=== PATIENT | female | born 1970 | race Caucasian/White ===

== ENCOUNTER 2020-09-11 10:51 | Inpatient (IN) ==
[2020-09-11] MEDS ORDERED: SODIUM CHLORIDE 0.9% 1000ML 1,000 ML IV ONE (12:04)
--- NOTE | 2020-09-11 12:17 | Electrocardiogram Report ---
Test Reason : Blood Pressure : / mmHG Vent. Rate : 070 BPM Atrial Rate : 070 BPM P-R Int : 110 ms QRS Dur : 074 ms QT Int : 394 ms P-R-T Axes : 025 068 047 degrees QTc Int : 425 ms Sinus rhythm with short HI Nonspecific ST and T wave abnormality Abnormal ECG No previous ECGs available Confirmed by Adonay Pérez ([id number]) on 09/11/2020 12:17:16 PM Referred By: REFERRED SELF Confirmed By:Adonay Pérez
[2020-09-11 12:22] LABS: Basophils # (auto) 0.02 K/uL (0-0.2); Basophils % (auto) 0.5 %; Eosinophils # (auto) 0.32 K/uL (0-0.5); Eosinophils % (auto) 7.9 %; Hematocrit (blood only) 32.1 % (37-47); Lymphocytes # (auto) 1.06 K/uL (1.2-3.4); Lymphocytes % (auto) 26.1 %; Mean Corpuscular Hgb Conc 31.2 g/dL (32-36); Mean Corpuscular Volume 86.8 fL (80-100); Mean Platelet Volume 9.5 fL (7.4-10.4); Monocytes % (auto) 9.9 %; Neutrophils # (auto) 2.26 K/uL (1.4-6.5); Neutrophils % (auto) 55.6 %; Platelet Count 325 K/uL (130-400); RDW Coefficient of Variation 21.3 % (11.5-14.5); RDW Standard Deviation 67.7 fL (36.4-46.3); White Blood Count 4.06 K/uL (4.8-10.8)
[2020-09-11 12:29] LABS: Appearance Urine Clear (Clear); Bilirubin Urine Negative (Negative); Blood Urine Negative (Negative); Color Urine Yellow; Glucose Urine UA Negative (Negative); Ketones Urine Negative (Negative); Leukocyte Esterase Urine Negative (Negative); Nitrite Urine Negative (Negative); Protein Urine Negative (Negative); Specific Gravity Urine 1.019 (1.000-1.030); Urobilinogen Urine Negative (Negative)
--- NOTE | 2020-09-11 12:31 | Emergency Department Note ---
History of Present Illness General Chief complaint: Illness Stated complaint: ABD PAIN/THROWING UP BLOOD/CHEST PAIN Time Seen by Provider: 09/11/20 11:28 History of Present Illness Maximum Pain Intensity: 9 This patient is a pleasant 50-year-old female the presents ambulatory to the emergency department for evaluation of several episodes of coffee-ground emesis that occurred this morning. The patient has a history of gastric bypass approximately 20 years ago in [place]. She has had GI bleeds in the past. She reports a normal bowel movement yesterday. She is having a burning epigastric pain that has been fairly constant since this morning. No exacerbating or alleviating factors. The patient is currently on Protonix and Carafate, which she has taken regularly. She denies any fever. She has not contacted her surgeon as of yet Home Medications Medication Instructions Recorded Confirmed Type apixaban [Eliquis] 5 mg PO BID 09/11/20 09/11/20 History cyanocobalamin (vitamin B-12) 1,000 mcg IM MONTHLY 09/11/20 09/11/20 History multivitamin 1 tab PO QAM 09/11/20 09/11/20 History ondansetron HCl [Zofran] 8 mg PO Q12H PRN 09/11/20 09/11/20 History pantoprazole [Protonix] 40 mg PO BID 09/11/20 09/11/20 History ropinirole 0.25 mg PO TID 09/11/20 09/11/20 History sucralfate [Carafate] 15 ml PO TID 09/11/20 09/11/20 History trazodone 150 mg PO HS 09/11/20 09/11/20 History zolpidem [Ambien] 10 mg PO HS 09/11/20 09/11/20 History Allergies Allergy/AdvReac Type Severity Reaction Status Date / Time No Known Allergies Allergy Unverified 09/11/20 12:34 Past Med/Surg History Medical History Anemia Depression History of deep venous thrombosis or pulmonary embolus Insomnia Peptic ulcer disease RLS (restless legs syndrome) Surgical History Gastric bypass status for obesity History of appendectomy History of cholecystectomy Family History Other Adopted Social History Smoking Status: Never smoker Hx Alcohol Use: No Hx Substance Use: No 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 Beliefs That Will Affect Care: None marital status: Current Living Situation: Spouse Feels Safe at Home: Yes Review of Systems A total of 10 systems reviewed and were otherwise negative Physical Exam Vital Signs Vital Signs - 24 hr 09/11/20 11:06 09/11/20 12:20 09/11/20 12:30 Temperature 37.5 C Temperature Source Oral Pulse Rate 82 63 67 Pulse Rate from SpO2 Sensor 63 67 Respiratory Rate 19 19 22 Respiratory Effort / Characteristics Non-Labored Respiratory Depth Normal Blood Pressure 103/66 94/61 L Blood Pressure Mean 78 72 Pulse Oximetry 93 99 96 Oxygen Delivery Method Room Air Room Air Room Air Sepsis Recent Fever Within 48 Hours No Sepsis New/Unexplained Change in Mental Status No Sepsis Action Taken by Nursing No Action Required 09/11/20 12:31 09/11/20 12:40 09/11/20 12:50 Temperature Temperature Source Pulse Rate 66 67 69 Pulse Rate from SpO2 Sensor 67 67 68 Respiratory Rate 16 15 18 Respiratory Effort / Characteristics Respiratory Depth Blood Pressure Blood Pressure Mean Pulse Oximetry 96 97 98 Oxygen Delivery Method Room Air Room Air Room Air Sepsis Recent Fever Within 48 Hours Sepsis New/Unexplained Change in Mental Status Sepsis Action Taken by Nursing 09/11/20 13:00 09/11/20 13:01 09/11/20 13:10 Temperature Temperature Source Pulse Rate 70 64 72 Pulse Rate from SpO2 Sensor 65 64 Respiratory Rate 22 23 15 Respiratory Effort / Characteristics Respiratory Depth Blood Pressure 97/63 L Blood Pressure Mean 74 Pulse Oximetry 95 96 Oxygen Delivery Method Room Air Room Air Room Air Sepsis Recent Fever Within 48 Hours Sepsis New/Unexplained Change in Mental Status Sepsis Action Taken by Nursing 09/11/20 13:27 09/11/20 13:30 09/11/20 13:31 Temperature Temperature Source Pulse Rate 71 63 64 Pulse Rate from SpO2 Sensor 69 64 64 Respiratory Rate 20 24 22 Respiratory Effort / Characteristics Respiratory Depth Blood Pressure 98/69 L Blood Pressure Mean 78 Pulse Oximetry 100 98 98 Oxygen Delivery Method Room Air Room Air Room Air Sepsis Recent Fever Within 48 Hours Sepsis New/Unexplained Change in Mental Status Sepsis Action Taken by Nursing 09/11/20 13:40 09/11/20 13:50 09/11/20 14:00 Temperature Temperature Source Pulse Rate 63 63 61 Pulse Rate from SpO2 Sensor 62 62 61 Respiratory Rate 20 20 21 Respiratory Effort / Characteristics Respiratory Depth Blood Pressure 98/60 L Blood Pressure Mean 72 Pulse Oximetry 99 95 99 Oxygen Delivery Method Room Air Room Air Room Air Sepsis Recent Fever Within 48 Hours Sepsis New/Unexplained Change in Mental Status Sepsis Action Taken by Nursing 09/11/20 14:01 09/11/20 14:10 09/11/20 14:20 Temperature Temperature Source Pulse Rate 60 59 L 62 Pulse Rate from SpO2 Sensor 59 L 60 61 Respiratory Rate 13 16 14 Respiratory Effort / Characteristics Respiratory Depth Blood Pressure Blood Pressure Mean Pulse Oximetry 99 95 96 Oxygen Delivery Method Room Air Room Air Room Air Sepsis Recent Fever Within 48 Hours Sepsis New/Unexplained Change in Mental Status Sepsis Action Taken by Nursing Constitutional WD/WN, vitals as above Eyes EOM intact bilaterally ENMT Oral mucosa slightly dry. Neck trachea midline Respiratory normal respiratory effort, lungs clear to auscultation Cardiovascular RRR, no murmur, no edema Gastrointestinal (Abdomen) Tenderness to palpation in the epigastric region. No guarding or rebound tenderness. Bowel sounds present, but hypoactive in all 4 quadrants Musculoskeletal no cyanosis or clubbing, extremities motor strength 5/5 Skin no rashes, warm and dry Neurologic Alert and oriented x3. No focal motor deficits. Psychiatric Acting appropriately Course Course Patient was seen and examined Vital signs including blood pressure were reviewed medications list was verified with patient Labs were obtained, and a saline lock was established An order was placed for continuous cardiac monitoring. The monitor shows a rate of 78 with normal sinus rhythm." The patient was ordered Protonix and fluids. A saline lock was established in addition to her port being accessed. The patient was reevaluated and still complaining of pain. She was ordered 0.5 mg of Dilaudid in addition to Zofran 4 mg as she is still nauseated. The case was discussed with my supervising physician who is in agreement with my plan The case was discussed with the [facility] service who kindly agreed to evaluate the patient for likely inpatient management. The patient remained stable in the emergency department. Consultations Consultation #1: dr. barton Administered Medications Hydromorphone HCl (Hydromorphone Inj 0.5 Mg/0.5 Ml Syr) 0.5 mg IV Q4 PRN PRN Reason: Pain Stop: 09/25/20 16:49 Last Admin: 09/11/20 17:16 Dose: 0.5 mg Documented by: [id number] Pantoprazole Sodium 40 mg/ (Dextrose) 100 mls @ 20 mls/hr IV Q5H ADAN Stop: 10/11/20 12:14 Last Admin: 09/11/20 13:35 Dose: 8 mg/hr, 20 mls/hr Documented by: [id number] Discontinued Medications Hydromorphone HCl (Hydromorphone Inj 0.5 Mg/0.5 Ml Syr) 0.5 mg IV NOW STA Stop: 09/11/20 13:41 Last Admin: 09/11/20 13:43 Dose: 0.5 mg Documented by: [id number] Sodium Chloride (Nss 1000ml) 1,000 mls @ 999 mls/hr IV .Q1H1M ONE Stop: 09/11/20 13:04 Last Infusion: 09/11/20 13:57 Dose: 0 mls/hr Documented by: [id number] Admin: 09/11/20 12:47 Dose: 999 mls/hr Documented by: [id number] Ioversol (Ioversol 100ml) 94 ml IV ONCE ONE Stop: 09/11/20 13:15 Last Admin: 09/11/20 13:15 Dose: 94 ml Documented by: [id number] Morphine Sulfate (Morphine Sulfate 4 Mg/Ml 1 Ml Carp\\Vial) 4 mg IV NOW STA Stop: 09/11/20 12:42 Last Admin: 09/11/20 12:47 Dose: 4 mg Documented by: [id number] Ondansetron HCl (Ondansetron Inj 2 Mg/Ml 2 Ml Vial) 4 mg IV NOW STA Stop: 09/11/20 12:42 Last Admin: 09/11/20 12:47 Dose: 4 mg Documented by: [id number] Medical Decision Making Home Medications Current Medication List: was personally reviewed by me Laboratory Data Attestation: I reviewed the patient's lab results. Result diagrams: 09/11/20 15:40 09/11/20 11:25 Lab Results 09/11/20 09/11/20 09/11/20 Range/Units 11:25 11:25 11:25 WBC 4.06 L (4.8-10.8) K/uL RBC 3.70 L (4.2-5.4) M/uL Hgb 10.0 L (12.0-16.0) g/dL Hct 32.1 L (37-47) % MCV 86.8 (80-100) fL MCH 27.0 (25-34) pg MCHC 31.2 L (32-36) g/dL RDW Std Deviation 67.7 H (36.4-46.3) fL RDW Coeff of Abhijeet 21.3 H (11.5-14.5) % Plt Count 325 (130-400) K/uL MPV 9.5 (7.4-10.4) fL Immature Gran % (Auto) 0.0 % Neut % (Auto) 55.6 % Lymph % (Auto) 26.1 % [place] % (Auto) 9.9 % Eos % (Auto) 7.9 % Baso % (Auto) 0.5 % Neut # (Auto) 2.26 (1.4-6.5) K/uL Lymph # (Auto) 1.06 L (1.2-3.4) K/uL [place] # (Auto) 0.40 (0.11-0.59) K/uL Eos # (Auto) 0.32 (0-0.5) K/uL Baso # (Auto) 0.02 (0-0.2) K/uL Immature Gran # (Auto) 0.00 (0.00-0.02) K/uL Anisocytosis Present PT (9.0-12.0) Seconds INR (0.9-1.1) Sodium 141 (136-145) mmol/L Potassium 3.8 (3.5-5.1) mmol/L Chloride 111 H (98-107) mmol/L Carbon Dioxide 25 (21-32) mmol/L Anion Gap 5.0 (3-11) BUN 10 (7-18) mg/dl Creatinine 0.75 (0.6-1.2) mg/dl Est Cr Clr Drug Dosing 75.9 ml/min Est GFR ( Amer) 109.2 Est GFR (Non-Af Amer) 94.3 BUN/Creatinine Ratio 12.7 (10-20) Glucose 88 (70-99) mg/dl Calcium 8.5 (8.5-10.1) mg/dl Magnesium 2.0 (1.8-2.4) mg/dl Total Bilirubin 0.2 (0.2-1) mg/dl AST 13 L (15-37) U/L ALT 17 (12-78) U/L Alkaline Phosphatase 121 H (45-117) U/L Troponin I < 0.015 (0-0.045) ng/ml Total Protein 6.4 (6.4-8.2) gm/dl Albumin 3.0 L (3.4-5.0) gm/dl Globulin 3.4 (2.5-4.0) gm/dl Albumin/Globulin Ratio 0.9 (0.9-2) Urine Color Urine Appearance (Clear) Urine pH (4.5-7.5) Ur Specific [place] (1.000-1.030) Urine Protein (Negative) Urine Glucose (UA) (Negative) Urine Ketones (Negative) Urine Blood (Negative) Urine Nitrite (Negative) Urine Bilirubin (Negative) Urine Urobilinogen (Negative) Ur Leukocyte Esterase (Negative) Blood Type A Negative Antibody Screen NEGATIVE 09/11/20 09/11/20 09/11/20 Range/Units 11:25 12:15 15:40 WBC (4.8-10.8) K/uL RBC (4.2-5.4) M/uL Hgb 9.6 L (12.0-16.0) g/dL Hct 30.2 L (37-47) % MCV (80-100) fL MCH (25-34) pg MCHC (32-36) g/dL RDW Std Deviation (36.4-46.3) fL RDW Coeff of Abhijeet (11.5-14.5) % Plt Count (130-400) K/uL MPV (7.4-10.4) fL Immature Gran % (Auto) % Neut % (Auto) % Lymph % (Auto) % [place] % (Auto) % Eos % (Auto) % Baso % (Auto) % Neut # (Auto) (1.4-6.5) K/uL Lymph # (Auto) (1.2-3.4) K/uL [place] # (Auto) (0.11-0.59) K/uL Eos # (Auto) (0-0.5) K/uL Baso # (Auto) (0-0.2) K/uL Immature Gran # (Auto) (0.00-0.02) K/uL Anisocytosis PT 10.3 (9.0-12.0) Seconds INR 1.0 (0.9-1.1) Sodium (136-145) mmol/L Potassium (3.5-5.1) mmol/L Chloride (98-107) mmol/L Carbon Dioxide (21-32) mmol/L Anion Gap (3-11) BUN (7-18) mg/dl Creatinine (0.6-1.2) mg/dl Est Cr Clr Drug Dosing ml/min Est GFR ( Amer) Est GFR (Non-Af Amer) BUN/Creatinine Ratio (10-20) Glucose (70-99) mg/dl Calcium (8.5-10.1) mg/dl Magnesium (1.8-2.4) mg/dl Total Bilirubin (0.2-1) mg/dl AST (15-37) U/L ALT (12-78) U/L Alkaline Phosphatase (45-117) U/L Troponin I (0-0.045) ng/ml Total Protein (6.4-8.2) gm/dl Albumin (3.4-5.0) gm/dl Globulin (2.5-4.0) gm/dl Albumin/Globulin Ratio (0.9-2) Urine Color Yellow Urine Appearance Clear (Clear) Urine pH 5.0 (4.5-7.5) Ur Specific [place] 1.019 (1.000-1.030) Urine Protein Negative (Negative) Urine Glucose (UA) Negative (Negative) Urine Ketones Negative (Negative) Urine Blood Negative (Negative) Urine Nitrite Negative (Negative) Urine Bilirubin Negative (Negative) Urine Urobilinogen Negative (Negative) Ur Leukocyte Esterase Negative (Negative) Blood Type Antibody Screen Imaging Data Attestation: I personally reviewed and interpreted this imaging study as follows: Radiologist's Impression: CT abdomen and pelvis with IV contrast only IMPRESSION: 1. No bowel obstruction or bowel wall thickening. 2. Prior gastric bypass, cholecystectomy, hysterectomy and findings suggestive of appendectomy. 3. Moderate fecal retention. ACT 112: Negative or not required by law. The above report was generated using voice recognition software. It may contain grammatical, syntax or spelling errors. Electronically signed by: Filippo Duncan M.D. 09/11/2020 1:36 PM Dictated: 09/11/20 1323 Transcribed: 09/11/20 1323 [facility] Narrative Differential diagnosis: GI bleed, pancreatitis, gastritis, infectious etiology, cardiac disease, among others were considered This patient is a 50-year-old female who presents emergency department with complaints of coffee-ground emesis and of epigastric pain that started this morning. On exam, she was slightly hypotensive. The patient notes that this is a typical blood pressure for her. Otherwise, her vital signs were unremarkable. Her labs reveal a stable H&H with a hemoglobin of 10. LFTs, electrolytes and renal function within normal limits. The patient does have a history of gastric bypass with several revisions. Although she was guaiac negative on her rectal exam, I am concerned about a GI bleed. I am also concerned as the patient is on Eliquis for a recent PE. For these reasons, it was felt that it was necessary to consult the hospitalist for likely inpatient management. She was treated with Protonix and fluids in the emergency department and remained stable. Impression & Plan Acute GI bleeding Discharge Plan Visit Data Chief Complaint: Illness Stated Complaint: ABD PAIN/THROWING UP BLOOD/CHEST PAIN ED Provider: Beverley Hahn ED Midlevel Provider: Jacqueline Aguilar Discharge Problem: Acute GI bleeding Patient Disposition: Admitted As Inpatient Discharge Instructions Interventions: ED Discharge Assessment Last Done: 09/11/20 19:15
[2020-09-11 12:32] LABS: Prothrombin Time 10.3 Seconds (9.0-12.0)
[2020-09-11] MEDS ORDERED: MoRPHine SULFATE 4 MG/ML 1 ML CARP\\VIAL IV STA (12:41)
[2020-09-11] MEDS ORDERED: ONDANSETRON INJ 2 MG/ML 2 ML VIAL IV STA (12:41)
[2020-09-11 12:43] LABS: Anisocytosis Present
[2020-09-11 12:45] LABS: Alanine Aminotransferase 17 U/L (12-78); Aspartate Aminotransferase 13 U/L (15-37); BUN Creatinine Ratio 12.7 (10-20); Blood Urea Nitrogen 10 mg/dl (7-18); Calcium 8.5 mg/dl (8.5-10.1); Carbon Dioxide 25 mmol/L (21-32); Chloride 111 mmol/L (98-107); Creatinine Clr Calc Pharmacy 75.9 ml/min; Est GFR (African American) 109.2; Est GFR (Non-African American) 94.3; Glucose 88 mg/dl (70-99); Potassium 3.8 mmol/L (3.5-5.1); Sodium 141 mmol/L (136-145)
[2020-09-11 12:49] LABS: Albumin Globulin Ratio 0.9 (0.9-2); Alkaline Phosphatase 121 U/L (45-117); Bilirubin,Total 0.2 mg/dl (0.2-1); Globulin 3.4 gm/dl (2.5-4.0); Total Protein 6.4 gm/dl (6.4-8.2); Troponin I < 0.015 ng/ml (0-0.045)
[2020-09-11] MEDS ORDERED: OPTIRAY 320 100ml IV ONE (13:14)
[2020-09-11] MEDS: PANTOprazole 40 MG in DEXTROSE 5% 100 ML IV SCH ×3 (13:35→23:02)
--- NOTE | 2020-09-11 13:37 | CT Scan Report ---
ABDOMEN AND PELVIS CT WITH IV CONTRAST CT DOSE: 284.41 mGy.cm HISTORY: Acute hematemesis with prior gastric bypass gi bleed hx of bypass TECHNIQUE: Multiaxial CT images of the abdomen and pelvis were performed following the IV administrat ion of 94 cc of Optiray 320, A dose lowering technique was utilized adhering to the principles of [place] HENRY. COMPARISON STUDY: None. FINDINGS: Eventration of the right hemidiaphragm. Partially imaged catheter is noted within the right atrium. Imaged inferior cardiac chambers are unremarkable. 4 mm solid nodule of the left lower lobe on image 17. Trace left pleural effusion. No pneumatosis or pneumoperitoneum. The spleen, pancreas an d adrenal glands are unremarkable. Cholecystectomy. Mild intrahepatic and extrahepatic biliary ductal dilation is likely a postsurgical basis. Patency of the hepatic and portal veins. Probable cyst of t he left hepatic lobe is 6 mm. Ill-defined subcapsular decreased attenuation of the left hepatic lobe suggest areas of focal fatty infiltration. Normal kidneys, ureters and urinary bladder. Hysterectomy. Numerous phleboliths of the pelvis. No aor tic aneurysm. Unremarkable IVC. No adenopathy. Postoperative changes of prior Eamon-en-Y gastric bypas s. No bowel obstruction or bowel wall thickening. Mild to moderate fecal retention. Surgical clips ar e noted adjacent to the transverse colon. Surgical suture material of the cecum suggests appendectomy . Appendix not visualized. No ascites or mesenteric inflammation. Unremarkable soft tissues. No acute fracture. L5 vertebral body hemangioma. IMPRESSION: 1. No bowel obstruction or bowel wall thickening. 2. Prior gastric bypass, cholecystectomy, hysterectomy and findings suggestive of appendectomy. 3. Moderate fecal retention. ACT 112: Negative or not required by law. The above report was generated using voice recognition software. It may contain grammatical, syntax o r spelling errors. Electronically signed by: Filippo Duncan M.D. 09/11/2020 1:36 PM
[2020-09-11] MEDS ORDERED: HYDROmorphone INJ 0.5 MG/0.5 ML SYR IV STA (13:40)
[2020-09-11 16:01] LABS: Hematocrit (blood only) 30.2 % (37-47); Hemoglobin 9.6 g/dL (12.0-16.0)
--- NOTE | 2020-09-11 16:52 | History & Physical Report ---
Date of Service September 11, 2020 Assessment & Plan (1) Anemia: Presents with acute on chronic blood loss anemia With a history of multiple GI bleeds, twice requiring revision of her Eamon-en-Y anastomosis with [facility]. Most recent GI bleed was in 2019 and was treated at [facility] where she is from. She has been on Protonix twice daily and Carafate since that time. No NSAID or aspirin use but has been on Eliquis since 06/2020 for her recent PE. Hemoglobin 10.0 on arrival and down to 9.6 several hours later on recheck. She believes her baseline hemoglobin is 10-11. She is currently hemodynamically stable-her baseline blood pressure is always in the 90s over 60s and remains that here; her heart rate is in the 60s -Admit to PCU for telemetry monitoring -Serial CBCs -Consult gastroenterology-discussed care on the phone with Dr. Santana- recommended PPI drip, starting misoprostol, n.p.o. except chips and sips, serial CBC, and plan for EGD on Sunday unless decompensates hemodynamically in which case EGD would be performed more urgently. -Hold Eliquis -Discussed possibility of giving PCC with Dr. Petty who recommended against it at this time but if patient became hemodynamically unstable, could consider this -Transfuse if hemoglobin continues to drop and continues to have evidence of bleeding-blood consent was obtained (2) Peptic ulcer disease: As noted above Hold home Carafate in case need for EGD as it would obscure visibility Continuing IV PPI (3) History of deep venous thrombosis or pulmonary embolus: With a history of DVTs many years ago which was treated with Lovenox SQ Had PE diagnosed 06/2020 in the setting of Covid infection just prior to that. She reports she did not have DVTs at that time on Doppler. I do not have any of these records available. She does report that the blood clot in her lung was not tiny but was not large. 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 However, given that she has little to no stomach left due to her surgeries, DOAC's are not recommended and likely Lovenox would be her best choice moving forward. Will check venous Dopplers of the lower extremities. If she has evidence of acute DVT, could be considered for IVC filter (4) Gastric bypass status for obesity: As noted above Receives IM B12 shots at home Hold home multivitamin (5) Depression: Continue home trazodone (6) Insomnia: Continue trazodone, Ambien (7) RLS (restless legs syndrome): Continue home ropinirole (8) DVT prophylaxis: SCDs only as long as Dopplers negative Disposition-admit to PCU Full code History of Present Illness Chief Complaint: Vomiting blood Primary Care Provider: NO PCP This patient is a 50-year-old female with history of Eamon-en-Y gastric bypass 20 years ago, recurrent GI bleeds requiring to partial gastrectomies/revision of anastomosis in 2006 [facility], recurrent DVT/PE on Eliquis, insomnia and depression, who presents to the ER with 6 episodes of coffee-ground hematemesis that started suddenly this morning. She has epigastric abdominal pain and continued nausea. She denies any melena or bright red blood per rectum, no lower abdominal pain. She denies any history of aspirin or NSAID use, but is on Eliquis since she had a PE in June 2020 1 month after she had Covid. She denies chest pain or shortness of breath, denies lightheadedness. Her blood pressures in the ER were in the 90s over 60s which she reports is normal for her. Her last dose of Eliquis was the morning of 09/11. In the ER, she had a hemoglobin of 10.0 and she reports her baseline is somewhere around 11. She then had a repeat hemoglobin 4 hours later which was 9.6. Otherwise her laboratory values were fairly unremarkable. Coags with PT/INR was normal. A CT of the abdomen/pelvis showed postoperative changes of prior Eamon-en-Y gastric bypass, no bowel obstruction or bowel wall thickening, mild to moderate fecal retention, status post cholecystectomy and appendectomy, otherwise no acute changes. Allergies Allergy/AdvReac Type Severity Reaction Status Date / Time No Known Allergies Allergy Unverified 09/11/20 12:34 Home Medications Medication Instructions Recorded Confirmed Type apixaban [Eliquis] 5 mg PO BID 09/11/20 09/11/20 History cyanocobalamin (vitamin B-12) 1,000 mcg IM MONTHLY 09/11/20 09/11/20 History multivitamin 1 tab PO QAM 09/11/20 09/11/20 History ondansetron HCl [Zofran] 8 mg PO Q12H PRN 09/11/20 09/11/20 History pantoprazole [Protonix] 40 mg PO BID 09/11/20 09/11/20 History ropinirole 0.25 mg PO TID 09/11/20 09/11/20 History sucralfate [Carafate] 15 ml PO TID 09/11/20 09/11/20 History trazodone 150 mg PO HS 09/11/20 09/11/20 History zolpidem [Ambien] 10 mg PO HS 09/11/20 09/11/20 History Past Med/Surg History Medical History (Updated 09/11/20 @ 18:26 by Kristie Chapman MD) Anemia Depression History of deep venous thrombosis or pulmonary embolus Insomnia Peptic ulcer disease RLS (restless legs syndrome) Surgical History Gastric bypass status for obesity History of appendectomy History of cholecystectomy Family History Other Adopted Social History (Updated 09/11/20 @ 18:11 by Kristie Chapman MD) Smoking Status: Former smoker Hx Alcohol Use: No Hx Substance Use: No marital status: Current Living Situation: Spouse Feels Safe at Home: Yes Review of Systems Review of Systems: All systems reviewed & are unremarkable except as noted in HPI & below Physical Exam Constitutional: WD/WN, vitals as above Eyes: + anicteric sclerae; no conjunctival abnormality ENMT: external ear and nose normal, oropharynx normal Neck: trachea midline, no thyromegaly Respiratory: normal respiratory effort, lungs clear to auscultation Cardiovascular: RRR, no murmur, no edema Extremities: no calf tenderness Chest (Breasts): Chest: normal inspection of chest Gastrointestinal (Abdomen): Inspection/Auscultation: normal bowel sounds; + abdomen abnormal to inspection (Midline surgical incision scar) Percussion/Palpation: + abdomen tender (In epigastric region without guarding or rebound) and abdomen soft; no guarding Musculoskeletal: Extremities: extremities normal to inspection; no cyanosis and no clubbing Skin: no rashes, warm and dry Neurologic: moves all extremities and awake; no focal motor deficits Psychiatric: A+Ox3, euthymic affect Lymphatic: no lymphedema Results & Data Results & Data ([facility]) Vital Signs (Past 12 Hours) Vital Signs Temp Pulse Resp BP Pulse Ox 09/11/20 14:20 62 14 96 09/11/20 14:10 59 L 16 95 09/11/20 14:01 60 13 99 09/11/20 14:00 61 21 98/60 L 99 09/11/20 13:50 63 20 95 09/11/20 13:40 63 20 99 09/11/20 13:31 64 22 98 09/11/20 13:30 63 24 98/69 L 98 09/11/20 13:27 71 20 100 09/11/20 13:10 72 15 09/11/20 13:01 64 23 96 09/11/20 13:00 70 22 97/63 L 95 09/11/20 12:50 69 18 98 09/11/20 12:40 67 15 97 09/11/20 12:31 66 16 96 09/11/20 12:30 67 22 94/61 L 96 09/11/20 12:20 63 19 99 09/11/20 11:06 37.5 C 82 19 103/66 93 Laboratory Results 09/11/20 09/11/20 09/11/20 Range/Units 17:59 17:59 15:40 WBC (4.8-10.8) K/uL RBC (4.2-5.4) M/uL Hgb 9.6 L (12.0-16.0) g/dL Hct 30.2 L (37-47) % MCV (80-100) fL MCH (25-34) pg MCHC (32-36) g/dL RDW Std Deviation (36.4-46.3) fL RDW Coeff of Abhijeet (11.5-14.5) % Plt Count (130-400) K/uL MPV (7.4-10.4) fL Immature Gran % (Auto) % Neut % (Auto) % Lymph % (Auto) % Sumner % (Auto) % Eos % (Auto) % Baso % (Auto) % Neut # (Auto) (1.4-6.5) K/uL Lymph # (Auto) (1.2-3.4) K/uL Sumner # (Auto) (0.11-0.59) K/uL Eos # (Auto) (0-0.5) K/uL Baso # (Auto) (0-0.2) K/uL Immature Gran # (Auto) (0.00-0.02) K/uL Anisocytosis PT (9.0-12.0) Seconds INR (0.9-1.1) Sodium (136-145) mmol/L Potassium (3.5-5.1) mmol/L Chloride (98-107) mmol/L Carbon Dioxide (21-32) mmol/L Anion Gap (3-11) BUN (7-18) mg/dl Creatinine (0.6-1.2) mg/dl Est Cr Clr Drug Dosing ml/min Est GFR ( Amer) Est GFR (Non-Af Amer) BUN/Creatinine Ratio (10-20) Glucose (70-99) mg/dl Calcium (8.5-10.1) mg/dl Magnesium (1.8-2.4) mg/dl Total Bilirubin (0.2-1) mg/dl AST (15-37) U/L ALT (12-78) U/L Alkaline Phosphatase (45-117) U/L Troponin I (0-0.045) ng/ml Total Protein (6.4-8.2) gm/dl Albumin (3.4-5.0) gm/dl Globulin (2.5-4.0) gm/dl Albumin/Globulin Ratio (0.9-2) Urine Color Urine Appearance (Clear) Urine pH (4.5-7.5) Ur Specific Downing (1.000-1.030) Urine Protein (Negative) Urine Glucose (UA) (Negative) Urine Ketones (Negative) Urine Blood (Negative) Urine Nitrite (Negative) Urine Bilirubin (Negative) Urine Urobilinogen (Negative) Ur Leukocyte Esterase (Negative) COVID-19 Eval [facility] SARS-[facility]-2, RNA, NAAT Pending Blood Type Antibody Screen 09/11/20 09/11/20 09/11/20 Range/Units 12:15 11:25 11:25 WBC (4.8-10.8) K/uL RBC (4.2-5.4) M/uL Hgb (12.0-16.0) g/dL Hct (37-47) % MCV (80-100) fL MCH (25-34) pg MCHC (32-36) g/dL RDW Std Deviation (36.4-46.3) fL RDW Coeff of Abhijeet (11.5-14.5) % Plt Count (130-400) K/uL MPV (7.4-10.4) fL Immature Gran % (Auto) % Neut % (Auto) % Lymph % (Auto) % Sumner % (Auto) % Eos % (Auto) % Baso % (Auto) % Neut # (Auto) (1.4-6.5) K/uL Lymph # (Auto) (1.2-3.4) K/uL Sumner # (Auto) (0.11-0.59) K/uL Eos # (Auto) (0-0.5) K/uL Baso # (Auto) (0-0.2) K/uL Immature Gran # (Auto) (0.00-0.02) K/uL Anisocytosis PT 10.3 (9.0-12.0) Seconds INR 1.0 (0.9-1.1) Sodium 141 (136-145) mmol/L Potassium 3.8 (3.5-5.1) mmol/L Chloride 111 H (98-107) mmol/L Carbon Dioxide 25 (21-32) mmol/L Anion Gap 5.0 (3-11) BUN 10 (7-18) mg/dl Creatinine 0.75 (0.6-1.2) mg/dl Est Cr Clr Drug Dosing 75.9 ml/min Est GFR ( Amer) 109.2 Est GFR (Non-Af Amer) 94.3 BUN/Creatinine Ratio 12.7 (10-20) Glucose 88 (70-99) mg/dl Calcium 8.5 (8.5-10.1) mg/dl Magnesium 2.0 (1.8-2.4) mg/dl Total Bilirubin 0.2 (0.2-1) mg/dl AST 13 L (15-37) U/L ALT 17 (12-78) U/L Alkaline Phosphatase 121 H (45-117) U/L Troponin I < 0.015 (0-0.045) ng/ml Total Protein 6.4 (6.4-8.2) gm/dl Albumin 3.0 L (3.4-5.0) gm/dl Globulin 3.4 (2.5-4.0) gm/dl Albumin/Globulin Ratio 0.9 (0.9-2) Urine Color Yellow Urine Appearance Clear (Clear) Urine pH 5.0 (4.5-7.5) Ur Specific Downing 1.019 (1.000-1.030) Urine Protein Negative (Negative) Urine Glucose (UA) Negative (Negative) Urine Ketones Negative (Negative) Urine Blood Negative (Negative) Urine Nitrite Negative (Negative) Urine Bilirubin Negative (Negative) Urine Urobilinogen Negative (Negative) Ur Leukocyte Esterase Negative (Negative) COVID-19 Eval Order SARS-CoV-2, RNA, NAAT Blood Type Antibody Screen 09/11/20 09/11/20 Range/Units 11:25 11:25 WBC 4.06 L (4.8-10.8) K/uL RBC 3.70 L (4.2-5.4) M/uL Hgb 10.0 L (12.0-16.0) g/dL Hct 32.1 L (37-47) % MCV 86.8 (80-100) fL MCH 27.0 (25-34) pg MCHC 31.2 L (32-36) g/dL RDW Std Deviation 67.7 H (36.4-46.3) fL RDW Coeff of Abhijeet 21.3 H (11.5-14.5) % Plt Count 325 (130-400) K/uL MPV 9.5 (7.4-10.4) fL Immature Gran % (Auto) 0.0 % Neut % (Auto) 55.6 % Lymph % (Auto) 26.1 % Sumner % (Auto) 9.9 % Eos % (Auto) 7.9 % Baso % (Auto) 0.5 % Neut # (Auto) 2.26 (1.4-6.5) K/uL Lymph # (Auto) 1.06 L (1.2-3.4) K/uL Sumner # (Auto) 0.40 (0.11-0.59) K/uL Eos # (Auto) 0.32 (0-0.5) K/uL Baso # (Auto) 0.02 (0-0.2) K/uL Immature Gran # (Auto) 0.00 (0.00-0.02) K/uL Anisocytosis Present PT (9.0-12.0) Seconds INR (0.9-1.1) Sodium (136-145) mmol/L Potassium (3.5-5.1) mmol/L Chloride (98-107) mmol/L Carbon Dioxide (21-32) mmol/L Anion Gap (3-11) BUN (7-18) mg/dl Creatinine (0.6-1.2) mg/dl Est Cr Clr Drug Dosing ml/min Est GFR ( Amer) Est GFR (Non-Af Amer) BUN/Creatinine Ratio (10-20) Glucose (70-99) mg/dl Calcium (8.5-10.1) mg/dl Magnesium (1.8-2.4) mg/dl Total Bilirubin (0.2-1) mg/dl AST (15-37) U/L ALT (12-78) U/L Alkaline Phosphatase (45-117) U/L Troponin I (0-0.045) ng/ml Total Protein (6.4-8.2) gm/dl Albumin (3.4-5.0) gm/dl Globulin (2.5-4.0) gm/dl Albumin/Globulin Ratio (0.9-2) Urine Color Urine Appearance (Clear) Urine pH (4.5-7.5) Ur Specific Downing (1.000-1.030) Urine Protein (Negative) Urine Glucose (UA) (Negative) Urine Ketones (Negative) Urine Blood (Negative) Urine Nitrite (Negative) Urine Bilirubin (Negative) Urine Urobilinogen (Negative) Ur Leukocyte Esterase (Negative) COVID-19 Eval Order SARS-CoV-2, RNA, NAAT Blood Type A Negative Antibody Screen NEGATIVE Diagnostic Findings ABDOMEN AND PELVIS CT WITH IV CONTRAST CT DOSE: 284.41 mGy.cm HISTORY: Acute hematemesis with prior gastric bypass gi bleed hx of bypass TECHNIQUE: Multiaxial CT images of the abdomen and pelvis were performed following the IV administration of 94 cc of Optiray 320, A dose lowering technique was utilized adhering to the principles of ALARA. COMPARISON STUDY: None. FINDINGS: Eventration of the right hemidiaphragm. Partially imaged catheter is noted within the right atrium. Imaged inferior cardiac chambers are unremarkable. 4 mm solid nodule of the left lower lobe on image 17. Trace left pleural effusion. No pneumatosis or pneumoperitoneum. The spleen, pancreas and adrenal glands are unremarkable. Cholecystectomy. Mild intrahepatic and extrahepatic biliary ductal dilation is likely a postsurgical basis. Patency of the hepatic and portal veins. Probable cyst of the left hepatic lobe is 6 mm. Ill-defined subcapsular decreased attenuation of the left hepatic lobe suggest areas of focal fatty infiltration. Normal kidneys, ureters and urinary bladder. Hysterectomy. Numerous phleboliths of the pelvis. No aortic aneurysm. Unremarkable IVC. No adenopathy. Postoperative changes of prior Eamon-en-Y gastric bypass. No bowel obstruction or bowel wall thickening. Mild to moderate fecal retention. Surgical clips are noted adjacent to the transverse colon. Surgical suture material of the cecum suggests appendectomy. Appendix not visualized. No ascites or mesenteric inflammation. Unremarkable soft tissues. No acute fracture. L5 vertebral body hemangioma. IMPRESSION: 1. No bowel obstruction or bowel wall thickening. 2. Prior gastric bypass, cholecystectomy, hysterectomy and findings suggestive of appendectomy. 3. Moderate fecal retention. ECG Additional Comments: ECG on 09/11/2020 1117 with normal sinus rhythm with short [place], rate 70, nonspecific ST and T wave abnormality Code Status & VTE Plan Code Status Full code VTE Prophylaxis Plan VTE Prophylaxis will be ordered: Yes PG Care Time/CCT Total # of Minutes Spent Total Time Spent with Patient: Total time spent is greater than 50% in coordination of care (as documented) at patient's floor/unit and/or counseling patient: Coding Level of Care Code 15521 Initial Inpt Care Lvl 3 Diagnoses Anemia D64.9 Peptic ulcer disease K27.9 History of deep venous thrombosis or pulmonary embolus Gastric bypass status for obesity Z98.84 Depression F32.9 Insomnia G47.00 RLS (restless legs syndrome) G25.81 DVT prophylaxis Z29.9
[2020-09-11] MEDS: HYDROmorphone INJ 0.5 MG/0.5 ML SYR IV PRN ×2 (17:16→21:31)
[2020-09-11 20:29] LABS: Basophils # (auto) 0.02 K/uL (0-0.2); Basophils % (auto) 0.4 %; Eosinophils # (auto) 0.45 K/uL (0-0.5); Eosinophils % (auto) 8.8 %; Hematocrit (blood only) 34.3 % (37-47); Hemoglobin 10.8 g/dL (12.0-16.0); Immature Granulocytes # (auto) 0.01 K/uL (0.00-0.02); Immature Granulocytes % (auto) 0.2 %; Lymphocytes # (auto) 1.44 K/uL (1.2-3.4); Lymphocytes % (auto) 28.1 %; Mean Corpuscular Hemoglobin 27.4 pg (25-34); Mean Corpuscular Hgb Conc 31.5 g/dL (32-36); Mean Corpuscular Volume 87.1 fL (80-100); Mean Platelet Volume 9.1 fL (7.4-10.4); Monocytes % (auto) 5.8 %; Neutrophils # (auto) 2.91 K/uL (1.4-6.5); Neutrophils % (auto) 56.7 %; Platelet Count 316 K/uL (130-400); RDW Coefficient of Variation 21.1 % (11.5-14.5); RDW Standard Deviation 67.4 fL (36.4-46.3); Red Blood Count 3.94 M/uL (4.2-5.4); White Blood Count 5.13 K/uL (4.8-10.8)
[2020-09-11 20:53] LABS: Anisocytosis Present
--- NOTE | 2020-09-11 21:25 | Ultrasound Report ---
BILATERAL LOWER EXTREMITY VENOUS DOPPLER HISTORY: Acute pain and swelling of the lower legs r/o DVT,h/o DVT/PE,GI bleeding COMPARISON STUDY: None. FINDINGS: There is normal compressibility, flow, and augmentation within the bilateral lower extremit y deep venous systems. IMPRESSION: No DVT within the right or left lower extremity. ACT 112: Negative or not required by law. Electronically signed by: Filippo Duncan M.D. 09/11/2020 9:23 PM
[2020-09-11] MEDS: ONDANSETRON INJ 2 MG/ML 2 ML VIAL IV PRN (21:34)
[2020-09-11] MEDS: LACTATED RINGER'S 1,000 ML IV SCH (21:38)
[2020-09-11] MEDS: rOPINIRole HCL 0.25 MG TABLET PO SCH (21:39)
[2020-09-11] MEDS: ZOLPIDEM TARTRATE 10 MG TAB PO SCH (21:39)
[2020-09-11] MEDS: traZODone HCL 50 MG TAB PO SCH (21:40)
[2020-09-11] MEDS: miSOPROStoL 50 MCG TAB PO SCH (21:40)
[2020-09-11 23:40] LABS: Basophils # (auto) 0.05 K/uL (0-0.2); Eosinophils # (auto) 0.43 K/uL (0-0.5); Eosinophils % (auto) 8.7 %; Hemoglobin 10.8 g/dL (12.0-16.0); Immature Granulocytes # (auto) 0.01 K/uL (0.00-0.02); Immature Granulocytes % (auto) 0.2 %; Lymphocytes # (auto) 0.97 K/uL (1.2-3.4); Lymphocytes % (auto) 19.7 %; Mean Corpuscular Hemoglobin 27.6 pg (25-34); Mean Corpuscular Hgb Conc 31.8 g/dL (32-36); Mean Platelet Volume 9.1 fL (7.4-10.4); Monocytes # (auto) 0.33 K/uL (0.11-0.59); Monocytes % (auto) 6.7 %; Neutrophils # (auto) 3.13 K/uL (1.4-6.5); Neutrophils % (auto) 63.7 %; Platelet Count 334 K/uL (130-400); RDW Coefficient of Variation 21.5 % (11.5-14.5); Red Blood Count 3.91 M/uL (4.2-5.4); White Blood Count 4.92 K/uL (4.8-10.8)
[2020-09-12 00:05] LABS: Anisocytosis Present; Hypochromasia Present
[2020-09-12] MEDS ORDERED: HEPARIN 100 UNIT/ML 5ML FLUSH FLUSH PRN (00:19)
[2020-09-12] MEDS: HYDROmorphone INJ 0.5 MG/0.5 ML SYR IV PRN ×4 (03:30→15:28)
[2020-09-12] MEDS: ONDANSETRON INJ 2 MG/ML 2 ML VIAL IV PRN ×3 (03:30→17:01)
[2020-09-12] MEDS: PANTOprazole 40 MG in DEXTROSE 5% 100 ML IV SCH ×4 (03:39→17:58)
[2020-09-12 06:51] LABS: Basophils # (auto) 0.02 K/uL (0-0.2); Basophils % (auto) 0.5 %; Eosinophils # (auto) 0.32 K/uL (0-0.5); Hematocrit (blood only) 31.6 % (37-47); Hemoglobin 10.1 g/dL (12.0-16.0); Lymphocytes # (auto) 0.81 K/uL (1.2-3.4); Lymphocytes % (auto) 20.1 %; Mean Corpuscular Hemoglobin 27.7 pg (25-34); Mean Corpuscular Volume 86.6 fL (80-100); Mean Platelet Volume 8.9 fL (7.4-10.4); Monocytes # (auto) 0.25 K/uL (0.11-0.59); Monocytes % (auto) 6.2 %; Neutrophils # (auto) 2.62 K/uL (1.4-6.5); Neutrophils % (auto) 65.2 %; Platelet Count 291 K/uL (130-400); RDW Coefficient of Variation 21.2 % (11.5-14.5); RDW Standard Deviation 67.1 fL (36.4-46.3); Red Blood Count 3.65 M/uL (4.2-5.4); White Blood Count 4.02 K/uL (4.8-10.8)
[2020-09-12 07:22] LABS: Anisocytosis Present
[2020-09-12 07:27] LABS: BUN Creatinine Ratio 6.5 (10-20); Calcium 8.7 mg/dl (8.5-10.1); Creatinine Clr Calc Pharmacy 73.9 ml/min; Est GFR (African American) 105.8; Est GFR (Non-African American) 91.3; Magnesium 1.7 mg/dl (1.8-2.4); Potassium 3.6 mmol/L (3.5-5.1)
[2020-09-12 07:30] LABS: Bilirubin,Total 0.3 mg/dl (0.2-1); Globulin 2.9 gm/dl (2.5-4.0); Phosphorus 3.7 mg/dl (2.5-4.9); Total Protein 5.9 gm/dl (6.4-8.2)
[2020-09-12] MEDS: LACTATED RINGER'S 1,000 ML IV SCH ×2 (07:59→17:01)
[2020-09-12] MEDS: miSOPROStoL 50 MCG TAB PO SCH ×2 (08:00→20:52)
[2020-09-12] MEDS: rOPINIRole HCL 0.25 MG TABLET PO SCH ×3 (08:00→20:53)
[2020-09-12] MEDS ORDERED: MAGNESIUM SULFATE / D5W 1 GM/100 ML BAG IV ONE (08:30)
[2020-09-12] MEDS: PROCHLORPERAZINE 10 MG in SYRINGE 8 ML IV PRN ×2 (08:33→21:38)
--- NOTE | 2020-09-12 09:11 | Gastrointestinal Consultation ---
Date of Consultation September 12, 2020 Assessment & Plan (1) Acute GI bleedin yo female with long standing history of anastomotic ulcers following RYGB many years ago. has had 2 revisions related to this. High risk area for ulcer given unnatural blood supply. No NSAIDs or tobacco use. Now with coffee ground emesis yesterday in the setting of Eloquis started in June for PE. No s/s of on-going bleeding. H/H is stable and BUN not elevated. No BM. No emesis. - Hold Eloquis - PPI gtt to continue - Clear liquids OK today. - NPO after midnight tonight for likely EGD tomorrow. (2) History of deep venous thrombosis or pulmonary embolus: (3) Gastric bypass status for obesity: (4) Ulcer at site of surgical anastomosis following bypass of stomach: History of Present Illness Reason for Consultation: coffee ground emesis Requesting Physician: Dr. Chapman Attending Physician: Kevin Calle History of Present Illness 50 yo female with a history of RYGB 20 years ago who has a history of recurrent anastomotic ulcers which have necessitated revision of her gastric bypass x2, most recently in 2007. She has then had several UGI episodes related to ulcers. Last was in 2019. She is maintained on BID Protonix as well as carafate. In June she was diagnosed with a OE and has been on Eloquis since that time. She presented to the ER with several episodes of coffee ground emesis. Her hgb has remained stable at 10 which she tells me is around her baseline. Her BUN is not elevated. She has not had any further emesis but has had some dry heaves this AM. No BM in over 24 hours. Denies melena at home. Last Eloquis was yesterday AM. Allergies Allergy/AdvReac Type Severity Reaction Status Date / Time No Known Allergies Allergy Unverified 09/11/20 12:34 Home Medications Medication Instructions Recorded Confirmed Type apixaban [Eliquis] 5 mg PO BID 09/11/20 09/11/20 History cyanocobalamin (vitamin B-12) 1,000 mcg IM MONTHLY 09/11/20 09/11/20 History multivitamin 1 tab PO QAM 09/11/20 09/11/20 History ondansetron HCl [Zofran] 8 mg PO Q12H PRN 09/11/20 09/11/20 History pantoprazole [Protonix] 40 mg PO BID 09/11/20 09/11/20 History ropinirole 0.25 mg PO TID 09/11/20 09/11/20 History sucralfate [Carafate] 15 ml PO TID 09/11/20 09/11/20 History trazodone 150 mg PO HS 09/11/20 09/11/20 History zolpidem [Ambien] 10 mg PO HS 09/11/20 09/11/20 History Patient History Medical History Anemia Depression History of deep venous thrombosis or pulmonary embolus Insomnia Peptic ulcer disease RLS (restless legs syndrome) Surgical History Gastric bypass status for obesity History of appendectomy History of cholecystectomy Family History Other Adopted Social History Smoking Status: Never smoker Hx Alcohol Use: No Hx Substance Use: No Gravedigger Required: No Beliefs That Will Affect Care: None marital status: Current Living Situation: Spouse Feels Safe at Home: Yes Assistive Devices: Glasses Review of Systems Review of Systems: All systems reviewed & are unremarkable except as noted in HPI & below Physical Exam Constitutional: WD/WN, vitals as above Eyes: PERRL, conjunctivae normal, anicteric sclerae Neck: trachea midline, no thyromegaly Respiratory: normal respiratory effort, lungs clear to auscultation Cardiovascular: RRR, no murmur, no edema Gastrointestinal (Abdomen): normal bowel sounds, soft, nontender, no hepatosplenomegaly Musculoskeletal: no cyanosis or clubbing, extremities motor strength 5/5 Neurologic: CN's II-XI intact bilaterally Results & Data ([facility]) Vital Signs (Past 12 Hours) Vital Signs Temp Pulse Resp BP Pulse Ox 09/12/20 08:01 38.0 C H 90 16 98/62 L 98 09/12/20 03:55 37.5 C 79 16 91/55 L 97 09/11/20 23:21 36.7 C 84 16 116/73 99
[2020-09-12] MEDS: ACETAMINOPHEN 325 MG TAB PO PRN (11:37)
[2020-09-12 15:39] LABS: Hemoglobin 10.4 g/dL (12.0-16.0)
[2020-09-12 16:00] LABS: Ferritin 65.9 ng/ml (8-388)
[2020-09-12] MEDS: SUCRALFATE 1 GM/10 ML UDC PO SCH ×2 (17:01→20:53)
[2020-09-12] MEDS: HYDROmorphone INJ 1 MG/ML SYRINGE IV PRN ×2 (17:08→20:52)
[2020-09-12 17:20] LABS: Folate (Folic Acid) > 20.00 ng/ml (>5.38); Vitamin B12 378 pg/ml (193-986)
--- NOTE | 2020-09-12 18:50 | XRay Report ---
TWO VIEW CHEST CLINICAL HISTORY: Fever. FINDINGS: PA and lateral chest radiographs are obtained. No prior studies are available for compariso n at the time of dictation. A right internal jugular central venous infusion port is in place. The ca rdiomediastinal silhouette is unremarkable. Nonspecific interstitial thickening is likely chronic. Th ere is no airspace consolidation or pleural effusion. Mild atelectasis is seen at the lung bases. The re is no pneumothorax. The bony thorax appears intact. Cholecystectomy clips are noted in the right u pper quadrant. Suture material and surgical clips also project over the gastroesophageal junction. IMPRESSION: No active disease in the chest. ACT 112: Negative or not required by law. Electronically signed by: Venkat Carson M.D. 09/12/2020 6:48 PM
[2020-09-12] MEDS ORDERED: CYANOCOBALAMIN 1000 MCG/ML VIAL IM ONE (19:37)
--- NOTE | 2020-09-12 19:37 | Hospitalist Progress Note ---
Date of Service September 12, 2020 Assessment & Plan (1) Acute blood loss anemia: coffee-ground emesis prior to admission with mild drop in H/H. none since then. H/H this am and this afternoon acceptable. cont protonix drip, carafate qid, and misoprostol. appreciate [facility] consult in am - to have EGD. Check Fe studies, B12, folate - acceptable levels. B12 is high 300s despite getting monthly shots - will give 1000mcg of B12 today. CBC in am. (2) Acute GI bleeding: Upper. Anastomotic ulcer? Gastritis? Esophagitis? Other? Cont PPI. EGD in am. CBC am. (3) Fever: low-grade fever of about 38 degrees this am. etiology?? cxr obtained - no pneumonia. CT abd/pelvis at admission - no infectious source. u/a yesterday negative. COVID negative. if any temp spike to >38 -- obtain 2 sets of blood cultures, 1 from her a-port. (4) History of deep venous thrombosis or pulmonary embolus: PE diagnosed 06/2020 in the setting of Covid infection. By report her clot burden was small. No DVTs at that time. Hold eliquis. venous dopplers of legs negative for DVT this admission. (5) Gastric bypass status for obesity: Surgery performed at [facility] in early . Receives IM B12 shots at home monthly. Hold home multivitamin. Checked Fe studies - satisfactory. Folate wnl. B12 300s - will give injection this admission. EGD in am due to concern for upper GI bleeding. (6) Depression: Continue home trazodone (7) Insomnia: Continue trazodone, Ambien (8) RLS (restless legs syndrome): Continue home ropinirole Fe studies - ferritin 65; ideally ferritin should be >100 in setting of RLS Consider IV venofer (9) DVT prophylaxis: SCDs chemical means contraindicated in light of upper GI bleeding Admission and Anticipated Discharge Date Admission Date: September 11, 2020 Subjective tele stable overnight - NSR. she c/o pain in upper abdomen. 0.5mg of dilaudid helps but "doesn't last long." dry heaves and nausea continue. denies cough, dyspnea, cp, dysuria. no pain over a-port. no diarrhea or melena. no further coffee-ground emesis. Review of Systems Constitutional: + fever and + fatigue Respiratory: no cough and no dyspnea Cardiovascular: no chest pain Gastrointestinal: + abdominal pain, + nausea and + vomiting; no excessive flatulence, no diarrhea/loose stools and no melena Integumentary: no rash Physical Exam Constitutional: + ill appearing and average body habitus; no altered mental status ENMT: external ear and nose normal, oropharynx normal Respiratory: normal respiratory effort, lungs clear to auscultation Cardiovascular: Rate/Rhythm: regular rate and regular rhythm Heart Sounds: normal S1 and normal S2; no murmur Vessels: posterior tibial pulses present and dorsalis pedis pulses present; no JVD Extremities: no edema Gastrointestinal (Abdomen): Inspection/Auscultation: normal bowel sounds and + abdominal surgical scar; abdomen not distended Percussion/Palpation: + abdomen tender (upper epigastric region ) and abdomen soft; no hepatosplenomegaly Skin: + pallor (mild) port, right chest, clean Psychiatric: Orientation: alert and oriented x 3 Results & Data Results & Data ([facility]) Vital Signs (Past 12 Hours) Vital Signs Temp Pulse Resp BP Pulse Ox 09/12/20 15:10 36.8 C 74 19 90/57 L 98 09/12/20 11:27 37.7 C H 101 H 16 94/61 L 98 09/12/20 08:01 38.0 C H 90 16 98/62 L 98 Laboratory Results Laboratory Results - last 24 hr 09/11/20 09/11/20 09/12/20 19:55 23:10 06:28 WBC 5.13 4.92 RBC 3.94 L 3.91 L Hgb 10.8 L 10.8 L Hct 34.3 L 34.0 L MCV 87.1 87.0 MCH 27.4 27.6 MCHC 31.5 L 31.8 L RDW Std Deviation 67.4 H 68.0 H RDW Coeff of Abhijeet 21.1 H 21.5 H Plt Count 316 334 MPV 9.1 9.1 Immature Gran % (Auto) 0.2 0.2 Neut % (Auto) 56.7 63.7 Lymph % (Auto) 28.1 19.7 Eaton % (Auto) 5.8 6.7 Eos % (Auto) 8.8 8.7 Baso % (Auto) 0.4 1.0 Neut # (Auto) 2.91 3.13 Lymph # (Auto) 1.44 0.97 L Eaton # (Auto) 0.30 0.33 Eos # (Auto) 0.45 0.43 Baso # (Auto) 0.02 0.05 Immature Gran # (Auto) 0.01 0.01 Hypochromasia Present Anisocytosis Present Present Sodium 138 Potassium 3.6 Chloride 106 Carbon Dioxide 26 Anion Gap 6.0 BUN 5 L D Creatinine 0.77 Est Cr Clr Drug Dosing 73.9 Est GFR ( Amer) 105.8 Est GFR (Non-Af Amer) 91.3 BUN/Creatinine Ratio 6.5 L Glucose 95 Calcium 8.7 Phosphorus 3.7 Magnesium 1.7 L Iron Transferrin Transferrin % Sat Ferritin Total Bilirubin 0.3 AST 14 L ALT 18 Alkaline Phosphatase 136 H Total Protein 5.9 L Albumin 3.0 L Globulin 2.9 Albumin/Globulin Ratio 1.0 Lipase 65 L Vitamin B12 Folate 09/12/20 09/12/20 09/12/20 06:28 15:28 15:28 WBC 4.02 L RBC 3.65 L Hgb 10.1 L 10.4 L Hct 31.6 L 33.0 L MCV 86.6 MCH 27.7 MCHC 32.0 RDW Std Deviation 67.1 H RDW Coeff of Abhijeet 21.2 H Plt Count 291 MPV 8.9 Immature Gran % (Auto) 0.0 Neut % (Auto) 65.2 Lymph % (Auto) 20.1 Eaton % (Auto) 6.2 Eos % (Auto) 8.0 Baso % (Auto) 0.5 Neut # (Auto) 2.62 Lymph # (Auto) 0.81 L Eaton # (Auto) 0.25 Eos # (Auto) 0.32 Baso # (Auto) 0.02 Immature Gran # (Auto) 0.00 Hypochromasia Anisocytosis Present Sodium Potassium Chloride Carbon Dioxide Anion Gap BUN Creatinine Est Cr Clr Drug Dosing Est GFR ( Amer) Est GFR (Non-Af Amer) BUN/Creatinine Ratio Glucose Calcium Phosphorus Magnesium Iron 50 Transferrin 215 Transferrin % Sat 16 Ferritin 65.9 Total Bilirubin AST ALT Alkaline Phosphatase Total Protein Albumin Globulin Albumin/Globulin Ratio Lipase Vitamin B12 Folate 09/12/20 15:28 WBC RBC Hgb Hct MCV MCH MCHC RDW Std Deviation RDW Coeff of Abhijeet Plt Count MPV Immature Gran % (Auto) Neut % (Auto) Lymph % (Auto) Eaton % (Auto) Eos % (Auto) Baso % (Auto) Neut # (Auto) Lymph # (Auto) Eaton # (Auto) Eos # (Auto) Baso # (Auto) Immature Gran # (Auto) Hypochromasia Anisocytosis Sodium Potassium Chloride Carbon Dioxide Anion Gap BUN Creatinine Est Cr Clr Drug Dosing Est GFR ( Amer) Est GFR (Non-Af Amer) BUN/Creatinine Ratio Glucose Calcium Phosphorus Magnesium Iron Transferrin Transferrin % Sat Ferritin Total Bilirubin AST ALT Alkaline Phosphatase Total Protein Albumin Globulin Albumin/Globulin Ratio Lipase Vitamin B12 378 Folate > 20.00 PG Care Time/CCT Total # of Minutes Spent Total Time Spent with Patient: Total time spent is greater than 50% in coordination of care (as documented) at patient's floor/unit and/or counseling patient: Coding Level of Care Code 71932 Subseq Hosp Care Lvl 2 Diagnoses Acute blood loss anemia D62 Acute GI bleeding K92.2 Fever R50.9 History of deep venous thrombosis or pulmonary embolus Gastric bypass status for obesity Z98.84 Depression F32.9 Insomnia G47.00 RLS (restless legs syndrome) G25.81 DVT prophylaxis Z29.9
[2020-09-12] MEDS: traZODone HCL 50 MG TAB PO SCH (20:52)
[2020-09-12] MEDS: ZOLPIDEM TARTRATE 10 MG TAB PO SCH (20:52)
[2020-09-13] MEDS: PANTOprazole 40 MG in DEXTROSE 5% 100 ML IV SCH ×5 (00:19→20:14)
[2020-09-13] MEDS: ONDANSETRON INJ 2 MG/ML 2 ML VIAL IV PRN ×3 (00:19→17:46)
[2020-09-13] MEDS: HYDROmorphone INJ 1 MG/ML SYRINGE IV PRN ×5 (02:31→21:34)
[2020-09-13] MEDS: LACTATED RINGER'S 1,000 ML IV SCH ×2 (05:15→20:14)
[2020-09-13 08:02] LABS: Hematocrit (blood only) 28.8 % (37-47); Hemoglobin 9.3 g/dL (12.0-16.0); Mean Corpuscular Hemoglobin 27.7 pg (25-34); Mean Corpuscular Hgb Conc 32.3 g/dL (32-36); Mean Corpuscular Volume 85.7 fL (80-100); Mean Platelet Volume 9.2 fL (7.4-10.4); Platelet Count 275 K/uL (130-400); RDW Coefficient of Variation 21.3 % (11.5-14.5); RDW Standard Deviation 66.6 fL (36.4-46.3); Red Blood Count 3.36 M/uL (4.2-5.4); White Blood Count 2.96 K/uL (4.8-10.8)
[2020-09-13] MEDS: rOPINIRole HCL 0.25 MG TABLET PO SCH ×3 (08:17→21:33)
[2020-09-13] MEDS: miSOPROStoL 50 MCG TAB PO SCH ×2 (08:17→21:33)
[2020-09-13 09:07] LABS: BUN Creatinine Ratio 6.6 (10-20); Calcium 7.8 mg/dl (8.5-10.1); Creatinine Clr Calc Pharmacy 86.2 ml/min; Est GFR (African American) 121.1; Est GFR (Non-African American) 104.5; Magnesium 1.9 mg/dl (1.8-2.4)
--- NOTE | 2020-09-13 09:27 | History & Physical Bridge Note ---
Date of Service September 13, 2020 History & Physical Bridge Note I have examined the patient, reviewed the History & Physical and in the interval since the performance of the History & Physical I have noted the following changes of clinical significance: no changes noted. Patient states she has remained NPO since midnight. +epigastric pain but no vomiting, hematemesis or melena. Remains on a PPI ggt. PE: A&Ox3. Lungs CTA bilaterally. RRR, no M/R/G. Abdomen soft, tender epigastric region. Normal bowel sounds. Abd nondistended. A/P: Acute GIB in the setting of Eliquis use. Hx of anastomotic ulcer from prior gastric bypass. Last EGD many years ago. 1. NPO for now. 2. EGD with Dr. Aguilar today. 3. Continue PPI ggt at 8 mg/hr. 4. Additional recommendations pending results of testing.
--- NOTE | 2020-09-13 09:30 | Anesthesiology Consultation ---
Date of Service September 13, 2020 Assessment & Plan (1) Encounter for pre-operative examination: Chart Review Chart Review: Acceptable Risk for Surgery History Surgery Operation Date: 09/13/20 16:00 Proposed Procedures p Esophagogastroduodenoscopy Dr. Jeff Aguilar MD Height/Weight Height: 5 ft 3 in Weight: 62.8 kg Allergies Allergy/AdvReac Type Severity Reaction Status Date / Time No Known Allergies Allergy Unverified 09/11/20 12:34 Medications Home Medications Medication Instructions Recorded Confirmed Last Taken apixaban [Eliquis] 5 mg PO BID 09/11/20 09/11/20 09/11/20 cyanocobalamin (vitamin B-12) 1,000 mcg IM MONTHLY 09/11/20 09/11/20 Unknown multivitamin 1 tab PO QAM 09/11/20 09/11/20 09/11/20 ondansetron HCl [Zofran] 8 mg PO Q12H PRN 09/11/20 09/11/20 Unknown pantoprazole [Protonix] 40 mg PO BID 09/11/20 09/11/20 09/11/20 ropinirole 0.25 mg PO TID 09/11/20 09/11/20 09/11/20 sucralfate [Carafate] 15 ml PO TID 09/11/20 09/11/20 09/11/20 trazodone 150 mg PO HS 09/11/20 09/11/20 09/10/20 zolpidem [Ambien] 10 mg PO HS 09/11/20 09/11/20 09/10/20 Active Medications Generic Name Dose Route Start Last Admin Trade Name Freq PRN Reason Stop Dose Admin Acetaminophen 650 mg 09/11/20 19:41 09/12/20 11:37 Acetaminophen 325 Mg Tab PO 10/11/20 19:40 650 mg Q4H PRN Administration Pain or Fever Hydromorphone HCl 1 mg 09/12/20 16:14 09/13/20 08:16 Hydromorphone Inj 1 Mg/Ml Syringe IV 09/26/20 16:13 1 mg Q4H PRN Administration Pain Pantoprazole Sodium 40 mg/ 100 mls @ 20 mls/hr 09/11/20 12:15 09/13/20 05:15 Dextrose IV 10/11/20 12:14 8 mg/hr Q5H ADAN 20 mls/hr Administration 8 MG/HR Lactated Ringer's 1,000 mls @ 80 mls/hr 09/11/20 17:00 09/13/20 05:15 Lr IV 10/11/20 16:59 80 mls/hr .[id number] ADAN Administration Prochlorperazine 10 mg/ 10 mls @ 5 mls/min 09/11/20 16:50 09/12/20 21:38 Syringe IV 10/11/20 16:49 5 mls/min Q8 PRN Administration Nausea And Vomiting Misoprostol 50 mcg 09/11/20 21:00 09/13/20 08:17 Misoprostol 50 Mcg Tab PO 10/11/20 20:59 50 mcg BID ADAN Administration Ondansetron HCl 4 mg 09/11/20 16:50 09/13/20 08:17 Ondansetron Inj 2 Mg/Ml 2 Ml Vial IV 10/11/20 16:49 4 mg Q6H PRN Administration Nausea Ropinirole HCl 0.25 mg 09/11/20 21:00 09/13/20 08:17 Ropinirole Hcl 0.25 Mg Tablet PO 10/11/20 20:59 0.25 mg TID ADAN Administration Sucralfate 1 gm 09/12/20 17:00 09/12/20 20:53 Sucralfate 1 Gm/10 Ml Udc PO 10/12/20 16:59 1 gm QID ADAN Administration Trazodone HCl 150 mg 09/11/20 21:00 09/12/20 20:52 Trazodone Hcl 50 Mg Tab PO 10/11/20 20:59 150 mg HS ADAN Administration Zolpidem Tartrate 10 mg 09/11/20 21:00 09/12/20 20:52 Zolpidem Tartrate 10 Mg Tab PO 10/11/20 20:59 10 mg HS ADAN Administration Past Medical History Medical History Anemia Depression History of deep venous thrombosis or pulmonary embolus Insomnia Peptic ulcer disease RLS (restless legs syndrome) Past Family History Family History Other Adopted Past Surgical History Surgical History Gastric bypass status for obesity History of appendectomy History of cholecystectomy Social History Smoking Status: Never smoker Hx Alcohol Use: No Hx Substance Use: No Physical Exam Vital Signs Last Vital Signs Temp 36.0 C L 09/13/20 07:15 Pulse 86 09/13/20 07:15 Resp 18 09/13/20 07:15 BP 93/61 L 09/13/20 07:15 Pulse Ox 97 09/13/20 07:15 Testing Laboratory Results 09/13/20 07:14 09/13/20 07:14 PT 10.3 Seconds (9.0-12.0) 09/11/20 11:25 INR 1.0 (0.9-1.1) 09/11/20 11:25 Urine Color Yellow 09/11/20 12:15 Urine Appearance Clear (Clear) 09/11/20 12:15 Urine pH 5.0 (4.5-7.5) 09/11/20 12:15 Ur Specific Newcomb 1.019 (1.000-1.030) 09/11/20 12:15 Urine Protein Negative (Negative) 09/11/20 12:15 Urine Glucose (UA) Negative (Negative) 09/11/20 12:15 Urine Ketones Negative (Negative) 09/11/20 12:15 Urine Nitrite Negative (Negative) 09/11/20 12:15 Ur Leukocyte Esterase Negative (Negative) 09/11/20 12:15 Blood Type A Negative 09/11/20 11:25 Antibody Screen NEGATIVE 09/11/20 11:25
--- NOTE | 2020-09-13 12:21 | Hospitalist Progress Note ---
Date of Service September 13, 2020 Assessment & Plan (1) Acute blood loss anemia: Serial H&H. Transfuse to keep hemoglobin greater than 8. Treat underlying GI hemorrhage. (2) Acute GI bleeding: Upper GI source suspected. History of anastomotic ulcers after gastric bypass surgery in the past. Continue Protonix drip and Carafate. EGD today. Appreciate GI consultation. Eliquis is on hold. (3) Fever: Resolved. No evidence of active infection. (4) History of deep venous thrombosis or pulmonary embolus: PE diagnosed 06/2020 in the setting of Covid infection. By report her clot burden was small. No DVTs at that time. Holding eliquis. venous dopplers of legs negative for DVT this admission. (5) Gastric bypass status for obesity: Surgery performed at [facility] in early . Receives IM B12 shots at home monthly. Hold home multivitamin. Checked Fe studies - satisfactory. Folate wnl. B12 300s - will give injection this admission. EGD today, 315. (6) Depression: Continue home trazodone (7) Insomnia: Continue trazodone, Ambien (8) RLS (restless legs syndrome): Continue home ropinirole (9) DVT prophylaxis: SCDs chemical means contraindicated in light of upper GI bleeding Disposition: Eventual discharge to home. Possibly tomorrow, September 14 Admission and Anticipated Discharge Date Admission Date: September 11, 2020 Subjective Alert and oriented. No complaints. Awaiting EGD today. She remains on Protonix drip and Carafate therapy. Hemoglobin is stable. Delmisquis remains on hold Review of Systems Review of Systems: All systems reviewed & are unremarkable except as noted in HPI & below Physical Exam Physical Exam: General-alert and oriented x3, no fevers, no chills HEENT-head atraumatic and normocephalic, TMs intact bilaterally, pupils equal and reactive to light, extraocular muscles intact Neck-no lymphadenopathy or thyromegaly, trachea midline Chest-clear to auscultation percussion. No rales wheezing or rhonchi Cardiac-regular rate and rhythm, normal S1 and S2, no murmurs Abdomen-normal bowel sounds, nontender, no hepatosplenomegaly Extremities-no cyanosis, clubbing, or edema Neuro-cranial nerves II through XII intact, motor and sensory function within normal limits, strength symmetrical 5/5, no focal deficits Psych-normal affect, normal mood Results & Data Results & Data ([facility]) Vital Signs (Past 12 Hours) Vital Signs Temp Pulse Resp BP Pulse Ox 09/13/20 11:37 36.8 C 85 16 92/52 L 99 09/13/20 07:15 36.0 C L 86 18 93/61 L 97 09/13/20 02:22 37.1 C 85 18 95/61 L 97 Laboratory Results 09/13/20 07:14 09/13/20 07:14 PG Care Time/CCT Total # of Minutes Spent Total Time Spent with Patient: Total time spent is greater than 50% in coordination of care (as documented) at patient's floor/unit and/or counseling patient: Coding Level of Care Code 58198 Subseq Hosp Care Lvl 3 Diagnoses Acute blood loss anemia D62 Acute GI bleeding K92.2 Fever R50.9 History of deep venous thrombosis or pulmonary embolus Gastric bypass status for obesity Z98.84 Depression F32.9 Insomnia G47.00 RLS (restless legs syndrome) G25.81 DVT prophylaxis Z29.9
[2020-09-13] MEDS ORDERED: PROPOFOL IV EMULSION 10 MG/ML 20 ML VIAL IV ONE (16:25)
[2020-09-13] MEDS ORDERED: LIDOCAINE HCL 2% 2 ML VIAL/AMP(20MG/ML) INFIL ONE (16:25)
--- NOTE | 2020-09-13 16:54 | GI REPORT ---
Patient Name: Whitney Kevin Procedure Date: 09/13/2020 3:57 PM Date of : 1970 Admit Type: Inpatient Age: 50 Gender: Female Attending MD: Marc Aguilar MD Procedure: Upper GI endoscopy Providers: Marc Aguilar MD Referring MD: Gerald Borrero Indications: Hematochezia Medicines: Monitored Anesthesia Care Complications: No immediate complications. Estimated blood loss: None. Estimated Blood Loss: Estimated blood loss: none. Procedure: Pre-Anesthesia Assessment: - Prior Anticoagulants: The patient has taken no previous anticoagulant or antiplatelet agents. - ASA Grade Assessment: II - A patient with mild systemic disease. After obtaining informed consent, the endoscope was passed under direct vision. Throughout the procedure, the patient's blood pressure, pulse, and oxygen saturations were monitored continuously. The Endoscope was introduced through the mouth, and advanced to the second part of duodenum. The upper GI endoscopy was accomplished without difficulty. The patient tolerated the procedure well. Findings: The examined esophagus was normal. The anastomosis was normal. No evidence of ulcers, AVMs, blood. The examined duodenum was normal. Impression: - Normal esophagus. - Normal anastomosis. - Normal examined duodenum. - No specimens collected. Recommendation: - [facility] to [facility] for [facility] care. - Clear liquid diet today. trend H/H, transfuse prn Marc Aguilar MD 09/13/2020 4:54:14 PM This report has been signed electronically. Note Initiated On: 09/13/2020 3:57 PM Number of Addenda: 0 I attest to the content of the Intraoperative Record and orders documented therein, exceptions below {[id number]}
--- NOTE | 2020-09-13 17:24 | Anesthesiology Progress Note ---
Date of Service September 13, 2020 Anesthesia Post Procedure Vital Signs Vital Signs: Temp Pulse Resp BP Pulse Ox 09/13/20 17:02 84 16 88/55 L 95 09/13/20 16:46 81 14 85/52 L 96 09/13/20 15:38 36.7 C 87 18 85/52 L 97 09/13/20 11:37 36.8 C 85 16 92/52 L 99 09/13/20 07:15 36.0 C L 86 18 93/61 L 97 09/13/20 02:22 37.1 C 85 18 95/61 L 97 09/12/20 23:41 37.1 C 78 18 99/66 L 94 09/12/20 19:59 36.6 C 84 18 91/60 L 99 Pain Intensity Right Abdomen: Pain Intensity: 7 Left Upper Abdomen: Pain Intensity: 6 Transfer of Care Handoff Completed per policy Notes Mental Status: alert / awake / arousable and participated in evaluation Patient Amnestic to Procedure: Yes Nausea / Vomiting: adequately controlled Pain: adequately controlled Airway Patency, RR, SpO2: stable & adequate BP & HR: stable & adequate Hydration State: stable & adequate Anesthetic Complications: no major complications apparent and Pt Satisfied with anesthetic care
[2020-09-13] MEDS: traZODone HCL 50 MG TAB PO SCH (21:33)
[2020-09-13] MEDS: ZOLPIDEM TARTRATE 10 MG TAB PO SCH (21:44)
[2020-09-13] MEDS: PROCHLORPERAZINE 10 MG in SYRINGE 8 ML IV PRN (21:45)
[2020-09-14] MEDS: ONDANSETRON INJ 2 MG/ML 2 ML VIAL IV PRN ×3 (02:12→15:21)
[2020-09-14] MEDS: HYDROmorphone INJ 1 MG/ML SYRINGE IV PRN ×5 (02:12→19:58)
[2020-09-14] MEDS: PANTOprazole 40 MG in DEXTROSE 5% 100 ML IV SCH ×3 (04:25→12:16)
[2020-09-14] MEDS: PROCHLORPERAZINE 10 MG in SYRINGE 8 ML IV PRN ×3 (06:13→19:58)
[2020-09-14 08:48] LABS: Basophils # (auto) 0.01 K/uL (0-0.2); Basophils % (auto) 0.3 %; Eosinophils # (auto) 0.46 K/uL (0-0.5); Eosinophils % (auto) 12.5 %; Hematocrit (blood only) 31.1 % (37-47); Hemoglobin 9.7 g/dL (12.0-16.0); Lymphocytes # (auto) 1.07 K/uL (1.2-3.4); Lymphocytes % (auto) 29.1 %; Mean Corpuscular Hemoglobin 27.2 pg (25-34); Mean Corpuscular Hgb Conc 31.2 g/dL (32-36); Mean Corpuscular Volume 87.1 fL (80-100); Mean Platelet Volume 9.1 fL (7.4-10.4); Monocytes % (auto) 10.9 %; Neutrophils # (auto) 1.74 K/uL (1.4-6.5); Neutrophils % (auto) 47.2 %; Platelet Count 286 K/uL (130-400); RDW Coefficient of Variation 21.3 % (11.5-14.5); RDW Standard Deviation 67.1 fL (36.4-46.3); Red Blood Count 3.57 M/uL (4.2-5.4); White Blood Count 3.68 K/uL (4.8-10.8)
[2020-09-14 09:03] LABS: BUN Creatinine Ratio 4.7 (10-20); Calcium 8.7 mg/dl (8.5-10.1); Creatinine Clr Calc Pharmacy 63.2 ml/min; Est GFR (African American) 87.6; Est GFR (Non-African American) 75.6; Potassium 3.7 mmol/L (3.5-5.1)
[2020-09-14] MEDS: LACTATED RINGER'S 1,000 ML IV SCH (09:21)
[2020-09-14] MEDS: rOPINIRole HCL 0.25 MG TABLET PO SCH ×3 (09:23→19:58)
[2020-09-14] MEDS: miSOPROStoL 50 MCG TAB PO SCH ×2 (09:24→19:58)
--- NOTE | 2020-09-14 09:24 | Gastroenterology Progress Note ---
Date of Service September 14, 2020 Assessment & Plan (1) Acute blood loss anemia: (2) Abdominal pain: 1. Celiac panel. 2. KUB today. 3. Continue clear liquids with advancement as tolerated. 4. Continue supportive care. Admission and Anticipated Discharge Date Admission Date: September 11, 2020 Supervising Physician Co-Signing Physician Notes I personally evaluated the patient and agree with the findings as documented by YURI Villanueva Exam: abd: soft, mild diffuse tenderness, nd Subjective Patient states she is "about the same". Still with abdominal pain in the upper abdomen and with nausea. S/P karthik. EGD yesterday which was normal. CT on admission with moderate constipation. States she did have a small bm this morning. Tolerating clears. Review of Systems Constitutional: no problem reported Gastrointestinal: as per Subjective / HPI Physical Exam Constitutional: WD/WN, vitals as above Respiratory: normal respiratory effort Gastrointestinal (Abdomen): Inspection/Auscultation: abdomen normal to inspection and normal bowel sounds Percussion/Palpation: + abdomen tender and abdomen soft Results & Data Results & Data ([facility]) Vital Signs (Past 12 Hours) Vital Signs Temp Pulse Resp BP Pulse Ox 09/14/20 08:00 36.9 C 84 16 83/50 L 98 09/14/20 05:35 94/59 L 09/14/20 03:41 85/51 L 09/14/20 03:00 36.7 C 68 20 78/46 L 95 09/13/20 23:00 36.6 C 85 16 95/62 L 96 Laboratory Results Abnormal lab results 09/14/20 09/14/20 Range/Units 08:09 08:09 WBC 3.68 L (4.8-10.8) K/uL RBC 3.57 L (4.2-5.4) M/uL Hgb 9.7 L (12.0-16.0) g/dL Hct 31.1 L (37-47) % MCHC 31.2 L (32-36) g/dL RDW Std Deviation 67.1 H (36.4-46.3) fL RDW Coeff of Abhijeet 21.3 H (11.5-14.5) % Lymph # (Auto) 1.07 L (1.2-3.4) K/uL BUN 4 L (7-18) mg/dl BUN/Creatinine Ratio 4.7 L (10-20) Glucose 161 H (70-99) mg/dl PG Care Time/CCT Total # of Minutes Spent Total Time Spent with Patient: Total time spent is greater than 50% in coordination of care (as documented) at patient's floor/unit and/or counseling patient: Coding Level of Care Code 91206 Subseq Hosp Care Lvl 3 Diagnoses Acute blood loss anemia D62 Abdominal pain R10.9
[2020-09-14 09:26] LABS: Anisocytosis Present
--- NOTE | 2020-09-14 10:20 | XRay Report ---
XR KUB/Abdomen 1 view CLINICAL HISTORY: abdominal pain, nausea COMPARISON STUDY: No previous studies for comparison. FINDINGS: There are surgical clips in the right upper quadrant consistent with prior cholecystectomy. There are suture lines are the upper abdomen suggesting prior bowel anastomoses. There is no patholo gic bowel dilatation. There are multiple pelvic basin calcifications, likely representing phleboliths . A central venous catheter is visualized with its tip projected over the superior aspect of the righ t atrium IMPRESSION: Nonobstructive bowel gas pattern. ACT 112: Negative or not required by law. Electronically signed by: Eric Welsh M.D. 09/14/2020 10:18 AM
[2020-09-14] MEDS: PANTOprazole 40 MG TAB PO SCH ×2 (12:16→19:59)
--- NOTE | 2020-09-14 14:32 | Hospitalist Progress Note ---
Date of Service September 14, 2020 Assessment & Plan (1) Acute blood loss anemia: Serial H&H. Appears stable with hemoglobin 9.7 today. Treat underlying GI hemorrhage. (2) Acute GI bleeding: Upper GI source was suspected but EGD was done and negative. History of anastomotic ulcers after gastric bypass surgery in the past. Protonix drip switch to oral Protonix twice daily dosing. Continue Carafate suspension. Appreciate GI consultation. Eliquis is on hold. (3) Fever: Resolved. No evidence of active infection. (4) History of deep venous thrombosis or pulmonary embolus: PE diagnosed 06/2020 in the setting of Covid infection. By report her clot burden was small. No DVTs at that time. Holding eliquis. venous dopplers of legs negative for DVT this admission. (5) Gastric bypass status for obesity: Surgery performed at [facility] in early . Receives IM B12 shots at home monthly. Hold home multivitamin. Checked Fe studies - satisfactory. Folate wnl. B12 300s - will give injection this admission. EGD completed September 13 and was negative . (6) Depression: Continue home trazodone (7) Insomnia: Continue trazodone, Ambien (8) RLS (restless legs syndrome): Continue home ropinirole (9) DVT prophylaxis: SCDs chemical means contraindicated in light of GI bleeding Disposition: Eventual discharge to home. Admission and Anticipated Discharge Date Admission Date: September 11, 2020 Subjective Some lower abdominal discomfort. EGD was negative. Protonix drip switch to oral Protonix dosing. Continue Carafate suspension. Advance diet to full liquids. KUB today negative for obstruction. Review of Systems Review of Systems: All systems reviewed & are unremarkable except as noted in HPI & below Physical Exam Physical Exam: General-alert and oriented x3, no fevers, no chills HEENT-head atraumatic and normocephalic, TMs intact bilaterally, pupils equal and reactive to light, extraocular muscles intact Neck-no lymphadenopathy or thyromegaly, trachea midline Chest-clear to auscultation percussion. No rales wheezing or rhonchi Cardiac-regular rate and rhythm, normal S1 and S2, no murmurs Abdomen-normal bowel sounds, mild lower abdominal tenderness. No rebound or guarding Extremities-no cyanosis, clubbing, or edema Neuro-cranial nerves II through XII intact, motor and sensory function within normal limits, strength symmetrical 5/5, no focal deficits Psych-normal affect, normal mood Results & Data Results & Data ([facility]) Vital Signs (Past 12 Hours) Vital Signs Temp Pulse Resp BP Pulse Ox 09/14/20 11:43 36.9 C 84 16 90/51 L 99 09/14/20 08:00 36.9 C 84 16 83/50 L 98 09/14/20 05:35 94/59 L 09/14/20 03:41 85/51 L 09/14/20 03:00 36.7 C 68 20 78/46 L 95 Laboratory Results 09/14/20 08:09 09/14/20 08:09 PG Care Time/CCT Total # of Minutes Spent Total Time Spent with Patient: Total time spent is greater than 50% in coordination of care (as documented) at patient's floor/unit and/or counseling patient: Coding Level of Care Code 49960 Subseq Hosp Care Lvl 3 Diagnoses Acute blood loss anemia D62 Acute GI bleeding K92.2 Fever R50.9 History of deep venous thrombosis or pulmonary embolus Gastric bypass status for obesity Z98.84 Depression F32.9 Insomnia G47.00 RLS (restless legs syndrome) G25.81 DVT prophylaxis Z29.9
[2020-09-14] MEDS: ZOLPIDEM TARTRATE 10 MG TAB PO SCH (19:58)
[2020-09-14] MEDS: traZODone HCL 50 MG TAB PO SCH (19:59)
[2020-09-15] MEDS: ONDANSETRON INJ 2 MG/ML 2 ML VIAL IV PRN ×3 (00:23→20:53)
[2020-09-15] MEDS: HYDROmorphone INJ 1 MG/ML SYRINGE IV PRN ×6 (00:23→20:53)
[2020-09-15] MEDS: LACTATED RINGER'S 1,000 ML IV SCH ×2 (04:35→10:33)
[2020-09-15] MEDS: PROCHLORPERAZINE 10 MG in SYRINGE 8 ML IV PRN (04:35)
[2020-09-15 06:44] LABS: Basophils # (auto) 0.01 K/uL (0-0.2); Basophils % (auto) 0.3 %; Eosinophils # (auto) 0.49 K/uL (0-0.5); Hematocrit (blood only) 31.3 % (37-47); Hemoglobin 9.8 g/dL (12.0-16.0); Lymphocytes # (auto) 1.16 K/uL (1.2-3.4); Lymphocytes % (auto) 37.8 %; Mean Corpuscular Hemoglobin 27.6 pg (25-34); Mean Corpuscular Hgb Conc 31.3 g/dL (32-36); Mean Corpuscular Volume 88.2 fL (80-100); Mean Platelet Volume 8.7 fL (7.4-10.4); Neutrophils # (auto) 1.01 K/uL (1.4-6.5); Neutrophils % (auto) 32.9 %; Platelet Count 286 K/uL (130-400); RDW Standard Deviation 67.9 fL (36.4-46.3); Red Blood Count 3.55 M/uL (4.2-5.4); White Blood Count 3.07 K/uL (4.8-10.8)
[2020-09-15 07:02] LABS: Anisocytosis Present
[2020-09-15 07:14] LABS: BUN Creatinine Ratio 7.3 (10-20); Calcium 8.4 mg/dl (8.5-10.1); Creatinine Clr Calc Pharmacy 84.9 ml/min; Est GFR (African American) 120.5; Est GFR (Non-African American) 103.9; Potassium 3.9 mmol/L (3.5-5.1)
[2020-09-15] MEDS: ACETAMINOPHEN 325 MG TAB PO PRN (07:51)
[2020-09-15] MEDS: rOPINIRole HCL 0.25 MG TABLET PO SCH ×3 (08:18→20:53)
[2020-09-15] MEDS: PANTOprazole 40 MG TAB PO SCH ×2 (08:18→20:53)
[2020-09-15] MEDS: miSOPROStoL 50 MCG TAB PO SCH ×2 (08:18→20:53)
--- NOTE | 2020-09-15 12:04 | Gastroenterology Progress Note ---
Date of Service September 15, 2020 Assessment & Plan (1) Acute blood loss anemia: (2) Abdominal pain: 1. Celiac panel is pending. 2. Clear liquid diet today. 3. GoLytely bowel prep this evening, then NPO after midnight except sips with medications. 4. Colonoscopy with Dr. Aguilar tomorrow to evaluate rectal bleeding. 5. Continue supportive care. 6. Additional recommendations will be made pending results of testing. Admission and Anticipated Discharge Date Admission Date: September 11, 2020 Subjective Patient states she is "about the same". Carafate does help reduce pain but she states the effects are very temporary. She also reports passing "a lot of blood" yesterday afternoon. The bleeding was described as bright red. Her H&H has remained, stable however. Still with some nausea but no vomiting. KUB yesterday negative. Celiac panel is pending. Continues PPI. Review of Systems Constitutional: no fever and no chills Gastrointestinal: as per Subjective / HPI Physical Exam Constitutional: WD/WN, vitals as above Respiratory: normal respiratory effort, lungs clear to auscultation Cardiovascular: RRR, no murmur, no edema Gastrointestinal (Abdomen): Inspection/Auscultation: normal bowel sounds; abdomen not distended Percussion/Palpation: + abdomen tender (diffusely) and abdomen soft Psychiatric: A+Ox3, euthymic affect Results & Data Results & Data ([facility]) Vital Signs (Past 12 Hours) Vital Signs Temp Pulse Resp BP Pulse Ox 09/15/20 07:12 36.5 C 67 16 86/55 L 96 09/15/20 02:52 36.6 C 72 17 84/49 L 96 Laboratory Results Abnormal lab results 09/15/20 09/15/20 Range/Units 06:23 06:23 WBC 3.07 L (4.8-10.8) K/uL RBC 3.55 L (4.2-5.4) M/uL Hgb 9.8 L (12.0-16.0) g/dL Hct 31.3 L (37-47) % MCHC 31.3 L (32-36) g/dL RDW Std Deviation 67.9 H (36.4-46.3) fL RDW Coeff of Abhijeet 21.0 H (11.5-14.5) % Neut # (Auto) 1.01 L (1.4-6.5) K/uL Lymph # (Auto) 1.16 L (1.2-3.4) K/uL Chloride 109 H (98-107) mmol/L Anion Gap 1.0 L (3-11) BUN 5 L (7-18) mg/dl BUN/Creatinine Ratio 7.3 L (10-20) Calcium 8.4 L (8.5-10.1) mg/dl PG Care Time/CCT Total # of Minutes Spent Total Time Spent with Patient: Total time spent is greater than 50% in coordination of care (as documented) at patient's floor/unit and/or counseling patient: Coding Level of Care Code 77612 Subseq Hosp Care Lvl 3 Diagnoses Acute blood loss anemia D62 Abdominal pain R10.9
[2020-09-15] MEDS ORDERED: LAVAGE SOLUTION 4000ML PO SCH (13:00)
--- NOTE | 2020-09-15 13:54 | Hospitalist Progress Note ---
Date of Service September 15, 2020 Assessment & Plan (1) Acute blood loss anemia: Serial H&H. Stable . Treat underlying GI hemorrhage. (2) Acute GI bleeding: Upper GI source was suspected but EGD was done and negative. History of anastomotic ulcers after gastric bypass surgery in the past. Protonix drip switch to oral Protonix twice daily dosing. Continue Carafate suspension. Appreciate GI consultation. Eliquis is on hold. Colonoscopy tomorrow, September 16. Rule out Giardia infection producing colitis and hemorrhage (3) Fever: Resolved. No evidence of active infection. (4) History of deep venous thrombosis or pulmonary embolus: PE diagnosed 06/2020 in the setting of Covid infection. By report her clot burden was small. No DVTs at that time. Holding eliquis. venous dopplers of legs negative for DVT this admission. (5) Gastric bypass status for obesity: Surgery performed at [facility] in early . Receives IM B12 shots at home monthly. Hold home multivitamin. Checked Fe studies - satisfactory. Folate wnl. B12 300s - will give injection this admission. EGD completed September 13 and was negative . (6) Depression: Continue home trazodone (7) Insomnia: Continue trazodone, Ambien (8) RLS (restless legs syndrome): Continue home ropinirole (9) DVT prophylaxis: SCDs chemical means contraindicated in light of GI bleeding Disposition: Eventual discharge to home. Admission and Anticipated Discharge Date Admission Date: September 11, 2020 Subjective The patient appears uncomfortable and continues to have bloody stool. She states that she has well water at home which raises the possibility of Giardia infection. Stool Giardia antigen noted. Gastroenterology entry noted. EGD was negative. Colonoscopy scheduled for September 16 tomorrow. Continue clear liquids and IV fluids. Hemoglobin appears stable Review of Systems Review of Systems: All systems reviewed & are unremarkable except as noted in HPI & below Physical Exam Physical Exam: General-alert and oriented x3, no fevers, no chills HEENT-head atraumatic and normocephalic, pupils equal and reactive to light, extraocular muscles intact Neck-no lymphadenopathy or thyromegaly, trachea midline Chest-clear to auscultation percussion. No rales wheezing or rhonchi Cardiac-regular rate and rhythm, normal S1 and S2, no murmurs Abdomen-nondistended. Tenderness in the lower quadrants. No overt rebound or guarding Extremities-no cyanosis, clubbing, or edema Neuro-cranial nerves II through XII intact, motor and sensory function within normal limits, strength symmetrical , no focal deficits Psych-normal affect, normal mood Results & Data Results & Data ([facility]) Vital Signs (Past 12 Hours) Vital Signs Temp Pulse Resp BP Pulse Ox 09/15/20 07:12 36.5 C 67 16 86/55 L 96 09/15/20 02:52 36.6 C 72 17 84/49 L 96 Laboratory Results 09/15/20 06:23 09/15/20 06:23 PG Care Time/CCT Total # of Minutes Spent Total Time Spent with Patient: Total time spent is greater than 50% in coordination of care (as documented) at patient's floor/unit and/or counseling patient: Coding Level of Care Code 92464 Subseq Hosp Care Lvl 3 Diagnoses Acute blood loss anemia D62 Acute GI bleeding K92.2 Fever R50.9 History of deep venous thrombosis or pulmonary embolus Gastric bypass status for obesity Z98.84 Depression F32.9 Insomnia G47.00 RLS (restless legs syndrome) G25.81 DVT prophylaxis Z29.9
[2020-09-15] MEDS: traZODone HCL 50 MG TAB PO SCH (20:53)
[2020-09-15] MEDS: ZOLPIDEM TARTRATE 10 MG TAB PO SCH (20:54)
[2020-09-16] MEDS: HYDROmorphone INJ 1 MG/ML SYRINGE IV PRN ×5 (01:09→21:37)
[2020-09-16] MEDS: LACTATED RINGER'S 1,000 ML IV SCH ×2 (01:09→10:59)
[2020-09-16] MEDS: PROCHLORPERAZINE 10 MG in SYRINGE 8 ML IV PRN (01:09)
[2020-09-16] MEDS: ONDANSETRON INJ 2 MG/ML 2 ML VIAL IV PRN ×3 (05:33→21:37)
[2020-09-16 06:42] LABS: Hematocrit (blood only) 28.7 % (37-47); Hemoglobin 9.1 g/dL (12.0-16.0); Mean Corpuscular Hemoglobin 27.6 pg (25-34); Mean Corpuscular Hgb Conc 31.7 g/dL (32-36); Mean Platelet Volume 8.7 fL (7.4-10.4); Platelet Count 304 K/uL (130-400); RDW Coefficient of Variation 21.2 % (11.5-14.5); RDW Standard Deviation 68.1 fL (36.4-46.3); White Blood Count 2.51 K/uL (4.8-10.8)
[2020-09-16 07:11] LABS: BUN Creatinine Ratio 4.5 (10-20); Creatinine Clr Calc Pharmacy 82.5 ml/min; Est GFR (African American) 119.3; Est GFR (Non-African American) 102.9; Potassium 3.8 mmol/L (3.5-5.1)
[2020-09-16 07:15] LABS: Anisocytosis Present; Basophils # (auto) 0.02 K/uL (0-0.2); Basophils % (auto) 0.8 %; Eosinophils # (auto) 0.44 K/uL (0-0.5); Eosinophils % (auto) 17.5 %; Lymphocytes # (auto) 1.12 K/uL (1.2-3.4); Lymphocytes % (auto) 44.6 %; Neutrophils # (auto) 0.63 K/uL (1.4-6.5); Neutrophils % (auto) 25.1 %
[2020-09-16] MEDS: miSOPROStoL 50 MCG TAB PO SCH ×2 (08:18→21:37)
[2020-09-16] MEDS: rOPINIRole HCL 0.25 MG TABLET PO SCH ×3 (08:18→21:37)
[2020-09-16] MEDS: PANTOprazole 40 MG TAB PO SCH ×2 (08:18→21:37)
[2020-09-16] MEDS: ACETAMINOPHEN 325 MG TAB PO PRN (08:37)
--- NOTE | 2020-09-16 10:05 | History & Physical Bridge Note ---
Date of Service September 16, 2020 History & Physical Bridge Note I have examined the patient, reviewed the History & Physical and in the interval since the performance of the History & Physical I have noted the following changes of clinical significance: States she is passing some blood clots but otherwise stool is clear. Completed bowel preparation. Pain worsened slightly with bowel preparation. PE: A&Ox3. RRR. Lungs CTA bilaterally. Abdomen soft, tender. A/P: Acute blood loss anemia and abdominal pain now with rectal bleeding. 1. NPO for now. 2. Proceed with colonoscopy as scheduled today with Dr. Aguilar. 3. Further recommendations pending results of testing.
[2020-09-16] MEDS ORDERED: LIDOCAINE HCL 2% 2 ML VIAL/AMP(20MG/ML) INFIL ONE (11:34)
[2020-09-16] MEDS ORDERED: PROPOFOL IV EMULSION 10 MG/ML 20 ML VIAL IV ONE (11:34)
--- NOTE | 2020-09-16 11:50 | Anesthesiology Consultation ---
Date of Service September 16, 2020 Assessment & Plan (1) Encounter for pre-operative examination: Chart Review Chart Review: Acceptable Risk for Surgery and Patient NOT seen in Pre Admission Testing Consults Requested none ASA ASA3 Proposed Anesthesia Anesthesia Type: MAC Risk / Benefits Reviewed With: PT / POA / Parent / Guardian, Accepts Plan and Informed Consent Obtained History Surgery Operation Date: 09/13/20 16:00 Proposed Procedures p Esophagogastroduodenoscopy Dr. Jeff Aguilar MD Operation Date: 09/16/20 16:00 Proposed Procedures p Colonoscopy Dr. Jeff Aguilar MD Height/Weight Height: 5 ft 3 in Weight: 57.5 kg Allergies Allergy/AdvReac Type Severity Reaction Status Date / Time No Known Allergies Allergy Unverified 09/11/20 12:34 Medications Home Medications Medication Instructions Recorded Confirmed Last Taken apixaban [Eliquis] 5 mg PO BID 09/11/20 09/11/20 09/11/20 cyanocobalamin (vitamin B-12) 1,000 mcg IM MONTHLY 09/11/20 09/11/20 Unknown multivitamin 1 tab PO QAM 09/11/20 09/11/20 09/11/20 ondansetron HCl [Zofran] 8 mg PO Q12H PRN 09/11/20 09/11/20 Unknown pantoprazole [Protonix] 40 mg PO BID 09/11/20 09/11/20 09/11/20 ropinirole 0.25 mg PO TID 09/11/20 09/11/20 09/11/20 sucralfate [Carafate] 15 ml PO TID 09/11/20 09/11/20 09/11/20 trazodone 150 mg PO HS 09/11/20 09/11/20 09/10/20 zolpidem [Ambien] 10 mg PO HS 09/11/20 09/11/20 09/10/20 Active Medications Generic Name Dose Route Start Last Admin Trade Name Freq PRN Reason Stop Dose Admin Acetaminophen 650 mg 09/11/20 19:41 09/16/20 08:37 Acetaminophen 325 Mg Tab PO 10/11/20 19:40 650 mg Q4H PRN Administration Pain or Fever Hydromorphone HCl 1 mg 09/12/20 16:14 09/16/20 09:41 Hydromorphone Inj 1 Mg/Ml Syringe IV 09/26/20 16:13 1 mg Q4H PRN Administration Pain Lactated Ringer's 1,000 mls @ 80 mls/hr 09/11/20 17:00 09/16/20 10:59 Lr IV 10/11/20 16:59 80 mls/hr .[id number] ADAN Administration Prochlorperazine 10 mg/ 10 mls @ 5 mls/min 09/11/20 16:50 09/16/20 01:09 Syringe IV 10/11/20 16:49 5 mls/min Q8 PRN Administration Nausea And Vomiting Misoprostol 50 mcg 09/11/20 21:00 09/16/20 08:18 Misoprostol 50 Mcg Tab PO 10/11/20 20:59 50 mcg BID ADAN Administration Ondansetron HCl 4 mg 09/11/20 16:50 09/16/20 05:33 Ondansetron Inj 2 Mg/Ml 2 Ml Vial IV 10/11/20 16:49 4 mg Q6H PRN Administration Nausea Pantoprazole Sodium 40 mg 09/14/20 11:45 09/16/20 08:18 Pantoprazole 40 Mg Tab PO 10/14/20 11:44 40 mg BID ADAN Administration Ropinirole HCl 0.25 mg 09/11/20 21:00 09/16/20 08:18 Ropinirole Hcl 0.25 Mg Tablet PO 10/11/20 20:59 0.25 mg TID ADAN Administration Sucralfate 1 gm 09/12/20 17:00 09/12/20 20:53 Sucralfate 1 Gm/10 Ml Udc PO 10/12/20 16:59 1 gm QID ADAN Administration Trazodone HCl 150 mg 09/11/20 21:00 09/15/20 20:53 Trazodone Hcl 50 Mg Tab PO 10/11/20 20:59 150 mg HS ADAN Administration Zolpidem Tartrate 10 mg 09/11/20 21:00 09/15/20 20:54 Zolpidem Tartrate 10 Mg Tab PO 10/11/20 20:59 10 mg HS ADAN Administration NPO Date Last Intake of Fluids: 09/16/20 Time Last Intake of Fluids: 07:00 Date Last Intake of Solids: 09/15/20 Time Last Intake of Solids: 12:00 Past Medical History Medical History Anemia Depression History of deep venous thrombosis or pulmonary embolus Insomnia Peptic ulcer disease RLS (restless legs syndrome) Exercise / Class Metabolic Activity II 4-5 Yardwork/Stairs/Walk up hill Past Family History Family History Other Adopted Past Surgical History Surgical History Gastric bypass status for obesity History of appendectomy History of cholecystectomy Past Anesthesia History No Hx of Anesthesia Complications and No Family Hx of Anesthesia Complications History of PONV No Hx of PONV and No Hx of Motion Sickness Social History Smoking Status: Never smoker Hx Alcohol Use: No Hx Substance Use: No Physical Exam Vital Signs Last Vital Signs Temp 37.1 C 09/16/20 11:31 Pulse 71 09/16/20 11:31 Resp 18 09/16/20 11:31 BP 106/69 09/16/20 11:31 Pulse Ox 98 09/16/20 11:31 ENMT Mouth: no dentition abnormality Thyromental Distance: > or= 3.5 Finger Breadths Mallampati Class: II Neck normal visual inspection Respiratory normal respiratory effort Auscultation: lungs clear to auscultation bilaterally Cardiovascular Rate/Rhythm: regular rate and regular rhythm Psychiatric Orientation: alert Testing Laboratory Results 09/16/20 06:02 09/16/20 06:02 PT 10.3 Seconds (9.0-12.0) 09/11/20 11:25 INR 1.0 (0.9-1.1) 09/11/20 11:25 Urine Color Yellow 09/11/20 12:15 Urine Appearance Clear (Clear) 09/11/20 12:15 Urine pH 5.0 (4.5-7.5) 09/11/20 12:15 Ur Specific [place] 1.019 (1.000-1.030) 09/11/20 12:15 Urine Protein Negative (Negative) 09/11/20 12:15 Urine Glucose (UA) Negative (Negative) 09/11/20 12:15 Urine Ketones Negative (Negative) 09/11/20 12:15 Urine Nitrite Negative (Negative) 09/11/20 12:15 Ur Leukocyte Esterase Negative (Negative) 09/11/20 12:15 Blood Type A Negative 09/11/20 11:25 Antibody Screen NEGATIVE 09/11/20 11:25 09/14/20 15:30 Escherichia coli Shiga Toxins Test - Preliminary Stool Stool Culture - Preliminary No Salmonella isolated to date, No Shigella isolated to date, No Campylobacter jejuni isolated to date.
--- NOTE | 2020-09-16 12:28 | GI REPORT ---
Patient Name: Whitney Kevin Procedure Date: 09/16/2020 11:59 AM Date of : 1970 Admit Type: Inpatient Age: 50 Gender: Female Attending MD: Marc Aguilar MD Procedure: Colonoscopy Providers: Marc Aguilar MD Referring MD: Waqar Mejia M.d. Indications: Hematochezia Medicines: Monitored Anesthesia Care Complications: No immediate complications. Estimated blood loss: None. Estimated Blood Loss: Estimated blood loss: none. Procedure: Pre-Anesthesia Assessment: - Prior Anticoagulants: The patient has taken no previous anticoagulant or antiplatelet agents. - ASA Grade Assessment: II - A patient with mild systemic disease. After I obtained informed consent, the scope was passed under direct vision. Throughout the procedure, the patient's blood pressure, pulse, and oxygen saturations were monitored continuously. The Colonoscope was introduced through the anus and advanced to the cecum, identified by appendiceal orifice and ileocecal valve. The colonoscopy was performed without difficulty. The patient tolerated the procedure well. The quality of the bowel preparation was fair. Findings: A few small-mouthed diverticula were found in the sigmoid colon. Non-bleeding internal hemorrhoids were found. The hemorrhoids were medium-sized. No evidence of blood throughout entire exam. Impression: - Preparation of the colon was fair. - Diverticulosis in the sigmoid colon. - Non-bleeding internal hemorrhoids. - No specimens collected. Recommendation: - [facility]. - Advance diet as tolerated today. -start anusol suppositories BID for 2 weeks for hemorrhoids - Repeat colonoscopy in 3 years for screening purposes due to fair prep. trend H/H. transfuse prn hgb <7 -if hematochezia/GI bleeding persists, may need double balloon enteroscopy as an outpatient to further evaluate Marc Aguilar MD 09/16/2020 12:27:56 PM This report has been signed electronically. Note Initiated On: 09/16/2020 11:59 AM Number of Addenda: 0 I attest to the content of the Intraoperative Record and orders documented therein, exceptions below {[id number]}
--- NOTE | 2020-09-16 13:53 | Anesthesiology Progress Note ---
Date of Service September 16, 2020 Anesthesia Post Procedure Vital Signs Vital Signs: Temp Pulse Pulse Resp BP BP Pulse Ox 09/16/20 12:55 65 16 91/67 L 97 09/16/20 12:44 63 16 87/60 L 97 09/16/20 12:29 75 16 93/56 L 97 09/16/20 11:31 37.1 C 71 18 106/69 98 09/16/20 11:07 36.6 C 76 17 112/71 97 09/16/20 08:00 62 09/16/20 07:16 36.6 C 67 17 92/60 L 99 09/16/20 03:27 36.6 C 69 18 94/58 L 96 09/15/20 22:52 36.5 C 68 18 92/59 L 96 09/15/20 19:19 36.5 C 70 18 115/77 99 09/15/20 15:40 36.3 C L 69 19 103/70 99 Pain Intensity Right Abdomen: Pain Intensity: 7 Left Upper Abdomen: Pain Intensity: 6 Transfer of Care Handoff Completed per policy Notes Mental Status: alert / awake / arousable Patient Amnestic to Procedure: Yes Nausea / Vomiting: adequately controlled Pain: adequately controlled Airway Patency, RR, SpO2: stable & adequate BP & HR: stable & adequate Hydration State: stable & adequate Anesthetic Complications: no major complications apparent
[2020-09-16 15:16] LABS: IgA Serum 199 mg/dL (47-310); Tis Trans IgA 1 U/mL
[2020-09-16] MEDS: ZOLPIDEM TARTRATE 10 MG TAB PO SCH (21:36)
[2020-09-16] MEDS: traZODone HCL 50 MG TAB PO SCH (21:37)
--- NOTE | 2020-09-16 22:22 | Hospitalist Progress Note ---
Date of Service September 16, 2020 Assessment & Plan (1) Acute blood loss anemia: Serial H&H. Stable . S/P colonoscopy. This is negative. (2) Acute GI bleeding: Upper GI source was suspected but EGD was done and negative. History of anastomotic ulcers after gastric bypass surgery in the past. Protonix drip switch to oral Protonix twice daily dosing. Continue Carafate suspension. Appreciate GI consultation. Eliquis is on hold. Colonoscopy completed on 09/16/20/ Rule out Giardia infection producing colitis and hemorrhage Patient though complaining of pain. will titrate to orals in AM. (3) Fever: Resolved. No evidence of active infection. (4) History of deep venous thrombosis or pulmonary embolus: PE diagnosed 06/2020 in the setting of Covid infection. By report her clot burden was small. No DVTs at that time. Holding eliquis. venous dopplers of legs negative for DVT this admission. (5) Gastric bypass status for obesity: Surgery performed at [facility] in early . Receives IM B12 shots at home monthly. Hold home multivitamin. Checked Fe studies - satisfactory. Folate wnl. B12 300s - will give injection this admission. EGD completed September 13 and was negative . (6) Depression: Continue home trazodone (7) Insomnia: Continue trazodone, Ambien (8) RLS (restless legs syndrome): Continue home ropinirole (9) DVT prophylaxis: SCDs chemical means contraindicated in light of GI bleeding Disposition: Eventual discharge to home. Admission and Anticipated Discharge Date Admission Date: September 11, 2020 Subjective Patient reports having pain today in her abdomen. She reports no significant improvement. Review of Systems Review of Systems: All systems reviewed & are unremarkable except as noted in HPI & below Physical Exam Physical Exam: General-alert and oriented x3, no fevers, no chills HEENT-head atraumatic and normocephalic, pupils equal and reactive to light, extraocular muscles intact Neck-no lymphadenopathy or thyromegaly, trachea midline Chest-clear to auscultation percussion. No rales wheezing or rhonchi Cardiac-regular rate and rhythm, normal S1 and S2, no murmurs Abdomen-nondistended. Tenderness in the lower quadrants. No overt rebound or guarding Extremities-no cyanosis, clubbing, or edema Neuro-cranial nerves II through XII intact, motor and sensory function within normal limits, strength symmetrical , no focal deficits Psych-normal affect, normal mood Results & Data Results & Data ([facility]) Vital Signs (Past 12 Hours) Vital Signs Temp Pulse Pulse Resp BP BP Pulse Ox 09/16/20 19:00 36.8 C 86 20 93/57 L 99 09/16/20 16:31 69 09/16/20 15:35 36.6 C 79 17 96/60 L 96 09/16/20 12:55 65 16 91/67 L 97 09/16/20 12:44 63 16 87/60 L 97 09/16/20 12:29 75 16 93/56 L 97 09/16/20 11:31 37.1 C 71 18 106/69 98 09/16/20 11:07 36.6 C 76 17 112/71 97 PG Care Time/CCT Total # of Minutes Spent Total Time Spent with Patient: Total time spent is greater than 50% in coordination of care (as documented) at patient's floor/unit and/or counseling patient: Coding Level of Care Code 26373 Subseq Hosp Care Lvl 3 Diagnoses Acute blood loss anemia D62 Acute GI bleeding K92.2 Fever R50.9 History of deep venous thrombosis or pulmonary embolus Gastric bypass status for obesity Z98.84 Depression F32.9 Insomnia G47.00 RLS (restless legs syndrome) G25.81 DVT prophylaxis Z29.9 Time Spent (min) 35
[2020-09-17] MEDS: LACTATED RINGER'S 1,000 ML IV SCH ×2 (00:59→12:01)
[2020-09-17] MEDS: HYDROmorphone INJ 1 MG/ML SYRINGE IV PRN ×2 (02:00→06:06)
[2020-09-17] MEDS: ONDANSETRON INJ 2 MG/ML 2 ML VIAL IV PRN ×3 (03:52→20:47)
[2020-09-17] MEDS: miSOPROStoL 50 MCG TAB PO SCH ×2 (08:38→20:40)
[2020-09-17] MEDS: PANTOprazole 40 MG TAB PO SCH ×2 (08:38→20:40)
[2020-09-17] MEDS: rOPINIRole HCL 0.25 MG TABLET PO SCH ×3 (08:38→20:40)
[2020-09-17] MEDS: ACETAMINOPHEN 325 MG TAB PO PRN (08:56)
--- NOTE | 2020-09-17 10:01 | Consultation Report ---
DATE OF CONSULTATION: 09/17/2020 REASON FOR CONSULTATION: Neutropenia. HISTORY OF PRESENT ILLNESS: The patient is a pleasant 50-year-old female with history of Eamon-en-Y gastric bypass approximately 2 decades ago, presented to [facility] with coffee-ground emesis on the morning of admission. She also relates epigastric pain with intermittent nausea. She was diagnosed with pulmonary embolism in 06/2020. Currently anticoagulated with Eliquis. Appropriately, gastroenterology was consulted, both EGD and colonoscopy were performed with the EGD revealing no evidence of active bleeding or pathology. Colonoscopy revealed some diverticulum and nonbleeding internal hemorrhoids. This lady supplements with B12 on a monthly basis. Interestingly, she has not received IV iron in several years. Generally speaking, patients that undergo Eamno-en-Y traditionally do not absorb oral iron readily. Reviewed her B12 and iron levels, which are in the low normal range. She is due for her B12 injection and perhaps could receive while inhouse. I have been asked to see her because of falling neutrophil count. Her neutrophils on admission were approximately 1600, now since it dropped to around 700. Clearly, this is a reaction with no evidence of emerging immaturity. No infectious etiology has been determined; however, she is now complaining of dysuria. UA was performed at the beginning of her admission, conceivably, she has developed a urinary tract infection while inhouse. Peripheral blood counts for this morning are pending. PAST MEDICAL HISTORY: Significant for restless leg syndrome, status post gastric bypass, peptic ulcer disease, insomnia, history of pulmonary embolism, depression and chronic anemia. PAST SURGICAL HISTORY: Eamon-en-Y, appendectomy and cholecystectomy. MEDICATIONS: Eliquis 5 mg p.o. b.i.d., vitamin B12 1 mg IM monthly, multivitamin 1 tablet p.o. daily, Zofran 8 mg p.o. q. 12 hours p.r.n., Protonix 40 mg p.o. b.i.d., ropinirole 0.25 mg p.o. t.i.d., Cafirate 15 mL p.o. t.i.d., trazodone 150 mg p.o. at bedtime, Ambien 10 mg p.o. at bedtime. ALLERGIES: No known drug allergies. SOCIAL HISTORY: The patient is and lives with her spouse. She is a reformed smoker. Negative for alcohol or illicit substances. FAMILY HISTORY: Not applicable as she was adopted. REVIEW OF SYSTEMS: GENERAL: Negative for fevers, chills or sweats. She is not anorexic or losing weight. SKIN: No rashes or lesions. No history of dermatoses. HEENT: Negative for headaches, lightheadedness or dizziness. No acute visual or hearing deficits. No sinus symptoms, sore throat or dysphagia. LYMPH: No history of lymphoproliferative disease. CARDIAC: Negative for coronary artery disease, no angina or palpitations. PULMONARY: Negative for COPD. She is not short of breath, dyspneic or orthopneic. No cough or hemoptysis. Recent diagnosis of PE, currently on anticoagulation. GASTROINTESTINAL: As per HPI. GENITOURINARY: She is complaining of dysuria this morning. MUSCULOSKELETAL: No focal muscle weakness. No arthralgias or myalgias otherwise. ENDOCRINE: Negative for diabetes or thyroid disease. NEUROLOGIC: Negative for seizure, stroke, or migraine headache. HEMATOLOGIC: Positive for chronic normocytic normochromic anemia and leukopenia. PHYSICAL EXAMINATION: GENERAL: Very pleasant 50-year-old female. She is awake, alert, appropriate, in no acute distress. VITAL SIGNS: Temperature 36.5, pulse 74, respiratory rate 18, blood pressure 93/60. SKIN: Warm, dry, noncyanotic without petechia, rash or ecchymosis. HEENT: Head is atraumatic, normocephalic. Eyes: PERRLA, EOMI. Nares patent without rhinorrhea or discharge. Throat is clear. Tongue midline. Mucous membranes are moist. No buccal lesions or ulcerations. NECK: Supple without JVD or thyromegaly. HEART: Regular rate and rhythm. No clicks, rubs, murmurs or gallops. LUNGS: Clear to auscultation bilaterally. ABDOMEN: She has some point tenderness for left sided epigastric region. No rigidity or guarding. No palpable hepatosplenomegaly. EXTREMITIES: Musculoskeletal strength and pulses are equal in all 4 quadrants. No clubbing, cyanosis or edema otherwise. NEUROLOGICALLY: She is awake, alert and oriented x3. RADIOGRAPHIC DATA: KUB, nonobstructive gas pattern. Chest x-ray done on 09/12/2020, negative Doppler studies done on the , negative CT scan of the abdomen and pelvis done on day of admission, no obstruction, prior gastric bypass, moderate fecal retention. IMPRESSION: 1. Reactive neutropenia (myelosuppression). 2. Active gastrointestinal bleeding/coffee-ground emesis. 3. Fever. 4. History of pulmonary embolism. PLAN: I have been asked to visit with the patient because of subacute onset neutropenia. Clearly, her neutrophil count was normal at the start of admission. She also has unexplained fever on admission. Perhaps she has a viral gastroenteritis, which in turn may be causing a reactive drop in her white count. I would also check a UA again today. She is complaining of dysuria. Peripheral blood counts were not updated this morning; however, I reference yesterday's laboratories which were neutrophil was 630. Would repeat her peripheral counts in the next 24-48 hours. I cannot appreciate any evidence for emerging immaturity. It would be a bad idea for me to see this lady in the office post discharge to follow up be it neutropenia and perhaps work up for anemia bit further. I have no immediate recommendations other than observation. If there are any questions or concerns, feel free to contact me at any time.
[2020-09-17] MEDS: oxyCODONE HCL IR 5 MG TAB (IMMEDIATE RELEASE) PO PRN ×2 (10:28→16:38)
[2020-09-17] MEDS: DICYCLOMINE HCL 20 MG TAB PO SCH ×3 (10:37→20:39)
[2020-09-17] MEDS ORDERED: OPTIRAY 320 125ml IV ONE (12:21)
--- NOTE | 2020-09-17 12:44 | CT Scan Report ---
CT ANGIOGRAM OF THE ABDOMEN AND PELVIS CLINICAL HISTORY: Mesenteric ischemia. COMPARISON STUDY: Abdominal CT dated 09/11/2020. TECHNIQUE: Following the IV administration of 118 cc of Optiray 320, CT angiogram of the abdomen and pelvis was performed from the lung bases the proximal femora. Images are reviewed in the axial, sagit ramya, and coronal planes. 3-D MIPS images are created and assessed. IV contrast was administered witho ut complication. A dose lowering technique was utilized adhering to the principles of ALARA. CT DOSE: 286.00 mGy.cm FINDINGS: Lower chest: The tip of a central venous catheter terminates at the cavoatrial junction. The heart is normal in size and without pericardial effusion. A 4 mm right lower lobe pulmonary nodule seen on im age #35 is unchanged. The lung bases are otherwise clear noting dependent atelectasis. Liver: The contrast-enhanced liver is enlarged, measuring 19.6 cm in length. The liver is otherwise n ormal in contour and attenuation. There is no intrahepatic biliary ductal dilatation. Scattered subce ntimeter hepatic hypodensities likely represent cysts but are too small for definitive characterizati on. Gallbladder: Surgically absent noting clips in the gallbladder fossa. Spleen: Normal in size and attenuation noting heterogeneous arterial phase enhancement. Pancreas: Unremarkable. Adrenal glands: Unremarkable. Kidneys: The contrast enhanced kidneys are normal in size and without hydronephrosis. The kidneys enh ance symmetrically. Abdominal aorta and iliac arteries: The abdominal aorta is normal in course and caliber. The iliac ar teries are widely patent bilaterally. No dissection is seen. Major branches of the abdominal aorta: The celiac trunk, superior mesenteric, and inferior mesenteric arteries are widely patent. There is mild ectasia of the celiac trunk which measures up to 9 mm in d iameter. Hepatic arterial anatomy is conventional. The splenic artery is patent. Single bilateral laurie al arteries are widely patent. Stomach and bowel: Postoperative changes consistent with a history of Eamon-en-Y gastric bypass surger y. No bowel obstruction is seen. The appendix is not identified and reported surgically absent. Peritoneum: There is no intraperitoneal free air or abdominal ascites. Lymphadenopathy: None. Pelvic viscera: The bladder is decompressed and grossly unremarkable. The uterus is surgically absent . No adnexal lesion is seen. Skeletal structures: Hemangiomas are noted in the body of L5. No destructive bony lesions are seen. T here are healed right-sided rib fractures. IMPRESSION: 1. Unremarkable CT angiogram of the abdominal aorta and its major branches. 2. There are no acute infectious or inflammatory findings in the abdomen or pelvis. 3. Postoperative changes as above. 4. A 4 mm right lower lobe pulmonary nodule is pathologically indeterminant. This can be followed if clinically warranted. 5. Additional findings as above. ACT 112: Negative or not required by law. Electronically signed by: Venkat Carson M.D. 09/17/2020 12:43 PM
[2020-09-17] MEDS: HYDROmorphone INJ 0.5 MG/0.5 ML SYR IV PRN ×2 (13:54→20:40)
[2020-09-17 15:11] LABS: Basophils # (auto) 0.01 K/uL (0-0.2); Basophils % (auto) 0.3 %; Eosinophils # (auto) 0.37 K/uL (0-0.5); Eosinophils % (auto) 10.3 %; Hematocrit (blood only) 30.9 % (37-47); Hemoglobin 9.7 g/dL (12.0-16.0); Lymphocytes # (auto) 0.92 K/uL (1.2-3.4); Lymphocytes % (auto) 25.7 %; Mean Corpuscular Hemoglobin 27.5 pg (25-34); Mean Corpuscular Hgb Conc 31.4 g/dL (32-36); Mean Corpuscular Volume 87.5 fL (80-100); Mean Platelet Volume 8.8 fL (7.4-10.4); Monocytes # (auto) 0.33 K/uL (0.11-0.59); Monocytes % (auto) 9.2 %; Neutrophils # (auto) 1.95 K/uL (1.4-6.5); Neutrophils % (auto) 54.5 %; Platelet Count 313 K/uL (130-400); RDW Coefficient of Variation 20.8 % (11.5-14.5); RDW Standard Deviation 65.9 fL (36.4-46.3); Red Blood Count 3.53 M/uL (4.2-5.4); White Blood Count 3.58 K/uL (4.8-10.8)
[2020-09-17 15:30] LABS: Anisocytosis Present; BUN Creatinine Ratio 6.9 (10-20); Calcium 8.9 mg/dl (8.5-10.1); Creatinine Clr Calc Pharmacy 65.4 ml/min; Est GFR (African American) 91.3; Est GFR (Non-African American) 78.8; Potassium 4.3 mmol/L (3.5-5.1)
[2020-09-17] MEDS: ZOLPIDEM TARTRATE 10 MG TAB PO SCH (20:39)
[2020-09-17] MEDS: traZODone HCL 50 MG TAB PO SCH (20:40)
--- NOTE | 2020-09-17 22:20 | Hospitalist Progress Note ---
Date of Service September 17, 2020 Assessment & Plan (1) Acute blood loss anemia: Serial H&H. Stable . S/P colonoscopy. This is negative. (2) Acute GI bleeding: Upper GI source was suspected but EGD was done and negative. History of anastomotic ulcers after gastric bypass surgery in the past. Protonix drip switch to oral Protonix twice daily dosing. Continue Carafate suspension. Appreciate GI consultation. Eliquis is on hold. Colonoscopy completed on 09/16/20/ Rule out Giardia infection producing colitis and hemorrhage Patient though complaining of pain. titrating medications to orals and cutting back dilaudid to 0.5 mg IV Will order CTA of abd/ pelvis. (3) Fever: Resolved. No evidence of active infection. (4) History of deep venous thrombosis or pulmonary embolus: PE diagnosed 06/2020 in the setting of Covid infection. By report her clot burden was small. No DVTs at that time. Holding eliquis. venous dopplers of legs negative for DVT this admission. (5) Gastric bypass status for obesity: Surgery performed at [facility] in early . Receives IM B12 shots at home monthly. Hold home multivitamin. Checked Fe studies - satisfactory. Folate wnl. B12 300s - will give injection this admission. EGD completed September 13 and was negative . (6) Depression: Continue home trazodone (7) Insomnia: Continue trazodone, Ambien (8) RLS (restless legs syndrome): Continue home ropinirole (9) DVT prophylaxis: SCDs chemical means contraindicated in light of GI bleeding Disposition: Eventual discharge to home. Admission and Anticipated Discharge Date Admission Date: September 11, 2020 Subjective Patient reports still having abdominal pain. No improvement from yesterday. Review of Systems Review of Systems: All systems reviewed & are unremarkable except as noted in HPI & below Physical Exam Physical Exam: General-alert and oriented x3, no fevers, no chills HEENT-head atraumatic and normocephalic, pupils equal and reactive to light, extraocular muscles intact Neck-no lymphadenopathy or thyromegaly, trachea midline Chest-clear to auscultation percussion. Cardiac-regular rate and rhythm, NL S1 and S2 Abdomen-nondistended. Tenderness in the lower quadrants. No overt rebound or guarding Extremities-no cyanosis, clubbing, or edema Neuro-cranial nerves II through XII intact, motor and sensory function within normal limits, strength symmetrical , no focal deficits Psych-normal affect, normal mood Results & Data Results & Data ([facility]) Vital Signs (Past 12 Hours) Vital Signs Temp Pulse Resp BP Pulse Ox 09/17/20 19:00 36.7 C 75 20 95/59 L 98 09/17/20 15:27 36.6 C 72 18 94/56 L 98 09/17/20 11:17 36.5 C 62 18 93/57 L 94 PG Care Time/CCT Total # of Minutes Spent Total Time Spent with Patient: Total time spent is greater than 50% in coordination of care (as documented) at patient's floor/unit and/or counseling patient: Coding Level of Care Code 05031 Subseq Hosp Care Lvl 3 Diagnoses Acute blood loss anemia D62 Acute GI bleeding K92.2 Fever R50.9 History of deep venous thrombosis or pulmonary embolus Gastric bypass status for obesity Z98.84 Depression F32.9 Insomnia G47.00 RLS (restless legs syndrome) G25.81 DVT prophylaxis Z29.9 Time Spent (min) 35
[2020-09-18] MEDS: LACTATED RINGER'S 1,000 ML IV SCH ×3 (00:47→20:54)
[2020-09-18] MEDS: oxyCODONE HCL IR 5 MG TAB (IMMEDIATE RELEASE) PO PRN ×3 (02:58→20:52)
[2020-09-18] MEDS: DICYCLOMINE HCL 20 MG TAB PO SCH ×4 (04:41→20:53)
[2020-09-18] MEDS: HYDROmorphone INJ 0.5 MG/0.5 ML SYR IV PRN ×3 (05:51→18:13)
[2020-09-18 07:01] LABS: Hematocrit (blood only) 31.7 % (37-47); Hemoglobin 9.7 g/dL (12.0-16.0); Mean Corpuscular Hemoglobin 26.7 pg (25-34); Mean Corpuscular Hgb Conc 30.6 g/dL (32-36); Mean Corpuscular Volume 87.3 fL (80-100); Mean Platelet Volume 8.9 fL (7.4-10.4); Platelet Count 324 K/uL (130-400); RDW Coefficient of Variation 20.6 % (11.5-14.5); RDW Standard Deviation 65.2 fL (36.4-46.3); Red Blood Count 3.63 M/uL (4.2-5.4); White Blood Count 4.72 K/uL (4.8-10.8)
[2020-09-18 07:35] LABS: BUN Creatinine Ratio 8.4 (10-20); Calcium 9.2 mg/dl (8.5-10.1); Creatinine Clr Calc Pharmacy 59.3 ml/min; Est GFR (African American) 81.1; Est GFR (Non-African American) 69.9; Potassium 3.8 mmol/L (3.5-5.1)
[2020-09-18] MEDS: miSOPROStoL 50 MCG TAB PO SCH ×2 (08:07→20:54)
[2020-09-18] MEDS: PANTOprazole 40 MG TAB PO SCH ×2 (08:07→20:53)
[2020-09-18] MEDS: rOPINIRole HCL 0.25 MG TABLET PO SCH ×3 (08:07→20:53)
[2020-09-18] MEDS: traMADol HCL 50 MG TABLET PO PRN ×2 (08:12→15:18)
[2020-09-18] MEDS: PROCHLORPERAZINE 10 MG in SYRINGE 8 ML IV PRN ×2 (11:56→18:14)
[2020-09-18] MEDS: ZOLPIDEM TARTRATE 10 MG TAB PO SCH (20:53)
[2020-09-18] MEDS: traZODone HCL 50 MG TAB PO SCH (20:54)
--- NOTE | 2020-09-18 22:10 | Hospitalist Progress Note ---
Date of Service September 18, 2020 Assessment & Plan (1) Acute blood loss anemia: Serial H&H. Stable . S/P colonoscopy. This is negative. (2) Acute GI bleeding: Upper GI source was suspected but EGD was done and negative. History of anastomotic ulcers after gastric bypass surgery in the past. Protonix drip switch to oral Protonix twice daily dosing. Continue Carafate suspension. Appreciate GI consultation. Eliquis is on hold. Colonoscopy completed on 09/16/20/ Rule out Giardia infection producing colitis and hemorrhage Patient though complaining of pain. titrating medications to orals and cutting back dilaudid to 0.5 mg IV CTA Abd/Pelvis: was negative for ischemia. (3) Fever: Resolved. No evidence of active infection. (4) History of deep venous thrombosis or pulmonary embolus: PE diagnosed 06/2020 in the setting of Covid infection. By report her clot burden was small. No DVTs at that time. Holding eliquis. venous dopplers of legs negative for DVT this admission. (5) Gastric bypass status for obesity: Surgery performed at [facility] in early . Receives IM B12 shots at home monthly. Hold home multivitamin. Checked Fe studies - satisfactory. Folate wnl. B12 300s - will give injection this admission. EGD completed September 13 and was negative . (6) Depression: Continue home trazodone (7) Insomnia: Continue trazodone, Ambien (8) RLS (restless legs syndrome): Continue home ropinirole (9) DVT prophylaxis: SCDs chemical means contraindicated in light of GI bleeding Disposition: Eventual discharge to home. Admission and Anticipated Discharge Date Admission Date: September 11, 2020 Subjective Patient reports feeling mildly better. She is alternating between IV pain medicine and PO. Review of Systems Review of Systems: All systems reviewed & are unremarkable except as noted in HPI & below Physical Exam Physical Exam: General-alert and oriented x3, no fevers, no chills HEENT-head atraumatic and normocephalic, pupils equal and reactive to light, extraocular muscles intact Neck-no lymphadenopathy or thyromegaly, trachea midline Chest-clear to auscultation percussion. Cardiac-regular rate and rhythm, NL S1 and S2 Abdomen-nondistended. Tenderness in the lower quadrants. No overt rebound or guarding Extremities-no cyanosis, clubbing, or edema Neuro-cranial nerves II through XII intact, motor and sensory function within normal limits, strength symmetrical , no focal deficits Psych-normal affect, normal mood Results & Data Results & Data ([facility]) Vital Signs (Past 12 Hours) Vital Signs Temp Pulse Pulse Resp BP Pulse Ox 09/18/20 19:00 36.6 C 80 20 93/55 L 97 09/18/20 15:26 36.7 C 72 19 91/60 L 96 09/18/20 14:49 70 09/18/20 11:13 36.3 C L 72 19 102/65 98 PG Care Time/CCT Total # of Minutes Spent Total Time Spent with Patient: Total time spent is greater than 50% in coordination of care (as documented) at patient's floor/unit and/or counseling patient: Coding Level of Care Code 19719 Subseq Hosp Care Lvl 2 Diagnoses Acute blood loss anemia D62 Acute GI bleeding K92.2 Fever R50.9 History of deep venous thrombosis or pulmonary embolus Gastric bypass status for obesity Z98.84 Depression F32.9 Insomnia G47.00 RLS (restless legs syndrome) G25.81 DVT prophylaxis Z29.9 Time Spent (min) 25
[2020-09-19] MEDS: ONDANSETRON INJ 2 MG/ML 2 ML VIAL IV PRN (03:05)
[2020-09-19] MEDS: DICYCLOMINE HCL 20 MG TAB PO SCH ×2 (03:05→09:18)
[2020-09-19] MEDS: HYDROmorphone INJ 0.5 MG/0.5 ML SYR IV PRN ×2 (03:05→09:17)
[2020-09-19] MEDS: oxyCODONE HCL IR 5 MG TAB (IMMEDIATE RELEASE) PO PRN ×2 (06:00→12:19)
[2020-09-19] MEDS: LACTATED RINGER'S 1,000 ML IV SCH (07:53)
[2020-09-19] MEDS: rOPINIRole HCL 0.25 MG TABLET PO SCH ×2 (07:54→14:06)
[2020-09-19] MEDS: PANTOprazole 40 MG TAB PO SCH (07:54)
[2020-09-19] MEDS: miSOPROStoL 50 MCG TAB PO SCH (07:54)
[2020-09-19] MEDS: PROCHLORPERAZINE 10 MG in SYRINGE 8 ML IV PRN (09:18)
--- NOTE | 2020-09-26 20:50 | Discharge Summary ---
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 She has epigastric abdominal pain and continued nausea. She denies any melena or bright red blood per rectum, no lower abdominal pain. She denies any history of aspirin or NSAID use, but is on Eliquis since she had a PE in June 2020 1 month after she had Covid. She denies chest pain or shortness of breath, denies lightheadedness. Her blood pressures in the ER were in the 90s over 60s which she reports is normal for her. Her last dose of Eliquis was the morning of 09/11. In the ER, she had a hemoglobin of 10.0 and she reports her baseline is somewhere around 11. She then had a repeat hemoglobin 4 hours later which was 9.6. Otherwise her laboratory values were fairly unremarkable. Coags with PT/INR was normal. A CT of the abdomen/pelvis showed postoperative changes of prior Eamon-en-Y gastric bypass, no bowel obstruction or bowel wall thickening, mild to moderate fecal retention, status post cholecystectomy and appendectomy, otherwise no acute changes. Principal Diagnosis acute blood loss anemia Discharge Exam General-alert and oriented x3, no fevers, no chills HEENT-head atraumatic and normocephalic, pupils equal and reactive to light, extraocular muscles intact Neck-no lymphadenopathy or thyromegaly, trachea midline Chest-clear to auscultation percussion. Cardiac-regular rate and rhythm, NL S1 and S2 Abdomen-nondistended. Tenderness in the lower quadrants. No overt rebound or guarding Extremities-no cyanosis, clubbing, or edema Neuro-cranial nerves II through XII intact, motor and sensory function within normal limits, strength symmetrical , no focal deficits Psych-normal affect, normal mood Discharge Data Allergies Allergy/AdvReac Type Severity Reaction Status Date / Time No Known Allergies Allergy Unverified 09/11/20 12:34 Consultations 09/11/20 15:31 ED Decision to Admit Stat 09/11/20 19:41 Consult Gastroenterology Routine 09/16/20 08:57 Consult Hematology Routine Procedures Performed Operation Date: 09/13/20 16:00 Actual Procedures p Esophagogastroduodenoscopy - Marc Aguilar MD Operation Date: 09/16/20 16:00 Actual Procedures p Colonoscopy - Marc Aguilar MD Ordered Studies 09/11/20 12:04 CT abd pelvis IV con only Stat 09/11/20 18:27 US venous doppler LE BI Stat 09/17/20 10:22 CT angio abdomen pelvis w con Urgent Hospital Course (1) Acute blood loss anemia: Serial H&H. Stable . S/P colonoscopy. This is negative. (2) Acute GI bleeding: Upper GI source was suspected but EGD was done and negative. History of anastomotic ulcers after gastric bypass surgery in the past. Protonix drip switch to oral Protonix twice daily dosing. Continue Carafate suspension. Appreciate GI consultation. Eliquis is on hold. Colonoscopy completed on 09/16/20/ Rule out Giardia infection producing colitis and hemorrhage Patient though complaining of pain. titrating medications to orals and cutting back dilaudid to 0.5 mg IV CTA Abd/Pelvis: was negative for ischemia. (3) Fever: Resolved. No evidence of active infection. (4) History of deep venous thrombosis or pulmonary embolus: PE diagnosed 06/2020 in the setting of Covid infection. By report her clot burden was small. No DVTs at that time. stop eliquis as you have completed over 3 months of treatment. venous dopplers of legs negative for DVT this admission. (5) Gastric bypass status for obesity: Surgery performed at [facility] in early . Receives IM B12 shots at home monthly. Hold home multivitamin. Checked Fe studies - satisfactory. Folate wnl. B12 300s - will give injection this admission. EGD completed September 13 and was negative . (6) Depression: Continue home trazodone (7) Insomnia: Continue trazodone, Ambien (8) RLS (restless legs syndrome): Continue home ropinirole (9) DVT prophylaxis: SCDs chemical means contraindicated in light of GI bleeding Total Time Total Time Spent Total Time Spent (In Minutes): 32 Discharge Plan Discharge Items Patient Disposition: Home - Self-Care Reason For Visit: GI BLEED Discharge Diagnosis: GI bleed Activity: Resume your previous activity Non-emergency contact: Primary Care Provider Call non-emergency contact if: you have any medication questions Follow-up/Referrals: PCP,NO [Primary Care Provider] - Diet: Regular Addtl Attending Provider Instructions: You have been hospitalized for an acute medical problem. During your stay at [facility], we have made an effort to correct the problem that brought you to the hospital while keeping you as comfortable as possible. Medications were used to bring your condition under control and your discharge instructions will include directions for any medications you should take after leaving the hospital. Please make sure you see your Primary Care Provider as part of your follow up plan. You completed 3 months of blood thining medication. will hold eliquis for the meantime and will defer to PCP if required to continue. Pending Studies at Discharge: No Stand-Alone Forms: My [facility], Smoking Cessation Medications and DC Order Prescriptions: New acetaminophen 325 mg Tablet 650 mg PO Q4H PRNQty: 0 RF: 0 tramadol 50 mg Tablet 50 mg PO Q4H PRN (Reason: moderate pain) Qty: 30 RF: 0 dicyclomine 20 mg Tablet 20 mg PO Q6H PRN (Reason: Abdominal Pain) Qty: 120 RF: 0 oxycodone 5 mg Tablet 5 mg PO Q6H PRN (Reason: severe pain) Qty: 30 RF: 0 Continued multivitamin Tablet 1 tab PO QAM RF: 0 sucralfate [Carafate] 100 mg/mL Suspension 15 ml PO TID RF: 0 ondansetron HCl 8 mg Tablet 8 mg PO Q12H PRN (Reason: Nausea) RF: 0 ropinirole 0.25 mg Tablet 0.25 mg PO TID RF: 0 pantoprazole [Protonix] 40 mg Tablet,Delayed Release (Dr/Ec) 40 mg PO BID RF: 0 trazodone 150 mg Tablet 150 mg PO HS RF: 0 zolpidem [Ambien] 10 mg Tablet 10 mg PO HS RF: 0 cyanocobalamin (vitamin B-12) 1,000 mcg/mL Kit 1,000 mcg IM MONTHLY RF: 0 Discontinued Eliquis 5 mg Tablet 5 mg PO BID RF: 0 Discharge Orders: Discharge Order (Routine); Ordered 09/19/20 Ordered By: Waqar Silva/Other Patient Handouts: Abdominal Pain Admission Data Admit Date/Time: 09/11/20 16:50 Attending Provider: Waqar Mejia Admit Provider: Kristie Chapman Primary Care Provider: PCP,NO Other Providers: Charlotte Santana ; Martin Damon V. Other Interventions: Discharge Summary Assessment (RN) Last Done: 09/19/20 15:03 Coding Level of Care Code D/C Day Management >30 mins Diagnoses Acute blood loss anemia D62 Acute GI bleeding K92.2 Fever R50.9 History of deep venous thrombosis or pulmonary embolus Gastric bypass status for obesity Z98.84 Depression F32.9 Insomnia G47.00 RLS (restless legs syndrome) G25.81 DVT prophylaxis Z29.9 Time Spent (min) 32
== END 2020-09-19 15:20 | disposition home or self-care (01) | DRG 378 ==
LOC: ED 10:51 → 2S 16:50 → SUATTDRO 16:50 → 2S 19:15

== ENCOUNTER 2021-01-12 22:20 | Inpatient (IN) ==
[2021-01-12] MEDS ORDERED: HYDROmorphone INJ 1 MG/ML SYRINGE IV STA (23:56)
[2021-01-12] MEDS ORDERED: SODIUM CHLORIDE 0.9% 1000ML 1,000 ML IV ONE (23:56)
[2021-01-12] MEDS ORDERED: PANTOprazole 80 MG in DEXTROSE 5% 100 ML IV STA (23:56)
[2021-01-12] MEDS ORDERED: ONDANSETRON INJ 2 MG/ML 2 ML VIAL IV STA (23:56)
--- NOTE | 2021-01-13 00:02 | Emergency Department Note ---
Impression & Plan Acute GI bleeding, Acute epigastric pain ED Provider Note Name: JOAQUINA NASSAR Age: 50 Sex: F Arrives Via: Walk-In Informant: Patient ED Provider: Jb Butler MD Chief Complaint: Vomiting blood Impression: Acute GI Bleeding Acute Epigastric Abdominal Pain Medical Decision Makin yr old female with history of Gastric Bypass 20 yrs ago who is currently on no blood thinners arrives for evaluation of epigastric pain and vomiting blood earlier. She denies black/bloody stools. On exam mild TTP epigastrium without peritonitis nor is she febrile. Labs unremarkable with stable hgb and no evidence of pancreatitis. She does not exam like perforation and given many previous CTs, we discussed and she is comfortable with holding off on CT imaging at this time. Does have a fair amount of pain but review of chart appears this is not unusual for her. No vomiting/hematemesis while here but given history felt treating with iv protonix indicated. Reviewed with hospitalist who will bring in for further management/monitoring. Prior Medical Record and Triage/Nursing Notes reviewed by Me Additional history obtained from chart Differentials:PUD, Gastritis, Esophagitis, Perforation, Pancreatitis, Biliary pathology, aortic issue, ischemia, SBO, enteritis, volvulus amongst others Vital Signs: reviewed and remarkable for no significant abnormalities Interventions: saline lock, dilaudid iv, nss bolus iv, zofran iv, protonix iv Labs:Reviewed and remarkable for no significant abnormalities Consults:Dr Ashley VILLAGRAN Hospitalist Plan: Disposition:Hospitalization. Condition: Good History of Present Illness:50 yr old female arrives for evaluation of vomiting blood. Patient notes that she started having epigastric/LUQ discomfort throughout the day. Associated nausea and then vomiting. Vomit had bright red blood in it tonight. No medications prior to arrival. Nothing makes better nor worse. No trauma nor injuries. On no blood thinners nor NSAID use. History of Gastric bypass with several episodes of bleeding ulcers previously. She was admitted in August 2020 with upper gi bleed that required cautery by GI. Prior to that she had been on 3 months Eliquis following PE with COVID. ROS: See above HPI for pertinent positives & negatives. A total of 10 systems reviewed and were otherwise negative. Past Medical History:See Below Past Surgical History:See Below Family History:See Below Social History:See Below Home Medications:See Below Allergies:NKDA Vitals:Blood Pressure: 131/90, Pulse 91, RR 18, T 37.2C, O2 98% on RA Physical Exam: GENERAL: Patient is uncomfortable appearing and in mild distress. EYES: No scleral icterus, unremarkable pupils. ENT: Mucous membranes moist, no nasal congestion. NECK: No masses appreciated, nomeningismus, trachea is midline. CHEST: Port right upper chest RESPIRATORY: No dyspnea. Clear to auscultation and equal bilaterally. No wheeze, no rhonchi. CARDIOVASCULAR: Regular rate and rhythm.No murmurs, rubs, gallops appreciated. GASTROINTESTINAL: Mild epigastric/LUQ TTP. Abdomen soft, non-tender, no peritonitis.Bowel sounds positive.No masses appreciated. BACK: No midline tenderness, no CVA tenderness EXTREMITIES: Normal motion all extremities, no cyanosis, no edema. NEUROLOGIC: Alert and oriented, no acute motor or sensory deficits, no focal weakness, cranial nerves grossly intact. SKIN: No rash, no jaundice, no diaphoresis. 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 Services Required: No Beliefs That Will Affect Care: None marital status: Current Living Situation: Spouse Feels Safe at Home: Yes Assistive Devices: None Allergies Allergies Allergy/AdvReac Type Severity Reaction Status Date / Time No Known Allergies Allergy Unverified 09/11/20 12:34 Home Meds Home Medications Medication Instructions Recorded Confirmed cyanocobalamin (vitamin B-12) 1,000 mcg IM MONTHLY 09/11/20 01/13/21 1,000 mcg/mL injection kit multivitamin 1 tab PO QAM 09/11/20 01/13/21 ondansetron HCl 8 mg tablet 8 mg PO Q12H PRN 09/11/20 01/13/21 pantoprazole 40 mg tablet,delayed 40 mg PO BID 09/11/20 01/13/21 release (Protonix) ropinirole 0.25 mg tablet 0.25 mg PO TID 09/11/20 01/13/21 sucralfate 100 mg/mL oral 15 ml PO TID 09/11/20 01/13/21 suspension (Carafate) trazodone 150 mg tablet 150 mg PO HS 09/11/20 01/13/21 zolpidem 10 mg tablet (Ambien) 10 mg PO HS 09/11/20 01/13/21 Previous Rx's Medication Instructions Recorded acetaminophen 325 mg tablet 650 mg PO Q4H PRN #0 tab 09/19/20 dicyclomine 20 mg tablet 20 mg PO Q6H PRN #120 tab 09/19/20 oxycodone 5 mg tablet 5 mg PO Q6H PRN #30 tab 09/19/20 tramadol 50 mg tablet 50 mg PO Q4H PRN #30 tab 09/19/20 Results & Data (ED) Vital Signs Vital Signs - 24 hr 01/12/21 22:28 01/13/21 00:26 01/13/21 01:51 Temperature 37.2 C Temperature Source Temporal Artery Scan Pulse Rate 91 H Pulse Rate [Finger] 74 75 Respiratory Rate 18 18 18 Respiratory Effort / Characteristics Non-Labored Spontaneous Non-Labored Spontaneous Non-Labored Spontaneous Respiratory Depth Normal Normal Normal Respiratory Pattern Regular Blood Pressure 131/90 Blood Pressure [Left Arm] 125/81 132/81 Blood Pressure Mean 103 Blood Pressure Mean [Left Arm] 95 98 Blood Pressure Position Sitting Pulse Oximetry 98 97 96 Oxygen Delivery Method Room Air Room Air Room Air Sepsis Recent Fever Within 48 Hours No Sepsis New/Unexplained Change in Mental Status No Sepsis Action Taken by Nursing No Action Required 01/13/21 04:08 Temperature Temperature Source Pulse Rate Pulse Rate [Finger] 93 H Respiratory Rate 16 Respiratory Effort / Characteristics Respiratory Depth Respiratory Pattern Blood Pressure Blood Pressure [Left Arm] 107/70 Blood Pressure Mean Blood Pressure Mean [Left Arm] 82 Blood Pressure Position Pulse Oximetry 95 Oxygen Delivery Method Sepsis Recent Fever Within 48 Hours Sepsis New/Unexplained Change in Mental Status Sepsis Action Taken by Nursing Laboratory Data Result diagrams: 01/13/21 02:47 01/12/21 23:17 Lab Results 01/12/21 01/12/21 01/12/21 Range/Units 23:08 23:17 23:17 WBC 7.49 (4.8-10.8) K/uL RBC 3.23 L (4.2-5.4) M/uL Hgb 10.1 L (12.0-16.0) g/dL Hct 31.3 L (37-47) % MCV 96.9 (80-100) fL MCH 31.3 (25-34) pg MCHC 32.3 (32-36) g/dL RDW Std Deviation 65.1 H (36.4-46.3) fL RDW Coeff of Abhijeet 18.4 H (11.5-14.5) % Plt Count 652 H (130-400) K/uL MPV 8.5 (7.4-10.4) fL Immature Gran % (Auto) 0.1 % Neut % (Auto) 56.6 % Lymph % (Auto) 33.8 % [place] % (Auto) 7.1 % Eos % (Auto) 2.1 % Baso % (Auto) 0.3 % Neut # (Auto) 4.24 (1.4-6.5) K/uL Lymph # (Auto) 2.53 (1.2-3.4) K/uL [place] # (Auto) 0.53 (0.11-0.59) K/uL Eos # (Auto) 0.16 (0-0.5) K/uL Baso # (Auto) 0.02 (0-0.2) K/uL Immature Gran # (Auto) 0.01 (0.00-0.02) K/uL PT (9.0-12.0) Seconds INR (0.9-1.1) APTT (21.0-31.0) Seconds PTT Ratio Sodium 141 (136-145) mmol/L Potassium 3.9 (3.5-5.1) mmol/L Chloride 112 H (98-107) mmol/L Carbon Dioxide 24 (21-32) mmol/L Anion Gap 5.0 (3-11) BUN 16 (7-18) mg/dl Creatinine 0.67 (0.6-1.2) mg/dl Est Cr Clr Drug Dosing 84.9 ml/min Est GFR ( Amer) 120.5 ml/min Est GFR (Non-Af Amer) 103.9 ml/min BUN/Creatinine Ratio 23.6 H (10-20) Glucose 91 (70-99) mg/dl Calcium 8.5 (8.5-10.1) mg/dl Total Bilirubin 0.1 L (0.2-1) mg/dl Direct Bilirubin < 0.1 (0-0.2) mg/dl AST 13 L (15-37) U/L ALT 21 (12-78) U/L Alkaline Phosphatase 122 H (45-117) U/L Total Protein 6.9 (6.4-8.2) gm/dl Albumin 3.3 L (3.4-5.0) gm/dl Lipase 132 (73-393) U/L Urine Test Negative (Negative) COVID-19 Eval Order SARS-CoV-2 (PCR) (Negative) Blood Type Antibody Screen 01/13/21 01/13/21 01/13/21 Range/Units 00:12 00:12 00:24 WBC (4.8-10.8) K/uL RBC (4.2-5.4) M/uL Hgb (12.0-16.0) g/dL Hct (37-47) % MCV (80-100) fL MCH (25-34) pg MCHC (32-36) g/dL RDW Std Deviation (36.4-46.3) fL RDW Coeff of Abhijeet (11.5-14.5) % Plt Count (130-400) K/uL MPV (7.4-10.4) fL Immature Gran % (Auto) % Neut % (Auto) % Lymph % (Auto) % [place] % (Auto) % Eos % (Auto) % Baso % (Auto) % Neut # (Auto) (1.4-6.5) K/uL Lymph # (Auto) (1.2-3.4) K/uL [place] # (Auto) (0.11-0.59) K/uL Eos # (Auto) (0-0.5) K/uL Baso # (Auto) (0-0.2) K/uL Immature Gran # (Auto) (0.00-0.02) K/uL PT 9.8 (9.0-12.0) Seconds INR 1.0 (0.9-1.1) APTT 22.2 (21.0-31.0) Seconds PTT Ratio 0.8 Sodium (136-145) mmol/L Potassium (3.5-5.1) mmol/L Chloride (98-107) mmol/L Carbon Dioxide (21-32) mmol/L Anion Gap (3-11) BUN (7-18) mg/dl Creatinine (0.6-1.2) mg/dl Est Cr Clr Drug Dosing ml/min Est GFR ( Amer) ml/min Est GFR (Non-Af Amer) ml/min BUN/Creatinine Ratio (10-20) Glucose (70-99) mg/dl Calcium (8.5-10.1) mg/dl Total Bilirubin (0.2-1) mg/dl Direct Bilirubin (0-0.2) mg/dl AST (15-37) U/L ALT (12-78) U/L Alkaline Phosphatase (45-117) U/L Total Protein (6.4-8.2) gm/dl Albumin (3.4-5.0) gm/dl Lipase (73-393) U/L Urine Test (Negative) COVID-19 Eval Order Covid19 at [facility] SARS-CoV-2 (PCR) (Negative) Blood Type A Negative Antibody Screen NEGATIVE 01/13/21 01/13/21 Range/Units 00:24 02:47 WBC (4.8-10.8) K/uL RBC (4.2-5.4) M/uL Hgb 10.0 L (12.0-16.0) g/dL Hct 31.2 L (37-47) % MCV (80-100) fL MCH (25-34) pg MCHC (32-36) g/dL RDW Std Deviation (36.4-46.3) fL RDW Coeff of Abhijeet (11.5-14.5) % Plt Count (130-400) K/uL MPV (7.4-10.4) fL Immature Gran % (Auto) % Neut % (Auto) % Lymph % (Auto) % [place] % (Auto) % Eos % (Auto) % Baso % (Auto) % Neut # (Auto) (1.4-6.5) K/uL Lymph # (Auto) (1.2-3.4) K/uL [place] # (Auto) (0.11-0.59) K/uL Eos # (Auto) (0-0.5) K/uL Baso # (Auto) (0-0.2) K/uL Immature Gran # (Auto) (0.00-0.02) K/uL PT (9.0-12.0) Seconds INR (0.9-1.1) APTT (21.0-31.0) Seconds PTT Ratio Sodium (136-145) mmol/L Potassium (3.5-5.1) mmol/L Chloride (98-107) mmol/L Carbon Dioxide (21-32) mmol/L Anion Gap (3-11) BUN (7-18) mg/dl Creatinine (0.6-1.2) mg/dl Est Cr Clr Drug Dosing ml/min Est GFR ( Amer) ml/min Est GFR (Non-Af Amer) ml/min BUN/Creatinine Ratio (10-20) Glucose (70-99) mg/dl Calcium (8.5-10.1) mg/dl Total Bilirubin (0.2-1) mg/dl Direct Bilirubin (0-0.2) mg/dl AST (15-37) U/L ALT (12-78) U/L Alkaline Phosphatase (45-117) U/L Total Protein (6.4-8.2) gm/dl Albumin (3.4-5.0) gm/dl Lipase (73-393) U/L Urine Test (Negative) COVID-19 Eval Order SARS-CoV-2 (PCR) NEGATIVE (Negative) Blood Type Antibody Screen Administered Medications Sodium Chloride (Nss 1000ml) 1,000 mls @ 100 mls/hr IV .Q10H ADAN Stop: 02/12/21 02:17 Last Admin: 01/13/21 02:41 Dose: 100 mls/hr Documented by: [id number] Ceftriaxone Sodium 1,000 mg/ (Dextrose) 50 mls @ 100 mls/hr IV Q24H ADAN; Protocol Stop: 01/15/21 02:17 Last Admin: 01/13/21 04:05 Dose: 100 mls/hr Documented by: [id number] Morphine Sulfate (Morphine Sulfate 2 Mg/Ml Carp) 2 mg IV Q4H PRN PRN Reason: severe pain Stop: 01/27/21 02:17 Last Admin: 01/13/21 04:08 Dose: 2 mg Documented by: [id number] Trazodone HCl (Trazodone Hcl 100 Mg Tab) 150 mg PO HS ADAN Stop: 02/12/21 02:17 Last Admin: 01/13/21 02:57 Dose: 150 mg Documented by: [id number] Zolpidem Tartrate (Zolpidem Tartrate 5 Mg Tab) 5 mg PO HS PRN PRN Reason: Sleep Stop: 02/12/21 02:17 Last Admin: 01/13/21 03:12 Dose: 5 mg Documented by: [id number] Discontinued Medications Hydromorphone HCl (Hydromorphone Inj 1 Mg/Ml Syringe) 1 mg IV NOW STA Stop: 01/12/21 23:57 Last Admin: 01/13/21 00:26 Dose: 1 mg Documented by: [id number] Hydromorphone HCl (Hydromorphone Inj 0.5 Mg/0.5 Ml Syr) 0.5 mg IV NOW STA Stop: 01/13/21 00:41 Last Admin: 01/13/21 00:56 Dose: 0.5 mg Documented by: [id number] Hydromorphone HCl (Hydromorphone Inj 1 Mg/Ml Syringe) 1 mg IV NOW STA Stop: 01/13/21 01:33 Last Admin: 01/13/21 01:51 Dose: 1 mg Documented by: [id number] Sodium Chloride (Nss 1000ml) 1,000 mls @ 999 mls/hr IV .Q1H1M ONE Stop: 01/13/21 00:56 Last Infusion: 01/13/21 01:30 Dose: 0 mls/hr Documented by: [id number] Admin: 01/13/21 00:26 Dose: 999 mls/hr Documented by: [id number] Pantoprazole Sodium 80 mg/ (Dextrose) 100 mls @ 400 mls/hr IV ONE STA Stop: 01/13/21 00:10 Last Infusion: 01/13/21 00:41 Dose: 0 mls/hr Documented by: [id number] Admin: 01/13/21 00:26 Dose: 400 mls/hr Documented by: [id number] Ondansetron HCl (Ondansetron Inj 2 Mg/Ml 2 Ml Vial) 4 mg IV NOW STA Stop: 01/12/21 23:57 Last Admin: 01/13/21 00:26 Dose: 4 mg Documented by: [id number] Discharge Plan Visit Data Chief Complaint: Abdominal Pain Stated Complaint: VOMITING BLOOD, ABDOMINAL PAIN ED Provider: Jb Butler Discharge Problem: Acute GI bleeding, Acute epigastric pain Forms Stand Alone Forms: [facility] Prescriptions Prescriptions: No Action multivitamin Tablet 1 tab PO QAM RF: 0 sucralfate [Carafate] 100 mg/mL Suspension 15 ml PO TID RF: 0 ondansetron HCl 8 mg Tablet 8 mg PO Q12H PRN (Reason: Nausea) RF: 0 ropinirole 0.25 mg Tablet 0.25 mg PO TID RF: 0 pantoprazole [Protonix] 40 mg Tablet,Delayed Release (Dr/Ec) 40 mg PO BID RF: 0 trazodone 150 mg Tablet 150 mg PO HS RF: 0 zolpidem [Ambien] 10 mg Tablet 10 mg PO HS RF: 0 cyanocobalamin (vitamin B-12) 1,000 mcg/mL Kit 1,000 mcg IM MONTHLY RF: 0 acetaminophen 325 mg Tablet 650 mg PO Q4H PRNQty: 0 RF: 0 tramadol 50 mg Tablet 50 mg PO Q4H PRN (Reason: moderate pain) Qty: 30 RF: 0 dicyclomine 20 mg Tablet 20 mg PO Q6H PRN (Reason: Abdominal Pain) Qty: 120 RF: 0 oxycodone 5 mg Tablet 5 mg PO Q6H PRN (Reason: severe pain) Qty: 30 RF: 0 Referrals Referrals: PCP,NO [Physician] -
[2021-01-13 00:17] LABS: Basophils # (auto) 0.02 K/uL (0-0.2); Basophils % (auto) 0.3 %; Eosinophils # (auto) 0.16 K/uL (0-0.5); Eosinophils % (auto) 2.1 %; Hematocrit (blood only) 31.3 % (37-47); Hemoglobin 10.1 g/dL (12.0-16.0); Immature Granulocytes # (auto) 0.01 K/uL (0.00-0.02); Immature Granulocytes % (auto) 0.1 %; Lymphocytes # (auto) 2.53 K/uL (1.2-3.4); Lymphocytes % (auto) 33.8 %; Mean Corpuscular Hemoglobin 31.3 pg (25-34); Mean Corpuscular Hgb Conc 32.3 g/dL (32-36); Mean Corpuscular Volume 96.9 fL (80-100); Mean Platelet Volume 8.5 fL (7.4-10.4); Monocytes # (auto) 0.53 K/uL (0.11-0.59); Monocytes % (auto) 7.1 %; Neutrophils # (auto) 4.24 K/uL (1.4-6.5); Neutrophils % (auto) 56.6 %; Platelet Count 652 K/uL (130-400); RDW Coefficient of Variation 18.4 % (11.5-14.5); RDW Standard Deviation 65.1 fL (36.4-46.3); Red Blood Count 3.23 M/uL (4.2-5.4); White Blood Count 7.49 K/uL (4.8-10.8)
[2021-01-13 00:19] LABS: Alanine Aminotransferase 21 U/L (12-78); Albumin Level 3.3 gm/dl (3.4-5.0); Aspartate Aminotransferase 13 U/L (15-37); BUN Creatinine Ratio 23.6 (10-20); Bilirubin Direct < 0.1 mg/dl (0-0.2); Blood Urea Nitrogen 16 mg/dl (7-18); Calcium 8.5 mg/dl (8.5-10.1); Carbon Dioxide 24 mmol/L (21-32); Chloride 112 mmol/L (98-107); Creatinine Clr Calc Pharmacy 84.9 ml/min; Est GFR (African American) 120.5 ml/min; Est GFR (Non-African American) 103.9 ml/min; Glucose 91 mg/dl (70-99); Lipase 132 U/L (73-393); Potassium 3.9 mmol/L (3.5-5.1); Sodium 141 mmol/L (136-145)
[2021-01-13 00:22] LABS: Alkaline Phosphatase 122 U/L (45-117); Bilirubin,Total 0.1 mg/dl (0.2-1); Total Protein 6.9 gm/dl (6.4-8.2)
[2021-01-13] MEDS ORDERED: HYDROmorphone INJ 0.5 MG/0.5 ML SYR IV STA (00:40)
[2021-01-13 00:54] LABS: Partial Thromboplastin Ratio 0.8; Partial Thromboplastin Time 22.2 Seconds (21.0-31.0); Prothrombin Time 9.8 Seconds (9.0-12.0)
[2021-01-13 01:25] LABS: Pregnancy Test, Urine Negative (Negative)
[2021-01-13] MEDS ORDERED: HYDROmorphone INJ 1 MG/ML SYRINGE IV STA (01:32)
--- NOTE | 2021-01-13 02:11 | History & Physical Report ---
Date of Service January 13, 2021 Assessment & Plan (1) Hematemesis: (2) Gastric bypass status for obesity: (3) Peptic ulcer disease: (4) Depression: (5) Insomnia: Plan: 50-year-old female history of Eamon-en-Y gastric bypass, recurrent GI bleeds requiring partial gastrectomy/revision of anastomosis due to anastomotic ulcers, insomnia, depression admitted for hematemesis to monitor serial hemoglobins and for GI consult in the morning. Hematemesis: Patient with extensive history of several GI bleeds as a result of anastomotic ulcers, and has had partial gastrectomy/revision of Eamon-en-Y anastomosis in the past. Presents with abdominal pain, nausea, several episodes of hematemesis since 5 PM yesterday. Lab work notable for anemia with hemoglobin 10.1, however increased from last check 09/19 of 9.7. For now we will start patient on Protonix 40 mg IV twice daily, continue Carafate. N.p.o. with normal saline at 100 cc/h. GI consult placed. If no intervention to be performed suspect discharge later today to be able to make appointment with physician at [facility]. Serial H/H every 6 hours. Chronic medical conditions: Depression, insomnia: Continue trazodone, Ambien Restless leg syndrome: Continue ropinirole CODE STATUS: Full code FEN: N.p.o. with normal saline at 100 cc/h DVT prophylaxis: SCDs Dispo: MedSurg with telemetry History of Present Illness Chief Complaint: Hematemesis, abdominal pain Primary Care Provider: Clair Faye MD 50-year-old female history of Eamon-en-Y gastric bypass 20 years ago, recurrent GI bleeds requiring partial gastrectomy/revision of anastomosis due to anastomotic ulcers, insomnia, depression who presents for epigastric abdominal pain and several episodes of bloody emesis since 5 PM yesterday. She reports that she has an appointment this Sunday with Dr. Grisel Leyva at [facility] in [place] to further discuss her adhesions from multiple abdominal surgeries, as well as next steps given her ongoing GI issues. She does not endorse any recent fevers, headaches, diarrhea or constipation, blood in her stools, shortness of breath, chest pain. In the ER patient had lab work to include CBC which showed hemoglobin 10.1 (increased from 9.7 in August of this year), elevated alk phos to 122, otherwise normal lab work. Given patient's history of multiple GI bleed and hematemesis today, hospitalist service was consulted for admission. Allergies Allergy/AdvReac Type Severity Reaction Status Date / Time No Known Allergies Allergy Unverified 09/11/20 12:34 Home Medications Medication Instructions Recorded Confirmed Type cyanocobalamin (vitamin B-12) 1,000 mcg IM MONTHLY 09/11/20 01/13/21 History 1,000 mcg/mL injection kit multivitamin 1 tab PO QAM 09/11/20 01/13/21 History ondansetron HCl 8 mg tablet 8 mg PO Q12H PRN 09/11/20 01/13/21 History pantoprazole 40 mg tablet,delayed 40 mg PO BID 09/11/20 01/13/21 History release (Protonix) ropinirole 0.25 mg tablet 0.25 mg PO TID 09/11/20 01/13/21 History sucralfate 100 mg/mL oral 15 ml PO TID 09/11/20 01/13/21 History suspension (Carafate) trazodone 150 mg tablet 150 mg PO HS 09/11/20 01/13/21 History zolpidem 10 mg tablet (Ambien) 10 mg PO HS 09/11/20 01/13/21 History acetaminophen 325 mg tablet 650 mg PO Q4H PRN #0 tab 09/19/20 01/13/21 Rx dicyclomine 20 mg tablet 20 mg PO Q6H PRN #120 tab 09/19/20 01/13/21 Rx oxycodone 5 mg tablet 5 mg PO Q6H PRN #30 tab 09/19/20 01/13/21 Rx tramadol 50 mg tablet 50 mg PO Q4H PRN #30 tab 09/19/20 01/13/21 Rx Past Med/Surg History Medical History Anemia Depression History of deep venous thrombosis or pulmonary embolus Insomnia Peptic ulcer disease RLS (restless legs syndrome) Surgical History Gastric bypass status for obesity History of appendectomy History of cholecystectomy Family History Other Adopted Social History Smoking Status: Never smoker Hx Alcohol Use: No Hx Substance Use: No Preferred Language: Syriac Communication Ability: Effective Clinical Application Specialist Required: No Beliefs That Will Affect Care: None marital status: Current Living Situation: Spouse Feels Safe at Home: Yes Assistive Devices: None Review of Systems Review of Systems: All systems reviewed & are unremarkable except as noted in HPI & below Constitutional: + chills and + malaise; no fever Respiratory: no cough and no dyspnea Cardiovascular: no chest pain, no palpitations and no edema Gastrointestinal: + abdominal pain (epigastric), + nausea, + vomiting and + hematemesis; no constipation and no diarrhea/loose stools Genitourinary: no dysuria and no hematuria Physical Exam Constitutional: WD/WN, vitals as above Eyes: PERRL, conjunctivae normal, anicteric sclerae ENMT: external ear and nose normal, oropharynx normal Neck: normal visual inspection Respiratory: normal respiratory effort, lungs clear to auscultation Cardiovascular: RRR, no murmur, no edema Gastrointestinal (Abdomen): Inspection/Auscultation: normal bowel sounds Percussion/Palpation: + abdomen tender (epigastric) and abdomen soft; no guarding Musculoskeletal: no cyanosis or clubbing, extremities motor strength 5/5 Skin: no rashes, warm and dry Neurologic: Normal speech, no focal motor deficits Psychiatric: A+Ox3, euthymic affect Results & Data Results & Data ([facility]) Vital Signs (Past 12 Hours) Vital Signs Temp Pulse Pulse Resp BP BP Pulse Ox 01/13/21 01:51 75 18 132/81 96 01/13/21 00:26 74 18 125/81 97 01/12/21 22:28 37.2 C 91 H 18 131/90 98 Supervising Physician Co-Signing Physician Notes Attending addendum: I have physically seen this patient, have supervised the medical residents activities, and agree with the H&P unless as otherwise noted. Assessment and Plan: Hematemesis/upper GI bleed/history of peptic ulcer disease/history of gastric bypass- NPO Protonix 40 mg IV twice daily Continue Carafate NSS at 100 mils per hour H&H every 6 hours Type and screen Consult gastroenterology Remaining orders and notations as noted Resident Activity Tracking Resident Involvement: Resident Care Provided Care Provided: Adult Hospital Medicine
[2021-01-13] MEDS ORDERED: ACETAMINOPHEN 325 MG TAB PO PRN (02:18)
[2021-01-13] MEDS: SODIUM CHLORIDE 0.9% 1000ML 1,000 ML IV SCH ×3 (02:41→22:54)
[2021-01-13] MEDS: traZODone HCL 100 MG TAB PO SCH ×2 (02:57→20:43)
[2021-01-13 03:01] LABS: Hematocrit (blood only) 31.2 % (37-47)
[2021-01-13] MEDS: ZOLPIDEM TARTRATE 5 MG TAB PO PRN ×2 (03:12→20:55)
[2021-01-13] MEDS: cefTRIAXone SODIUM 1,000 MG in DEXTROSE 5% 50 ML IV SCH (04:05)
[2021-01-13] MEDS: MoRPHine SULFATE 2 MG/ML CARP IV PRN ×4 (04:08→17:08)
[2021-01-13] MEDS: PANTOprazole 40 MG in SYRINGE 0 ML IV SCH ×2 (08:41→20:40)
[2021-01-13] MEDS: SUCRALFATE 1 GM/10 ML UDC PO SCH ×4 (08:42→20:41)
[2021-01-13 08:47] LABS: Hematocrit (blood only) 30.5 % (37-47); Hemoglobin 9.6 g/dL (12.0-16.0)
[2021-01-13 11:55] LABS: Ferritin 10.9 ng/ml (8-388)
--- NOTE | 2021-01-13 12:55 | Gastrointestinal Consultation ---
Date of Consultation January 13, 2021 Assessment & Plan (1) Hematemesis: Single episode, now resolved. H/H stable from August 2020 hospitalization for same issue. No melena. -Agree with Dr. Aguilar's recommendations after her EGD & colon in August 2020--patient should pursue double balloon enteroscopy and further evaluation by her providers through [facility] in [place], where she was supposed to have an outpatient evaluation on 01/15/21. I would ensure she's on Pantoprazole 40 mg IV BID, Carafate 1 gm four times daily before meals and bedtime, and Pepcid 20 mg BID. Avoid NSAIDs. Monitor for active GI bleeding. If epigastric pain persists, consider CT scan to exclude pancreatitis. Supervising Physician Co-Signing Physician Notes Agree with ALAN Santiago as above Patient feeling better at the time I saw her Repeat H/H Stable Abd: Soft, NT, ND, +BS Continue current therapy Advance diet as tolerated Discussed case with Dr. Calle. She has appt. with [facility] in [place] tomorrow to discuss double balloon enteroscopy. I think there is little utility in keeping her here at present. She is HD stable and has not had any overt GI bleeding since admission. 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 She presented to the hospital with epigastric pain. She notes one episode of hematemesis, but no further issues. She denies melena. She is taking Protonix 40 mg BID at home as well as Carafate 1 gm four times daily. H/H currently 9.6/30.5. This has been her baseline in recent months. Stool is formed and brown. Patient had an EGD & colonoscopy performed in August 2020 for the same issue. No findings were identified and it was recommended that if symptoms persisted, patient should be seen at a center that could accommodate a double balloon enteroscopy. She has an appointment with her bypass surgeon in [place] tomorrow to discuss further work-up for these recurrent episodes of hematemesis. Her symptoms are improved since admission, but she does note mid abdominal pain. This is not worsened with food. Allergies Allergy/AdvReac Type Severity Reaction Status Date / Time No Known Allergies Allergy Unverified 09/11/20 12:34 Home Medications Medication Instructions Recorded Confirmed Type cyanocobalamin (vitamin B-12) 1,000 mcg IM MONTHLY 09/11/20 01/13/21 History 1,000 mcg/mL injection kit multivitamin 1 tab PO QAM 09/11/20 01/13/21 History ondansetron HCl 8 mg tablet 8 mg PO Q12H PRN 09/11/20 01/13/21 History pantoprazole 40 mg tablet,delayed 40 mg PO BID 09/11/20 01/13/21 History release (Protonix) ropinirole 0.25 mg tablet 0.25 mg PO TID 09/11/20 01/13/21 History sucralfate 100 mg/mL oral 15 ml PO TID 09/11/20 01/13/21 History suspension (Carafate) trazodone 150 mg tablet 150 mg PO HS 09/11/20 01/13/21 History zolpidem 10 mg tablet (Ambien) 10 mg PO HS 09/11/20 01/13/21 History acetaminophen 325 mg tablet 650 mg PO Q4H PRN #0 tab 09/19/20 01/13/21 Rx dicyclomine 20 mg tablet 20 mg PO Q6H PRN #120 tab 09/19/20 01/13/21 Rx oxycodone 5 mg tablet 5 mg PO Q6H PRN #30 tab 09/19/20 01/13/21 Rx tramadol 50 mg tablet 50 mg PO Q4H PRN #30 tab 09/19/20 01/13/21 Rx Patient History Medical History Anemia Depression History of deep venous thrombosis or pulmonary embolus Insomnia Peptic ulcer disease RLS (restless legs syndrome) Surgical History Gastric bypass status for obesity History of appendectomy History of cholecystectomy Family History Other Adopted Social History Smoking Status: Never smoker Hx Alcohol Use: No Hx Substance Use: No Preferred Language: Swedish Communication Ability: Effective 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 Beliefs That Will Affect Care: None marital status: Current Living Situation: Spouse Feels Safe at Home: Yes Assistive Devices: None Review of Systems Constitutional: no fever and no chills Gastrointestinal: + abdominal pain, + hematemesis (one single episode) and + melena Physical Exam Constitutional: well developed Respiratory: normal respiratory effort, lungs clear to auscultation Cardiovascular: RRR, no murmur, no edema Gastrointestinal (Abdomen): Inspection/Auscultation: abdomen normal to inspection Percussion/Palpation: + abdomen tender and abdomen soft Psychiatric: Orientation: alert and oriented x 3 Results & Data ([facility]) Vital Signs (Past 12 Hours) Vital Signs Temp Pulse Pulse Resp BP BP Pulse Ox 01/13/21 10:08 36.7 C 73 72 18 98/65 L 98 01/13/21 08:00 75 18 111/71 97 01/13/21 06:09 36.6 C 84 16 118/62 97 01/13/21 06:08 01/13/21 04:08 93 H 16 107/70 95 01/13/21 01:51 75 18 132/81 96 Pulse Ox 01/13/21 10:08 01/13/21 08:00 01/13/21 06:09 01/13/21 06:08 97 01/13/21 04:08 01/13/21 01:51 Results CBC w Diff: RBC 3.23 M/uL (4.2-5.4) L 01/12/21 WBC 7.49 K/uL (4.8-10.8) 01/12/21 Hgb 9.8 g/dL (12.0-16.0) L 01/13/21 Hct 31.2 % (37-47) L 01/13/21 MCV 96.9 fL (80-100) 01/12/21 MCH 31.3 pg (25-34) 01/12/21 MCHC 32.3 g/dL (32-36) 01/12/21 RDW Standard Deviation 65.1 fL (36.4-46.3) H 01/12/21 RDW Coefficient of Variation 18.4 % (11.5-14.5) H 01/12/21 Plt Count 652 K/uL (130-400) H 01/12/21 MPV 8.5 fL (7.4-10.4) 01/12/21 Neutrophils (%) (Auto) 56.6 % 01/12/21 Lymphocytes (%) (Auto) 33.8 % 01/12/21 Monocytes # (Auto) 0.53 K/uL (0.11-0.59) 01/12/21 Eosinophils # (Auto) 0.16 K/uL (0-0.5) 01/12/21 Immature Granulocyte % (Auto) 0.1 % 01/12/21 Neutrophils # (Auto) 4.24 K/uL (1.4-6.5) 01/12/21 Lymphocytes # (Auto) 2.53 K/uL (1.2-3.4) 01/12/21 Monocytes # (Auto) 0.53 K/uL (0.11-0.59) 01/12/21 Eosinophils # (Auto) 0.16 K/uL (0-0.5) 01/12/21 Basophils # (Auto) 0.02 K/uL (0-0.2) 01/12/21 Immature Granulocyte # (Auto) 0.01 K/uL (0.00-0.02) 01/12/21 Hypochromasia Present 09/11/20 Anisocytosis Present 09/17/20 Results BMP Results: Sodium 141 mmol/L (136-145) 01/12/21 Potassium 3.9 mmol/L (3.5-5.1) 01/12/21 Chloride 112 mmol/L (98-107) H 01/12/21 BUN 16 mg/dl (7-18) 01/12/21 Creatinine 0.67 mg/dl (0.6-1.2) 01/12/21 Glucose 91 mg/dl (70-99) 01/12/21 PG Care Time/CCT Total # of Minutes Spent Total Time Spent with Patient: Total time spent is greater than 50% in coordination of care (as documented) at patient's floor/unit and/or counseling patient: Coding Level of Care Code 04981 Inpt Consult Level 4 Diagnoses Hematemesis K92.0
[2021-01-13 14:09] LABS: Hematocrit (blood only) 31.2 % (37-47); Hemoglobin 9.8 g/dL (12.0-16.0)
[2021-01-13] MEDS: CYANOCOBALAMIN 1000 MCG/ML VIAL IM SCH (18:47)
[2021-01-13] MEDS ORDERED: IRON SUCROSE 200 MG in 0.9 % SODIUM CHLORIDE 100 ML IV ONE (19:15)
--- NOTE | 2021-01-13 19:31 | Billing Data ---
Date of Service January 13, 2021 Coding Level of Care Code 52619 Initial Inpt Care Lvl 3
[2021-01-13 20:20] LABS: Hematocrit (blood only) 32.1 % (37-47); Hemoglobin 10.2 g/dL (12.0-16.0)
[2021-01-13] MEDS: HYDROmorphone INJ 0.5 MG/0.5 ML SYR IV PRN (20:54)
[2021-01-13] MEDS: ONDANSETRON INJ 2 MG/ML 2 ML VIAL IV PRN (20:54)
[2021-01-14] MEDS: HYDROmorphone INJ 0.5 MG/0.5 ML SYR IV PRN ×3 (01:24→09:03)
[2021-01-14] MEDS: cefTRIAXone SODIUM 1,000 MG in DEXTROSE 5% 50 ML IV SCH (01:26)
[2021-01-14] MEDS: ONDANSETRON INJ 2 MG/ML 2 ML VIAL IV PRN ×2 (05:18→11:49)
--- NOTE | 2021-01-14 06:09 | Communication Note ---
Date of Service: January 13, 2021 Saw patient in the late afternoon. She has not had any further coffee-ground emesis. Still with upper abdominal pain. Asks for dilaudid in stella of morphine. Confirms she has an appointment with GI at [facility] tomorrow at 1pm that she doesn't want to miss. Recent stools have been melena. Doesn't recall when she last had IV iron. Isn't on routine B12 injections. NO dyspnea. NO chest pain. VSS, afebrile gen - NAD mouth - MMM heart - RRR, s1 s2 lungs - CTA b/l abd - mild upper epigastric tenderness, BS+, no distension, no HSM, soft ext - no edema labs reviewed - last Hb now >10 ferritin 10 B12 level about 200 A/P: 1. chronic iron deficiency anemia 2nd to gastric bypass status as well as intermittent GI bleeding 2. hematemesis and/or coffee-ground emesis - resolved, H/H stable since admission 3. h/o anastomotic ulcers 4. b12 deficiency 5. gastric bypass status with repeat surgery for revision of anastomosis 6. abdominal pain change pain meds to dilaudid at her request allow clears; if any worsening in pain then make NPO again b12 1000mcg daily while here - give IM venofer 200mg IV x 1 labs in am appreciate GI consultation serial H/H cont protonix IV, carafate qid patient wants to attend the appt at [facility] tomorrow -- will make every effort to d/c in am but she will need to be stable Kevin Calle MD
[2021-01-14 06:35] LABS: Hematocrit (blood only) 32.5 % (37-47); Hemoglobin 10.4 g/dL (12.0-16.0); Mean Corpuscular Hemoglobin 31.2 pg (25-34); Mean Corpuscular Volume 97.6 fL (80-100); Mean Platelet Volume 8.2 fL (7.4-10.4); Platelet Count 545 K/uL (130-400); RDW Coefficient of Variation 18.1 % (11.5-14.5); RDW Standard Deviation 64.8 fL (36.4-46.3); Red Blood Count 3.33 M/uL (4.2-5.4); White Blood Count 8.69 K/uL (4.8-10.8)
[2021-01-14 07:12] LABS: BUN Creatinine Ratio 4.5 (10-20); Creatinine Clr Calc Pharmacy 83.7 ml/min; Est GFR (African American) 119.9 ml/min; Est GFR (Non-African American) 103.4 ml/min; Potassium 3.6 mmol/L (3.5-5.1)
[2021-01-14] MEDS ORDERED: OPTIRAY 320 100ml IV ONE (08:41)
[2021-01-14] MEDS: SODIUM CHLORIDE 0.9% 1000ML 1,000 ML IV SCH (08:57)
[2021-01-14] MEDS: CYANOCOBALAMIN 1000 MCG/ML VIAL IM SCH (08:57)
[2021-01-14] MEDS: SUCRALFATE 1 GM/10 ML UDC PO SCH (08:57)
[2021-01-14] MEDS: PANTOprazole 40 MG in SYRINGE 0 ML IV SCH (08:57)
--- NOTE | 2021-01-14 09:00 | CT Scan Report ---
CT abd pelvis IV con only CLINICAL HISTORY: abd pain, gastric bypass status, fever COMPARISON STUDY: 09/17/2020 TECHNIQUE: Patient was scanned in a dynamic helical fashion during intravenous administration of 93 c c of Optiray 320 A dose lowering technique was utilized adhering to the principles of ALARA. CT DOSE: 285.97 mGy.cm FINDINGS: Lower chest: There are mild dependent atelectatic changes present. There is a small hiatal hernia. Liver: There is a 7 mm left hepatic lobe hypodense lesion, similar to the prior study and likely repr esenting a cyst. The hepatic and portal veins appear patent. Gallbladder: Surgically absent Spleen: Normal in size and attenuation. Pancreas: Unremarkable. Adrenal glands: Unremarkable. Kidneys: There is symmetric renal cortical enhancement. The kidneys are normal in size without hydron ephrosis. Bowel: There are postsurgical changes of a gastric bypass and Eamon-en-Y anastomosis. There is slight increase in a dilated small bowel loop at the Eamon-en-Y anastomotic site. There is no current evidenc e of significant bowel obstruction. By history the appendix is surgically absent. There is no evidenc e of acute diverticulitis. Peritoneum: There is no intraperitoneal free air or abdominal ascites. Vasculature: The abdominal aorta is normal in course and caliber. Adenopathy: None. Pelvic viscera: The uterus is surgically absent. Skeletal structures: No destructive osseous lesions are seen. IMPRESSION: 1. Postsurgical changes of a gastric bypass and Eamon-en-Y anastomosis 2. Slight increase in the diameter of a dilated small bowel loop at the Eamon-en-Y anastomosis, withou t evidence of upstream small bowel dilatation. 3. No current evidence of significant bowel obstruction or free air 4. No evidence of acute diverticulitis 5. Surgically absent gallbladder appendix and uterus. ACT 112: Negative or not required by law. Electronically signed by: Eric Welsh M.D. 01/14/2021 8:59 AM
[2021-01-14] MEDS ORDERED: oxyCODONE HCL IR 5 MG TAB (IMMEDIATE RELEASE) PO STA (11:08)
--- NOTE | 2021-01-14 11:19 | Discharge Summary ---
Date of Service date of admission - January 13, 2021 date of discharge - January 14, 2021 Admission HPI Per Admitting Provider 50-year-old female history of Eamon-en-Y gastric bypass 20 years ago, recurrent GI bleeds requiring partial gastrectomy/revision of anastomosis due to anastomotic ulcers, insomnia, depression who presents for epigastric abdominal pain and several episodes of bloody emesis since 5 PM yesterday. She reports that she has an appointment this Sunday with Dr. Grisel Leyva at [facility] in [place] to further discuss her adhesions from multiple abdominal surgeries, as well as next steps given her ongoing GI issues. She does not endorse any recent fevers, headaches, diarrhea or constipation, blood in her stools, shortness of breath, chest pain. In the ER patient had lab work to include CBC which showed hemoglobin 10.1 (increased from 9.7 in August of this year), elevated alk phos to 122, otherwise normal lab work. Given patient's history of multiple GI bleed and hematemesis today, hospitalist service was consulted for admission. Principal Diagnosis suspected upper GI bleeding due to anastomotic ulcer of gastric bypass Discharge Exam Gen: NAD, a/o x 3 Mouth: MMM Neck: no JVD Heart: RRR, s1 s2 Lungs: CTA b/l Abd: soft, tender epigastric region, BS+, no HSM Ext: no edema, pulses 2+ b/l Skin: pallor Discharge Data Allergies Allergy/AdvReac Type Severity Reaction Status Date / Time No Known Allergies Allergy Unverified 09/11/20 12:34 [facility]ations [facility] Ordered Studies Abdomen/Pelvis CT 01/14/21 07:47 CT abd pelvis IV con only CLINICAL HISTORY: abd pain, gastric bypass status, fever COMPARISON STUDY: 09/17/2020 TECHNIQUE: Patient was scanned in a dynamic helical fashion during intravenous administration of 93 cc of Optiray 320 A dose lowering technique was utilized adhering to the principles of ALARA. CT DOSE: 285.97 mGy.cm FINDINGS: Lower chest: There are mild dependent atelectatic changes present. There is a small hiatal hernia. Liver: There is a 7 mm left hepatic lobe hypodense lesion, similar to the prior study and likely representing a cyst. The hepatic and portal veins appear patent. Gallbladder: Surgically absent Spleen: Normal in size and attenuation. Pancreas: Unremarkable. Adrenal glands: Unremarkable. Kidneys: There is symmetric renal cortical enhancement. The kidneys are normal in size without hydronephrosis. Bowel: There are postsurgical changes of a gastric bypass and Eamon-en-Y anastomosis. There is slight increase in a dilated small bowel loop at the Eamon-en-Y anastomotic site. There is no current evidence of significant bowel obstruction. By history the appendix is surgically absent. There is no evidence of acute diverticulitis. Peritoneum: There is no intraperitoneal free air or abdominal ascites. Vasculature: The abdominal aorta is normal in course and caliber. Adenopathy: None. Pelvic viscera: The uterus is surgically absent. Skeletal structures: No destructive osseous lesions are seen. IMPRESSION: 1. Postsurgical changes of a gastric bypass and Eamon-en-Y anastomosis 2. Slight increase in the diameter of a dilated small bowel loop at the Eamon-en-Y anastomosis, without evidence of upstream small bowel dilatation. 3. No current evidence of significant bowel obstruction or free air 4. No evidence of acute diverticulitis 5. Surgically absent gallbladder appendix and uterus. ACT 112: Negative or not required by law. Electronically signed by: Eric Welsh M.D. 01/14/2021 8:59 AM Hospital Course (1) Hematemesis: (2) Upper GI bleeding: (3) Ulcer at site of surgical anastomosis following bypass of stomach: (4) Gastric bypass status for obesity: (5) Peptic ulcer disease: (6) Depression: (7) Insomnia: (8) Iron deficiency anemia: (9) Vitamin B12 deficiency: The patient's presenting hematemesis was thought to be due to issues with the anastomotic limb of her gastric bypass. She has a prior h/o anastomotic ulcers causing upper GI bleeding. Fortunately following her admission her hemoglobin remained stable. Presenting Hb was 10.1, and discharge Hb was 10.4. She did have mild abdominal pain which led to obtaining a CT abd/pelvis. This showed a dilated loop of bowel near the anastomotic site. Her symptoms were treated conservatively with PPI and carafate. [facility] GI was consulted who recommended transfer of patient to [facility] in [place] for more definitive treatment. Prior to discharge the patient received 2 vitamin B12 injections as her vitamin B12 level was low at 209. IV venofer was administered as her ferritin level was 10.9. She was counseled that IV iron therapy and parenteral B12 injections will need to be continued indefinitely given her gastric bypass status. On the AM of hospital day #2 it was recommended to the patient that we transfer her to [facility] in [place]. She declined ambulance transportation, however, due to the high cost of such. A phone call was subsequently placed to Dr Grisel Leyva, bariatric surgery, who advised that the patient report to the ER at [facility] in [place] for evaluation. Thus, the patient was discharged and her family was to bring her to [place] for ongoing care via private vehicle. Total Time Total Time Spent Total Time Spent (In Minutes): 45 Total Time Includes: Examination of the Patient, Discharge Planning, Medication Reconciliation and Communication With Other Providers Discharge Plan Discharge Items Patient Disposition: Home - Self-Care Reason For Visit: HEMATEMESIS Discharge Diagnosis: Vomiting with blood - resolved. Gastric bypass status. Abdominal pain - concern for problems with gastric bypass anastomotic site. Severe iron deficiency - follow-up for this needed. Vitamin B12 deficiency. Activity: Resume your previous activity Non-emergency contact: Primary Care Provider and Surgeon Call non-emergency contact if: you have any medication questions, your symptoms worsen, your pain is not controlled and your pain is worsening Follow-up/Referrals: Clair Faye MD [Primary Care Provider] - (follow-up with your family doctor upon discharge from [facility] ) Diet: Nothing by Mouth Addtl Attending Provider Instructions: Ms Brown - You were hospitalized for the problems listed above in "discharge diagnoses." I spoke with Dr Grisel Leyva - bariatric surgery at [facility] in [place]. We both agree you should go to the ER at [facility] for evaluation and probable admission to the hospital there. We recommended ambulance transport for getting to [place] but you declined due to concerns for cost. On your way there please take nothing by mouth except for a few sips of water for medication, etc. (just in case you are admitted and they need to do a procedure). Bring the CD with you that contains your CAT scan of the abdomen from this morning. Your discharge hemoglobin is 10.4 which is unchanged from your hemoglobin level at time of presenting to our ER on 01/12/21. Finally, you will need to coordinate with your family doctor or a data mining analyst ongoing treatment of your iron deficiency & b12 deficiency (ferritin level was 10, b12 level was 200). Please feel better and safe travels, Dr Calle Pending Studies at Discharge: No Stand-Alone Forms: My [facility], Smoking Cessation Medications and DC Order Prescriptions: Continued multivitamin Tablet 1 tab PO QAM RF: 0 sucralfate [Carafate] 100 mg/mL Suspension 15 ml PO TID RF: 0 ondansetron HCl 8 mg Tablet 8 mg PO Q12H PRN (Reason: Nausea) RF: 0 ropinirole 0.25 mg Tablet 0.25 mg PO TID RF: 0 pantoprazole [Protonix] 40 mg Tablet,Delayed Release (Dr/Ec) 40 mg PO BID RF: 0 trazodone 150 mg Tablet 150 mg PO HS RF: 0 zolpidem [Ambien] 10 mg Tablet 10 mg PO HS RF: 0 cyanocobalamin (vitamin B-12) 1,000 mcg/mL Kit 1,000 mcg IM MONTHLY RF: 0 acetaminophen 325 mg Tablet 650 mg PO Q4H PRNQty: 0 RF: 0 tramadol 50 mg Tablet 50 mg PO Q4H PRN (Reason: moderate pain) Qty: 30 RF: 0 dicyclomine 20 mg Tablet 20 mg PO Q6H PRN (Reason: Abdominal Pain) Qty: 120 RF: 0 oxycodone 5 mg Tablet 5 mg PO Q6H PRN (Reason: severe pain) Qty: 30 RF: 0 Discharge Orders: Discharge Order (Routine); Ordered 01/14/21 Ordered By: Kevin Calle Admission Data Admit Date/Time: 01/13/21 02:18 Attending Provider: Kevin Calle Admit Provider: Jennifer Singer Primary Care Provider: Clair Faye Other Providers: Sebastian Stewart Coding Level of Care Code D/C DAY MANAGEMENT >30 MINS Diagnoses Hematemesis K92.0 Gastric bypass status for obesity Z98.84 Peptic ulcer disease K27.9 Depression F32.9 Insomnia G47.00 Iron deficiency anemia D50.9 Vitamin B12 deficiency E53.8 Ulcer at site of surgical anastomosis following bypass of stomach T85.898A; K28.9 Upper GI bleeding K92.2
--- NOTE | 2021-01-14 13:21 | Electrocardiogram Report ---
Test Reason : Blood Pressure : / mmHG Vent. Rate : 102 BPM Atrial Rate : 102 BPM P-R Int : 130 ms QRS Dur : 086 ms QT Int : 346 ms P-R-T Axes : 041 031 038 degrees QTc Int : 450 ms Sinus tachycardia Nonspecific ST abnormality Abnormal ECG When compared with ECG of 11-SEP-2020 11:17, No significant change was found Confirmed by Yanick Duran ([id number]) on 01/14/2021 1:20:47 PM Referred By: REFERRED SELF Confirmed By:Tuan Duran
== END 2021-01-14 12:18 | disposition home or self-care (01) | DRG 379 ==
LOC: ED 22:20 → SUATTDRO 01-13 02:18 → EDINP 01-13 02:18 → 2N 01-13 09:50
DX: E53.8 Deficiency of other specified B group vitamins; D50.0 Iron deficiency anemia secondary to blood loss (chronic); Z90.49 Acquired absence of other specified parts of digestive tract; Z98.890 Other specified postprocedural states; Z86.711 Personal history of pulmonary embolism; G47.00 Insomnia, unspecified; Z98.84 Bariatric surgery status; Z87.11 Personal history of peptic ulcer disease; G25.81 Restless legs syndrome; K92.0 Hematemesis; F32.9 Major depressive disorder, single episode, unspecified; R10.13 Epigastric pain; Z79.899 Other long term (current) drug therapy; K92.2 Gastrointestinal hemorrhage, unspecified; Z86.16 Personal history of COVID-19

== ENCOUNTER 2022-08-22 13:53 | Inpatient (IN) ==
[2022-08-22] MEDS ORDERED: ONDANSETRON INJ 2 MG/ML 2 ML VIAL IV STA ×2 (14:22→18:54)
[2022-08-22] MEDS ORDERED: ONDANSETRON 4 MG OD TAB PO STA (16:07)
[2022-08-22] MEDS ORDERED: PANTOPRAZOLE BOLUS/DRIP 1 EACH IV STA (16:26)
[2022-08-22] MEDS ORDERED: PANTOprazole 80 MG in DEXTROSE 5% 100 ML IV ONE (16:26)
[2022-08-22] MEDS ORDERED: MoRPHine SULFATE 4 MG/ML 1 ML CARP\\VIAL IV STA (16:26)
[2022-08-22 16:37] LABS: Basophils # (auto) 0.03 K/uL (0-0.2); Basophils % (auto) 0.5 %; Eosinophils # (auto) 0.26 K/uL (0-0.50); Eosinophils % (auto) 4.3 %; Hematocrit (blood only) 38.3 % (37.0-47.0); Hemoglobin 13.1 g/dl (12.0-16.0); Immature Granulocytes # (auto) 0.01 K/uL (0.01-0.20); Immature Granulocytes % (auto) 0.2 %; Lymphocytes # (auto) 1.44 K/uL (1.2-3.4); Lymphocytes % (auto) 23.8 %; Mean Corpuscular Hemoglobin 31.6 pg (25.0-34.0); Mean Corpuscular Hgb Conc 34.2 g/dL (32.0-36.0); Mean Corpuscular Volume 92.5 fL (80.0-100.0); Mean Platelet Volume 8.8 fL (9.4-12.4); Monocytes # (auto) 0.44 K/uL (0.11-0.59); Monocytes % (auto) 7.3 %; Neutrophils # (auto) 3.87 K/uL (1.40-6.50); Neutrophils % (auto) 63.9 %; Platelet Count 499 K/uL (130-400); RDW Coefficient of Variation 15.1 % (11.5-14.5); Red Blood Count 4.14 M/uL (4.20-5.40); White Blood Count 6.05 K/ul (4.8-10.8)
[2022-08-22 16:52] LABS: Albumin Globulin Ratio 1.5 (0.9-2); Albumin Level 4.6 gm/dl (3.4-5.0); BUN Creatinine Ratio 23.6 (10-20); Bilirubin,Total 0.3 mg/dl (0.2-1.0); Calcium 10.2 mg/dl (8.5-10.1); Creatinine Clr Calc Pharmacy 83.6 ml/min; Est GFR (African American) 113.2 ml/min; Est GFR (Non-African American) 97.7 ml/min; Globulin 3.1 gm/dl (2.5-4.0); Potassium 3.9 mmol/L (3.5-5.1); Total Protein 7.7 gm/dl (6.0-8.3)
--- NOTE | 2022-08-22 17:13 | Electrocardiogram Report ---
Test Reason : Blood Pressure : / mmHG Vent. Rate : 091 BPM Atrial Rate : 091 BPM P-R Int : 104 ms QRS Dur : 074 ms QT Int : 364 ms P-R-T Axes : 025 063 045 degrees QTc Int : 447 ms Poor data quality, interpretation may be adversely affected Sinus rhythm Nonspecific T wave abnormality Abnormal ECG When compared with ECG of 21-AUG-2022 00:43, Nonspecific T wave abnormality now evident in Lateral leads Confirmed by Yanick Duran ([id number]) on 08/22/2022 5:13:28 PM Referred By: Confirmed By:Tuan Duran
[2022-08-22] MEDS: PANTOprazole 40 MG in DEXTROSE 5% 100 ML IV SCH ×2 (17:24→22:19)
--- NOTE | 2022-08-22 17:41 | XRay Report ---
XR abdomen 2V w PA chest CLINICAL HISTORY: vomitting TECHNIQUE: 2 views of the abdomen were obtained. A single view of the chest was obtained. Comparison: None available at the time of this dictation. FINDINGS: No lines and tubes are seen. The cardiomediastinal silhouette is normal. The lungs are clear. No evid ence of pleural effusion or pneumothorax. Right upper quadrant surgical clips are seen likely secondary to cholecystectomy. Lucent centered pel jorge calcifications are compatible with phleboliths. The bowel gas pattern is nonobstructive. A modera te amount of stool is noted within the large bowel. IMPRESSION: Nonobstructive bowel gas pattern. ACT 112: Negative or not required by law. Electronically signed by: Mack Leach M.D. 08/22/2022 5:40 PM
[2022-08-22] MEDS ORDERED: HYDROmorphone INJ 1 MG/ML SYRINGE IV STA (17:57)
--- NOTE | 2022-08-22 18:42 | Emergency Department Note ---
History of Present Illness General Chief complaint: Abdominal Pain Stated complaint: THROWING UP BLOOD, ABD PAIN Time Seen by Provider: 08/22/22 16:03 History of Present Illness Provider Complaint: + coffee ground emesis and + gross hematemesis Onset (ago): 1 week(s) Pain Consistency: + intermittent Severity: moderate Maximum Pain Intensity: 7 Relieved By: + none Exacerbated By: + vomiting Context: + history of GI bleed and + anticoagulant use (On Eliquis); no alcohol abuse, no known esophageal varices or no frequent NSAID use Associated symptoms: + abdominal pain, + nausea and + vomiting; no epistaxis, no fever, no chills or no headaches Home Medications Medication Instructions Recorded Confirmed Type cyanocobalamin (vitamin B-12) 1,000 mcg IM MONTHLY 09/11/20 08/22/22 History 1,000 mcg/mL injection kit multivitamin 1 tab PO QAM 09/11/20 08/22/22 History ondansetron HCl 8 mg tablet 8 mg PO Q12H PRN Nausea 09/11/20 08/22/22 History pantoprazole 40 mg tablet,delayed 40 mg PO BID 09/11/20 08/22/22 History release (Protonix) ropinirole 0.25 mg tablet 0.25 mg PO TID 09/11/20 08/22/22 History sucralfate 100 mg/mL oral 15 ml PO TID 09/11/20 08/22/22 History suspension (Carafate) trazodone 150 mg tablet 150 mg PO HS 09/11/20 08/22/22 History zolpidem 10 mg tablet (Ambien) 10 mg PO HS 09/11/20 08/22/22 History dicyclomine 20 mg tablet 20 mg PO Q6H PRN Abdominal Pain 09/19/20 08/22/22 Rx #120 tabs acetaminophen 325 mg tablet 650 mg PO Q4H PRN Pain 07/22/21 08/22/22 History prochlorperazine maleate 10 mg 10 mg PO QID PRN nausea and 08/14/22 08/22/22 Rx tablet vomiting #14 tabs tizanidine 2 mg capsule 2 mg PO Q8 PRN Muscle Spasm 08/21/22 08/22/22 History Allergies Allergy/AdvReac Type Severity Reaction Status Date / Time No Known Allergies Allergy Verified 08/22/22 17:03 Past Med/Surg History Medical History (Updated 08/22/22 @ 20:12 by Aiden Pulliam MD) Acute epigastric pain Anemia Anxiety Depression Hematemesis History of deep venous thrombosis or pulmonary embolus Insomnia Peptic ulcer disease RLS (restless legs syndrome) Surgical History Gastric bypass status for obesity History of appendectomy History of cholecystectomy Family History Other Adopted Social History Smoking Status: Current every day smoker Tobacco Type: Cigarettes Cigarettes Per Day: 1/2 pack a day; Hx Alcohol Use: No Hx Substance Use: No Preferred Language: Arabic Communication Ability: Effective 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 Beliefs That Will Affect Care: None marital status: Current Living Situation: Family Other Information That Helps Us Care for You: No Feels Safe at Home: Yes Safety Concerns: Feels Safe At This Time Assistive Devices: Glasses Physical Exam Vital Signs: Vital Signs - 24 hr 08/22/22 14:19 08/22/22 16:10 08/22/22 16:00 Temperature 36.8 C Temperature Source Temporal Artery Sc an Pulse Rate 93 H 99 H Pulse Rate from Sp O2 Sensor Pulse Strength Normal Respiratory Rate 18 Respiratory Depth Normal Respiratory Patter n Regular Blood Pressure 111/79 100/65 Blood Pressure Kassie n 89 76 Blood Pressure Pos ition Sitting Pulse Oximetry 100 Oxygen Delivery Me thod Room Air Sepsis Recent Feve r Within 48 Hours No Sepsis New/Unexpla ined Change in Men ramya Status No Sepsis Action Take n by Nursing No Action Required 08/22/22 16:01 08/22/22 16:30 08/22/22 16:30 Temperature Temperature Source Pulse Rate 93 H 88 Pulse Rate from Sp O2 Sensor 92 H 87 Pulse Strength Respiratory Rate 17 19 Respiratory Depth Respiratory Patter n Blood Pressure 111/65 Blood Pressure Kassie n 80 Blood Pressure Pos ition Pulse Oximetry 100 98 Oxygen Delivery Me thod Room Air Room Air Sepsis Recent Feve r Within 48 Hours Sepsis New/Unexpla ined Change in Men ramya Status Sepsis Action Take n by Nursing 08/22/22 17:00 08/22/22 17:00 08/22/22 17:30 Temperature Temperature Source Pulse Rate 80 Pulse Rate from Sp O2 Sensor 80 Pulse Strength Respiratory Rate 33 H Respiratory Depth Respiratory Patter n Blood Pressure 101/68 103/68 Blood Pressure Kassie n 79 79 Blood Pressure Pos ition Pulse Oximetry 99 Oxygen Delivery Me thod Sepsis Recent Feve r Within 48 Hours Sepsis New/Unexpla ined Change in Men ramya Status Sepsis Action Take n by Nursing 08/22/22 17:30 08/22/22 18:00 08/22/22 18:30 Temperature Temperature Source Pulse Rate 84 96 H 87 Pulse Rate from Sp O2 Sensor 84 96 H 87 Pulse Strength Respiratory Rate 32 H 32 H 27 H Respiratory Depth Respiratory Patter n Blood Pressure Blood Pressure Kassie n Blood Pressure Pos ition Pulse Oximetry 97 99 97 Oxygen Delivery Me thod Room Air Room Air Room Air Sepsis Recent Feve r Within 48 Hours Sepsis New/Unexpla ined Change in Men ramya Status Sepsis Action Take n by Nursing Physical Exam: Physical Exam GENERAL: oriented to person, place, and time. appears well-developed and well- nourished. HENT: Exam performed. - Head: Normocephalic and atraumatic. EYES: Conjunctivae and EOM are normal. Right eye exhibits no discharge. Left eye exhibits no discharge. No scleral icterus. NECK: Normal range of motion. Neck supple. No JVD present. CV: Normal rate, regular rhythm, normal heart sounds and intact distal pulses. There is no peripheral edema. Palpable radial pulses bue. PULM/CHEST: Effort normal and breath sounds normal. No respiratory distress. No stridor. no wheezes. no rales. ABD: The abdomen is soft. There is no tenderness. NEURO: Motor and sensation grossly intact. SKIN: Skin is warm and dry. He is not diaphoretic. PSYCH: normal mood and affect. Behavior is normal. Judgment and thought content normal. Procedures EJ/Peripheral Line Arm L: Time Out Performed: Yes Skin Cleansed in Sterile Fashion: Yes Size (gauge): 20 IV Secured and Dressing Applied: Yes Patient Tolerated Procedure: well Additional Comments: Ultrasound-guided Course Course 1603: The patient was evaluated in room B12. A complete history and physical exam was performed Cardiac monitoring: An order was placed for continuous cardiac monitoring. The monitor shows a rate of 90 with sinus rhythm interpreted by me 1800: Vital signs stable. Labs and imaging within normal limits. [facility] notified. Administered Medications Hydromorphone HCl (Hydromorphone Inj 0.5 Mg/0.5 Ml Syr) 0.5 mg IV Q4H PRN PRN Reason: Moderate to severe pain 6-10 Stop: 09/05/22 21:59 Last Admin: 08/22/22 22:15 Dose: 0.5 mg Documented By: SURINDER Pantoprazole Sodium 40 mg/ (Dextrose) 100 mls @ 20 mls/hr IV Q5H ADAN Stop: 09/21/22 16:44 Last Admin: 08/22/22 22:19 Dose: 8 mg/hr, 20 mls/hr Documented By: Infusion: 08/22/22 22:19 Dose: 8 mg/hr, 20 mls/hr Documented By: Admin: 08/22/22 17:24 Dose: 8 mg/hr, 20 mls/hr Documented By: TAISHA Discontinued Medications Hydromorphone HCl (Hydromorphone Inj 1 Mg/Ml Syringe) 0.5 mg IV NOW STA Stop: 08/22/22 17:58 Last Admin: 08/22/22 18:11 Dose: 0.5 mg Documented By: [id number] Hydromorphone HCl (Hydromorphone Inj 0.5 Mg/0.5 Ml Syr) 0.25 mg IV NOW STA Stop: 08/22/22 18:56 Last Admin: 08/22/22 19:35 Dose: 0.25 mg Documented By: [id number] Pantoprazole Sodium (Protonix Bolus/Drip) 0 mls @ 1 mls/hr IV ONE STA Stop: 08/22/22 16:27 Last Infusion: 08/22/22 22:24 Dose: 0 mls/hr Documented By: Admin: 08/22/22 20:39 Dose: 1 mls/hr Documented By: SURINDER Pantoprazole Sodium 80 mg/ (Dextrose) 120 mls @ 400 mls/hr IV NOW ONE Stop: 08/22/22 16:43 Last Infusion: 08/22/22 20:00 Dose: 0 mls/hr Documented By: Admin: 08/22/22 16:51 Dose: 400 mls/hr Documented By: [id number] Lactated Ringer's (Lr) 1,000 mls @ 999 mls/hr IV .Q1H1M STA Stop: 08/22/22 20:32 Last Infusion: 08/22/22 22:20 Dose: 0 mls/hr Documented By: Admin: 08/22/22 20:36 Dose: 999 mls/hr Documented By: SURINDER Morphine Sulfate (Morphine Sulfate 4 Mg/Ml 1 Ml Carp\Vial) 4 mg IV NOW STA Stop: 08/22/22 16:27 Last Admin: 08/22/22 16:42 Dose: 4 mg Documented By: [id number] Ondansetron HCl (Ondansetron Inj 2 Mg/Ml 2 Ml Vial) 4 mg IV NOW STA Stop: 08/22/22 14:23 Last Admin: 08/22/22 16:11 Dose: Not Given Documented By: [id number] Ondansetron HCl (Ondansetron 4 Mg Od Tab) 4 mg PO NOW STA Stop: 08/22/22 16:08 Last Admin: 08/22/22 16:12 Dose: 4 mg Documented By: [id number] Ondansetron HCl (Ondansetron Inj 2 Mg/Ml 2 Ml Vial) 4 mg IV NOW STA Stop: 08/22/22 18:55 Last Admin: 08/22/22 19:35 Dose: 4 mg Documented By: [id number] Medical Decision Making Medical Records Attestation: I reviewed the patient's medical records. External medical records reviewed. Patient was seen in the emergency department last night less than 24 hours ago. At that time she has CT of the abdomen pelvis which was negative as well as blood work which was negative. Laboratory Data Attestation: I reviewed the patient's lab results. 08/22/22 16:06 08/22/22 16:06 Lab Results 08/22/22 08/22/22 Range/Units 16:06 16:06 WBC 6.05 (4.8-10.8) K/ul RBC 4.14 L (4.20-5.40) M/uL Hgb 13.1 (12.0-16.0) g/dl Hct 38.3 (37.0-47.0) % MCV 92.5 (80.0-100.0) fL MCH 31.6 (25.0-34.0) pg MCHC 34.2 (32.0-36.0) g/dL RDW Std Deviation 51.0 H (36.4-46.3) fL RDW Coeff of Abhijeet 15.1 H (11.5-14.5) % Plt Count 499 H (130-400) K/uL MPV 8.8 L (9.4-12.4) fL Immature Gran % (Auto) 0.2 % Neut % (Auto) 63.9 % Lymph % (Auto) 23.8 % [place] % (Auto) 7.3 % Eos % (Auto) 4.3 % Baso % (Auto) 0.5 % Neut # (Auto) 3.87 (1.40-6.50) K/uL Lymph # (Auto) 1.44 (1.2-3.4) K/uL [place] # (Auto) 0.44 (0.11-0.59) K/uL Eos # (Auto) 0.26 (0-0.50) K/uL Baso # (Auto) 0.03 (0-0.2) K/uL Immature Gran # (Auto) 0.01 (0.01-0.20) K/uL Sodium 139 (136-145) mmol/L Potassium 3.9 (3.5-5.1) mmol/L Chloride 106 (98-107) mmol/L Carbon Dioxide 27 (21-32) mmol/L Anion Gap 6 (3-11) BUN 17 (6-23) mg/dl Creatinine 0.72 (0.6-1.2) mg/dl Est Cr Clr Drug Dosing 83.6 ml/min Est GFR ( Amer) 113.2 ml/min Est GFR (Non-Af Amer) 97.7 ml/min BUN/Creatinine Ratio 23.6 H (10-20) Glucose 87 (70-99(Fasting)) mg/dl Calcium 10.2 H (8.5-10.1) mg/dl Total Bilirubin 0.3 (0.2-1.0) mg/dl AST 15 (13-39) U/L ALT 13 (7-52) U/L Alkaline Phosphatase 138 H (34-104) U/L Total Protein 7.7 (6.0-8.3) gm/dl Albumin 4.6 (3.4-5.0) gm/dl Globulin 3.1 (2.5-4.0) gm/dl Albumin/Globulin Ratio 1.5 (0.9-2) Lipase 24 (11-82) U/L Imaging Data Attestation: I personally reviewed and interpreted this imaging study as follows: My Impression: Chest x-ray negative. Airway clear. No pneumothorax. No consolidation. No cardiomegaly or cephalization.. No free air under the diaphragm. No fractures of the skeletal structures. No air-fluid levels. Radiologist's Impression: Chest/Abdomen X-ray 08/22/22 16:05 XR abdomen 2V w PA chest CLINICAL HISTORY: vomitting TECHNIQUE: 2 views of the abdomen were obtained. A single view of the chest was obtained. Comparison: None available at the time of this dictation. FINDINGS: No lines and tubes are seen. The cardiomediastinal silhouette is normal. The lungs are clear. No evidence of pleural effusion or pneumothorax. Right upper quadrant surgical clips are seen likely secondary to cholecystectomy. Lucent centered pelvic calcifications are compatible with phleboliths. The bowel gas pattern is nonobstructive. A moderate amount of stool is noted within the large bowel. IMPRESSION: Nonobstructive bowel gas pattern. ACT 112: Negative or not required by law. Electronically signed by: Mack Leach M.D. 08/22/2022 5:40 PM ECG Data Attestation: I personally reviewed and interpreted this ECG as follows: Indication: abdominal pain Rate (beats per minute): 90 Rhythm: normal sinus Findings: no ST depression, no ST elevation or no prolonged QT Additional Comments: QRS 74 MDM Narrative Vital signs stable. Labs and imaging within normal limits. [facility] John notified. Impression & Plan Abdominal pain, Acute GI bleeding Discharge Plan Visit Data Chief Complaint: Abdominal Pain Stated Complaint: THROWING UP BLOOD, ABD PAIN ED Provider: Slade Coats Discharge Problem: Abdominal pain, Acute GI bleeding Patient Disposition: Admitted As Inpatient Discharge Instructions Interventions: ED Discharge Assessment Last Done: 08/22/22 19:53 Abdominal pain Qualifiers: Abdominal location: unspecified location Qualified Code(s): R10.9 - Unspecified abdominal pain
[2022-08-22] MEDS ORDERED: HYDROmorphone INJ 0.5 MG/0.5 ML SYR IV STA (18:55)
--- NOTE | 2022-08-22 19:17 | History & Physical Report ---
Date of Service August 22, 2022 Assessment & Plan (1) Upper GI bleeding: Plan: 52 year old female w/ PMHx of Eamon-en-y surgery and ulcers at anastomosis, PE on Eliquis who presents recurrent hematemesis, worse in the past 24 hours (18-24 episodes) and epigastric abdominal pain. VSS. Hb stable. - Discussed w/ on-call [facility] GI Dr. Chirinos. GI will be consulted. Plan is for EGD tomorrow. - Reassuring labs. Lower suspicion for infectious etiology. No leukocytosis. Lipase neg. Symptoms most suggestive of UGIB etiology. - NPO. 1L LR bolus followed by maintenance rate. - Protonix bolus+drip - Difficult IV access in setting of IV access. Has left US-guided 20 gauge. Can reattempt after hydration. - prn zofran and Diaudid 0.5 q4h prn will be ordered - Transfusion consent obtained. Type and screen. Follow H/H. 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 Most likely vasovagal etiology in setting of volume depleted state in setting of decreased PO intake and UGIB. (4) History of deep venous thrombosis or pulmonary embolus: Plan: - Hold eliquis in setting of UGIB (5) RLS (restless legs syndrome): Plan: - Hold home PO meds until GI eval (6) Anxiety: Plan: - Anxiety, depression, insomnia - Hold home Ambien and trazodone until GI eval Plan FEN/GI: NPO. LR 100mL/hr ppx: SCDs only code: full dispo: PCU History of Present Illness Chief Complaint: hematemesis Primary Care Provider: Clair Faye MD 52 year old female w/ PMHx of Eamon-en-y surgery and ulcers at anastomosis, PE on Eliquis who presents recurrent hematemesis, worse in the past 24 hours (18-24 episodes) and epigastric abdominal pain. She was seen in the ED on 08/14/22 and 08/21/22 for these symptoms. This morning, she saw [facility] GI who sent her back to the ED for evaluation after noticing continued symptoms and a reported syncopal vs near syncopal episode x several seconds at home. She did not hit her head. Her epigastric pain is sharp, 7/10, lasts for minutes, and does not radiate. She has had mild dyspnea and dizziness. The hematemesis was previously brighter but has become a more coffee-ground color. She has not received any recent transfusions. She has noticed mild darkening of her stools. She has not taken any Celecoxib in months and denies any use of NSAIDs or aspirin. Her last dose of Eliquis was evening of 08/21. ED course: VSS. Stable BPs. Mild intermittent tachycardia in the 90s and mild tachypnea noted. Hb has been stable (11.5 on 08/21, 13.1 on 08/22). Normal ch est/abd xr. 08/21 CT abd w/o acute process and w/o bowel obstruction. Pain and nausea medication provided. Allergies Allergy/AdvReac Type Severity Reaction Status Date / Time No Known Allergies Allergy Verified 08/22/22 17:03 Home Medications Medication Instructions Recorded Confirmed Type cyanocobalamin (vitamin B-12) 1,000 mcg IM MONTHLY 09/11/20 08/22/22 History 1,000 mcg/mL injection kit multivitamin 1 tab PO QAM 09/11/20 08/22/22 History ondansetron HCl 8 mg tablet 8 mg PO Q12H PRN Nausea 09/11/20 08/22/22 History pantoprazole 40 mg tablet,delayed 40 mg PO BID 09/11/20 08/22/22 History release (Protonix) ropinirole 0.25 mg tablet 0.25 mg PO TID 09/11/20 08/22/22 History sucralfate 100 mg/mL oral 15 ml PO TID 09/11/20 08/22/22 History suspension (Carafate) trazodone 150 mg tablet 150 mg PO HS 09/11/20 08/22/22 History zolpidem 10 mg tablet (Ambien) 10 mg PO HS 09/11/20 08/22/22 History dicyclomine 20 mg tablet 20 mg PO Q6H PRN Abdominal Pain 09/19/20 08/22/22 Rx #120 tabs acetaminophen 325 mg tablet 650 mg PO Q4H PRN Pain 07/22/21 08/22/22 History prochlorperazine maleate 10 mg 10 mg PO QID PRN nausea and 08/14/22 08/22/22 Rx tablet vomiting #14 tabs tizanidine 2 mg capsule 2 mg PO Q8 PRN Muscle Spasm 08/21/22 08/22/22 History Past Med/Surg History Medical History Acute epigastric pain Anemia Anxiety Depression Hematemesis History of deep venous thrombosis or pulmonary embolus Insomnia Peptic ulcer disease RLS (restless legs syndrome) Surgical History Gastric bypass status for obesity History of appendectomy History of cholecystectomy Family History Other Adopted Social History Smoking Status: Current every day smoker Tobacco Type: Cigarettes Cigarettes Per Day: 1/2 pack a day; Hx Alcohol Use: No Hx Substance Use: No Preferred Language: Portuguese Communication Ability: Effective 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 NAD. Cooperative. HEENT: Atraumatic, normocephalic. EOMI. PERRL. Oropharynx w/o erythema. Pulm: CTAB. -wheezes, -rales, -rhonchi. No respiratory distress. Cardiac: RRR, -mrg. Radial pulses intact and symmetrical. No LE edema. Abdominal: TTP at epigastrium to light palpation. Nondistended, soft. Msk: Moving all extremities. Integ: Warm, dry, intact. Results & Data Results & Data ([facility]) Vital Signs (Past 12 Hours) Vital Signs Temp Pulse Resp BP Pulse Ox O2 Del Method 08/22/22 18:30 87 27 H 97 Room Air 08/22/22 18:00 96 H 32 H 99 Room Air 08/22/22 17:30 84 32 H 97 Room Air 08/22/22 17:30 103/68 08/22/22 17:00 80 33 H 99 08/22/22 17:00 101/68 08/22/22 16:30 88 19 98 Room Air 08/22/22 16:30 111/65 08/22/22 16:01 93 H 17 100 Room Air 08/22/22 16:00 100/65 08/22/22 16:10 99 H 08/22/22 14:19 36.8 C 93 H 18 111/79 100 Room Air Laboratory Results Cardiac Enzymes 08/22/22 Range/Units 16:06 AST 15 (13-39) U/L CBC 08/22/22 Range/Units 16:06 WBC 6.05 (4.8-10.8) K/ul RBC 4.14 L (4.20-5.40) M/uL Hgb 13.1 (12.0-16.0) g/dl Hct 38.3 (37.0-47.0) % Plt Count 499 H (130-400) K/uL Neut # (Auto) 3.87 (1.40-6.50) K/uL Lymph # (Auto) 1.44 (1.2-3.4) K/uL [place] # (Auto) 0.44 (0.11-0.59) K/uL Eos # (Auto) 0.26 (0-0.50) K/uL Baso # (Auto) 0.03 (0-0.2) K/uL Comprehensive Metabolic Panel 08/22/22 Range/Units 16:06 Sodium 139 (136-145) mmol/L Potassium 3.9 (3.5-5.1) mmol/L Chloride 106 (98-107) mmol/L Carbon Dioxide 27 (21-32) mmol/L BUN 17 (6-23) mg/dl Creatinine 0.72 (0.6-1.2) mg/dl Glucose 87 (70-99(Fasting)) mg/dl Calcium 10.2 H (8.5-10.1) mg/dl AST 15 (13-39) U/L ALT 13 (7-52) U/L Alkaline Phosphatase 138 H (34-104) U/L Total Protein 7.7 (6.0-8.3) gm/dl Albumin 4.6 (3.4-5.0) gm/dl Intake and Output 08/22/22 08/22/22 08/22/22 06:59 14:59 22:59 Other: Weight 63 kg Weight Measurement Method Standing Scale Patient Weight 08/23/22 06:59 Weight 63 kg Diagnostic Findings Chest/Abdomen X-ray 08/22/22 16:05 XR abdomen 2V w PA chest CLINICAL HISTORY: vomitting TECHNIQUE: 2 views of the abdomen were obtained. A single view of the chest was obtained. Comparison: None available at the time of this dictation. FINDINGS: No lines and tubes are seen. The cardiomediastinal silhouette is normal. The lungs are clear. No evidence of pleural effusion or pneumothorax. Right upper quadrant surgical clips are seen likely secondary to cholecystectomy. Lucent centered pelvic calcifications are compatible with phleboliths. The bowel gas pattern is nonobstructive. A moderate amount of stool is noted within the large bowel. IMPRESSION: Nonobstructive bowel gas pattern. ACT 112: Negative or not required by law. Electronically signed by: Mack Leach M.D. 08/22/2022 5:40 PM ECG Additional Comments: ecg reviewed by me. NSR 91. QTc 447. Normal axis and intervals. Poor quality. Compared with 08/21 ecg: similar. Code Status & VTE Plan Code Status full VTE Prophylaxis Plan VTE Prophylaxis will be ordered: Yes Supervising Physician Co-Signing Physician Notes PA Supervision Note: I personally saw and examined the patient. 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 Patient feels well at this point except for epigastric pain. Physical exam: Vitals reviewed Gen: Alert and oriented, NAD HEENT: anicteric sclerae, EOMI CV: RRR no murmurs Pulm: CTAB no wheezes or crackle Abd: +BS soft, tender in epigastric region Ext: no edema, 2+ DP pulses Skin: no rashes, warm/dry Neuro: No focal neurologic deficits Labs, Rads, and ECG reviewed: Hemoglobin of 13.1 today, yesterday 11.5, perhaps difference in lab error. Platelets of 499 today, chronic. CMP with calcium of 10.2, alk phos of 138. Normal lipase. COVID-negative. Chest/abdomen x-ray with nonobstructive bowel pattern. Assessment and Plan: Hematemesis, epigastric pain: With several episodes of hematemesis and an episode of syncope today, hemoglobin stable, blood consent will be obtained. No acute need for blood transfusion. Protonix drip, morphine as needed for pain, and will bolus fluids. Patient is hemodynamically stable, will monitor on telemetry. Case was discussed with Dr. Chirinos with [facility] gastroenterology, who will do EGD in the morning. N.p.o. until procedure, holding home medications at this time. Patient already had CT abdomen and pelvis with IV contrast yesterday without any acute findings, do not feel that this study needs to be repeated given symptoms have not progressed but rather have stayed stable. Can resume medications for RLS and difficulty sleeping after EGD at the [facility] gastroenterology Plan otherwise as stated above by resident provider. Resident Activity Tracking Resident Involvement: Resident Care Provided Care Provided: Adult [facility] Medicine
[2022-08-22] MEDS ORDERED: LACTATED RINGER'S 1,000 ML IV STA (19:32)
[2022-08-22] MEDS ORDERED: HYDROmorphone INJ 0.5 MG/0.5 ML SYR IV PRN (20:30)
[2022-08-22] MEDS: HYDROmorphone INJ 0.5 MG/0.5 ML SYR IV PRN (22:15)
[2022-08-22 22:56] LABS: Hematocrit (blood only) 33.6 % (37.0-47.0); Hemoglobin 11.4 g/dl (12.0-16.0)
[2022-08-23] MEDS: LACTATED RINGER'S 1,000 ML IV SCH ×3 (00:17→20:57)
--- NOTE | 2022-08-23 02:07 | Billing Data ---
Date of Service August 23, 2022 Coding Level of Care Code 02971 INT INP/OBS CARE
[2022-08-23] MEDS: ONDANSETRON INJ 2 MG/ML 2 ML VIAL IV PRN ×3 (02:29→19:21)
[2022-08-23] MEDS: HYDROmorphone INJ 0.5 MG/0.5 ML SYR IV PRN ×6 (02:29→22:34)
[2022-08-23] MEDS: PANTOprazole 40 MG in DEXTROSE 5% 100 ML IV SCH ×5 (03:29→22:35)
[2022-08-23 07:06] LABS: Basophils # (auto) 0.02 K/uL (0-0.2); Basophils % (auto) 0.5 %; Eosinophils # (auto) 0.36 K/uL (0-0.50); Hemoglobin 11.1 g/dl (12.0-16.0); Immature Granulocytes # (auto) 0.01 K/uL (0.01-0.20); Immature Granulocytes % (auto) 0.3 %; Lymphocytes # (auto) 1.68 K/uL (1.2-3.4); Lymphocytes % (auto) 42.1 %; Mean Corpuscular Hemoglobin 31.8 pg (25.0-34.0); Mean Corpuscular Hgb Conc 33.6 g/dL (32.0-36.0); Mean Corpuscular Volume 94.6 fL (80.0-100.0); Mean Platelet Volume 8.8 fL (9.4-12.4); Monocytes # (auto) 0.39 K/uL (0.11-0.59); Monocytes % (auto) 9.8 %; Neutrophils # (auto) 1.53 K/uL (1.40-6.50); Neutrophils % (auto) 38.3 %; Platelet Count 423 K/uL (130-400); RDW Coefficient of Variation 15.2 % (11.5-14.5); Red Blood Count 3.49 M/uL (4.20-5.40); White Blood Count 3.99 K/ul (4.8-10.8)
[2022-08-23 07:30] LABS: Albumin Globulin Ratio 1.4 (0.9-2); Albumin Level 3.6 gm/dl (3.4-5.0); BUN Creatinine Ratio 18.6 (10-20); Bilirubin,Total 0.5 mg/dl (0.2-1.0); Calcium 9.1 mg/dl (8.5-10.1); Creatinine Clr Calc Pharmacy 89.9 ml/min; Est GFR (African American) 117.1 ml/min; Globulin 2.6 gm/dl (2.5-4.0); Potassium 3.8 mmol/L (3.5-5.1); Total Protein 6.2 gm/dl (6.0-8.3)
--- NOTE | 2022-08-23 08:11 | Medical Student Progress Note ---
Date of Service August 23, 2022 Assessment & Plan (1) Upper GI bleeding: Plan: 52 year old female w/ PMHx of Eamon-en-y surgery and ulcers at anastomosis, PE on Eliquis who presents recurrent hematemesis, worse in the past 24 hours (18-24 episodes) and epigastric abdominal pain. Presented with worsening L sided abd pain, nausea, hematemesis with episodic presyncopal events. Follows with GI and referred here for inpatient EGD. DDx ulcers at eamon en y anastomosis due to hx of revisions. - Hgb stable. Reassuring labs. Lower suspicion for infectious etiology. No leukocytosis. Lipase neg. - EGD normal, no bleeding or ulcers - Cont. maintenance IVF, protonix gtt - zofran for nausea, Dilaudid/tylenol for pain - cont. 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 Most likely vasovagal etiology in setting of volume depleted state in setting of decreased PO intake and UGIB. (4) Hand edema: Plan: New onset L hand edema with pain and mild diffuse erythema. 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 Recently started eliquis in last 2 years. Last DVT/PE was in 2019 but no records at our institutions ([place] and [facility]). - Hold Eliquis in setting of UGIB - SCDs for DVT ppx (6) RLS (restless legs syndrome): Plan: - Cont. home ropinirole (7) Anxiety: Plan: Anxiety, depression, insomnia - Cont. home Ambien and trazodone Plan FEN/GI: Clears, LRs @100ml/hr DVT ppx: SCDs, avoid chemo ppx due to GI bleed Code Status: Full Dispo: PCU Admission and Anticipated Discharge Date Admission Date: August 22, 2022 Supervising Attestation Attending attestation Pt seen and examined in concert with Dr. Javed, [facility] Dr[facility] Palm. In agreement with the documented findings as noted in the resident documentation with any exceptions or additions as noted here. Ongoing n/v and epigastric pain with gradual improvement. Ongoing swelling of the hands as noted. On examination, S1/S2 nl RRR no MCG. CTAB. Abd ND BS+ve with mild epigastric TTP Epigastric pain and UGIB in the setting of h/o Eamon-en-y - EGD today - monitor CBC daily, more aggressively with change in symptoms. Continue PPI drip and PRN ondansetron with pain control as noted. Holding Eliquis. Near-syncope - telemetry monitoring - likely vasovagal Bilateral hand swelling, L > R - consider doppler for further evaluation vs. treatment for cellulitis Else see resident documentation as noted. Subjective Pt feels the same with pain, nausea, dry heaves without BM. Able to urinate without difficulty and is kept NPO. Referred here by GI outpatient since having pre-syncopal episodes with ongoing hematemesis. Some chest pressure in association with LUQ pain. Pt on telemetry without signs of arrhythmia. Review of Systems Review of Systems: All systems reviewed & are unremarkable except as noted in HPI & below Physical Exam Physical Exam: Constitutional: in no acute distress but appears uncomfortable, pleasant. Vitals as above. HEENT: No scleral injection or discharge. Moist mucous membranes. Neck: Supple without lymphadenopathy or thyromegaly. Trachea midline. Lungs: Clear to auscultation bilaterally with good effort. Cardiac: Regular rate and rhythm. No murmurs. Mild lower extremity edema. 2+ distal peripheral pulses. Abdomen: Bowel sounds present. Soft, nondistended.Moderate tenderness over epigastric and left quadrants. No guarding or rebound tenderness. No hepatos plenomegaly. MSK: No cyanosis or clubbing. Extremities motor strength 5/5. Skin: Left hand with nonpitting edema and mild erythema, mildly tender to palpation. Neurologic: no focal deficits Results & Data ([facility]) Vital Signs (Past 12 Hours) Vital Signs Temp Pulse Pulse Resp BP Pulse Ox O2 Del Method 08/23/22 07:28 36.9 C 79 18 105/54 L 95 Room Air 08/23/22 02:23 36.8 C 80 17 114/61 96 Room Air 08/22/22 22:51 76 08/22/22 22:25 37.2 C 76 19 102/75 97 Room Air 08/22/22 20:30 74 08/22/22 20:15 37.5 C 81 16 120/71 95 Room Air Laboratory Results 08/23/22 08/23/22 08/22/22 Range/Units 05:55 05:55 Unknown WBC 3.99 L (4.8-10.8) K/ul RBC 3.49 L (4.20-5.40) M/uL Hgb 11.1 L (12.0-16.0) g/dl Hct 33.0 L (37.0-47.0) % MCV 94.6 (80.0-100.0) fL MCH 31.8 (25.0-34.0) pg MCHC 33.6 (32.0-36.0) g/dL RDW Std Deviation 53.0 H (36.4-46.3) fL RDW Coeff of Abhijeet 15.2 H (11.5-14.5) % Plt Count 423 H (130-400) K/uL MPV 8.8 L (9.4-12.4) fL Immature Gran % (Auto) 0.3 % Neut % (Auto) 38.3 % Lymph % (Auto) 42.1 % Mccracken % (Auto) 9.8 % Eos % (Auto) 9.0 % Baso % (Auto) 0.5 % Neut # (Auto) 1.53 (1.40-6.50) K/uL Lymph # (Auto) 1.68 (1.2-3.4) K/uL Mccracken # (Auto) 0.39 (0.11-0.59) K/uL Eos # (Auto) 0.36 (0-0.50) K/uL Baso # (Auto) 0.02 (0-0.2) K/uL Immature Gran # (Auto) 0.01 (0.01-0.20) K/uL Sodium 139 (136-145) mmol/L Potassium 3.8 (3.5-5.1) mmol/L Chloride 108 H (98-107) mmol/L Carbon Dioxide 28 (21-32) mmol/L Anion Gap 3 (3-11) BUN 13 (6-23) mg/dl Creatinine 0.70 (0.6-1.2) mg/dl Est Cr Clr Drug Dosing 89.9 ml/min Est GFR ( Amer) 117.1 ml/min Est GFR (Non-Af Amer) 101.0 ml/min BUN/Creatinine Ratio 18.6 (10-20) Glucose 90 (70-99(Fasting)) mg/dl Calcium 9.1 (8.5-10.1) mg/dl Total Bilirubin 0.5 (0.2-1.0) mg/dl AST 14 (13-39) U/L ALT 10 (7-52) U/L Alkaline Phosphatase 119 H (34-104) U/L Total Protein 6.2 (6.0-8.3) gm/dl Albumin 3.6 (3.4-5.0) gm/dl Globulin 2.6 (2.5-4.0) gm/dl Albumin/Globulin Ratio 1.4 (0.9-2) Lipase (11-82) U/L SARS-CoV-2, RNA, NAAT NEGATIVE (NEGATIVE) Blood Type Antibody Screen 08/22/22 08/22/22 08/22/22 Range/Units 22:35 22:35 16:06 WBC (4.8-10.8) K/ul RBC (4.20-5.40) M/uL Hgb 11.4 L (12.0-16.0) g/dl Hct 33.6 L (37.0-47.0) % MCV (80.0-100.0) fL MCH (25.0-34.0) pg MCHC (32.0-36.0) g/dL RDW Std Deviation (36.4-46.3) fL RDW Coeff of Abhijeet (11.5-14.5) % Plt Count (130-400) K/uL MPV (9.4-12.4) fL Immature Gran % (Auto) % Neut % (Auto) % Lymph % (Auto) % Mccracken % (Auto) % Eos % (Auto) % Baso % (Auto) % Neut # (Auto) (1.40-6.50) K/uL Lymph # (Auto) (1.2-3.4) K/uL Mccracken # (Auto) (0.11-0.59) K/uL Eos # (Auto) (0-0.50) K/uL Baso # (Auto) (0-0.2) K/uL Immature Gran # (Auto) (0.01-0.20) K/uL Sodium 139 (136-145) mmol/L Potassium 3.9 (3.5-5.1) mmol/L Chloride 106 (98-107) mmol/L Carbon Dioxide 27 (21-32) mmol/L Anion Gap 6 (3-11) BUN 17 (6-23) mg/dl Creatinine 0.72 (0.6-1.2) mg/dl Est Cr Clr Drug Dosing 83.6 ml/min Est GFR ( Amer) 113.2 ml/min Est GFR (Non-Af Amer) 97.7 ml/min BUN/Creatinine Ratio 23.6 H (10-20) Glucose 87 (70-99(Fasting)) mg/dl Calcium 10.2 H (8.5-10.1) mg/dl Total Bilirubin 0.3 (0.2-1.0) mg/dl AST 15 (13-39) U/L ALT 13 (7-52) U/L Alkaline Phosphatase 138 H (34-104) U/L Total Protein 7.7 (6.0-8.3) gm/dl Albumin 4.6 (3.4-5.0) gm/dl Globulin 3.1 (2.5-4.0) gm/dl Albumin/Globulin Ratio 1.5 (0.9-2) Lipase 24 (11-82) U/L SARS-CoV-2, RNA, NAAT (NEGATIVE) Blood Type A Negative Antibody Screen NEGATIVE 08/22/22 Range/Units 16:06 WBC 6.05 (4.8-10.8) K/ul RBC 4.14 L (4.20-5.40) M/uL Hgb 13.1 (12.0-16.0) g/dl Hct 38.3 (37.0-47.0) % MCV 92.5 (80.0-100.0) fL MCH 31.6 (25.0-34.0) pg MCHC 34.2 (32.0-36.0) g/dL RDW Std Deviation 51.0 H (36.4-46.3) fL RDW Coeff of Abhijeet 15.1 H (11.5-14.5) % Plt Count 499 H (130-400) K/uL MPV 8.8 L (9.4-12.4) fL Immature Gran % (Auto) 0.2 % Neut % (Auto) 63.9 % Lymph % (Auto) 23.8 % Mccracken % (Auto) 7.3 % Eos % (Auto) 4.3 % Baso % (Auto) 0.5 % Neut # (Auto) 3.87 (1.40-6.50) K/uL Lymph # (Auto) 1.44 (1.2-3.4) K/uL Mccracken # (Auto) 0.44 (0.11-0.59) K/uL Eos # (Auto) 0.26 (0-0.50) K/uL Baso # (Auto) 0.03 (0-0.2) K/uL Immature Gran # (Auto) 0.01 (0.01-0.20) K/uL Sodium (136-145) mmol/L Potassium (3.5-5.1) mmol/L Chloride (98-107) mmol/L Carbon Dioxide (21-32) mmol/L Anion Gap (3-11) BUN (6-23) mg/dl Creatinine (0.6-1.2) mg/dl Est Cr Clr Drug Dosing ml/min Est GFR ( Amer) ml/min Est GFR (Non-Af Amer) ml/min BUN/Creatinine Ratio (10-20) Glucose (70-99(Fasting)) mg/dl Calcium (8.5-10.1) mg/dl Total Bilirubin (0.2-1.0) mg/dl AST (13-39) U/L ALT (7-52) U/L Alkaline Phosphatase (34-104) U/L Total Protein (6.0-8.3) gm/dl Albumin (3.4-5.0) gm/dl Globulin (2.5-4.0) gm/dl Albumin/Globulin Ratio (0.9-2) Lipase (11-82) U/L SARS-CoV-2, RNA, NAAT (NEGATIVE) Blood Type Antibody Screen
[2022-08-23] MEDS ORDERED: ACETAMINOPHEN 1,000 MG/100 ML VIAL IV PRN (09:27)
--- NOTE | 2022-08-23 09:52 | Gastrointestinal Consultation ---
Date of Consultation August 23, 2022 Assessment & Plan (1) Hematemesis: -Keep NPO -Continue to monitor H/H -Continue Protonix IV gtt -Plan for EGD today (08/23/22) -Further recommendations Supervising Physician Co-Signing Physician Notes Agree with ALAN Santiago as above Abd: Soft, NT, ND, +BS Continue current therapy and supportive care Proceed with EGD now. History of Present Illness Reason for Consultation: Hematemesis Attending Physician: Lon Rand MD History of Present Illness Patient is a 52 yo female with PMH of Eamon-en-y and recurrent anastomotic ulcers that have led to multiple revisions of her bypass. After her last bypass revision in 2021, she developed a PE postoperatively and has been on Eliquis since that time. She notes that she has avoided NSAIDs and has been compliant with PPI therapy as an outpatient (Protonix 40 mg BID). She is also prescribed Carafate 15 mL po TID. She notes that over the past several weeks she had developed heartburn, reflux, & epigastric pain. She notes dysphagia (solid & liquid) x 3 weeks. She had visited the ED on 08/14/22 due to an episode of hematemesis. She had an unremarkable CT abd/pelvis at that time and H/H was stable so she was subsequently discharged to follow-up with her home GI ([facility]). She notes that two days ago, she developed nausea & vomiting. She then developed hematemesis. She notes for 2 days she had vomiting (approximately 10- 12 times per day). She notes that she developed bright red emesis at first, then it progressed to coffee-ground emesis. She notes that she has had some melena. She denies further changes. She has not had vomiting since 08/22/22. She has been NPO. H/H is currently 11.1/33.0. CT abdomen/pelvis on this admission unremarkable for acute issues as well. Allergies Allergy/AdvReac Type Severity Reaction Status Date / Time No Known Allergies Allergy Verified 08/22/22 17:03 Home Medications Medication Instructions Recorded Confirmed Type cyanocobalamin (vitamin B-12) 1,000 mcg IM MONTHLY 09/11/20 08/22/22 History 1,000 mcg/mL injection kit multivitamin 1 tab PO QAM 09/11/20 08/22/22 History ondansetron HCl 8 mg tablet 8 mg PO Q12H PRN Nausea 09/11/20 08/22/22 History pantoprazole 40 mg tablet,delayed 40 mg PO BID 09/11/20 08/22/22 History release (Protonix) ropinirole 0.25 mg tablet 0.25 mg PO TID 09/11/20 08/22/22 History sucralfate 100 mg/mL oral 15 ml PO TID 09/11/20 08/22/22 History suspension (Carafate) trazodone 150 mg tablet 150 mg PO HS 09/11/20 08/22/22 History zolpidem 10 mg tablet (Ambien) 10 mg PO HS 09/11/20 08/22/22 History dicyclomine 20 mg tablet 20 mg PO Q6H PRN Abdominal Pain 09/19/20 08/22/22 Rx #120 tabs acetaminophen 325 mg tablet 650 mg PO Q4H PRN Pain 07/22/21 08/22/22 History prochlorperazine maleate 10 mg 10 mg PO QID PRN nausea and 08/14/22 08/22/22 Rx tablet vomiting #14 tabs tizanidine 2 mg capsule 2 mg PO Q8 PRN Muscle Spasm 08/21/22 08/22/22 History Patient History Medical History (Updated 08/23/22 @ 09:56 by Tran Wesley PA-C) Acute epigastric pain Anemia Anxiety Depression Hematemesis History of deep venous thrombosis or pulmonary embolus Insomnia Peptic ulcer disease RLS (restless legs syndrome) Surgical History Gastric bypass status for obesity History of appendectomy History of cholecystectomy Family History Other Adopted Social History Smoking Status: Current every day smoker Tobacco Type: Cigarettes Cigarettes Per Day: 1/2 pack a day; Hx Alcohol Use: No Hx Substance Use: No Preferred Language: Malay Communication Ability: Effective Insurance Law Specialist Required: No Beliefs That Will Affect Care: None marital status: Current Living Situation: Family Other Information That Helps Us Care for You: No Feels Safe at Home: Yes Safety Concerns: Feels Safe At This Time Assistive Devices: None Review of Systems Constitutional: no fever and no chills Respiratory: no cough and no dyspnea Cardiovascular: no chest pain Gastrointestinal: + abdominal pain, + heartburn, + coffee ground emesis, + hematemesis, + dysphagia and + melena Integumentary: no problem reported Psychiatric: no problem reported Hematologic / Lymphatic: no unexplained weight loss Physical Exam Constitutional: well developed Respiratory: normal respiratory effort Gastrointestinal (Abdomen): normal bowel sounds, soft, nontender, no hepatosplenomegaly Musculoskeletal: Head/Neck/Chest: normocephalic Psychiatric: Orientation: alert and oriented x 3 Results & Data ([facility]) Vital Signs (Past 12 Hours) Vital Signs Temp Pulse Pulse Resp BP Pulse Ox O2 Del Method 08/23/22 07:28 36.9 C 79 18 105/54 L 95 Room Air 08/23/22 02:23 36.8 C 80 17 114/61 96 Room Air 08/22/22 22:51 76 08/22/22 22:25 37.2 C 76 19 102/75 97 Room Air PG Care Time/CCT Total # of Minutes Spent Total Time Spent with Patient: Total time spent is greater than 50% in coordination of care (as documented) at patient's floor/unit and/or counseling patient: Coding Level of Care Code INP/OBS CONSULT LVL 4, 60 MIN Diagnoses Hematemesis K92.0
--- NOTE | 2022-08-23 13:30 | Anesthesiology Consultation ---
Date of Service August 23, 2022 Assessment & Plan Chart Review Chart Review: Acceptable Risk for Surgery Consults Requested none ASA ASA3 Proposed Anesthesia Anesthesia Type: MAC Risk / Benefits Reviewed With: PT / POA / Parent / Guardian, Accepts Plan and Informed Consent Obtained History Surgery Operation Date: 08/23/22 16:30 Proposed Procedures p Esophagogastroduodenoscopy Dr Stewart - Sebastian Stewart, DO Height/Weight Height: 5 ft 3 in Weight: 69.5 kg Allergies Allergy/AdvReac Type Severity Reaction Status Date / Time No Known Allergies Allergy Verified 08/22/22 17:03 Medications Home Medications Medication Instructions Recorded Confirmed Last Taken cyanocobalamin (vitamin B-12) 1,000 mcg IM MONTHLY 09/11/20 08/22/22 08/07/22 1,000 mcg/mL injection kit multivitamin 1 tab PO QAM 09/11/20 08/22/22 08/22/22 ondansetron HCl 8 mg tablet 8 mg PO Q12H PRN Nausea 09/11/20 08/22/22 Unknown pantoprazole 40 mg tablet,delayed 40 mg PO BID 09/11/20 08/22/22 08/22/22 release (Protonix) ropinirole 0.25 mg tablet 0.25 mg PO TID 09/11/20 08/22/22 08/22/22 08:00 sucralfate 100 mg/mL oral 15 ml PO TID 09/11/20 08/22/22 08/22/22 08:00 suspension (Carafate) trazodone 150 mg tablet 150 mg PO HS 09/11/20 08/22/22 08/21/22 zolpidem 10 mg tablet (Ambien) 10 mg PO HS 09/11/20 08/22/22 08/21/22 dicyclomine 20 mg tablet 20 mg PO Q6H PRN Abdominal Pain 09/19/20 08/22/22 Unknown #120 tabs acetaminophen 325 mg tablet 650 mg PO Q4H PRN Pain 07/22/21 08/22/22 Unknown prochlorperazine maleate 10 mg 10 mg PO QID PRN nausea and 08/14/22 08/22/22 Unknown tablet vomiting #14 tabs tizanidine 2 mg capsule 2 mg PO Q8 PRN Muscle Spasm 08/21/22 08/22/22 Unknown Active Medications Generic Name Dose Route Start Last Admin Trade Name Freq PRN Reason Stop Dose Admin Hydromorphone HCl 0.5 mg 08/22/22 22:00 08/23/22 10:51 Hydromorphone Inj 0.5 Mg/0.5 Ml Syr IV 09/05/22 21:59 0.5 mg Q4H PRN Administration Moderate to severe pain 6-10 Pantoprazole Sodium 40 mg/ 100 mls @ 20 mls/hr 08/22/22 16:45 08/23/22 09:22 Dextrose IV 09/21/22 16:44 8 mg/hr Q5H ADAN 20 mls/hr Administration 8 MG/HR Lactated Ringer's 1,000 mls @ 100 mls/hr 08/23/22 00:00 08/23/22 09:22 Lr IV 08/24/22 05:59 100 mls/hr .Q10H ADAN Administration Ondansetron HCl 4 mg 08/23/22 01:30 08/23/22 09:24 Ondansetron Inj 2 Mg/Ml 2 Ml Vial IV 09/22/22 01:29 4 mg Q6H PRN Administration Nausea NPO Date Last Intake of Fluids: 08/22/22 Time Last Intake of Fluids: 07:00 Date Last Intake of Solids: 08/20/22 Time Last Intake of Solids: 17:30 Past Medical History Medical History (Updated 08/23/22 @ 09:56 by Tran Wesley PA-C) Acute epigastric pain Anemia Anxiety Depression Hematemesis History of deep venous thrombosis or pulmonary embolus Insomnia Peptic ulcer disease RLS (restless legs syndrome) Exercise / Class Metabolic Activity II 4-5 Yardwork/Stairs/Walk up hill Past Family History Family History Other Adopted Past Surgical History Surgical History Gastric bypass status for obesity History of appendectomy History of cholecystectomy Past Anesthesia History No Hx of Anesthesia Complications Social History Smoking Status: Current every day smoker tobacco type: cigarettes Smoking cigarettes per day: 1/2 pack a day Hx Alcohol Use: No Hx Substance Use: No Physical Exam Vital Signs Last Vital Signs Temp 36.7 C 08/23/22 13:17 Pulse 78 08/23/22 13:17 Resp 16 08/23/22 13:17 BP 98/60 L 08/23/22 13:17 Pulse Ox 96 08/23/22 13:17 O2 Del Method Room Air 08/23/22 13:17 ENMT Mouth: + dentures (permanently attached by posts) Thyromental Distance: > or= 3.5 Finger Breadths Mallampati Class: II Respiratory normal respiratory effort Auscultation: lungs clear to auscultation bilaterally Cardiovascular Rate/Rhythm: regular rate and regular rhythm Neurologic moves all extremities Psychiatric Orientation: alert and oriented x 3 Testing Laboratory Results 08/23/22 05:55 08/23/22 05:55 Blood Type A Negative 08/22/22 22:35 Antibody Screen NEGATIVE 08/22/22 22:35
[2022-08-23] MEDS ORDERED: PROPOFOL IV EMULSION 10 MG/ML 20 ML VIAL IV ONE (14:02)
[2022-08-23] MEDS ORDERED: LIDOCAINE 2% MPF LOCAL 5 ML VIAL INFIL ONE (14:02)
[2022-08-23] MEDS ORDERED: ONDANSETRON INJ 2 MG/ML 2 ML VIAL ONE (14:02)
--- NOTE | 2022-08-23 14:28 | GI REPORT ---
Patient Name: Whitney Kevin Procedure Date: 08/23/2022 1:55 PM Date of : 1970 Admit Type: Inpatient Age: 52 Gender: Female Attending MD: Sebastian Stewart DO, Procedure: Upper GI endoscopy Providers: Sebastian Stewart DO Referring MD: Jane Fam Pa-c Indications: Hematemesis Medicines: Monitored Anesthesia Care Complications: No immediate complications. Estimated Blood Loss: Estimated blood loss: none. Procedure: Pre-Anesthesia Assessment: - Prior to the procedure, a History and Physical was performed, and patient medications and allergies were reviewed. The patient's tolerance of previous anesthesia was also reviewed. The risks and benefits of the procedure and the sedation options and risks were discussed with the patient. All questions were answered, and informed consent was obtained. Prior Anticoagulants: The patient has taken Eliquis (apixaban), last dose was 3 days prior to procedure. ASA Grade Assessment: III - A patient with severe systemic disease. After reviewing the risks and benefits, the patient was deemed in satisfactory condition to undergo the procedure. After obtaining informed consent, the endoscope was passed under direct vision. Throughout the procedure, the patient's blood pressure, pulse, and oxygen saturations were monitored continuously. The Endoscope was introduced through the mouth, and advanced to the jejunum. The upper GI endoscopy was accomplished without difficulty. The patient tolerated the procedure well. Findings: The esophagus was normal. Evidence of a gastric bypass was found. A gastric pouch with a small size was found. The gastrojejunal anastomosis was characterized by healthy appearing mucosa. This was traversed. The [id number] limb was not examined as it could not be found. The examined jejunum was normal. Impression: - Normal esophagus. - Gastric bypass with a small-sized pouch. Gastrojejunal anastomosis characterized by healthy appearing mucosa. - Normal examined jejunum. - No specimens collected. Recommendation: - [facility] care. - Advance diet as tolerated. - Continue present medications. Sebastian Stewart DO 08/23/2022 2:28:01 PM This report has been signed electronically. Note Initiated On: 08/23/2022 1:55 PM Number of Addenda: 0 I attest to the content of the Intraoperative Record and orders documented therein, exceptions below {[id number]}
--- NOTE | 2022-08-23 15:26 | Anesthesiology Progress Note ---
Date of Service August 23, 2022 Anesthesia Post Procedure Vital Signs Vital Signs: Temp Pulse Pulse Resp BP BP Pulse Ox 08/23/22 14:34 73 16 95/57 L 97 08/23/22 14:19 69 16 89/52 L 96 08/23/22 14:04 80 16 86/56 L 95 08/23/22 13:17 36.7 C 78 16 98/60 L 96 08/23/22 11:44 36.9 C 77 18 95/58 L 96 08/23/22 11:21 78 08/23/22 11:21 08/23/22 07:28 36.9 C 79 18 105/54 L 95 08/23/22 02:23 36.8 C 80 17 114/61 96 08/22/22 22:51 76 08/22/22 22:25 37.2 C 76 19 102/75 97 08/22/22 20:30 74 08/22/22 20:15 37.5 C 81 16 120/71 95 08/22/22 18:30 87 27 H 97 08/22/22 18:00 96 H 32 H 99 08/22/22 17:30 84 32 H 97 08/22/22 17:30 103/68 08/22/22 17:00 80 33 H 99 08/22/22 17:00 101/68 08/22/22 16:30 88 19 98 08/22/22 16:30 111/65 08/22/22 16:01 93 H 17 100 08/22/22 16:00 100/65 08/22/22 16:10 99 H O2 Del Method 08/23/22 14:34 Room Air 08/23/22 14:19 Room Air 08/23/22 14:04 Room Air 08/23/22 13:17 Room Air 08/23/22 11:44 Room Air 08/23/22 11:21 08/23/22 11:21 Room Air 08/23/22 07:28 Room Air 08/23/22 02:23 Room Air 08/22/22 22:51 08/22/22 22:25 Room Air 08/22/22 20:30 08/22/22 20:15 Room Air 08/22/22 18:30 Room Air 08/22/22 18:00 Room Air 08/22/22 17:30 Room Air 08/22/22 17:30 08/22/22 17:00 08/22/22 17:00 08/22/22 16:30 Room Air 08/22/22 16:30 08/22/22 16:01 Room Air 08/22/22 16:00 08/22/22 16:10 Pain Intensity Left Abdomen: Pain Intensity: 6 Transfer of Care Handoff Completed per policy Notes Mental Status: alert / awake / arousable and participated in evaluation Nausea / Vomiting: adequately controlled Pain: adequately controlled Airway Patency, RR, SpO2: stable & adequate BP & HR: stable & adequate Hydration State: stable & adequate Anesthetic Complications: no major complications apparent and Pt Satisfied with anesthetic care
--- NOTE | 2022-08-23 19:16 | Ultrasound Report ---
ULTRASOUND LEFT UPPER EXTREMITY VENOUS CLINICAL HISTORY: Left wrist and hand swelling. COMPARISON STUDY: No priors.. TECHNIQUE: Real-time, grayscale, and color Doppler sonography of the deep veins of the left upper ext remity is performed. Compression and augmentation were utilized. FINDINGS: There is no sonographic evidence of deep venous thrombosis identified in the left upper ext remity. The left internal jugular, axillary, and brachial veins are patent and normally compressible. Normal venous waveforms and augmentation are seen within the left subclavian vein. The cephalic and basilic veins were not visualized. The visualized radial and ulnar veins are patent. IMPRESSION: There is no sonographic evidence of deep venous thrombosis identified in the left upper e xtremity. ACT 112: Negative or not required by law. Electronically signed by: Venkat Carson M.D. 08/23/2022 7:15 PM
[2022-08-23] MEDS: ZOLPIDEM TARTRATE 10 MG TAB PO SCH (20:54)
[2022-08-23] MEDS: traZODone HCL 50 MG TAB PO SCH (20:54)
[2022-08-23] MEDS: rOPINIRole HCL 0.25 MG TABLET PO SCH (20:55)
[2022-08-23] MEDS: ACETAMINOPHEN 500 MG TAB PO SCH (21:19)
[2022-08-24] MEDS: ONDANSETRON INJ 2 MG/ML 2 ML VIAL IV PRN ×2 (01:32→08:29)
[2022-08-24] MEDS: HYDROmorphone INJ 0.5 MG/0.5 ML SYR IV PRN ×8 (01:34→23:37)
[2022-08-24] MEDS: PANTOprazole 40 MG in DEXTROSE 5% 100 ML IV SCH ×2 (03:37→08:29)
[2022-08-24] MEDS: ACETAMINOPHEN 500 MG TAB PO SCH ×3 (06:05→20:35)
[2022-08-24 07:06] LABS: Albumin Globulin Ratio 1.3 (0.9-2); Albumin Level 3.6 gm/dl (3.4-5.0); BUN Creatinine Ratio 6.9 (10-20); Bilirubin,Total 0.3 mg/dl (0.2-1.0); Calcium 9.2 mg/dl (8.5-10.1); Creatinine Clr Calc Pharmacy 87.2 ml/min; Est GFR (African American) 113.2 ml/min; Est GFR (Non-African American) 97.7 ml/min; Globulin 2.7 gm/dl (2.5-4.0); Potassium 4.1 mmol/L (3.5-5.1); Total Protein 6.3 gm/dl (6.0-8.3)
[2022-08-24 07:28] LABS: Basophils # (auto) 0.02 K/uL (0-0.2); Basophils % (auto) 0.4 %; Eosinophils # (auto) 0.39 K/uL (0-0.50); Eosinophils % (auto) 8.6 %; Hematocrit (blood only) 33.2 % (37.0-47.0); Immature Granulocytes # (auto) 0.01 K/uL (0.01-0.20); Immature Granulocytes % (auto) 0.2 %; Lymphocytes # (auto) 1.49 K/uL (1.2-3.4); Mean Corpuscular Hemoglobin 31.5 pg (25.0-34.0); Mean Corpuscular Hgb Conc 33.1 g/dL (32.0-36.0); Mean Corpuscular Volume 95.1 fL (80.0-100.0); Mean Platelet Volume 9.1 fL (9.4-12.4); Monocytes # (auto) 0.45 K/uL (0.11-0.59); Neutrophils # (auto) 2.15 K/uL (1.40-6.50); Neutrophils % (auto) 47.8 %; Platelet Count 388 K/uL (130-400); RDW Standard Deviation 52.1 fL (36.4-46.3); Red Blood Count 3.49 M/uL (4.20-5.40); White Blood Count 4.51 K/ul (4.8-10.8)
[2022-08-24] MEDS: rOPINIRole HCL 0.25 MG TABLET PO SCH ×3 (08:30→20:33)
[2022-08-24] MEDS ORDERED: SUCRALFATE 1 GM/10 ML UDC PO STA (09:30)
[2022-08-24] MEDS: PANTOprazole 40 MG TAB PO SCH ×2 (10:50→20:33)
[2022-08-24] MEDS: FAMOTIDINE 20 MG TAB PO SCH ×2 (10:50→20:35)
[2022-08-24] MEDS: SUCRALFATE 1 GM/10 ML UDC PO SCH ×3 (11:34→20:33)
--- NOTE | 2022-08-24 11:35 | Gastroenterology Progress Note ---
Date of Service August 24, 2022 Assessment & Plan (1) Hematemesis: Plan: EGD unrevealing. No further hematemesis. -Continue Protonix 40 mg BID -Continue Carafate 1 gm QID -Continue to monitor H/H -Patient will follow-up with her primary GI upon discharge--she reports she now sees [facility]. Admission and Anticipated Discharge Date Admission Date: August 22, 2022 Supervising Physician Co-Signing Physician Notes Agree with ALAN Santiago as above Still complaining of nausea and dry heaving. Scheduled with [facility] next week for double balloon enteroscopy Abd: Soft, NT, ND, +BS Continue current therapy and supportive care Subjective Patient is a 52 yo female who is hospitalized for hematemesis. She underwent an EGD on 08/23/22 that was unremarkable. She denies hematemesis. No further new issues. H/H 11.0/33.2. Review of Systems Constitutional: no fever and no chills Gastrointestinal: no abdominal pain, no nausea, no vomiting and no hematemesis Psychiatric: no problem reported Physical Exam Constitutional: well developed Respiratory: normal respiratory effort Psychiatric: Orientation: alert and oriented x 3 Results & Data Results & Data ([facility]) Vital Signs (Past 12 Hours) Vital Signs Temp Pulse Resp BP BP Pulse Ox O2 Del Method 08/24/22 11:02 109/61 08/24/22 11:00 36.7 C 71 18 78/51 L 96 Room Air 08/24/22 07:35 36.5 C 72 16 89/52 L 93 Room Air 08/24/22 03:39 92/58 L 08/24/22 03:15 36.7 C 76 16 89/64 L 95 Room Air PG Care Time/CCT Total # of Minutes Spent Total Time Spent with Patient: Total time spent is greater than 50% in coordination of care (as documented) at patient's floor/unit and/or counseling patient: Coding Level of Care Code 26316 SUB INP/OBS CARE 2/35MIN Diagnoses Hematemesis K92.0
[2022-08-24] MEDS: ONDANSETRON 4 MG OD TAB PO PRN ×2 (14:30→20:32)
[2022-08-24 14:38] LABS: RBC Morphology Unremarkable
--- NOTE | 2022-08-24 15:24 | Hospitalist Progress Note ---
Date of Service August 24, 2022 Assessment & Plan (1) Upper GI bleeding: Plan: 52 year old female w/ PMHx of Eamon-en-y surgery and ulcers at anastomosis, PE on Eliquis who presents recurrent hematemesis, worse in the past 24 hours (18-24 episodes) and epigastric abdominal pain. Presented with worsening L sided abd pain, nausea, hematemesis with episodic presyncopal events. Follows with GI and referred here for inpatient EGD. DDx ulcers at eamon en y anastomosis due to hx of revisions. - Hgb stable. Reassuring labs. Lower suspicion for infectious etiology. No leukocytosis. Lipase neg. - EGD normal, no bleeding or ulcers. GI signed off, pt to f/u with her outpatient GI. - D/c'd IVF. - Protonix drip transitioned to po - started pepcid po bid - restarted home carafate - zofran for nausea, Dilaudid/tylenol for pain. 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 Most likely vasovagal etiology in setting of volume depleted state in setting of decreased PO intake and UGIB. (4) Hand edema: Plan: New onset L hand edema with pain and mild diffuse erythema. Has h/o DVT in that extremity. 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 Recently started eliquis in last 2 years. Last DVT/PE was in 2020 but no records at our institutions ([place] and [facility]). - will restart eliquis as above however at 2.5mg bid dosing for DVT ppx. Last clot was last year and should have been adequately treated by now. (6) RLS (restless legs syndrome): Plan: - Cont. home ropinirole (7) Anxiety: Plan: Anxiety, depression, insomnia - Cont. home Ambien and trazodone Plan FEN/GI: Clears, advance as tolerated DVT ppx: Eliquis 2.5mg bid Code Status: Full Dispo: downgraded to med tele Admission and Anticipated Discharge Date Admission Date: August 24, 2022 Supervising Physician Co-Signing Physician Notes Attending attestation Pt seen and examined in concert with Dr. Javed. In agreement with the documented findings as noted in the resident documentation with any exceptions or additions as noted here. Continued improvement in n/v and epigastric pain. improving swelling of the hands as noted. On examination, S1/S2 nl RRR no MCG. CTAB. Abd ND BS+ve with mild epigastric TTP Epigastric pain and UGIB in the setting of h/o Eamon-en-y s/p EGD - monitor CBC daily, more aggressively with change in symptoms. Converted PPI to PO BID, start famotidine, restart carafate. Near-syncope - telemetry monitoring - likely vasovagal Bilateral hand swelling, L > R, in the setting of h/o DVT on chronic AC - doppler negative for DVT, swelling improving with elevation, no sx of infection. Consider restart apixaban prior to D/C based on GI input Else see resident documentation as noted. Subjective Pt seen at bedside this morning. Starting to tolerate clears and po meds. Abd pain still similar to yesterday. L hand swelling has decreased with elevation. Still with nausea. Denies headache, chest pain, sob, vomiting, constipation, d iarrhea. Review of Systems Review of Systems: All systems reviewed & are unremarkable except as noted in HPI & below Physical Exam Physical Exam: Constitutional: in no acute distress but appears uncomfortable, pleasant. Vitals as above. HEENT: No scleral injection or discharge. Moist mucous membranes. Neck: Supple without lymphadenopathy or thyromegaly. Trachea midline. Lungs: Clear to auscultation bilaterally with good effort. Cardiac: Regular rate and rhythm. No murmurs. Mild lower extremity edema. 2+ distal peripheral pulses. Abdomen: Bowel sounds present. Soft, nondistended.mild-moderate tenderness over epigastric and left quadrants. No guarding or rebound tenderness. No hepatosplenomegaly. MSK: No cyanosis or clubbing. Extremities motor strength 5/5. Skin: Left hand with nonpitting edema and mild erythema, mildly tender to palpation; generally improved from previous Neurologic: no focal deficits Results & Data Results & Data ([facility]) Vital Signs (Past 12 Hours) Vital Signs Temp Pulse Resp BP BP Pulse Ox O2 Del Method 08/24/22 11:02 109/61 08/24/22 11:00 36.7 C 71 18 78/51 L 96 Room Air 08/24/22 07:35 36.5 C 72 16 89/52 L 93 Room Air 08/24/22 03:39 92/58 L Laboratory Results 08/24/22 08/24/22 Range/Units 06:12 06:12 WBC 4.51 L (4.8-10.8) K/ul RBC 3.49 L (4.20-5.40) M/uL Hgb 11.0 L (12.0-16.0) g/dl Hct 33.2 L (37.0-47.0) % MCV 95.1 (80.0-100.0) fL MCH 31.5 (25.0-34.0) pg MCHC 33.1 (32.0-36.0) g/dL RDW Std Deviation 52.1 H (36.4-46.3) fL RDW Coeff of Abhijeet 15.0 H (11.5-14.5) % Plt Count 388 (130-400) K/uL MPV 9.1 L (9.4-12.4) fL Immature Gran % (Auto) 0.2 % Neut % (Auto) 47.8 % Lymph % (Auto) 33.0 % [place] % (Auto) 10.0 % Eos % (Auto) 8.6 % Baso % (Auto) 0.4 % Neut # (Auto) 2.15 (1.40-6.50) K/uL Lymph # (Auto) 1.49 (1.2-3.4) K/uL [place] # (Auto) 0.45 (0.11-0.59) K/uL Eos # (Auto) 0.39 (0-0.50) K/uL Baso # (Auto) 0.02 (0-0.2) K/uL Immature Gran # (Auto) 0.01 (0.01-0.20) K/uL RBC Morphology Unremarkable Sodium 140 (136-145) mmol/L Potassium 4.1 (3.5-5.1) mmol/L Chloride 108 H (98-107) mmol/L Carbon Dioxide 28 (21-32) mmol/L Anion Gap 4 (3-11) BUN 5 L (6-23) mg/dl Creatinine 0.72 (0.6-1.2) mg/dl Est Cr Clr Drug Dosing 87.2 ml/min Est GFR ( Amer) 113.2 ml/min Est GFR (Non-Af Amer) 97.7 ml/min BUN/Creatinine Ratio 6.9 L (10-20) Glucose 91 (70-99(Fasting)) mg/dl Calcium 9.2 (8.5-10.1) mg/dl Total Bilirubin 0.3 (0.2-1.0) mg/dl AST 14 (13-39) U/L ALT 11 (7-52) U/L Alkaline Phosphatase 113 H (34-104) U/L Total Protein 6.3 (6.0-8.3) gm/dl Albumin 3.6 (3.4-5.0) gm/dl Globulin 2.7 (2.5-4.0) gm/dl Albumin/Globulin Ratio 1.3 (0.9-2) Resident Activity Tracking Resident Involvement: Resident Care Provided Care Provided: Adult Hospital Medicine
[2022-08-24] MEDS: APIXABAN 2.5 MG TAB PO SCH (20:32)
[2022-08-24] MEDS: ZOLPIDEM TARTRATE 10 MG TAB PO SCH (20:32)
[2022-08-24] MEDS: traZODone HCL 50 MG TAB PO SCH (20:34)
[2022-08-25] MEDS: HYDROmorphone INJ 0.5 MG/0.5 ML SYR IV PRN ×7 (02:39→21:40)
[2022-08-25] MEDS: ACETAMINOPHEN 500 MG TAB PO SCH ×3 (06:12→21:53)
--- NOTE | 2022-08-25 06:49 | Hospitalist Progress Note ---
Date of Service August 25, 2022 Assessment & Plan (1) Upper GI bleeding: Plan: 52 year old female w/ PMHx of Meggan-en-y surgery and ulcers at anastomosis, PE on Eliquis who presents recurrent hematemesis, worse in the past 24 hours (18-24 episodes) and epigastric abdominal pain. Presented with worsening L sided abd pain, nausea, hematemesis with episodic presyncopal events. Follows with GI and referred here for inpatient EGD. DDx ulcers at meggan en y anastomosis due to hx of revisions. - Hgb stable. Reassuring labs. Lower suspicion for infectious etiology. No leukocytosis. Lipase neg. - EGD normal, no bleeding or ulcers. GI signed off, pt to f/u with her outpatient GI. - D/c'd IVF. - Protonix drip transitioned to po - started pepcid po bid - restarted home carafate - zofran for nausea, Dilaudid/tylenol for pain. 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 Most likely vasovagal etiology in setting of volume depleted state in setting of decreased PO intake and UGIB. (4) Hand edema: Plan: New onset L hand edema with pain and mild diffuse erythema. Has h/o DVT in that extremity. 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 Recently started eliquis in last 2 years. Last DVT/PE was in 2020 but no records at our institutions ([place] and [facility]). - will restart eliquis as above however at 2.5mg bid dosing for DVT ppx. Last clot was last year and should have been adequately treated by now. (6) RLS (restless legs syndrome): Plan: - Cont. home ropinirole (7) Anxiety: Plan: Anxiety, depression, insomnia - Cont. home Ambien and trazodone Plan FEN/GI: Clears, advance as tolerated DVT ppx: Eliquis 2.5mg bid Code Status: Full Dispo: downgraded to med tele Admission and Anticipated Discharge Date Admission Date: August 24, 2022 Supervising Physician Co-Signing Physician Notes I also saw the patient confirmed lima portions of the history and physical examination. I agree with the impression and plan as noted in the resident documentation, and as summarized below. Upon midmorning exam, the patient is resting in bed. She does appear mildly uncomfortable, abdominal pain with nausea. Has not been able to tolerate food or fluids this morning. Exam 104/67, 80, 18, 37.1, 96% on room air Heart regular Respirations nonlabored Abdomen generally nontender, mild tenderness in the epigastric region (issue seems to be more nausea) Data WBC 3.53, hemoglobin 10.8, platelet count 321 Sodium 138, potassium 3.9, BUN 5, creatinine 0.71 Alkaline phosphatase 108 Impression and Plan Epigastric pain and UGIB in the setting of h/o Meggan-en-y s/p EGD Proton pump inhibitor twice daily, H2 nicolette, Carafate Monitor CBC We will resume IV fluids given her decreased p.o. intake today Zofran as needed GI consultation appreciated History of recurrent VTE Resumed Eliquis 2.5 mg twice daily; discussed dose with patient, balancing anticoagulation in setting of recent hematemesis Monitor CBC Additional per resident documentation Subjective Seen at bedside. Patient continues to have pain epigastrically as well as some intermittent nausea. Unable to tolerate much PO intake apart from some anand bobbi and water. Feels her hand swelling is better. Denies f/c, STREET, dizziness, SOB, CP, bloody/dark stool, hematemesis. Review of Systems Review of Systems: per HPI Physical Exam Physical Exam: Constitutional: in no acute distress but appears uncomfortable. Vitals as above. HEENT: No scleral injection or discharge. Moist mucous membranes. Neck: Supple without lymphadenopathy or thyromegaly. Trachea midline. Lungs: Clear to auscultation bilaterally with good effort. Cardiac: Regular rate and rhythm. No murmurs. Mild lower extremity edema. 2+ distal peripheral pulses. Abdomen: Bowel sounds present. Soft, nondistended.mild-moderate tenderness over epigastric and left quadrants. No guarding or rebound tenderness. No hepatosplenomegaly. MSK: No cyanosis or clubbing. Extremities motor strength 5/5. Skin: Left hand with nonpitting edema and mild erythema, mildly tender to palpation; generally improved from previous Neurologic: no focal deficits Results & Data Results & Data ([facility]) Vital Signs (Past 12 Hours) Vital Signs Temp Pulse Pulse Resp BP Pulse Ox O2 Del Method 08/25/22 04:00 36.9 C 79 18 118/72 95 Room Air 08/25/22 00:00 78 08/24/22 20:00 Room Air 08/24/22 23:09 36.8 C 81 18 119/71 96 Room Air 08/24/22 19:48 37.0 C 72 18 121/72 96 Room Air Resident Activity Tracking Resident Involvement: Resident Care Provided Care Provided: Adult Hospital Medicine
[2022-08-25 08:26] LABS: Hematocrit (blood only) 32.7 % (37.0-47.0); Hemoglobin 10.8 g/dl (12.0-16.0); Mean Corpuscular Volume 96.7 fL (80.0-100.0); Mean Platelet Volume 9.4 fL (9.4-12.4); Platelet Count 321 K/uL (130-400); RDW Coefficient of Variation 15.1 % (11.5-14.5); RDW Standard Deviation 53.9 fL (36.4-46.3); Red Blood Count 3.38 M/uL (4.20-5.40); White Blood Count 3.53 K/ul (4.8-10.8)
[2022-08-25 08:41] LABS: Albumin Globulin Ratio 1.3 (0.9-2); Albumin Level 3.4 gm/dl (3.4-5.0); Bilirubin,Total 0.3 mg/dl (0.2-1.0); Calcium 8.8 mg/dl (8.5-10.1); Creatinine Clr Calc Pharmacy 86.7 ml/min; Est GFR (African American) 115.1 ml/min; Est GFR (Non-African American) 99.3 ml/min; Globulin 2.7 gm/dl (2.5-4.0); Potassium 3.9 mmol/L (3.5-5.1); Total Protein 6.1 gm/dl (6.0-8.3)
[2022-08-25 08:55] LABS: Basophils # (auto) 0.02 K/uL (0-0.2); Basophils % (auto) 0.6 %; Eosinophils % (auto) 11.3 %; Lymphocytes # (auto) 1.03 K/uL (1.2-3.4); Lymphocytes % (auto) 29.2 %; Monocytes # (auto) 0.34 K/uL (0.11-0.59); Monocytes % (auto) 9.6 %; Neutrophils # (auto) 1.74 K/uL (1.40-6.50); Neutrophils % (auto) 49.3 %; RBC Morphology Unremarkable
[2022-08-25] MEDS: rOPINIRole HCL 0.25 MG TABLET PO SCH ×3 (09:23→20:18)
[2022-08-25] MEDS: FAMOTIDINE 20 MG TAB PO SCH ×2 (09:23→20:18)
[2022-08-25] MEDS: SUCRALFATE 1 GM/10 ML UDC PO SCH ×4 (09:24→20:18)
[2022-08-25] MEDS: PANTOprazole 40 MG TAB PO SCH ×2 (09:24→20:18)
[2022-08-25] MEDS: APIXABAN 2.5 MG TAB PO SCH ×2 (09:24→20:18)
[2022-08-25] MEDS: LACTATED RINGER'S 1,000 ML IV SCH (12:34)
[2022-08-25] MEDS: ONDANSETRON 4 MG OD TAB PO PRN (13:47)
[2022-08-25] MEDS: ZOLPIDEM TARTRATE 10 MG TAB PO SCH (20:16)
[2022-08-25] MEDS: traZODone HCL 50 MG TAB PO SCH (20:23)
[2022-08-26] MEDS: HYDROmorphone INJ 0.5 MG/0.5 ML SYR IV PRN ×8 (00:35→23:14)
[2022-08-26] MEDS: LACTATED RINGER'S 1,000 ML IV SCH ×2 (02:12→14:36)
[2022-08-26] MEDS: ACETAMINOPHEN 500 MG TAB PO SCH ×3 (06:00→21:42)
--- NOTE | 2022-08-26 06:58 | Hospitalist Progress Note ---
Date of Service August 26, 2022 Assessment & Plan (1) Upper GI bleeding: Plan: 52 year old female with a history of Eamon-en-Y (20 years ago) and ulcers at the surgical anastomosis site, history of PE (on eliquis) who presents recurrent hematemesis, worse in the 24 hours prior to admission (18-24 episodes), and epigastric abdominal pain. Presented with worsening L sided abd pain, nausea, hematemesis with episodic presyncopal events. Follows with GI and referred here for inpatient EGD. DDx ulcers at eamon en y anastomosis due to hx of revisions. - Hgb stable. Reassuring labs. Lower suspicion for infectious etiology. No leukocytosis. Lipase negative - EGD normal, no bleeding or ulcers. GI signed off, pt to f/u with her outpatient GI. - Restarted IVF given poor PO intake - Protonix drip transitioned to po - Pepcid po bid - Restarted home carafate - Pain control: APAP, dilaudid - Antiemetics: phenergan (first line as this has worked well for patient in the past), zofran (second line) - Clear liquid diet, advance as tolerated - Will restart eliquis due to no active bleeding - Outpatient follow-up at [facility] for double-balloon enteroscopy at 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 Most likely vasovagal etiology in setting of volume depleted state in setting of decreased PO intake and UGIB. (4) Hand edema: Plan: New onset L hand edema with pain and mild diffuse erythema. Has h/o DVT in that extremity. 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 Recently started eliquis in last 2 years. Last DVT/PE was in 2019 but no records at our institutions ([place] and [facility]) - Will restart eliquis as above however at 2.5mg bid dosing for DVT ppx. Last clot was last year and should have been adequately treated by now - Consider further hematological workup on an outpatient basis (e.g. if the underlying etiology is antiphospholipid syndrome, patient should be on warfarin rather than a DOAC) (6) RLS (restless legs syndrome): Plan: - Continue home ropinirole (7) Anxiety: Plan: Anxiety, depression, insomnia: continue home trazodone, ambien Plan FEN/GI: clears, advance as tolerated DVT ppx: eliquis 2.5mg bid Code status: full Dispo: med/telemetry Admission and Anticipated Discharge Date Admission Date: August 24, 2022 Supervising Physician Co-Signing Physician Notes I also saw the patient confirmed lima portions of the history and physical examination. I agree with the impression and plan as noted in the resident documentation, and as summarized below. This morning, she still looks a little uncomfortable. She barely tolerated piece of toast for breakfast; she had some nausea and dry heaves thereafter. Exam 130/73, 79, 18, 36.6, 96% on room air Heart regular Respirations nonlabored Abdomen generally nontender, mild tenderness in the epigastric region (issue seems to be more nausea) Data WBC 4.17, hemoglobin 11.9, platelet count 367 Electrolytes normal, BUN 7, creatinine 0.78 Alkaline phosphatase 122 Impression and Plan Epigastric pain and UGIB in the setting of h/o Eamon-en-y s/p EGD Proton pump inhibitor twice daily, H2 nicolette, Carafate Monitor CBC Continue IV fluids given her decreased p.o. intake today Zofran as needed GI consultation appreciated Discussed with patient that hope would be to palliate her symptoms to allow for discharge and outpatient follow-up at [facility] for double-balloon enteroscopy. However, in order to discharge her, will need to be tolerating at least a minimal oral diet to maintain nutrition/hydration. If we cannot achieve this, may need to consider inpatient transfer to [facility]. We will give her another day or 2 here, although if we reach Sunday, will need to reach out to discuss transfer. History of recurrent VTE Resumed Eliquis 2.5 mg twice daily; discussed dose with patient, balancing anticoagulation in setting of recent hematemesis Monitor CBC Additional per resident documentation Subjective Patient seen and evaluated at bedside this morning. Telemetry: NSR in the 80s overnight with occasional PACs. Today, patient about the same as yesterday if not slightly better; abdominal pain persists but has improved a bit, as has patient's nausea. Patient had a piece of toast and was able to keep it down, though it did cause some slightly worse nausea. No vomiting overnight. Patient doesn't feel quite ready to go home at this time. Patient denies other symptoms including CP, SOB, and diarrhea. Review of Systems Review of Systems: See HPI Physical Exam Physical Exam: Constitutional: tired-appearing, no acute distress CV: regular rhythm, no murmur appreciated, extremities well-perfused, no LE edema Resp: CTABL, no wheezes/rales/rhonchi appreciated, no increased work of breathing GI: soft, nondistended, mild/moderate epigastric tenderness appreciated, minimal generalized abdominal tenderness appreciated in all quadrants Neuro: alert, oriented, no focal neurologic deficit appreciated Results & Data Results & Data ([facility]) Vital Signs (Past 12 Hours) Vital Signs Temp Pulse Pulse Resp BP Pulse Ox O2 Del Method 08/26/22 03:05 36.8 C 72 18 103/67 96 Room Air 08/26/22 01:15 83 08/25/22 22:15 36.4 C L 85 18 118/74 94 Room Air 08/25/22 19:17 36.8 C 73 18 129/71 97 Room Air Resident Activity Tracking Resident Involvement: Resident Care Provided Care Provided: Adult Hospital Medicine
[2022-08-26] MEDS: SUCRALFATE 1 GM/10 ML UDC PO SCH ×4 (07:22→19:54)
[2022-08-26 07:48] LABS: Albumin Level 3.8 gm/dl (3.4-5.0); Bilirubin,Total 0.3 mg/dl (0.2-1.0); Calcium 9.5 mg/dl (8.5-10.1); Potassium 3.8 mmol/L (3.5-5.1)
[2022-08-26 07:54] LABS: Albumin Globulin Ratio 1.3 (0.9-2); Creatinine Clr Calc Pharmacy 78.2 ml/min; Est GFR (African American) 102.7 ml/min; Est GFR (Non-African American) 88.6 ml/min; Globulin 2.9 gm/dl (2.5-4.0); Total Protein 6.7 gm/dl (6.0-8.3)
[2022-08-26 08:06] LABS: Basophils # (auto) 0.02 K/uL (0-0.2); Basophils % (auto) 0.5 %; Eosinophils # (auto) 0.47 K/uL (0-0.50); Eosinophils % (auto) 11.3 %; Hemoglobin 11.9 g/dl (12.0-16.0); Lymphocytes # (auto) 1.22 K/uL (1.2-3.4); Lymphocytes % (auto) 29.3 %; Mean Corpuscular Hemoglobin 31.9 pg (25.0-34.0); Mean Corpuscular Hgb Conc 33.1 g/dL (32.0-36.0); Mean Corpuscular Volume 96.5 fL (80.0-100.0); Mean Platelet Volume 8.6 fL (9.4-12.4); Monocytes # (auto) 0.41 K/uL (0.11-0.59); Monocytes % (auto) 9.8 %; Neutrophils # (auto) 2.05 K/uL (1.40-6.50); Neutrophils % (auto) 49.1 %; Platelet Count 367 K/uL (130-400); RDW Coefficient of Variation 14.8 % (11.5-14.5); RDW Standard Deviation 52.2 fL (36.4-46.3); Red Blood Count 3.73 M/uL (4.20-5.40); White Blood Count 4.17 K/ul (4.8-10.8)
[2022-08-26] MEDS: FAMOTIDINE 20 MG TAB PO SCH ×2 (09:45→19:55)
[2022-08-26] MEDS: PANTOprazole 40 MG TAB PO SCH ×2 (09:45→19:55)
[2022-08-26] MEDS: APIXABAN 2.5 MG TAB PO SCH ×2 (09:46→19:55)
[2022-08-26] MEDS: rOPINIRole HCL 0.25 MG TABLET PO SCH ×3 (09:46→19:55)
[2022-08-26] MEDS: PROMETHAZINE HCL 12.5 MG in SODIUM CHLORIDE 0.9% 50 ML IV PRN (17:23)
[2022-08-26] MEDS: traZODone HCL 50 MG TAB PO SCH (19:54)
[2022-08-26] MEDS: ONDANSETRON 4 MG OD TAB PO PRN (19:54)
[2022-08-26] MEDS: ZOLPIDEM TARTRATE 10 MG TAB PO SCH (19:55)
[2022-08-27] MEDS: HYDROmorphone INJ 0.5 MG/0.5 ML SYR IV PRN ×7 (02:34→22:09)
[2022-08-27] MEDS: ACETAMINOPHEN 500 MG TAB PO SCH ×3 (05:40→22:08)
[2022-08-27] MEDS: LACTATED RINGER'S 1,000 ML IV SCH ×2 (05:40→15:29)
--- NOTE | 2022-08-27 07:13 | Hospitalist Progress Note ---
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 Presented with worsening L sided abd pain, nausea, hematemesis with episodic presyncopal events. Follows with GI and referred here for inpatient EGD. DDx ulcers at eamon en y anastomosis due to hx of revisions. - Hgb stable. Reassuring labs. Lower suspicion for infectious etiology. No leukocytosis. Lipase negative - EGD normal, no bleeding or ulcers. GI signed off, pt to f/u with her outpatient GI. 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 Most likely vasovagal etiology in setting of volume depleted state in setting of decreased PO intake and UGIB. (4) Hand edema: Plan: New onset L hand edema with pain and mild diffuse erythema. Has h/o DVT in that extremity. 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 Recently started eliquis in last 2 years. Last DVT/PE was in 2019 but no records at our institutions ([place] and [facility]) - Will restart eliquis as above however at 2.5mg bid dosing for DVT ppx. Last clot was last year and should have been adequately treated by now - Consider further hematological workup on an outpatient basis (e.g. if the underlying etiology is antiphospholipid syndrome, patient should be on warfarin rather than a DOAC) (6) RLS (restless legs syndrome): Plan: - Continue home ropinirole (7) Anxiety: Plan: Anxiety, depression, insomnia: continue home trazodone, ambien Plan FEN/GI: clears, advance as tolerated DVT ppx: eliquis 2.5mg bid Code status: full Dispo: med/telemetry Admission and Anticipated Discharge Date Admission Date: August 24, 2022 Supervising Physician Co-Signing Physician Notes I also saw the patient confirmed lima portions of the history and physical examination. I agree with the impression and plan as noted in the resident documentation, and as summarized below. Still with decreased appetite, nausea. Occasional dry heaves. Thinks may be marginally improved when compared to yesterday. Exam 94/61, 115, 16, 36.8, 90% room air Heart regular upon my exam (mild tachycardia on vital signs) Respirations nonlabored Abdomen generally nontender, mild tenderness in the epigastric region (issue seems to be more nausea) Data WBC 5.8, hemoglobin 11.3 Electrolytes normal Impression and Plan Epigastric pain in the setting of h/o Eamon-en-y s/p EGD Subtle improvement in overall symptoms. She may be nearing the point where she can be discharged home and nurse herself through to her outpatient appointment next week for double-balloon enteroscopy at [facility] If she has worsening of symptoms, may need to discuss inpatient transfer to [facility]. Proton pump inhibitor twice daily, H2 nicolette, Carafate Continue IV fluids given her decreased p.o. intake today Phenergan seems to work better for her than Zofran GI consultation appreciated History of recurrent VTE Resumed Eliquis 2.5 mg twice daily; discussed dose with patient, balancing an ticoagulation in setting of recent hematemesis Monitor CBC Once her GI issues are ameliorated, consider resuming Eliquis 5 mg twice daily Additional per resident documentation Subjective Patient seen and evaluated at bedside this morning. Today, patient feels "just okay" noting her abdominal pain is relatively unchanged since yesterday. Patient does note that switching from zofran to phenergan as a first-line antiemesis agent has significantly helped her nausea. Reports she was able to eat about a third of her dinner last night before she stopped eating due to pain and mild nausea. Denies vomiting overnight. Patient denies other symptoms at this time including headache, CP, SOB, or diarrhea. Review of Systems Review of Systems: See HPI Physical Exam Physical Exam: Constitutional: well-appearing, no acute distress CV: regular rhythm, no murmur appreciated Resp: CTABL, breathing nonlabored GI: abdomen soft, nondistended, moderate epigastric tenderness appreciated, mild RUQ/LUQ/RLQ/LLQ tenderness appreciated, no rebound or guarding Results & Data Results & Data ([facility]) Vital Signs (Past 12 Hours) Vital Signs Temp Pulse Pulse Resp BP Pulse Ox O2 Del Method 08/27/22 03:29 36.7 C 80 18 119/72 98 Room Air 08/26/22 22:00 80 08/26/22 22:19 36.8 C 82 16 117/71 95 Room Air Resident Activity Tracking Resident Involvement: Resident Care Provided Care Provided: Adult Hospital Medicine
[2022-08-27] MEDS: SUCRALFATE 1 GM/10 ML UDC PO SCH ×4 (07:29→19:26)
[2022-08-27 07:31] LABS: Hematocrit (blood only) 34.5 % (37.0-47.0); Hemoglobin 11.3 g/dl (12.0-16.0); Mean Corpuscular Hemoglobin 31.6 pg (25.0-34.0); Mean Corpuscular Hgb Conc 32.8 g/dL (32.0-36.0); Mean Corpuscular Volume 96.4 fL (80.0-100.0); Mean Platelet Volume 8.9 fL (9.4-12.4); Platelet Count 366 K/uL (130-400); RDW Coefficient of Variation 14.6 % (11.5-14.5); RDW Standard Deviation 51.2 fL (36.4-46.3); Red Blood Count 3.58 M/uL (4.20-5.40)
[2022-08-27] MEDS: APIXABAN 2.5 MG TAB PO SCH ×2 (07:50→19:24)
[2022-08-27] MEDS: PANTOprazole 40 MG TAB PO SCH ×2 (07:50→19:25)
[2022-08-27] MEDS: FAMOTIDINE 20 MG TAB PO SCH ×2 (07:50→19:23)
[2022-08-27] MEDS: rOPINIRole HCL 0.25 MG TABLET PO SCH ×3 (07:50→19:25)
[2022-08-27 08:03] LABS: Albumin Globulin Ratio 1.3 (0.9-2); Albumin Level 3.4 gm/dl (3.4-5.0); BUN Creatinine Ratio 14.5 (10-20); Bilirubin,Total 0.3 mg/dl (0.2-1.0); Creatinine Clr Calc Pharmacy 88.4 ml/min; Est GFR (African American) 117.6 ml/min; Est GFR (Non-African American) 101.5 ml/min; Globulin 2.6 gm/dl (2.5-4.0); Potassium 3.7 mmol/L (3.5-5.1)
[2022-08-27] MEDS: traZODone HCL 50 MG TAB PO SCH (19:30)
[2022-08-27] MEDS: ZOLPIDEM TARTRATE 10 MG TAB PO SCH (19:30)
[2022-08-28] MEDS: HYDROmorphone INJ 0.5 MG/0.5 ML SYR IV PRN ×7 (01:46→22:13)
[2022-08-28] MEDS: LACTATED RINGER'S 1,000 ML IV SCH ×2 (02:26→15:22)
[2022-08-28] MEDS: ACETAMINOPHEN 500 MG TAB PO SCH ×3 (05:00→21:19)
[2022-08-28] MEDS: SUCRALFATE 1 GM/10 ML UDC PO SCH ×4 (07:38→20:04)
[2022-08-28] MEDS: PROMETHAZINE HCL 12.5 MG in SODIUM CHLORIDE 0.9% 50 ML IV PRN ×2 (08:02→18:42)
[2022-08-28] MEDS: rOPINIRole HCL 0.25 MG TABLET PO SCH ×3 (08:03→20:03)
[2022-08-28] MEDS: FAMOTIDINE 20 MG TAB PO SCH ×2 (08:03→20:03)
[2022-08-28] MEDS: APIXABAN 2.5 MG TAB PO SCH ×2 (08:03→20:02)
[2022-08-28] MEDS: PANTOprazole 40 MG TAB PO SCH ×2 (08:03→20:03)
[2022-08-28 09:45] LABS: Hematocrit (blood only) 35.6 % (37.0-47.0); Hemoglobin 11.8 g/dl (12.0-16.0); Mean Corpuscular Hemoglobin 32.1 pg (25.0-34.0); Mean Corpuscular Hgb Conc 33.1 g/dL (32.0-36.0); Mean Corpuscular Volume 96.7 fL (80.0-100.0); Mean Platelet Volume 8.9 fL (9.4-12.4); Platelet Count 385 K/uL (130-400); RDW Coefficient of Variation 14.6 % (11.5-14.5); RDW Standard Deviation 51.6 fL (36.4-46.3); Red Blood Count 3.68 M/uL (4.20-5.40); White Blood Count 5.89 K/ul (4.8-10.8)
[2022-08-28 10:01] LABS: Albumin Globulin Ratio 1.3 (0.9-2); Albumin Level 3.5 gm/dl (3.4-5.0); BUN Creatinine Ratio 12.5 (10-20); Bilirubin,Total 0.3 mg/dl (0.2-1.0); Calcium 9.1 mg/dl (8.5-10.1); Creatinine Clr Calc Pharmacy 84.8 ml/min; Est GFR (African American) 113.2 ml/min; Est GFR (Non-African American) 97.7 ml/min; Globulin 2.8 gm/dl (2.5-4.0); Potassium 3.7 mmol/L (3.5-5.1); Total Protein 6.3 gm/dl (6.0-8.3)
[2022-08-28] MEDS: ONDANSETRON 4 MG OD TAB PO PRN (11:09)
[2022-08-28] MEDS ORDERED: oxyCODONE HCL IR 5 MG TAB (IMMEDIATE RELEASE) PO PRN (11:22)
--- NOTE | 2022-08-28 12:58 | Hospitalist Progress Note ---
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 Upper GI Bleeding: Presented with worsening L sided abd pain, nausea, hematemesis with episodic p resyncopal events. Follows with GI and referred here for inpatient EGD. DDx ulcers at eamon en y anastomosis due to hx of revisions. - Hgb stable. Reassuring labs. Lower suspicion for infectious etiology. No leukocytosis. Lipase negative - EGD normal, no bleeding or ulcers. GI signed off, pt to f/u with her outpatient GI. - Restarted IVF given poor PO intake - Protonix drip transitioned to PO. Pepcid PO bid. Restarted home Carafate - Pain control: APAP, Dilaudid - tried oxycodone 5mg IR however patient without relief. - May benefit from trigger point injection to ease pain that may be compounding the nausea. - Antiemetics: phenergan (first line as this has worked well for patient in the past), Zofran (second line) - Clear liquid diet, advance as tolerated - No active bleeding - Eliquis restarted - Outpatient follow-up at [facility] for double-balloon enteroscopy at [facility] scheduled this week - may need to reschedule if patient still here. 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 Most likely vasovagal etiology in setting of volume depleted state in setting of decreased PO intake and UGIB. Hand syncope: - New onset L hand edema with pain and mild diffuse erythema. Has h/o DVT in that extremity. 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 Recently started eliquis in last 2 years. Last DVT/PE was in 2019 but no records at our institutions ([place] and [facility]) - Will restart eliquis as above however at 2.5mg bid dosing for DVT ppx. Last clot was last year and should have been adequately treated by now - Consider further hematological workup on an outpatient basis (e.g. 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 She states that the pain is slightly worse today. The pain is worse with pressure/reproducible. Review of Systems Review of Systems: See HPI Physical Exam Constitutional: WD/WN, vitals as above Eyes: PERRL, conjunctivae normal, anicteric sclerae Respiratory: normal respiratory effort, lungs clear to auscultation Cardiovascular: RRR, no murmur, no edema Gastrointestinal (Abdomen): BS+, non-distended, tender to palpation at the umbilical region to epigastric area. Patient has few tender points at the rectus abdominis muscle on the R at several spots. Psychiatric: A+Ox3, euthymic affect Results & Data Results & Data ([facility]) Vital Signs (Past 12 Hours) Vital Signs Temp Pulse Pulse Resp BP BP Pulse Ox 08/28/22 10:54 36.7 C 81 126/72 95 08/28/22 08:00 08/28/22 07:30 75 08/28/22 07:17 36.5 C 73 102/66 96 08/28/22 03:38 36.4 C L 76 16 113/70 96 O2 Del Method 08/28/22 10:54 Room Air 08/28/22 08:00 Room Air 08/28/22 07:30 08/28/22 07:17 Room Air 08/28/22 03:38 Room Air Resident Activity Tracking Resident Involvement: Resident Care Provided Care Provided: Adult Hospital Medicine
--- NOTE | 2022-08-28 18:34 | Communication Note ---
Date of Service: August 28, 2022 EMR will not allow an addendum to be added to resident physician note today, i apologize for the inconvenience. I personally examined the patient and verified all lima points of history and exam, discussed case, and agree with decision making with Dr Wells ongoing upper abdominal pain and nausea, but just dry heaving no further vomiting, no further bleeding vitals noted nad heent nc at mmm (+) epigastric tenderness and some palpable trigger points that are quite tender no guarding no rebound hematemesis - ?etiology - no bleeding noted on EGD, scheduled for double-balloon enteroscopy later this week in [place], although I doubt this will be of high yield for cause of hematemesis. Hemoglobin stable. Situation appears to have remedied itself. Abdominal pain, intractable nauseacontinue symptomatic care, review chart for other etiologies, but possible that abdominal wall trigger points are contributing, consider injection. Continue supportive/symptomatic care for now and follow into tomorrow. History of VTEback on Eliquis. Otherwise as above
--- NOTE | 2022-08-28 18:34 | Billing Data ---
Date of Service August 28, 2022 Coding Level of Care Code 02320 SUB INP/OBS CARE MIN
[2022-08-28] MEDS: ZOLPIDEM TARTRATE 10 MG TAB PO SCH (20:06)
[2022-08-28] MEDS: traZODone HCL 50 MG TAB PO SCH (20:06)
[2022-08-29] MEDS: HYDROmorphone INJ 0.5 MG/0.5 ML SYR IV PRN ×5 (02:03→15:30)
[2022-08-29] MEDS: PROMETHAZINE HCL 12.5 MG in SODIUM CHLORIDE 0.9% 50 ML IV PRN ×2 (02:56→12:10)
[2022-08-29] MEDS: LACTATED RINGER'S 1,000 ML IV SCH (02:59)
[2022-08-29] MEDS: ACETAMINOPHEN 500 MG TAB PO SCH ×2 (05:23→13:11)
--- NOTE | 2022-08-29 07:22 | Hospitalist Progress Note ---
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 Upper GI Bleeding: Presented with worsening L sided abd pain, nausea, hematemesis with episodic p resyncopal events. Follows with GI and referred here for inpatient EGD. DDx ulcers at eamon en y anastomosis due to hx of revisions. - Hgb stable. Reassuring labs. Lower suspicion for infectious etiology. No leukocytosis. Lipase negative - EGD normal, no bleeding or ulcers. GI signed off, pt to f/u with her outpatient GI. - Restarted IVF given poor PO intake - Protonix drip transitioned to PO. Pepcid PO bid. Restarted home Carafate - Pain control: APAP, Dilaudid - tried oxycodone 5mg IR however patient without relief. - May benefit from trigger point injection to ease pain that may be compounding the nausea. - Antiemetics: phenergan (first line as this has worked well for patient in the past), Zofran (second line) - Clear liquid diet, advance as tolerated - No active bleeding - Eliquis restarted - Outpatient follow-up at [facility] for double-balloon enteroscopy at [facility] scheduled this week - may need to reschedule if patient still here. 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 in [place] as an outpatient Near syncope: - Reassuring presentation. Most likely vasovagal etiology in setting of volume depleted state in setting of decreased PO intake and UGIB. Hand syncope: - New onset L hand edema with pain and mild diffuse erythema. Has h/o DVT in that extremity. 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 Recently started eliquis in last 2 years. Last DVT/PE was in 2019 but no records at our institutions ([place] and [facility]) - Will restart eliquis as above however at 2.5mg bid dosing for DVT ppx. Last clot was last year and should have been adequately treated by now - Consider further hematological workup on an outpatient basis (e.g. 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: (3) Near syncope: (4) Hand edema: (5) History of deep venous thrombosis or pulmonary embolus: (6) RLS (restless legs syndrome): (7) Anxiety: Admission and Anticipated Discharge Date Admission Date: August 24, 2022 Review of Systems Review of Systems: See HPI Physical Exam Constitutional: WD/WN, vitals as above Eyes: PERRL, conjunctivae normal, anicteric sclerae Respiratory: normal respiratory effort, lungs clear to auscultation Cardiovascular: RRR, no murmur, no edema Psychiatric: A+Ox3, euthymic affect Results & Data Results & Data ([facility]) Vital Signs (Past 12 Hours) Vital Signs Temp Pulse Pulse Resp BP Pulse Ox O2 Del Method 08/29/22 07:03 65 08/29/22 02:56 36.8 C 78 16 105/66 97 Room Air 08/29/22 01:10 81 08/28/22 22:53 37 C 79 16 103/65 95 Room Air 08/28/22 19:28 37.2 C 78 18 127/73 95 Room Air Resident Activity Tracking Resident Involvement: Resident Care Provided Care Provided: Adult Hospital Medicine
[2022-08-29] MEDS: SUCRALFATE 1 GM/10 ML UDC PO SCH ×2 (07:54→11:06)
[2022-08-29 08:06] LABS: Basophils # (auto) 0.03 K/uL (0-0.2); Basophils % (auto) 0.9 %; Eosinophils # (auto) 0.35 K/uL (0-0.50); Eosinophils % (auto) 10.1 %; Hematocrit (blood only) 31.5 % (37.0-47.0); Hemoglobin 10.5 g/dl (12.0-16.0); Immature Granulocytes # (auto) 0.01 K/uL (0.01-0.20); Immature Granulocytes % (auto) 0.3 %; Lymphocytes # (auto) 1.09 K/uL (1.2-3.4); Lymphocytes % (auto) 31.6 %; Mean Corpuscular Hemoglobin 31.8 pg (25.0-34.0); Mean Corpuscular Hgb Conc 33.3 g/dL (32.0-36.0); Mean Corpuscular Volume 95.5 fL (80.0-100.0); Mean Platelet Volume 8.8 fL (9.4-12.4); Monocytes # (auto) 0.43 K/uL (0.11-0.59); Monocytes % (auto) 12.5 %; Neutrophils # (auto) 1.54 K/uL (1.40-6.50); Neutrophils % (auto) 44.6 %; Platelet Count 350 K/uL (130-400); RDW Coefficient of Variation 14.3 % (11.5-14.5); RDW Standard Deviation 50.4 fL (36.4-46.3); White Blood Count 3.45 K/ul (4.8-10.8)
[2022-08-29 08:29] LABS: Albumin Globulin Ratio 1.3 (0.9-2); Albumin Level 3.3 gm/dl (3.4-5.0); BUN Creatinine Ratio 16.7 (10-20); Bilirubin,Total 0.3 mg/dl (0.2-1.0); Calcium 8.9 mg/dl (8.5-10.1); Creatinine Clr Calc Pharmacy 78.2 ml/min; Est GFR (African American) 102.7 ml/min; Est GFR (Non-African American) 88.6 ml/min; Globulin 2.6 gm/dl (2.5-4.0); Total Protein 5.9 gm/dl (6.0-8.3)
[2022-08-29] MEDS: rOPINIRole HCL 0.25 MG TABLET PO SCH ×2 (08:32→13:12)
[2022-08-29] MEDS: FAMOTIDINE 20 MG TAB PO SCH (08:32)
[2022-08-29] MEDS: PANTOprazole 40 MG TAB PO SCH (08:32)
[2022-08-29] MEDS: APIXABAN 2.5 MG TAB PO SCH (08:32)
--- NOTE | 2022-08-29 17:47 | Discharge Summary ---
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 She was seen in the ED on 08/14/22 and 08/21/22 for these symptoms. This morning, she saw [facility] who sent her back to the ED for evaluation after noticing continued symptoms and a reported syncopal vs near syncopal episode x several seconds at home. She did not hit her head. Her epigastric pain is sharp, 7/10, lasts for minutes, and does not radiate. She has had mild dyspnea and dizziness. The hematemesis was previously brighter but has become a more coffee-ground color. She has not received any recent transfusions. She has noticed mild darkening of her stools. She has not taken any Celecoxib in months and denies any use of NSAIDs or aspirin. Her last dose of Eliquis was evening of 08/21. ED course: VSS. Stable BPs. Mild intermittent tachycardia in the 90s and mild tachypnea noted. Hb has been stable (11.5 on 08/21, 13.1 on 08/22). Normal chest/abd xr. 08/21 CT abd w/o acute process and w/o bowel obstruction. Pain and nausea medication provided. Admission Exam Per Admitting Provider General: Grossly A&O. NAD. Cooperative. HEENT: Atraumatic, normocephalic. EOMI. PERRL. Oropharynx w/o erythema. Pulm: CTAB. -wheezes, -rales, -rhonchi. No respiratory distress. Cardiac: RRR, -mrg. Radial pulses intact and symmetrical. No LE edema. Abdominal: TTP at epigastrium to light palpation. Nondistended, soft. Msk: Moving all extremities. Integ: Warm, dry, intact. Principal Diagnosis hematemesis Discharge Exam Constitutional WD/WN, vitals as above Eyes PERRL, conjunctivae normal, anicteric sclerae Respiratory normal respiratory effort, lungs clear to auscultation Cardiovascular RRR, no murmur, no edema Gastrointestinal (Abdomen) BS+, non-distended, tender to palpation diffusely at the abdomen with several tender points at the upper abdomen. Psychiatric A+Ox3, euthymic affect Discharge Data Allergies Allergy/AdvReac Type Severity Reaction Status Date / Time No Known Allergies Allergy Verified 08/22/22 17:03 Consultations 08/22/22 17:57 ED Decision to Admit Stat 08/22/22 20:30 Consult Gastroenterology Routine Procedures Performed Operation Date: 08/23/22 16:30 Actual Procedures p Esophagogastroduodenoscopy - Sebastian Patino Case, DO Ordered Studies 08/23/22 17:20 US venous doppler UE LT Stat IMPRESSION: There is no sonographic evidence of deep venous thrombosis identified in the left upper extremity. Hospital Course (1) Upper GI bleedin52 year old female with a history of Meggan-en-Y (20 years ago) and ulcers at the surgical anastomosis site, history of PE (on eliquis) who presents recurrent h ematemesis, worse in the 24 hours prior to admission (18-24 episodes), and epigastric abdominal pain. Upper GI Bleeding: Presented with worsening L sided abd pain, nausea, hematemesis with episodic presyncopal events. Follows with GI and referred here for inpatient EGD. DDx ulcers at meggan en y anastomosis due to hx of revisions. - Hgb stable. Reassuring labs. Lower suspicion for infectious etiology. No leukocytosis. Lipase negative - EGD normal, no bleeding or ulcers. GI signed off, pt to f/u with her outpatient GI. - Eliquis restarted given no bleed visualized and hemoglobin stable. - Protonix drip transitioned to PO. Pepcid PO bid. Restarted home Carafate - Will want to rule out GI origin with work up at [facility] however if negative may benefit from trigger point injection for possible somatosensory origin of pain/nausea. - Given Phenergan for nausea and oxycodone 5mg TID PRN for pain upon discharge. - Patient will follow up with [facility] for double balloon procedure day after discharge. Near syncope: - Reassuring presentation. Most likely vasovagal etiology in setting of volume depleted state in setting of decreased PO intake and UGIB. 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 Recently started eliquis in last 2 years. Last DVT/PE was in 2019 but no records at our institutions ([facility] and [facility]) - Will restart eliquis as above however at 2.5mg bid dosing for DVT ppx. Last clot was last year and should have been adequately treated by now - Consider further hematological workup on an outpatient basis (e.g. 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: (3) Near syncope: (4) Hand edema: (5) History of deep venous thrombosis or pulmonary embolus: (6) RLS (restless legs syndrome): (7) Anxiety: Total Time Total Time Spent Total Time Spent (In Minutes): <30 Discharge Plan Discharge Items Patient Disposition: Home - Self-Care Reason For Visit: GI BLEED Discharge Diagnosis: Upper GI bleed Activity: Per Instructions section Non-emergency contact: Primary Care Provider and Motor Patrol Operator Call non-emergency contact if: your symptoms worsen, your pain is worsening and your rectal temperature is above 100.4 Follow-up/Referrals: Clair Faye MD [Primary Care Provider] - (hospital discharge f/u within 1 week of leaving hospital) Diet: Low Fiber Addtl Attending Provider Instructions: A discharge summary will be sent to your primary care physician to ensure continuity of care. You came to the emergency department for vomiting with blood in the vomit and abdominal pain. You were seen by gastroenterology and had an endoscopy performed. The endoscopy did not show any acute abnormalities or bleeds. Your h emoglobin stayed stable throughout your stay. The bilingual sales representative recommended continued supportive care with medication treatment. At this point your nausea and abdominal pain are a little better however not resolved. You stated that you have an an arrangement / [facility] for a double balloon enteroscopy later this week. If your work up with gastroenterology is negative it may be worth it to further explore possible trigger point injections for a musculoskeletal etiology. Please follow a temporary low fiber / low residue diet until GI workup completed. Follow-up: * You should be seen by your primary physician within the next week. * Please be sure to follow up with gastroenterology at [facility] for further work up of your GI discomfort. Medications: Your medication list has been reviewed and reconciled upon discharge to ensure accuracy and continuity of care. An updated list of all your medications is included with your hospital discharge paperwork. Please review this list closely, and make note of any changes. The Phenergan and pain medication will be sent to [facility]. * You will be given Phenergan to take as needed for your nausea. Do not take the prochlorperazine while you are taking this medication as they are similar. * You will prescribed pain medication. This will be sent in to your pharmacy separately later today. * Hold off on Eliquis prior to the double balloon enteroscopy procedure at [facility]. Your last dose was 08/29/22 AM in the hospital. * Take famotidine 10mg twice a day (in addition to the pantoprazole) for the rest of the week and then stop the famotidine. Take your medications as instructed; do not skip a dose of your medicines. Make sure all of your doctors know every medicine you are taking (including yxts-nvs-bcoliqw medicines, vitamins, and supplements). let your primary care provider know before taking any new medicines because some of these may interact with your current medications, or may make your symptoms worse. CONTACT YOUR PRIMARY CARE PROVIDER if you experience any of the following: * Fevers or shaking chills * Shortness of breath not relieved by inhalers, fainting * Sudden abdominal distension not relieved by catheterization. * Difficulty following your treatment plan, or difficulty taking medications CALL 911 OR GO TO THE EMERGENCY DEPARTMENT if you experience any of the following: * Sudden, severe abdominal pain or nausea/vomiting * Severe chest pain, or chest pain that radiates (moves) to your jaw or arm * Sudden, severe shortness of breath or difficulty breathing It was was our pleasure taking care of you here at [facility]. Thank you for allowing us to participate in your care. Pending Studies at Discharge: No Stand-Alone Forms: [facility], Smoking Cessation Medications and DC Order Prescriptions: New Eliquis 2.5 mg Tablet 2.5 mg PO BID 30 Days Qty: 60 0RF promethazine 12.5 mg tablet 12.5 mg PO TID PRN (Reason: nausea and vomiting) Qty: 21 0RF oxycodone 5 mg tablet 5 mg PO TID PRN (Reason: pain) Qty: 14 0RF Continued acetaminophen 325 mg tablet 650 mg PO Q4H PRN (Reason: Pain) multivitamin Tablet 1 tab PO QAM sucralfate [Carafate] 100 mg/mL Suspension 15 ml PO TID ondansetron HCl 8 mg Tablet 8 mg PO Q12H PRN (Reason: Nausea) ropinirole 0.25 mg Tablet 0.25 mg PO TID pantoprazole [Protonix] 40 mg Tablet,Delayed Release (Dr/Ec) 40 mg PO BID trazodone 150 mg Tablet 150 mg PO HS zolpidem [Ambien] 10 mg Tablet 10 mg PO HS cyanocobalamin (vitamin B-12) 1,000 mcg/mL Kit 1,000 mcg IM MONTHLY Rx Instructions: USUALLY THE Sunday OF THE MONTH. dicyclomine 20 mg Tablet 20 mg PO Q6H PRN (Reason: Abdominal Pain) Qty: 120 0RF prochlorperazine maleate 10 mg tablet 10 mg PO QID PRN (Reason: nausea and vomiting) Qty: 14 0RF tizanidine 2 mg capsule 2 mg PO Q8 PRN (Reason: Muscle Spasm) Discharge Orders: Discharge Order (Routine); Ordered 08/29/22 Ordered By: Aiden Pulliam Admission Data Admit Date/Time: 08/24/22 14:15 Attending Provider: Brandon Mclaughlin Admit Provider: Aiden Pulliam Primary Care Provider: Clair Faye Other Providers: Jennifer Singer ; Thad Chirinos Jr Other Interventions: Discharge Summary Assessment (RN) Last Done: 08/23/22 14:19 Supervising Physician Co-Signing Physician Notes I personally examined the patient and verified all lima points of history and exam, discussed case, and agree with decision making with Dr Wells Pain and nausea ongoing but doing better. Feels like she can get home. Does not want to miss follow-up in [place] and further work-up. vitals noted nad heent nc at mmm breathing unlabored no accessory muscle use good effort. Skin shows no rashes no pallor or icterus. Neuro without focal deficits. Exam otherwise as above. hematemesis exacerbated by anticoagulation therapy- ?etiology - no bleeding noted on EGD, scheduled for double-balloon enteroscopy later this week in [place], possibly has an ulcer in an arm of her Meggan-en-Y that was not able to be visualizedat any rate, she is quite hemodynamically stable and bile clinical counts her bleeding has resolvedsafe/stable for home. Abdominal pain, intractable nauseacontinue symptomatic care, discussed with patient that if her further work-up in [place] does not yield any meaningful diagnoses, or if working on those working diagnoses does not improve her situation, it is quite possible that her anterior abdominal wall trigger points are causing a somatic visceral reflex creating some of the abdominal pain and nausea. Discussed with her complexity it certainly makes sense to work things up from a gastrointestinal standpoint first, but wanted to make sure that this differential does not get lost in transition. History of VTEEliquis. Otherwise as above Resident Activity Tracking Resident Involvement: Resident Care Provided Care Provided: Adult Hospital Medicine
--- NOTE | 2022-08-29 18:51 | Billing Data ---
Date of Service August 29, 2022 Coding Level of Care Code 91958 IN/OBS DISCH 30 MIN/LESS
== END 2022-08-29 16:39 | disposition home or self-care (01) | DRG 378 ==
LOC: ED 13:53 → 2E 13:53 → SUATTDRO 19:02 → 2E 19:53 → SUATTDRO 08-24 14:15 → 2N 08-24 18:31

== ENCOUNTER 2023-07-22 14:10 | Observation (INO) ==
--- NOTE | 2023-07-22 14:13 | ED Triage Note ---
Date of Service July 22, 2023 Provider in Triage Author: Esteban Disla History of Present Illness This patient was briefly evaluated while in triage. An abbreviated physical exam was performed. 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 Left abd TTP. Initial orders for labs and / or imaging were placed and patient was placed in the waiting area until a bed is available. Please see further documentation for the full ED course.
[2023-07-22] MEDS ORDERED: SODIUM CHLORIDE 0.9% 1,000 ML IV SCH (14:15)
[2023-07-22] MEDS ORDERED: PANTOPRAZOLE BOLUS/DRIP IV STA (14:49)
[2023-07-22] MEDS ORDERED: PANTOprazole 80 MG in DEXTROSE 5% 100 ML IV ONE (14:49)
--- NOTE | 2023-07-22 14:54 | Emergency Department Note ---
Impression & Plan Abdominal pain, Acute GI bleeding, Hematemesis ED Provider Note NAME: JOAQUINA NASSAR AGE: 53 SEX: F : 1970 ARRIVES VIA: Walk-In INFORMANT: Patient ED PROVIDER(S): Brandon Hathaway DO CHIEF COMPLAINT: Abdominal pain HPI: Patient is a 53-year-old female who presents to the ER for epigastric abdominal pain which has been present since this past and Sunday. Today she had some episodes of coffee-ground emesis. History of a gastric bypass as well as several ulcers and a partial gastrectomy. Patient notes that she has been having bright red blood per rectum for the past several days. She denies any black or dark tarry stools. She does take Eliquis for previous PE which was diagnosed over a year ago. No headache or change in vision. No chest pain or shortness of breath. No nausea, vomiting or diarrhea. ADDITIONAL HISTORY OBTAINED: Per HPI Chronic Medical/Social Conditions Affecting Care: Per HPI PAST MEDICAL HISTORY:See Below PAST SURGICAL HISTORY:See Below FAMILY HISTORY:See Below SOCIAL HISTORY:See Below HOME MEDICATIONS:See Below ALLERGIES:See Below VITALS:See Below PHYSICAL EXAMINATION: GENERAL: Sitting up in bed, alert, well appearing, well nourished, no distress, non-toxic EYE EXAM: normal conjunctiva. OROPHARYNX: mucous membranes are moist NECK: supple, no nuchal rigidity, no adenopathy, non-tender LUNGS: Clear to auscultation. Normal chest wall mechanics HEART: no murmurs, S1 normal and S2 normal ABDOMEN: abdomen soft, non-tender, normo-active bowel sounds, no masses, no rebound or guarding. UPPER EXTREMITIES: upper extremities are grossly normal. LOWER EXTREMITIES: No pitting edema. NEURO EXAM: Normal sensorium, cranial nerves II-XII grossly intact, normal speech, no gross weakness of arms, no gross weakness of legs. MEDICAL DECISION MAKING: Patient is a 53-year-old female who presents ER for above-stated complaint. IV was established blood work is obtained. Difficult stick and consequently foot was used. Patient has extensive history of a previous gastric bypass with gastrectomy secondary to a GI bleed and gastric ulcers. She is also taking Eliquis for previous PE over a year ago. Labs show no significant leukocytosis. No anemia with a hemoglobin of 12.5. This is slightly elevated up from her baseline of what appears to be about 11. INR was unremarkable. BMP did not show an elevation in BUN to suggest upper GI bleed. Glucose was slightly low at 63. Troponin was negative. Lipase normal. Patient was typed and screened. Vitals were stable and the patient was here under my care. Did drop pressure slightly to the upper 90s and remained stable with IV fluids. Discussed the case with gastroenterology and they agreed with the PPI and admission. Discussed case with the hospitalist for further evaluation management treatment. Patient had 1 bloody bowel movement while in the ER and has not vomited any blood or had any other outputs. We were not able to see this as she is it did get flushed in the toilet. Consults/Care Managements Discussions: Per MDM Triage Nursing notes reviewed. Limited review of prior medical records performed Vital Signs: reviewed and remarkable for no significant abnormalities Differential diagnosis: Differential diagnoses includes but is not limited to gastritis, peptic ulcer disease, GERD, gallbladder disease, pancreatitis, small bowel obstruction, appendicitis, diverticulitis, hernia, urinary tract infection, torsion, /ectopic (if female), perforation, trauma, infectious. ER treatment provided: See below Diagnostics interpreted by me include EKG and cardiac monitoring as listed below: -Cardiac Monitoring: An order was placed for continuous cardiac monitoring. The monitor shows a rate of 85 with sinus rhythm. -ECG: Sinus rhythm rate 80 Normal axis No PVCs QTc 459 -Laboratory studies:Interpreted by me as stated above in MDM and shown below. Imaging studies: Xrays: As interpreted by me:none CTs show: CT abdomen pelvis per my preliminary interpretation showed no lower lobe infiltrates CT abdomen pelvis per radiology showed no acute pathology Procedures:none Critical Care: None Past Med/Surg History Medical History (Updated 07/22/23 @ 19:04 by Brandon Hathaway DO) Acute GI bleeding Anxiety Gastritis Upper GI bleeding Vitamin B12 deficiency Iron deficiency anemia Acute epigastric pain Hematemesis Abdominal pain Encounter for pre-operative examination Fever Acute blood loss anemia Ulcer at site of surgical anastomosis following bypass of stomach RLS (restless legs syndrome) History of deep venous thrombosis or pulmonary embolus DVT prophylaxis Depression Peptic ulcer disease Insomnia Anemia Surgical History (Updated 07/22/23 @ 18:49 by Endy Lin MD) History of appendectomy History of cholecystectomy Gastric bypass status for obesity Family History Other Adopted Social History Smoking Status: Never smoker Tobacco Type: Cigarettes Cigarettes Per Day: 1/2 pack a day; Hx Alcohol Use: No Hx Substance Use: No Preferred Language: Iranian Communication Ability: Effective Customer Experience Associate Required: No Beliefs That Will Affect Care: None marital status: Current Living Situation: Family Feels Safe at Home: Yes Assistive Devices: None Allergies Allergies Allergy/AdvReac Type Severity Reaction Status Date / Time No Known Allergies Allergy Verified 08/22/22 17:03 Home Meds Home Medications Medication Instructions Recorded Confirmed cyanocobalamin (vitamin B-12) 1,000 mcg IM MONTHLY 09/11/20 07/22/23 1,000 mcg/mL injection kit multivitamin 1 tab PO QAM 09/11/20 07/22/23 ondansetron HCl 8 mg tablet 8 mg PO Q12H PRN Nausea 09/11/20 07/22/23 pantoprazole 40 mg tablet,delayed 40 mg PO BID 09/11/20 07/22/23 release (Protonix) ropinirole 0.25 mg tablet 0.25 mg PO TID 09/11/20 07/22/23 sucralfate 100 mg/mL oral 15 ml PO TID 09/11/20 07/22/23 suspension (Carafate) trazodone 150 mg tablet 150 mg PO HS 09/11/20 07/22/23 zolpidem 10 mg tablet (Ambien) 10 mg PO HS 09/11/20 07/22/23 acetaminophen 325 mg tablet 650 mg PO Q4H PRN Pain 07/22/21 07/22/23 lorazepam 0.5 mg tablet 1 mg PO TID PRN anxiety 07/22/23 07/22/23 pregabalin 200 mg capsule 200 mg PO BID 07/22/23 07/22/23 Previous Rx's Medication Instructions Recorded dicyclomine 20 mg tablet 20 mg PO Q6H PRN Abdominal Pain 09/19/20 #120 tabs prochlorperazine maleate 10 mg 10 mg PO QID PRN nausea and 08/14/22 tablet vomiting #14 tabs promethazine 12.5 mg tablet 12.5 mg PO TID PRN nausea and 08/29/22 vomiting #21 tabs Results & Data (ED) Vital Signs Vital Signs - 24 hr 07/22/23 14:11 07/22/23 14:13 07/22/23 14:45 Temperature 36.7 C Temperature Source Temporal Artery Scan Pulse Rate 86 82 Pulse Rate [Apical] Pulse Rate from SpO2 Sensor Respiratory Rate 18 17 Respiratory Effort / Characteristics Non-Labored Spontaneous Respiratory Depth Normal Blood Pressure 116/81 Blood Pressure [Left Arm] Blood Pressure Mean 92 Blood Pressure Mean [Left Arm] Blood Pressure Position Sitting Pulse Oximetry 95 97 Oxygen Delivery Method Room Air Room Air Sepsis Recent Fever Within 48 Hours No Sepsis New/Unexplained Change in Mental Status No Sepsis Action Taken by Nursing No Action Required 07/22/23 14:50 07/22/23 15:00 07/22/23 15:10 Temperature Temperature Source Pulse Rate 85 86 86 Pulse Rate [Apical] Pulse Rate from SpO2 Sensor Respiratory Rate 17 17 27 H Respiratory Effort / Characteristics Respiratory Depth Blood Pressure Blood Pressure [Left Arm] Blood Pressure Mean Blood Pressure Mean [Left Arm] Blood Pressure Position Pulse Oximetry Oxygen Delivery Method Sepsis Recent Fever Within 48 Hours Sepsis New/Unexplained Change in Mental Status Sepsis Action Taken by Nursing 07/22/23 15:11 07/22/23 15:11 07/22/23 15:11 Temperature Temperature Source Pulse Rate 83 Pulse Rate [Apical] 83 Pulse Rate from SpO2 Sensor Respiratory Rate 21 19 Respiratory Effort / Characteristics Respiratory Depth Blood Pressure 94/65 L Blood Pressure [Left Arm] 94/65 L Blood Pressure Mean 77 Blood Pressure Mean [Left Arm] 74 Blood Pressure Position Pulse Oximetry Oxygen Delivery Method Sepsis Recent Fever Within 48 Hours Sepsis New/Unexplained Change in Mental Status Sepsis Action Taken by Nursing 07/22/23 15:20 07/22/23 15:30 07/22/23 15:35 Temperature Temperature Source Pulse Rate 82 81 81 Pulse Rate [Apical] Pulse Rate from SpO2 Sensor Respiratory Rate 18 18 Respiratory Effort / Characteristics Respiratory Depth Blood Pressure Blood Pressure [Left Arm] Blood Pressure Mean Blood Pressure Mean [Left Arm] Blood Pressure Position Pulse Oximetry Oxygen Delivery Method Sepsis Recent Fever Within 48 Hours Sepsis New/Unexplained Change in Mental Status Sepsis Action Taken by Nursing 07/22/23 15:40 07/22/23 15:43 07/22/23 15:43 Temperature Temperature Source Pulse Rate 79 76 Pulse Rate [Apical] Pulse Rate from SpO2 Sensor Respiratory Rate 18 17 Respiratory Effort / Characteristics Respiratory Depth Blood Pressure 108/69 Blood Pressure [Left Arm] Blood Pressure Mean 91 Blood Pressure Mean [Left Arm] Blood Pressure Position Pulse Oximetry Oxygen Delivery Method Sepsis Recent Fever Within 48 Hours Sepsis New/Unexplained Change in Mental Status Sepsis Action Taken by Nursing 07/22/23 16:18 07/22/23 16:20 07/22/23 16:20 Temperature Temperature Source Pulse Rate 76 78 Pulse Rate [Apical] Pulse Rate from SpO2 Sensor Respiratory Rate 16 20 Respiratory Effort / Characteristics Respiratory Depth Blood Pressure 102/64 Blood Pressure [Left Arm] Blood Pressure Mean 74 Blood Pressure Mean [Left Arm] Blood Pressure Position Pulse Oximetry Oxygen Delivery Method Sepsis Recent Fever Within 48 Hours Sepsis New/Unexplained Change in Mental Status Sepsis Action Taken by Nursing 07/22/23 16:30 07/22/23 16:31 07/22/23 16:32 Temperature Temperature Source Pulse Rate 78 74 Pulse Rate [Apical] Pulse Rate from SpO2 Sensor Respiratory Rate 20 19 Respiratory Effort / Characteristics Respiratory Depth Blood Pressure 98/63 L Blood Pressure [Left Arm] Blood Pressure Mean 75 Blood Pressure Mean [Left Arm] Blood Pressure Position Pulse Oximetry Oxygen Delivery Method Sepsis Recent Fever Within 48 Hours Sepsis New/Unexplained Change in Mental Status Sepsis Action Taken by Nursing 07/22/23 16:32 07/22/23 16:40 07/22/23 16:50 Temperature Temperature Source Pulse Rate 73 75 75 Pulse Rate [Apical] Pulse Rate from SpO2 Sensor 72 75 75 Respiratory Rate 17 10 L 17 Respiratory Effort / Characteristics Respiratory Depth Blood Pressure Blood Pressure [Left Arm] Blood Pressure Mean Blood Pressure Mean [Left Arm] Blood Pressure Position Pulse Oximetry 100 97 98 Oxygen Delivery Method Sepsis Recent Fever Within 48 Hours Sepsis New/Unexplained Change in Mental Status Sepsis Action Taken by Nursing 07/22/23 17:00 07/22/23 17:10 07/22/23 17:20 Temperature Temperature Source Pulse Rate 76 76 76 Pulse Rate [Apical] Pulse Rate from SpO2 Sensor 75 76 77 Respiratory Rate 20 24 17 Respiratory Effort / Characteristics Respiratory Depth Blood Pressure Blood Pressure [Left Arm] Blood Pressure Mean Blood Pressure Mean [Left Arm] Blood Pressure Position Pulse Oximetry 98 99 97 Oxygen Delivery Method Sepsis Recent Fever Within 48 Hours Sepsis New/Unexplained Change in Mental Status Sepsis Action Taken by Nursing 07/22/23 17:30 07/22/23 17:30 07/22/23 17:40 Temperature Temperature Source Pulse Rate 71 70 Pulse Rate [Apical] Pulse Rate from SpO2 Sensor 71 72 Respiratory Rate 15 16 Respiratory Effort / Characteristics Respiratory Depth Blood Pressure 96/66 L Blood Pressure [Left Arm] Blood Pressure Mean 77 Blood Pressure Mean [Left Arm] Blood Pressure Position Pulse Oximetry 96 99 Oxygen Delivery Method Sepsis Recent Fever Within 48 Hours Sepsis New/Unexplained Change in Mental Status Sepsis Action Taken by Nursing 07/22/23 17:50 07/22/23 18:00 07/22/23 18:00 Temperature Temperature Source Pulse Rate 69 70 Pulse Rate [Apical] Pulse Rate from SpO2 Sensor 69 70 Respiratory Rate 20 22 Respiratory Effort / Characteristics Respiratory Depth Blood Pressure 100/64 Blood Pressure [Left Arm] Blood Pressure Mean 74 Blood Pressure Mean [Left Arm] Blood Pressure Position Pulse Oximetry 100 97 Oxygen Delivery Method Sepsis Recent Fever Within 48 Hours Sepsis New/Unexplained Change in Mental Status Sepsis Action Taken by Nursing 07/22/23 18:10 07/22/23 18:20 Temperature Temperature Source Pulse Rate 71 70 Pulse Rate [Apical] Pulse Rate from SpO2 Sensor 71 70 Respiratory Rate 18 15 Respiratory Effort / Characteristics Respiratory Depth Blood Pressure Blood Pressure [Left Arm] Blood Pressure Mean Blood Pressure Mean [Left Arm] Blood Pressure Position Pulse Oximetry 96 99 Oxygen Delivery Method Sepsis Recent Fever Within 48 Hours Sepsis New/Unexplained Change in Mental Status Sepsis Action Taken by Nursing Laboratory Data 07/22/23 17:51 07/22/23 15:07 Lab Results 07/22/23 07/22/23 07/22/23 Range/Units 15:07 15:20 17:51 WBC 7.93 (4.8-10.8) K/ul RBC 3.73 L (4.20-5.40) M/uL Hgb 12.5 10.8 L (12.0-16.0) g/dl Hct 39.0 33.7 L (37.0-47.0) % MCV 104.6 H (80.0-100.0) fL MCH 33.5 (25.0-34.0) pg MCHC 32.1 (32.0-36.0) g/dL RDW Std Deviation 56.5 H (36.4-46.3) fL RDW Coeff of Abhijeet 14.5 (11.5-14.5) % Plt Count 432 H (130-400) K/uL MPV 9.7 (9.4-12.4) fL Immature Gran % (Auto) 0.6 % Neut % (Auto) 67.6 % Lymph % (Auto) 19.8 % Vernon % (Auto) 6.6 % Eos % (Auto) 4.8 % Baso % (Auto) 0.6 % Neut # (Auto) 5.36 (1.40-6.50) K/uL Lymph # (Auto) 1.57 (1.20-3.40) K/uL Vernon # (Auto) 0.52 (0.11-0.59) K/uL Eos # (Auto) 0.38 (0.00-0.50) K/uL Baso # (Auto) 0.05 (0.00-0.20) K/uL Immature Gran # (Auto) 0.05 (0.01-0.20) K/uL PT 10.3 (9.0-12.0) Seconds INR 0.9 (0.9-1.1) APTT 20 L (21-31) Seconds PTT Ratio 0.7 Sodium 137 (136-145) mmol/L Potassium 4.4 (3.5-5.1) mmol/L Chloride 108 H (98-107) mmol/L Carbon Dioxide 21 (21-32) mmol/L Anion Gap 8 (3-11) BUN 12 (6-23) mg/dl Creatinine 0.76 (0.6-1.2) mg/dl Est Cr Clr Drug Dosing 72.4 ml/min Est GFR ( Amer) 105.3 ml/min Est GFR (Non-Af Amer) 90.8 ml/min BUN/Creatinine Ratio 15.8 (10-20) Glucose 64 L (70-99(Fasting)) mg/dl Lactate 0.7 (0.4-2.0) mmol/L Calcium 9.2 (8.6-10.3) mg/dl Total Bilirubin 0.3 (0.2-1.0) mg/dl AST 18 (13-39) U/L ALT 15 (7-52) U/L Alkaline Phosphatase 152 H (34-104) U/L Troponin I High Sens 2.9 (0-14) pg/ml Total Protein 7.9 (6.0-8.3) gm/dl Albumin 4.3 (3.4-5.0) gm/dl Globulin 3.6 (2.5-4.0) gm/dl Albumin/Globulin Ratio 1.2 (0.9-2) Lipase 12 (11-82) U/L Blood Type A Negative Antibody Screen NEGATIVE Administered Medications Pantoprazole Sodium 40 mg/ (Dextrose) 100 mls @ 20 mls/hr IV Q5H ADAN Stop: 08/21/23 15:14 Last Admin: 07/22/23 16:17 Dose: 8 mg/hr, 20 mls/hr Documented By: ACC Morphine Sulfate (Morphine Sulfate 2 Mg/Ml Carp) 2 mg IV Q6H PRN PRN Reason: Pain Stop: 08/05/23 18:39 Last Admin: 07/22/23 18:49 Dose: 2 mg Documented By: ACC Ondansetron HCl (Ondansetron Inj 2 Mg/Ml 2 Ml Vial) 4 mg IV Q4H PRN PRN Reason: Nausea Stop: 08/21/23 18:39 Last Admin: 07/22/23 18:49 Dose: 4 mg Documented By: ACC Discontinued Medications Sodium Chloride (Nss) 1,000 mls @ 999 mls/hr IV .Q1H1M ADAN Stop: 07/22/23 15:15 Last Infusion: 07/22/23 17:33 Dose: Infused Documented By: Admin: 07/22/23 15:19 Dose: 999 mls/hr Documented By: ACC Pantoprazole Sodium 80 mg/ (Dextrose) 120 mls @ 480 mls/hr IV NOW ONE Stop: 07/22/23 15:03 Last Infusion: 07/22/23 15:57 Dose: Infused Documented By: Admin: 07/22/23 15:37 Dose: 480 mls/hr Documented By: ACC Sodium Chloride (Nss) 1,000 mls @ 999 mls/hr IV .Q1H1M ONE Stop: 07/22/23 16:49 Last Admin: 07/22/23 16:35 Dose: 999 mls/hr Documented By: ACC Parenteral Electrolytes (Plasma-Lyte A Ph 7.4) 1,000 mls @ 125 mls/hr IV .Q8H ADAN Stop: 08/21/23 16:59 Last Admin: 07/22/23 17:34 Dose: Not Given Documented By: ACC Morphine Sulfate (Morphine Sulfate 4 Mg/Ml 1 Ml Carp\Vial) 4 mg IV NOW STA Stop: 07/22/23 16:23 Last Admin: 07/22/23 16:31 Dose: 4 mg Documented By: ACC Ondansetron HCl (Ondansetron Inj 2 Mg/Ml 2 Ml Vial) 4 mg IV NOW STA Stop: 07/22/23 15:50 Last Admin: 07/22/23 16:05 Dose: 4 mg Documented By: ACC Pantoprazole Sodium (Pantoprazole Bolus/Drip) 1 each IV NOW STA Stop: 07/22/23 14:50 Last Admin: 07/22/23 17:04 Dose: Not Given Documented By: ACC Imaging Data Radiologist's Impression: Abdomen/Pelvis CT 07/22/23 14:49 CT abd pelvis wo con CLINICAL HISTORY: abd pain epigastric TECHNIQUE: Helical axial images of the abdomen and pelvis were obtained. Automated dose lowering techniques and/or adjustment according to patient size were utilized for this exam. This exam was performed without intravenous contrast. CT DOSE: 554.26 mGy.cm COMPARISON: Comparison is made to CT abdomen pelvis 08/21/2022 FINDINGS: Lower chest: No acute abnormality. Liver: No acute abnormalities. Possible focal fatty changes in the left lobe. Gallbladder and biliary tree: Patient is status post cholecystectomy. No intra- or extrahepatic biliary ductal dilation. Pancreas: Unremarkable, no focal lesions. Spleen: Unremarkable. Adrenals: Unremarkable. Kidneys and ureters: Unremarkable. Bladder: Unremarkable. Reproductive organs: Patient is status post hysterectomy. Bowel: Post surgical changes are seen in the stomach. There is a small hiatal hernia. Patient is status post appendectomy. Lymph nodes Retroperitoneal: Unremarkable. Pelvic: Unremarkable. Mesenteric: Unremarkable. Peritoneum: Normal. Vessels: Unremarkable. Abdominal wall: Unremarkable. Bones: Degenerative changes in the visualized spine. IMPRESSION: No acute abnormalities and in particular no evidence of bowel obstruction. Postsurgical changes of Eamon-en-Y gastric bypass. ACT 112: Negative or not required by law. Electronically signed by: Mack Leach M.D. 07/22/2023 4:55 PM Discharge Plan Visit Data Chief Complaint: Illness Stated Complaint: abd pain, vomiting blood, chest pains, rectal blee ED Provider: Brandon Hathaway Discharge Problem: Abdominal pain, Acute GI bleeding, Hematemesis Forms Stand Alone Forms: [facility] [employer] Prescriptions Prescriptions: No Action acetaminophen 325 mg tablet 650 mg PO Q4H PRN (Reason: Pain) multivitamin Tablet 1 tab PO QAM sucralfate [Carafate] 100 mg/mL Suspension 15 ml PO TID ondansetron HCl 8 mg Tablet 8 mg PO Q12H PRN (Reason: Nausea) ropinirole 0.25 mg Tablet 0.25 mg PO TID pantoprazole [Protonix] 40 mg Tablet,Delayed Release (Dr/Ec) 40 mg PO BID trazodone 150 mg Tablet 150 mg PO HS zolpidem [Ambien] 10 mg Tablet 10 mg PO HS cyanocobalamin (vitamin B-12) 1,000 mcg/mL Kit 1,000 mcg IM MONTHLY Rx Instructions: USUALLY THE Sunday OF THE MONTH. dicyclomine 20 mg Tablet 20 mg PO Q6H PRN (Reason: Abdominal Pain) Qty: 120 0RF prochlorperazine maleate 10 mg tablet 10 mg PO QID PRN (Reason: nausea and vomiting) Qty: 14 0RF promethazine 12.5 mg tablet 12.5 mg PO TID PRN (Reason: nausea and vomiting) Qty: 21 0RF lorazepam 0.5 mg tablet 1 mg PO TID PRN (Reason: anxiety ) pregabalin 200 mg capsule 200 mg PO BID Referrals Referrals: Clair Faye MD [Outside Practitioners] - Discharge Problem: Abdominal pain Qualifiers: Abdominal location: unspecified location Qualified Code(s): R10.9 - Unspecified abdominal pain Hematemesis Qualifiers: Nausea presence: unspecified Qualified Code(s): K92.0 - Hematemesis
[2023-07-22 15:30] LABS: Basophils # (auto) 0.05 K/uL (0.00-0.20); Basophils % (auto) 0.6 %; Eosinophils # (auto) 0.38 K/uL (0.00-0.50); Eosinophils % (auto) 4.8 %; Hemoglobin 12.5 g/dl (12.0-16.0); Immature Granulocytes # (auto) 0.05 K/uL (0.01-0.20); Immature Granulocytes % (auto) 0.6 %; Lymphocytes # (auto) 1.57 K/uL (1.20-3.40); Lymphocytes % (auto) 19.8 %; Mean Corpuscular Hemoglobin 33.5 pg (25.0-34.0); Mean Corpuscular Hgb Conc 32.1 g/dL (32.0-36.0); Mean Corpuscular Volume 104.6 fL (80.0-100.0); Mean Platelet Volume 9.7 fL (9.4-12.4); Monocytes # (auto) 0.52 K/uL (0.11-0.59); Monocytes % (auto) 6.6 %; Neutrophils # (auto) 5.36 K/uL (1.40-6.50); Neutrophils % (auto) 67.6 %; Platelet Count 432 K/uL (130-400); RDW Coefficient of Variation 14.5 % (11.5-14.5); RDW Standard Deviation 56.5 fL (36.4-46.3); Red Blood Count 3.73 M/uL (4.20-5.40); White Blood Count 7.93 K/ul (4.8-10.8)
[2023-07-22] MEDS ORDERED: ONDANSETRON INJ 2 MG/ML 2 ML VIAL IV STA (15:49)
[2023-07-22] MEDS ORDERED: SODIUM CHLORIDE 0.9% 1,000 ML IV ONE (15:49)
[2023-07-22 15:57] LABS: INR 0.9 (0.9-1.1); Partial Thromboplastin Ratio 0.7; Partial Thromboplastin Time 20 Seconds (21-31); Prothrombin Time 10.3 Seconds (9.0-12.0)
[2023-07-22 16:02] LABS: Albumin Globulin Ratio 1.2 (0.9-2); Albumin Level 4.3 gm/dl (3.4-5.0); BUN Creatinine Ratio 15.8 (10-20); Bilirubin,Total 0.3 mg/dl (0.2-1.0); Calcium 9.2 mg/dl (8.6-10.3); Creatinine Clr Calc Pharmacy 72.4 ml/min; Est GFR (African American) 105.3 ml/min; Est GFR (Non-African American) 90.8 ml/min; Globulin 3.6 gm/dl (2.5-4.0); Potassium 4.4 mmol/L (3.5-5.1); Total Protein 7.9 gm/dl (6.0-8.3); Troponin I High Sensitivity 2.9 pg/ml (0-14)
[2023-07-22] MEDS: PANTOprazole 40 MG in DEXTROSE 5% MINI-B 100 ML IV SCH ×2 (16:17→21:01)
[2023-07-22] MEDS ORDERED: MoRPHine SULFATE 4 MG/ML 1 ML CARP\\VIAL IV STA (16:22)
[2023-07-22] MEDS ORDERED: SODIUM CHLORIDE 0.9% 250 ML IV PRN (16:53)
--- NOTE | 2023-07-22 16:58 | CT Scan Report ---
CT abd pelvis wo con CLINICAL HISTORY: abd pain epigastric TECHNIQUE: Helical axial images of the abdomen and pelvis were obtained. Automated dose lowering tech niques and/or adjustment according to patient size were utilized for this exam. This exam was perfor med without intravenous contrast. CT DOSE: 554.26 mGy.cm COMPARISON: Comparison is made to CT abdomen pelvis 08/21/2022 FINDINGS: Lower chest: No acute abnormality. Liver: No acute abnormalities. Possible focal fatty changes in the left lobe. Gallbladder and biliary tree: Patient is status post cholecystectomy. No intra- or extrahepatic bilia ry ductal dilation. Pancreas: Unremarkable, no focal lesions. Spleen: Unremarkable. Adrenals: Unremarkable. Kidneys and ureters: Unremarkable. Bladder: Unremarkable. Reproductive organs: Patient is status post hysterectomy. Bowel: Post surgical changes are seen in the stomach. There is a small hiatal hernia. Patient is stat us post appendectomy. Lymph nodes Retroperitoneal: Unremarkable. Pelvic: Unremarkable. Mesenteric: Unremarkable. Peritoneum: Normal. Vessels: Unremarkable. Abdominal wall: Unremarkable. Bones: Degenerative changes in the visualized spine. IMPRESSION: No acute abnormalities and in particular no evidence of bowel obstruction. Postsurgical changes of Ro ux-en-Y gastric bypass. ACT 112: Negative or not required by law. Electronically signed by: Mack Leach M.D. 07/22/2023 4:55 PM
[2023-07-22] MEDS ORDERED: PLASMA-LYTE A 1,000 ML IV SCH (17:00)
--- NOTE | 2023-07-22 17:45 | History & Physical Report ---
Date of Service July 22, 2023 Assessment & Plan (1) Acute GI bleeding: Plan: Upper GI bleeding Last admitted and discharged 08/29/2022 for similar. Was found to have a normal EGD without bleeding or ulcers during that admission 08/2022 Eamon-en-Y bypass 20 years prior with ulcers at anastomotic site noted on prior admission EGD 08/23/2022: Gastric bypass with small sized pouch. Gastrojejunal anastomoses with healthy-appearing mucosa. Normal jejunum. No specimens collected at that time. Ulcers were not noted at that time, duodenum to jejunal bleeding was not examined as cannot be found at that time - CT-A/P obtained inER without contrast due to poor IV access per report. This does not show acute abnormalities or free air. Hemoglobin on admission 12.5, MCV 104, H&H trended Hypotensive 94/65, pulse 81 BP improved following IV fluids and maintenance. Discussed with IV access/central line w/ ER provider. Pt with difficult access, IV team unable to obtain US guided, midline, or <20g access. 1 peripheral hand and 1 foot 22/26g IV IV currently in place. Central access was not recommended by ER as BP was slowly improving and patient hgb decreased from 12.5-10.8 which appears near her prior baseline, she is not tachycardic, and had no elevated BUN. IV team contacted to reattempt for large-bore IV access as hydration was improved. Signed out to overnight provider who will monitor H&H and hemodynamics, and consult ICU if required for central access overnight On reassessment Whitney has had lightheadedness and dizziness with IV fluids. Will continue IV fluids, trend H&H, - 2 units matched and held for transfusion. Transfuse for return of symptoms, hemoglobin less than 7, or persistent hypotension. consent for transfusion completed at bedside - PPI bolus + gtt continued GI consulted for EGD -IVFM+dextrose continued (2) Recurrent deep vein thrombosis (DVT): Plan: History of DVT/PE Multiple PE/DVT in the past, last was 2019 Takes eliquis for R lung PE which occurred after surgery 10 years ago, has had multiple clots since then. Most recent was a DVT of the LEFT leg. Last PE was approximately 1 year ago. Has been on warfarin, but is nto able to travel to a coumadin clinic and transitioned to DOAC as a result. Her leg DVT was when her eliquis was dose reduced, has never had a DVT when on full dose eliquis. Pulmonary embolism 1 year ago was in the setting of her revision/limb resection and holding the eliquis temporarily. Eliquis held (3) Gastric bypass status for obesity: Plan: History of Eamon-en-Y bypass 20 years ago, subsequent gastric revision 10 years ago for anastomotic ulcers, and small pouch revision approximately 1 year ago. Sx was performed in [place] at [facility], Dr. [place]. Plan DVT PPx: Full code prophylaxis contraindicated in the setting of acute GI bleed, SCDs Disposition: PCU Diet: N.p.o. CODE STATUS: Full code History of Present Illness Primary Care Provider: LOVE Ledesma Whitney is a 53-year-old female with past medical history of Eamon-en-Y surgery and anastomotic ulcers, PE on Eliquis who presents with recurrent hematemesis worse in the past 24 hours with 18-24 episodes of hematemesis and upper abdominal pain. She was seen in the ER 08/14/2022 and 08/21/2022 for similar symptoms. This morning she saw [facility] who referred her to the ER for continued symptoms and concern for near syncopal episode. No NSAID use. Last dose of Eliquis was 08/21 Patient reports that since Sunday she has had black bowel movements mixed with bright red bowel movements similar to prior GI bleeds. She reports that she has had progressive epigastric pain which is worse today compared to Sunday with some radiation to her left flank similar to prior GI bleeds. She has been very nauseous with some dry heaving/retching and has had a few (89) episodes of tablespoon sized emesis this morning. She reports she has some lightheadedness and dizziness earlier in the day, at time of bedside evaluation she reports she feels improved with fluids. She is currently nauseous has not vomited in the last few hours. She reports that on Sunday she did have some bright red blood and has had small amounts of mixed melena and it since then. She was short of breath on exertion, she denies shortness of breath at rest at time of reassessment but endorses overall fatigue. Denies chest pain/chest pressure. Denies syncope. 1 episode of chest pain earlier, this have resolved. No neck or jaw pain. Eamon-en-y bipass 20 years ago, then sequently 2 partial gastrectomy to remove the ulcers with bipass revision 10 years ago. Worked well at the time. Was performed in [place] at [facility], Dr. [place]. No other medical problems. 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 Most recent was a DVT of the LEFT leg. Last PE was approximately 1 year ago. Has been on warfarin, but is nto able to travel to a coumadin clinic. Her leg DVT was when her eliquis was dose reduced, has never had a DVT when on full dose eliquis. Pulmonary embolism 1 year ago was in the setting of her revision/limb resection and holding the eliquis temporarily. Allergic to IV contrast. Hives, no lip swelling. She has tolerated contrast with full pretreatment protocol in the past Medical History: Reviewed Medications: Reviewed Surgical History: Reviewed Family history: Reviewed Allergies: Reviewed Social History: Reviewed Code Status: Full Allergies Allergy/AdvReac Type Severity Reaction Status Date / Time No Known Allergies Allergy Verified 08/22/22 17:03 Home Medications Medication Instructions Recorded Confirmed Type cyanocobalamin (vitamin B-12) 1,000 mcg IM MONTHLY 09/11/20 07/22/23 History 1,000 mcg/mL injection kit multivitamin 1 tab PO QAM 09/11/20 07/22/23 History ondansetron HCl 8 mg tablet 8 mg PO Q12H PRN Nausea 09/11/20 07/22/23 History pantoprazole 40 mg tablet,delayed 40 mg PO BID 09/11/20 07/22/23 History release (Protonix) ropinirole 0.25 mg tablet 0.25 mg PO TID 09/11/20 07/22/23 History sucralfate 100 mg/mL oral 15 ml PO TID 09/11/20 07/22/23 History suspension (Carafate) trazodone 150 mg tablet 150 mg PO HS 09/11/20 07/22/23 History zolpidem 10 mg tablet (Ambien) 10 mg PO HS 09/11/20 07/22/23 History dicyclomine 20 mg tablet 20 mg PO Q6H PRN Abdominal Pain 09/19/20 07/22/23 Rx #120 tabs acetaminophen 325 mg tablet 650 mg PO Q4H PRN Pain 07/22/21 07/22/23 History prochlorperazine maleate 10 mg 10 mg PO QID PRN nausea and 08/14/22 07/22/23 Rx tablet vomiting #14 tabs promethazine 12.5 mg tablet 12.5 mg PO TID PRN nausea and 08/29/22 07/22/23 Rx vomiting #21 tabs lorazepam 0.5 mg tablet 1 mg PO TID PRN anxiety 07/22/23 07/22/23 History pregabalin 200 mg capsule 200 mg PO BID 07/22/23 07/22/23 History Past Med/Surg History Medical History Acute GI bleeding Anxiety Gastritis Upper GI bleeding Vitamin B12 deficiency Iron deficiency anemia Acute epigastric pain Hematemesis Abdominal pain Encounter for pre-operative examination Fever Acute blood loss anemia Ulcer at site of surgical anastomosis following bypass of stomach RLS (restless legs syndrome) History of deep venous thrombosis or pulmonary embolus DVT prophylaxis Depression Peptic ulcer disease Insomnia Anemia Surgical History Gastric bypass status for obesity History of appendectomy History of cholecystectomy Family History Other Adopted Social History Smoking Status: Never smoker Tobacco Type: Cigarettes Cigarettes Per Day: 1/2 pack a day; Hx Alcohol Use: No Hx Substance Use: No Preferred Language: Uzbek Communication Ability: Effective Vp Public Relations Required: No Beliefs That Will Affect Care: None marital status: Current Living Situation: Family Feels Safe at Home: Yes Assistive Devices: None Physical Exam Physical Exam: General: A&Ox3. NAD. Cooperative. HEENT: Atraumatic, normocephalic. Vision/hearing intact. Slight pallor Pulm: CTAB A&P. -wheezes, -rales, -rhonchi. Symmetrical chest rise. No increased work of breathing. No respiratory distress. Cardiac: RRR, -mrg. Radial pulses intact and symmetrical. Abdominal: Epigastric tenderness to palpation, no lower quadrant tenderness to palpation rebound or guarding. Extremities: Warm, dry Results & Data Results & Data Vital Signs (Past 12 Hours) Vital Signs Temp Pulse Pulse Resp BP BP Pulse Ox 07/22/23 16:50 75 17 98 07/22/23 16:40 75 10 L 97 07/22/23 16:32 73 17 100 07/22/23 16:32 98/63 L 07/22/23 16:31 74 19 07/22/23 16:30 78 20 07/22/23 16:20 78 20 07/22/23 16:20 102/64 07/22/23 16:18 76 16 07/22/23 15:43 76 17 07/22/23 15:43 108/69 07/22/23 15:40 79 18 07/22/23 15:35 81 07/22/23 15:30 81 18 07/22/23 15:20 82 18 07/22/23 15:11 83 19 07/22/23 15:11 94/65 L 07/22/23 15:11 83 21 94/65 L 07/22/23 15:10 86 27 H 07/22/23 15:00 86 17 07/22/23 14:50 85 17 07/22/23 14:45 82 17 07/22/23 14:13 97 07/22/23 14:11 36.7 C 86 18 116/81 95 O2 Del Method 07/22/23 16:50 07/22/23 16:40 07/22/23 16:32 07/22/23 16:32 07/22/23 16:31 07/22/23 16:30 07/22/23 16:20 07/22/23 16:20 07/22/23 16:18 07/22/23 15:43 07/22/23 15:43 07/22/23 15:40 07/22/23 15:35 07/22/23 15:30 07/22/23 15:20 07/22/23 15:11 07/22/23 15:11 07/22/23 15:11 07/22/23 15:10 07/22/23 15:00 07/22/23 14:50 07/22/23 14:45 07/22/23 14:13 Room Air 07/22/23 14:11 Room Air PG Care Time/CCT Total # of Minutes Spent Total Time Spent with Patient: Total time spent is greater than 50% in coordination of care (as documented) at patient's floor/unit and/or counseling patient: Coding Level of Care Code 75941 INT INP/OBS CARE MIN Diagnoses Acute GI bleeding K92.2 Recurrent deep vein thrombosis (DVT) I82.409 Gastric bypass status for obesity Z98.84
[2023-07-22 18:12] LABS: Hematocrit (blood only) 33.7 % (37.0-47.0); Hemoglobin 10.8 g/dl (12.0-16.0)
[2023-07-22] MEDS: MoRPHine SULFATE 2 MG/ML CARP IV PRN (18:49)
[2023-07-22] MEDS: ONDANSETRON INJ 2 MG/ML 2 ML VIAL IV PRN ×2 (18:49→23:40)
[2023-07-22] MEDS: D5W AND LACTATED RINGERS 1,000 ML IV SCH (19:24)
[2023-07-22] MEDS ORDERED: ACETAMINOPHEN 1,000 MG/100 ML VIAL IV PRN (22:19)
[2023-07-22] MEDS ORDERED: ACETAMINOPHEN 1000 MG/100 ML IV IV ONE (22:26)
[2023-07-22 23:05] LABS: Hematocrit (blood only) 34.5 % (37.0-47.0); Hemoglobin 11.3 g/dl (12.0-16.0)
[2023-07-22] MEDS: NICOTINE 14 MG/24 HR PATCH TD SCH (23:27)
[2023-07-22] MEDS ORDERED: MoRPHine SULFATE 2 MG/ML CARP IV ONE (23:33)
[2023-07-23 02:45] LABS: Basophils # (auto) 0.05 K/uL (0.00-0.20); Eosinophils # (auto) 0.39 K/uL (0.00-0.50); Eosinophils % (auto) 7.5 %; Hematocrit (blood only) 33.9 % (37.0-47.0); Hemoglobin 11.8 g/dl (12.0-16.0); Immature Granulocytes # (auto) 0.01 K/uL (0.01-0.20); Immature Granulocytes % (auto) 0.2 %; Lymphocytes # (auto) 1.41 K/uL (1.20-3.40); Mean Corpuscular Hemoglobin 35.8 pg (25.0-34.0); Mean Corpuscular Hgb Conc 34.8 g/dL (32.0-36.0); Mean Corpuscular Volume 102.7 fL (80.0-100.0); Mean Platelet Volume 9.8 fL (9.4-12.4); Monocytes # (auto) 0.41 K/uL (0.11-0.59); Monocytes % (auto) 7.8 %; Neutrophils # (auto) 2.96 K/uL (1.40-6.50); Neutrophils % (auto) 56.5 %; Platelet Count 431 K/uL (130-400); RDW Coefficient of Variation 14.5 % (11.5-14.5); RDW Standard Deviation 54.9 fL (36.4-46.3); White Blood Count 5.23 K/ul (4.8-10.8)
[2023-07-23 02:47] LABS: BUN Creatinine Ratio 14.3 (10-20); Calcium 8.2 mg/dl (8.6-10.3); Creatinine Clr Calc Pharmacy 94.5 ml/min; Est GFR (African American) 120.4 ml/min; Est GFR (Non-African American) 103.9 ml/min; Potassium 3.9 mmol/L (3.5-5.1)
[2023-07-23] MEDS: MoRPHine SULFATE 2 MG/ML CARP IV PRN ×5 (03:22→23:10)
[2023-07-23] MEDS: D5W AND LACTATED RINGERS 1,000 ML IV SCH ×3 (03:23→17:53)
[2023-07-23] MEDS: PANTOprazole 40 MG in DEXTROSE 5% MINI-B 100 ML IV SCH ×5 (03:23→23:09)
[2023-07-23 07:47] LABS: Hematocrit (blood only) 31.8 % (37.0-47.0); Hemoglobin 10.7 g/dl (12.0-16.0)
[2023-07-23] MEDS: NICOTINE 14 MG/24 HR PATCH TD SCH (07:51)
[2023-07-23] MEDS: ONDANSETRON INJ 2 MG/ML 2 ML VIAL IV PRN ×2 (07:52→20:33)
--- NOTE | 2023-07-23 07:55 | Hospitalist Progress Note ---
Date of Service July 23, 2023 Assessment & Plan (1) Acute GI bleeding: Plan: Upper GI bleeding Last admitted and discharged 08/29/2022 for similar. Was found to have a normal EGD without bleeding or ulcers during that admission 08/2022 Eamon-en-Y bypass 20 years prior - CT-A/P obtained in ER without contrast due to poor IV access per report. This does not show acute abnormalities or free air. 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 Most recent was a DVT of the LEFT leg. Last PE was approximately 1 year ago. Has been on warfarin, but is nto able to travel to a coumadin clinic and transitioned to DOAC as a result. Her leg DVT was when her eliquis was dose reduced, has never had a DVT when on full dose eliquis. Pulmonary embolism 1 year ago was in the setting of her revision/limb resection and holding the eliquis temporarily. Eliquis held (3) Gastric bypass status for obesity: Plan: History of Eamon-en-Y bypass 20 years ago, subsequent gastric revision 10 years ago for anastomotic ulcers, and small pouch revision approximately 1 year ago. Sx was performed in [place] at [facility], Dr. [place]. Plan DVT PPx: Full code prophylaxis contraindicated in the setting of acute GI bleed, SCDs CODE STATUS: Full code Admission and Anticipated Discharge Date Admission Date: July 22, 2023 Subjective pt resting comfortably complains of epigastric pain needs to wait for Eliquis washout before proceeding to endoscopy Physical Exam Physical Exam: awake and alert, not pale, mild distress cardiac regular not tachy lungs clear abd soft, epigastric tenderness Results & Data Results & Data Vital Signs (Past 12 Hours) Vital Signs Temp Pulse Pulse Resp BP BP BP 07/23/23 03:00 97.9 F 93 H 16 120/74 07/22/23 23:31 135/78 07/22/23 22:30 98.1 F 62 16 96/60 L 07/22/23 22:15 60 07/22/23 21:20 67 20 07/22/23 21:10 72 18 07/22/23 21:01 98/68 L 07/22/23 21:01 64 15 07/22/23 21:00 66 23 07/22/23 20:50 64 18 07/22/23 20:40 65 22 07/22/23 20:30 67 15 07/22/23 20:20 74 16 07/22/23 20:10 69 25 H 07/22/23 20:00 71 18 07/22/23 20:00 98/73 L Pulse Ox O2 Del Method 07/23/23 03:00 96 Room Air 07/22/23 23:31 07/22/23 22:30 100 Room Air 07/22/23 22:15 07/22/23 21:20 96 07/22/23 21:10 98 07/22/23 21:01 07/22/23 21:01 100 07/22/23 21:00 07/22/23 20:50 07/22/23 20:40 07/22/23 20:30 07/22/23 20:20 99 07/22/23 20:10 99 07/22/23 20:00 100 07/22/23 20:00 Laboratory Results Reviewed CBC reviewed chemistry PG Care Time/CCT Total # of Minutes Spent Total Time Spent with Patient: Total time spent is greater than 50% in coordination of care (as documented) at patient's floor/unit and/or counseling patient: Coding Level of Care Code 42696 SUB INP/OBS CARE 3/50MIN Diagnoses Acute GI bleeding K92.2 Recurrent deep vein thrombosis (DVT) I82.409 Gastric bypass status for obesity Z98.84
--- NOTE | 2023-07-23 09:32 | Gastrointestinal Consultation ---
Date of Consultation July 23, 2023 Assessment & Plan (1) Acute GI bleeding: Patient admitted with epigastric pain as well as hematemesis. patient tells me she had a similar presentation in the past with gastric ulcers. last EGD last year did not reveal any ulcers. No further emesis since admission. Discussed case with Dr. Aguilar who advised on plan. - recommend continue to hold eliquis. - will plan for EGD on 07/24/23 as this will give 48 hours of holding eliquis. - continue with protonix drip. - continue to monitor Hgb/hct and recommend transfuse as needed. Supervising Physician Co-Signing Physician Notes I saw the patient and agree with the findings as documented by ALAN Ramirez History of Present Illness Reason for Consultation: GIB Requesting Physician: Endy Lin MD Attending Physician: Endy Lin MD History of Present Illness Patient is a 53 year old female who presented to the ED on 07/22/23 with compllaints of epigastric abdominal pain which had started of last week. sharp in nature. rated 8/10. On day of presentation to the ED she had some episodes of coffee ground emesis with some bright red blood mixed in. She has a history of a gastric bypass from 20 years ago and has subsequently had two revisions due to ulcers with the last being a year ago per patient. she has had a partial gastrectomy. Patient notes that she has been having bright red blood per rectum for the past several days and diarrhea stools that are darker in nature. she denies any nsaid use. She does take Eliquis for previous PE which was diagnosed over a year ago - she tells me her last dose was 07/22/23 in the morning. she tells me she has not had any further bowel movements or episodes of emesis since admission. Hgb currently 10.7. Allergies Allergy/AdvReac Type Severity Reaction Status Date / Time Iodinated Contrast Media AdvReac Hives Verified 07/23/23 07:21 Home Medications Medication Instructions Recorded Confirmed Type cyanocobalamin (vitamin B-12) 1,000 mcg IM MONTHLY 09/11/20 07/22/23 History 1,000 mcg/mL injection kit multivitamin 1 tab PO QAM 09/11/20 07/22/23 History ondansetron HCl 8 mg tablet 8 mg PO Q12H PRN Nausea 09/11/20 07/22/23 History pantoprazole 40 mg tablet,delayed 40 mg PO BID 09/11/20 07/22/23 History release (Protonix) ropinirole 0.25 mg tablet 0.25 mg PO TID 09/11/20 07/22/23 History sucralfate 100 mg/mL oral 15 ml PO TID 09/11/20 07/22/23 History suspension (Carafate) trazodone 150 mg tablet 150 mg PO HS 09/11/20 07/22/23 History zolpidem 10 mg tablet (Ambien) 10 mg PO HS 09/11/20 07/22/23 History dicyclomine 20 mg tablet 20 mg PO Q6H PRN Abdominal Pain 09/19/20 07/22/23 Rx #120 tabs acetaminophen 325 mg tablet 650 mg PO Q4H PRN Pain 07/22/21 07/22/23 History prochlorperazine maleate 10 mg 10 mg PO QID PRN nausea and 08/14/22 07/22/23 Rx tablet vomiting #14 tabs promethazine 12.5 mg tablet 12.5 mg PO TID PRN nausea and 08/29/22 07/22/23 Rx vomiting #21 tabs lorazepam 0.5 mg tablet 1 mg PO TID PRN anxiety 07/22/23 07/22/23 History pregabalin 200 mg capsule 200 mg PO BID 07/22/23 07/22/23 History Patient History Medical History Acute GI bleeding Anxiety Gastritis Upper GI bleeding Vitamin B12 deficiency Iron deficiency anemia Acute epigastric pain Hematemesis Abdominal pain Encounter for pre-operative examination Fever Acute blood loss anemia Ulcer at site of surgical anastomosis following bypass of stomach RLS (restless legs syndrome) History of deep venous thrombosis or pulmonary embolus DVT prophylaxis Depression Peptic ulcer disease Insomnia Anemia Surgical History Gastric bypass status for obesity History of appendectomy History of cholecystectomy Family History Other Adopted Social History Smoking Status: Current every day smoker Tobacco Type: Cigarettes Cigarettes Per Day: 10; Second Hand Exposure: No; Do You Dip or Chew Tobacco: No; Tobacco Cessation Education Requested by Patient: No Hx Alcohol Use: No Hx Substance Use: No Preferred Language: Syriac Communication Ability: Effective Cessation Systems Outreach Specialist Required: No Beliefs That Will Affect Care: None marital status: Current Living Situation: Spouse Other Information That Helps Us Care for You: No Feels Safe at Home: Yes Safety Concerns: Feels Safe At This Time Assistive Devices: None Review of Systems Review of Systems: All systems reviewed & are unremarkable except as noted in HPI & below Physical Exam Constitutional: WD/WN, vitals as above Respiratory: normal respiratory effort, lungs clear to auscultation Cardiovascular: RRR, no murmur, no edema Gastrointestinal (Abdomen): mid epigastric abdominal tenderness to palpation, no guarding, soft. normal bowel sounds. Skin: no rashes, warm and dry Psychiatric: Orientation: alert and oriented x 3 Affect: euthymic affect Results & Data Vital Signs (Past 12 Hours) Vital Signs Temp Pulse Pulse Resp BP BP Pulse Ox 07/23/23 08:10 97.7 F 67 16 120/66 97 07/23/23 03:00 97.9 F 93 H 16 120/74 96 07/22/23 23:31 135/78 07/22/23 22:30 98.1 F 62 16 96/60 L 100 07/22/23 22:15 60 O2 Del Method 07/23/23 08:10 Room Air 07/23/23 03:00 Room Air 07/22/23 23:31 07/22/23 22:30 Room Air 07/22/23 22:[address] abd pelvis wo con CLINICAL HISTORY: abd pain epigastric TECHNIQUE: Helical axial images of the abdomen and pelvis were obtained. Automated dose lowering techniques and/or adjustment according to patient size were utilized for this exam. This exam was performed without intravenous contrast. CT DOSE: 554.26 mGy.cm COMPARISON: Comparison is made to CT abdomen pelvis 08/21/2022 FINDINGS: Lower chest: No acute abnormality. Liver: No acute abnormalities. Possible focal fatty changes in the left lobe. Gallbladder and biliary tree: Patient is status post cholecystectomy. No intra- or extrahepatic biliary ductal dilation. Pancreas: Unremarkable, no focal lesions. Spleen: Unremarkable. Adrenals: Unremarkable. Kidneys and ureters: Unremarkable. Bladder: Unremarkable. Reproductive organs: Patient is status post hysterectomy. Bowel: Post surgical changes are seen in the stomach. There is a small hiatal hernia. Patient is status post appendectomy. Lymph nodes Retroperitoneal: Unremarkable. Pelvic: Unremarkable. Mesenteric: Unremarkable. Peritoneum: Normal. Vessels: Unremarkable. Abdominal wall: Unremarkable. Bones: Degenerative changes in the visualized spine. IMPRESSION: No acute abnormalities and in particular no evidence of bowel obstruction. Postsurgical changes of Eamon-en-Y gastric bypass. ACT 112: Negative or not required by law. Electronically signed by: Mack Leach M.D. 07/22/2023 4:55 PM PG Care Time/CCT Total # of Minutes Spent Total Time Spent with Patient: Total time spent is greater than 50% in coordination of care (as documented) at patient's floor/unit and/or counseling patient: Coding Level of Care Code 36935 IN/OBS CONSULT LVL 3,45M Diagnoses Acute GI bleeding K92.2 Time Spent (min) 45
[2023-07-23 09:36] LABS: Hematocrit (blood only) 32.8 % (37.0-47.0); Hemoglobin 11.1 g/dl (12.0-16.0)
--- NOTE | 2023-07-23 16:35 | Hospitalist Progress Note ---
Date of Service July 23, 2023 Assessment & Plan (1) Acute GI bleeding: Plan: Upper GI bleeding Last admitted and discharged 08/29/2022 for similar. Was found to have a normal EGD without bleeding or ulcers during that admission 08/2022 Eamon-en-Y bypass 20 years prior - CT-A/P obtained in ER without contrast due to poor IV access per report. This does not show acute abnormalities or free air. Hemoglobin on admission 12.5->10.7->11.1 Hypotensive 94/65, due to hypovolemia, volume resuscitated consent for transfusion completed at bedside - PPI bolus + gtt continued GI consulted for EGD, need to jazmín for eliquis washout for procedure Acute blood loss anemia (2) Recurrent deep vein thrombosis (DVT): Plan: History of DVT/PE Multiple PE/DVT in the past, last was 2019 Takes eliquis for R lung PE which occurred after surgery 10 years ago, has had multiple clots since then. Most recent was a DVT of the LEFT leg. Last PE was approximately 1 year ago. Has been on warfarin, but is nto able to travel to a coumadin clinic and transitioned to DOAC as a result. Her leg DVT was when her eliquis was dose reduced, has never had a DVT when on full dose eliquis. Pulmonary embolism 1 year ago was in the setting of her revision/limb resection and holding the eliquis temporarily. Eliquis held (3) Gastric bypass status for obesity: Plan: History of Eamon-en-Y bypass 20 years ago, subsequent gastric revision 10 years ago for anastomotic ulcers, and small pouch revision approximately 1 year ago. Sx was performed in [place] at [facility], Dr. France. Plan DVT PPx: Full code prophylaxis contraindicated in the setting of acute GI bleed, SCDs CODE STATUS: Full code Admission and Anticipated Discharge Date Admission Date: July 22, 2023 Results & Data Results & Data Vital Signs (Past 12 Hours) Vital Signs Temp Pulse Resp BP Pulse Ox O2 Del Method 07/23/23 15:32 98.2 F 69 17 138/77 96 Room Air 07/23/23 11:30 98.2 F 66 17 135/76 99 Room Air 07/23/23 08:10 97.7 F 67 16 120/66 97 Room Air PG Care Time/CCT Total # of Minutes Spent Total Time Spent with Patient: Total time spent is greater than 50% in coordination of care (as documented) at patient's floor/unit and/or counseling patient: Coding Level of Care Code None Diagnoses Acute GI bleeding K92.2 Recurrent deep vein thrombosis (DVT) I82.409 Gastric bypass status for obesity Z98.84
[2023-07-23] MEDS: ZOLPIDEM TARTRATE 10 MG TAB PO PRN (22:25)
[2023-07-24] MEDS: D5W AND LACTATED RINGERS 1,000 ML IV SCH ×2 (01:26→09:41)
[2023-07-24] MEDS: ONDANSETRON INJ 2 MG/ML 2 ML VIAL IV PRN ×5 (02:03→22:38)
[2023-07-24] MEDS: MoRPHine SULFATE 2 MG/ML CARP IV PRN ×5 (02:03→22:36)
[2023-07-24] MEDS: PANTOprazole 40 MG in DEXTROSE 5% MINI-B 100 ML IV SCH ×3 (04:15→17:20)
[2023-07-24 06:58] LABS: Basophils # (auto) 0.04 K/uL (0.00-0.20); Basophils % (auto) 0.7 %; Eosinophils # (auto) 0.42 K/uL (0.00-0.50); Eosinophils % (auto) 7.3 %; Hematocrit (blood only) 34.3 % (37.0-47.0); Hemoglobin 11.6 g/dl (12.0-16.0); Immature Granulocytes # (auto) 0.01 K/uL (0.01-0.20); Immature Granulocytes % (auto) 0.2 %; Lymphocytes # (auto) 1.24 K/uL (1.20-3.40); Lymphocytes % (auto) 21.5 %; Mean Corpuscular Hemoglobin 33.9 pg (25.0-34.0); Mean Corpuscular Hgb Conc 33.8 g/dL (32.0-36.0); Mean Corpuscular Volume 100.3 fL (80.0-100.0); Mean Platelet Volume 9.5 fL (9.4-12.4); Monocytes # (auto) 0.55 K/uL (0.11-0.59); Monocytes % (auto) 9.5 %; Neutrophils # (auto) 3.52 K/uL (1.40-6.50); Neutrophils % (auto) 60.8 %; Platelet Count 384 K/uL (130-400); RDW Coefficient of Variation 14.4 % (11.5-14.5); RDW Standard Deviation 53.1 fL (36.4-46.3); Red Blood Count 3.42 M/uL (4.20-5.40); White Blood Count 5.78 K/ul (4.8-10.8)
[2023-07-24 07:19] LABS: BUN Creatinine Ratio 6.3 (10-20); Calcium 9.2 mg/dl (8.6-10.3); Creatinine Clr Calc Pharmacy 97.8 ml/min; Est GFR (African American) 120.4 ml/min; Est GFR (Non-African American) 103.9 ml/min; Potassium 3.9 mmol/L (3.5-5.1)
--- NOTE | 2023-07-24 09:28 | History & Physical Bridge Note ---
Date of Service July 24, 2023 History & Physical Bridge Note I have examined the patient, reviewed the History & Physical and in the interval since the performance of the History & Physical I have noted the following changes of clinical significance: no changes noted. she tells me she still has some ongoing nausea. no further emesis. She is still having epigastric pain rated 8/10. she feels about the same as she did yesterday. hgb 07/24/23 is 11.6. she denies any chest pain or shortness of breath. will plan for EGD today to further evaluate.
[2023-07-24] MEDS: NICOTINE 14 MG/24 HR PATCH TD SCH (10:15)
--- NOTE | 2023-07-24 11:17 | Anesthesiology Consultation ---
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 Jeff Aguilar MD Height/Weight Height: 5 ft 3 in Weight: 68 kg Allergies Allergy/AdvReac Type Severity Reaction Status Date / Time Iodinated Contrast Media AdvReac Hives Verified 07/23/23 07:21 Medications Home Medications Medication Instructions Recorded Confirmed Last Taken cyanocobalamin (vitamin B-12) 1,000 mcg IM MONTHLY 09/11/20 07/22/23 07/02/23 1,000 mcg/mL injection kit multivitamin 1 tab PO QAM 09/11/20 07/22/23 07/22/23 ondansetron HCl 8 mg tablet 8 mg PO Q12H PRN Nausea 09/11/20 07/22/23 Unknown pantoprazole 40 mg tablet,delayed 40 mg PO BID 09/11/20 07/22/23 07/22/23 release (Protonix) ropinirole 0.25 mg tablet 0.25 mg PO TID 09/11/20 07/22/23 07/22/23 sucralfate 100 mg/mL oral 15 ml PO TID 09/11/20 07/22/23 07/22/23 suspension (Carafate) trazodone 150 mg tablet 150 mg PO HS 09/11/20 07/22/23 08/21/22 zolpidem 10 mg tablet (Ambien) 10 mg PO HS 09/11/20 07/22/23 08/21/22 dicyclomine 20 mg tablet 20 mg PO Q6H PRN Abdominal Pain 09/19/20 07/22/23 Unknown #120 tabs acetaminophen 325 mg tablet 650 mg PO Q4H PRN Pain 07/22/21 07/22/23 Unknown prochlorperazine maleate 10 mg 10 mg PO QID PRN nausea and 08/14/22 07/22/23 Unknown tablet vomiting #14 tabs promethazine 12.5 mg tablet 12.5 mg PO TID PRN nausea and 08/29/22 07/22/23 Unknown vomiting #21 tabs lorazepam 0.5 mg tablet 1 mg PO TID PRN anxiety 07/22/23 07/22/23 Unknown pregabalin 200 mg capsule 200 mg PO BID 07/22/23 07/22/23 07/22/23 Active Medications Generic Name Dose Route Start Last Admin Trade Name Freq PRN Reason Stop Dose Admin Pantoprazole Sodium 40 mg/ 100 mls @ 20 mls/hr 07/22/23 15:15 07/24/23 09:42 Dextrose IV 08/21/23 15:14 8 mg/hr Q5H ADAN 20 mls/hr Administration 8 MG/HR Dextrose/Lactated Ringer's 1,000 mls @ 125 mls/hr 07/22/23 17:15 07/24/23 09:41 D5w And Lactated Ringers IV 08/21/23 17:14 125 mls/hr .Q8H ADAN Administration Miscellaneous 1 each 07/23/23 08:59 07/23/23 07:43 Remove Nicoderm Patch N/A 08/22/23 08:58 1 each DAILY@0859 ADAN Administration Morphine Sulfate 2 mg 07/23/23 09:41 07/24/23 09:48 Morphine Sulfate 2 Mg/Ml Carp IV 08/05/23 18:39 2 mg Q3H PRN Administration Pain Nicotine 14 mg 07/22/23 22:30 07/24/23 10:15 Nicotine 14 Mg/24 Hr Patch TD 08/21/23 22:29 14 mg DAILY ADAN Administration Ondansetron HCl 4 mg 07/22/23 18:40 07/24/23 11:09 Ondansetron Inj 2 Mg/Ml 2 Ml Vial IV 08/21/23 18:39 4 mg Q4H PRN Administration Nausea Zolpidem Tartrate 10 mg 07/23/23 19:56 07/23/23 22:25 Zolpidem Tartrate 10 Mg Tab PO 08/22/23 19:55 10 mg HS PRN Administration Sleep Past Medical History Medical History Acute GI bleeding Anxiety Gastritis Upper GI bleeding Vitamin B12 deficiency Iron deficiency anemia Acute epigastric pain Hematemesis Abdominal pain Encounter for pre-operative examination Fever Acute blood loss anemia Ulcer at site of surgical anastomosis following bypass of stomach RLS (restless legs syndrome) History of deep venous thrombosis or pulmonary embolus DVT prophylaxis Depression Peptic ulcer disease Insomnia Anemia Past Family History Family History Other Adopted Past Surgical History Surgical History Gastric bypass status for obesity History of appendectomy History of cholecystectomy Social History Smoking Status: Current every day smoker tobacco type: cigarettes Smoking cigarettes per day: 10 Do You Dip or Chew Tobacco: No Hx Alcohol Use: No Hx Substance Use: No substance use type: does not use Physical Exam Vital Signs Last Vital Signs Temp 36.7 C 07/24/23 07:50 Pulse 70 07/24/23 07:50 Resp 18 07/24/23 07:50 BP 97/65 L 07/24/23 07:50 Pulse Ox 96 07/24/23 07:50 O2 Del Method Room Air 07/24/23 07:50 Testing Laboratory Results 07/24/23 06:27 07/24/23 06:27 PT 10.3 Seconds (9.0-12.0) 07/22/23 15:07 INR 0.9 (0.9-1.1) 07/22/23 15:07 APTT 20 Seconds (21-31) L 07/22/23 15:07 Blood Type A Negative 07/22/23 15:20 Antibody Screen NEGATIVE 07/22/23 15:20 Electrocardiogram Date: 07/22/23 ID:[id number] 22-JUL-2023 14:38:39 [facility]-EDSTAT ROUTINE RETRIEVAL Sinus rhythm with short OK Nonspecific ST and T wave abnormality Abnormal ECG When compared with ECG of 22-AUG-2022 14:53, No significant change was found 25mm/s10mm/[id number] 243CID: [id number] by: REFERRED SELF Unconfirmed Vent. rate 80 BPM OK interval 110 ms QRS duration 82 ms QT/QTc 398/459 ms P-R-T axes 53 49 29
[2023-07-24 11:38] LABS: Amphetamines+Metham, Urine Neg (Neg); Barbiturates, Urine Neg (Neg); Benzodiazepine, Urine Neg (Neg); Cocaine, Urine Neg (Neg); MDMA (Ecstacy), Urine Neg (Neg); Marijuana, Urine Neg (Neg); Methadone, Urine Neg (Neg); Opiate, Urine Pos (Neg); Phencyclidine, Urine Neg (Neg)
--- NOTE | 2023-07-24 14:05 | GI REPORT ---
Patient Name: Whitney Kevin Procedure Date: 07/24/2023 1:45 PM Date of : 1970 Admit Type: Inpatient Age: 53 Gender: Female Attending MD: Marc Aguilar MD, Procedure: Upper GI endoscopy Providers: Marc Aguilar MD Referring MD: Abraham Lloyd Indications: Epigastric abdominal pain, Hematemesis Medicines: Monitored Anesthesia Care Complications: No immediate complications. Estimated blood loss: None. Estimated Blood Loss: Estimated blood loss: none. Procedure: Pre-Anesthesia Assessment: - Prior Anticoagulants: The patient has taken no anticoagulant or antiplatelet agents. - ASA Grade Assessment: II - A patient with mild systemic disease. After obtaining informed consent, the endoscope was passed under direct vision. Throughout the procedure, the patient's blood pressure, pulse, and oxygen saturations were monitored continuously. The Endoscope was introduced through the mouth, and advanced to the second part of duodenum. The upper GI endoscopy was accomplished without difficulty. The patient tolerated the procedure well. Findings: The examined esophagus was normal. The anastomosis was normal as well as remnant stomach. no evidence of blood nor ulcers. The examined jejunum was normal. Impression: - Normal esophagus. - Normal anastomosis. - Normal examined jejunum. - No specimens collected. Recommendation: - [facility]. - Advance diet as tolerated today. Marc Aguilar MD 07/24/2023 2:05:11 PM This report has been signed electronically. Note Initiated On: 07/24/2023 1:45 PM Number of Addenda: 0 I attest to the content of the Intraoperative Record and orders documented therein, exceptions below {[id number]}
--- NOTE | 2023-07-24 14:40 | Anesthesiology Progress Note ---
Date of Service July 24, 2023 Anesthesia Post Procedure Vital Signs Vital Signs: Temp Pulse Pulse Pulse Resp BP BP 07/24/23 14:30 69 14 07/24/23 14:15 67 14 07/24/23 14:08 76 12 07/24/23 12:51 36.6 C 75 20 07/24/23 11:58 36.9 C 73 18 98/67 L 07/24/23 07:50 36.7 C 70 18 07/24/23 07:30 68 07/24/23 03:00 36.8 C 76 21 127/74 07/23/23 23:00 37.1 C 104 H 23 121/67 07/23/23 22:00 82 07/23/23 20:23 07/23/23 19:00 37.4 C 77 21 125/87 07/23/23 15:32 36.8 C 69 17 138/77 BP BP Pulse Ox Pulse Ox O2 Del Method O2 Del Method 07/24/23 14:30 106/61 97 Room Air 07/24/23 14:15 81/34 L 07/24/23 14:08 73/42 L 96 Room Air 07/24/23 12:51 101/64 97 Room Air 07/24/23 11:58 97 Room Air 07/24/23 07:50 97/65 L 96 Room Air 07/24/23 07:30 07/24/23 03:00 97 Room Air 07/23/23 23:00 98 Room Air 07/23/23 22:00 07/23/23 20:23 97 Room Air 07/23/23 19:00 99 Room Air 07/23/23 15:32 96 Room Air Pain Intensity Abdomen: Pain Intensity: 7 Transfer of Care Handoff Completed per policy Notes Mental Status: alert / awake / arousable and participated in evaluation Patient Amnestic to Procedure: Yes Nausea / Vomiting: adequately controlled Pain: adequately controlled Airway Patency, RR, SpO2: stable & adequate BP & HR: stable & adequate Hydration State: stable & adequate Anesthetic Complications: no major complications apparent
--- NOTE | 2023-07-24 17:45 | Hospitalist Progress Note ---
Date of Service July 24, 2023 Assessment & Plan (1) Acute GI bleeding: Plan: Upper GI bleeding Last admitted and discharged 08/29/2022 for similar. Was found to have a normal EGD without bleeding or ulcers during that admission 08/2022 Eamon-en-Y bypass 20 years prior - CT-A/P obtained in ER without contrast due to poor IV access per report. This does not show acute abnormalities or free air. Hemoglobin on admission 12.5->10.7->11.1 Hypotensive 94/65, due to hypovolemia, volume resuscitated consent for transfusion completed at bedside - PPI bolus + gtt continued GI consulted for EGD, no anastamotic ulcer noted Acute blood loss anemia (2) Recurrent deep vein thrombosis (DVT): Plan: History of DVT/PE Multiple PE/DVT in the past, last was 2019 Takes eliquis for R lung PE which occurred after surgery 10 years ago, has had multiple clots since then. Most recent was a DVT of the LEFT leg. Last PE was approximately 1 year ago. Has been on warfarin, but is nto able to travel to a coumadin clinic and transitioned to DOAC as a result. Her leg DVT was when her eliquis was dose reduced, has never had a DVT when on full dose eliquis. Pulmonary embolism 1 year ago was in the setting of her revision/limb resection and holding the eliquis temporarily. Eliquis held, restart 07/25/23 (3) Gastric bypass status for obesity: Plan: History of Eamon-en-Y bypass 20 years ago, subsequent gastric revision 10 years ago for anastomotic ulcers, and small pouch revision approximately 1 year ago. Sx was performed in [place] at [facility], Dr. France. Plan DVT PPx: Full code prophylaxis contraindicated in the setting of acute GI bleed, SCDs, restart eliquis CODE STATUS: Full code Admission and Anticipated Discharge Date Admission Date: July 22, 2023 Subjective pt still with left side radicular pain no viable rash pain out of proportion to finding pt has no other current issues Physical Exam Physical Exam: awake and alert, not pale, mild distress cardiac regular not tachy lungs clear abd soft, epigastric tenderness , no rashes seen but area is particularly tender Results & Data Results & Data Vital Signs (Past 12 Hours) Vital Signs Temp Pulse Pulse Pulse Resp BP BP 07/24/23 16:48 07/24/23 14:43 64 16 07/24/23 14:30 69 14 07/24/23 14:15 67 14 81/34 L 07/24/23 14:08 76 12 73/42 L 07/24/23 12:51 97.9 F 75 20 101/64 07/24/23 11:58 98.4 F 73 18 98/67 L 07/24/23 07:50 98.1 F 70 18 97/65 L 07/24/23 07:30 68 BP Pulse Ox O2 Del Method 07/24/23 16:48 144/78 H 07/24/23 14:43 123/60 97 Room Air 07/24/23 14:30 106/61 97 Room Air 07/24/23 14:15 07/24/23 14:08 96 Room Air 07/24/23 12:51 97 Room Air 07/24/23 11:58 97 Room Air 07/24/23 07:50 96 Room Air 07/24/23 07:30 Laboratory Results review cbc review chemsitry PG Care Time/CCT Total # of Minutes Spent Total Time Spent with Patient: Total time spent is greater than 50% in coordination of care (as documented) at patient's floor/unit and/or counseling patient: Coding Level of Care Code 63945 SUB INP/OBS CARE 3/50MIN Diagnoses Acute GI bleeding K92.2 Recurrent deep vein thrombosis (DVT) I82.409 Gastric bypass status for obesity Z98.84
[2023-07-24] MEDS: oxyCODONE HCL IR 5 MG TAB (IMMEDIATE RELEASE) PO PRN (18:26)
[2023-07-24] MEDS: traZODone HCL 50 MG TAB PO SCH (19:51)
[2023-07-24] MEDS: ZOLPIDEM TARTRATE 10 MG TAB PO PRN (19:51)
[2023-07-24] MEDS: rOPINIRole HCL 0.25 MG TABLET PO SCH (19:52)
[2023-07-24] MEDS: PANTOprazole 40 MG TAB PO SCH (19:52)
[2023-07-24] MEDS: PREGABALIN 100 MG CAP PO SCH (20:22)
[2023-07-25] MEDS: ONDANSETRON INJ 2 MG/ML 2 ML VIAL IV PRN ×2 (03:37→19:58)
[2023-07-25] MEDS: MoRPHine SULFATE 2 MG/ML CARP IV PRN ×2 (03:37→11:20)
[2023-07-25 06:43] LABS: Basophils # (auto) 0.03 K/uL (0.00-0.20); Basophils % (auto) 0.4 %; Eosinophils % (auto) 5.1 %; Hematocrit (blood only) 35.7 % (37.0-47.0); Hemoglobin 11.4 g/dl (12.0-16.0); Immature Granulocytes # (auto) 0.03 K/uL (0.01-0.20); Immature Granulocytes % (auto) 0.4 %; Lymphocytes # (auto) 1.06 K/uL (1.20-3.40); Lymphocytes % (auto) 13.4 %; Mean Corpuscular Hemoglobin 33.3 pg (25.0-34.0); Mean Corpuscular Hgb Conc 31.9 g/dL (32.0-36.0); Mean Corpuscular Volume 104.4 fL (80.0-100.0); Mean Platelet Volume 9.5 fL (9.4-12.4); Monocytes # (auto) 0.61 K/uL (0.11-0.59); Monocytes % (auto) 7.7 %; Neutrophils # (auto) 5.76 K/uL (1.40-6.50); Platelet Count 359 K/uL (130-400); RDW Coefficient of Variation 14.4 % (11.5-14.5); RDW Standard Deviation 55.2 fL (36.4-46.3); Red Blood Count 3.42 M/uL (4.20-5.40); White Blood Count 7.89 K/ul (4.8-10.8)
[2023-07-25 07:14] LABS: Calcium 9.1 mg/dl (8.6-10.3); Potassium 3.8 mmol/L (3.5-5.1)
[2023-07-25 07:20] LABS: BUN Creatinine Ratio 9.9 (10-20); Est GFR (African American) 114.3 ml/min; Est GFR (Non-African American) 98.6 ml/min
[2023-07-25] MEDS: PANTOprazole 40 MG TAB PO SCH ×2 (08:47→19:59)
[2023-07-25] MEDS: NICOTINE 14 MG/24 HR PATCH TD SCH (08:47)
[2023-07-25] MEDS: rOPINIRole HCL 0.25 MG TABLET PO SCH ×3 (08:47→19:59)
[2023-07-25] MEDS: PREGABALIN 100 MG CAP PO SCH ×2 (08:50→19:58)
[2023-07-25] MEDS: oxyCODONE HCL IR 5 MG TAB (IMMEDIATE RELEASE) PO PRN ×3 (08:50→22:35)
--- NOTE | 2023-07-25 15:52 | XRay Report ---
XR ribs LT min 2V w CXR1V CLINICAL HISTORY: Left lower anterior rib pain. COMPARISON: Chest radiograph August 22, 2022. FINDINGS: There is no pneumothorax or pleural effusion. Linear left basilar densities represent atel ectasis. No consolidation is present. There are no acute left rib fractures. Cardiac size is normal. Mediastinal contours are normal. Pulmonary vascularity is normal. IMPRESSION: No pneumothorax. No acute left rib fractures. ACT 112: Negative or not required by law. Electronically signed by: Harish Ch M.D. 07/25/2023 3:50 PM
--- NOTE | 2023-07-25 19:50 | Hospitalist Progress Note ---
Date of Service July 25, 2023 Assessment & Plan (1) Acute GI bleeding: Plan: Upper GI bleeding no bleeding stigmata seen on endoscopy Last admitted and discharged 08/29/2022 for similar. Was found to have a normal EGD without bleeding or ulcers during that admission 08/2022 Eamon-en-Y bypass 20 years prior - CT-A/P obtained in ER without contrast due to poor IV access per report. This does not show acute abnormalities or free air. 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 Most recent was a DVT of the LEFT leg. Last PE was approximately 1 year ago. Has been on warfarin, but is nto able to travel to a coumadin clinic and transitioned to DOAC as a result. Her leg DVT was when her eliquis was dose reduced, has never had a DVT when on full dose eliquis. Pulmonary embolism 1 year ago was in the setting of her revision/limb resection and holding the eliquis temporarily. Eliquis held, restart 07/25/23 (3) Gastric bypass status for obesity: Plan: History of Eamon-en-Y bypass 20 years ago, subsequent gastric revision 10 years ago for anastomotic ulcers, and small pouch revision approximately 1 year ago. Sx was performed in [place] at [facility], Dr. France. (4) Chest wall pain: Plan: Chest pain and proportion of physical symptoms is pleuritic and reproducible. Consider musculoskeletal. Other outside chance could be zoster. Escalating doses of oxycodone but hesitant to consider giving oxycodone for home dosing. Plan DVT PPx: Full code prophylaxis contraindicated in the setting of acute GI bleed, SCDs, restart eliquis CODE STATUS: Full code Admission and Anticipated Discharge Date Admission Date: July 22, 2023 Subjective Challenging patient Frequently sleeping upon awakening complains of left pleuritic rib pain. No signs of superficial zoster and rib x-rays are without fracture Pain seems out of proportion to physical sign it is reproducible and pleuritic Attempting oxycodone treatment consider surveillance for zoster consider topical capsaicin Physical Exam Physical Exam: Sleeping claims to have pain upon awakening Card exam is regular lungs are clear Left chest wall examined point tenderness along the tracking of her rib no tenderness to skin if rib is not touched and no rash Results & Data Results & Data Vital Signs (Past 12 Hours) Vital Signs Temp Pulse Pulse Resp BP Pulse Ox O2 Del Method 07/25/23 16:32 98.6 F 77 16 108/61 95 Room Air 07/25/23 14:00 72 07/25/23 12:33 98.6 F 73 17 113/61 95 Room Air 07/25/23 08:41 98.6 F 81 16 133/67 95 Room Air Diagnostic Findings Reviewed CBC reviewed chemistry Ordered and reviewed rib films no fracture PG Care Time/CCT Total # of Minutes Spent Total Time Spent with Patient: Total time spent is greater than 50% in coordination of care (as documented) at patient's floor/unit and/or counseling patient: Coding Level of Care Code 04457 SUB INP/OBS CARE 2/35MIN Diagnoses Acute GI bleeding K92.2 Recurrent deep vein thrombosis (DVT) I82.409 Gastric bypass status for obesity Z98.84 Chest wall pain R07.89
[2023-07-25] MEDS: ACETAMINOPHEN 500 MG TAB PO SCH (19:57)
[2023-07-25] MEDS: ZOLPIDEM TARTRATE 10 MG TAB PO PRN (19:57)
[2023-07-25] MEDS: traZODone HCL 50 MG TAB PO SCH (19:58)
[2023-07-26] MEDS: MoRPHine SULFATE 2 MG/ML CARP IV PRN (02:39)
[2023-07-26] MEDS ORDERED: LACTATED RINGER'S 1,000 ML IV ONE (09:04)
[2023-07-26] MEDS: rOPINIRole HCL 0.25 MG TABLET PO SCH ×3 (09:25→19:35)
[2023-07-26] MEDS: PANTOprazole 40 MG TAB PO SCH ×2 (09:25→19:35)
[2023-07-26] MEDS: ACETAMINOPHEN 500 MG TAB PO SCH ×3 (09:25→19:35)
[2023-07-26] MEDS: NICOTINE 14 MG/24 HR PATCH TD SCH (09:26)
[2023-07-26 09:32] LABS: Codeine Urine NEGATIVE ng/mL (<50); Hydrocodone Urine NEGATIVE ng/mL (<50); Hydromor Urine NEGATIVE ng/mL (<50); Morphine Urine 1590 ng/mL (<50); Norhydrocodone Conf Ur NEGATIVE ng/mL (<50); Noroxycodone Urine NEGATIVE ng/mL (<50); Oxycodone Urine NEGATIVE ng/mL (<50); Oxymorph Urine NEGATIVE ng/mL (<50)
[2023-07-26] MEDS: PREGABALIN 100 MG CAP PO SCH ×2 (09:43→19:34)
[2023-07-26 10:20] LABS: Basophils # (auto) 0.03 K/uL (0.00-0.20); Basophils % (auto) 0.5 %; Eosinophils # (auto) 0.31 K/uL (0.00-0.50); Eosinophils % (auto) 5.4 %; Hematocrit (blood only) 40.2 % (37.0-47.0); Hemoglobin 12.9 g/dl (12.0-16.0); Immature Granulocytes # (auto) 0.01 K/uL (0.01-0.20); Immature Granulocytes % (auto) 0.2 %; Lymphocytes # (auto) 0.95 K/uL (1.20-3.40); Lymphocytes % (auto) 16.6 %; Mean Corpuscular Hemoglobin 33.1 pg (25.0-34.0); Mean Corpuscular Hgb Conc 32.1 g/dL (32.0-36.0); Mean Corpuscular Volume 103.1 fL (80.0-100.0); Mean Platelet Volume 9.3 fL (9.4-12.4); Monocytes # (auto) 0.43 K/uL (0.11-0.59); Monocytes % (auto) 7.5 %; Neutrophils % (auto) 69.8 %; Platelet Count 361 K/uL (130-400); RDW Coefficient of Variation 14.3 % (11.5-14.5); RDW Standard Deviation 54.1 fL (36.4-46.3); White Blood Count 5.73 K/ul (4.8-10.8)
[2023-07-26 10:34] LABS: BUN Creatinine Ratio 14.3 (10-20); Calcium 9.5 mg/dl (8.6-10.3); Creatinine Clr Calc Pharmacy 86.5 ml/min; Est GFR (African American) 116.3 ml/min; Est GFR (Non-African American) 100.3 ml/min; Potassium 4.3 mmol/L (3.5-5.1)
[2023-07-26] MEDS: DICLOFENAC SOD 1% GEL 100 GM TUBE EXT SCH ×3 (13:54→19:33)
[2023-07-26] MEDS: MAGNESIUM SULFATE / D5W 1 GM/100 ML BAG IV SCH ×4 (13:54→19:34)
[2023-07-26] MEDS: LACTATED RINGER'S 1,000 ML IV SCH (14:15)
[2023-07-26] MEDS: oxyCODONE HCL IR 5 MG TAB (IMMEDIATE RELEASE) PO PRN ×2 (16:43→23:38)
--- NOTE | 2023-07-26 18:44 | Hospitalist Progress Note ---
Date of Service July 26, 2023 Assessment & Plan (1) Hypotension: Plan: Very odd clinically because she is totally asymptomatic, and while she does appear a bit dehydrated, she absolutely does not appear hypovolemic. She is not tachycardic (and not on a beta-nicolette to suppress a tachycardic response)maintenance fluids and follow. She otherwise looks well, but given the numbers with her blood pressure we will keep her on PCU for now and continue to follow. Labs and otherwise show a reassuring clinical picture. (2) Acute GI bleeding: Plan: Upper GI bleeding no bleeding stigmata seen on endoscopy Last admitted and discharged 08/29/2022 for similar. Was found to have a normal EGD without bleeding or ulcers during that admission 08/2022in discussion with patient she had an ulcer in the blind pouch that we are unable to scope here [facility] Eamon-en-Y bypass 20 years prior - CT-A/P obtained in ER without contrast due to poor IV access per report. This does not show acute abnormalities or free air. Acute blood loss anemia has now stabilized/improved (3) Recurrent deep vein thrombosis (DVT): Plan: History of DVT/PE Multiple PE/DVT in the past, last was 2019 Requires chronic anticoagulationgiven that her hemoglobin has improved, and her blood pressureswhile variabledo not at all appear to be blood lossresume Eliquis today. (4) Gastric bypass status for obesity: Plan: History of Eamon-en-Y bypass 20 years ago, subsequent gastric revision 10 years ago for anastomotic ulcers, and small pouch revision approximately 1 year ago. Sx was performed in [place] at [facility], Dr. France. (5) Chest wall pain: Plan: Musculoskeletalwith concomitant rib cage somatic dysfunction. OMT as above. Voltaren gel, IV magnesium, taught stretches. Suspect it started from abdominal contractions when vomiting. Plan DVT PPx: Full code prophylaxis contraindicated in the setting of acute GI bleed, SCDs, restart eliquis CODE STATUS: Full code Admission and Anticipated Discharge Date Admission Date: July 22, 2023 Subjective Called due to blood pressure approximately 67/40. Promptly came to the bedsidepatient sitting in bed in no distress. Denies any complaintsno lightheadedness or weakness. Notes that she was up to the bathroom earlier (urine is saved in a hat and is dark) patient notes that she was able to get up and walk over to the toilet and back without any lightheadedness or weakness as well. No chest pain or shortness of breath. Rib pain persists. No further notable GI bleeding of any type. Review of Systems Review of Systems: All systems reviewed & are unremarkable except as noted in HPI & below Physical Exam Physical Exam: In general she is awake and alert pleasant fatigued appearing but otherwise in no acute distress. HEENT normocephalic atraumatic mucous membranes moist. Breathing unlabored no accessory muscle use good effort. Skin shows no rashes no pallor or icterus. Neuro without focal deficits. Left-sided lower ribs9 and 10tender to palpation, decreased range of motion, stuck in exhalation compared to the rightbalanced ligamentous tensionimproved somesome improvement in range of motion, hard to tell if any improvement in pain. Taught patient stretches afterwards. Results & Data Results & Data Vital Signs (Past 12 Hours) Vital Signs Temp Pulse Pulse Resp BP BP Pulse Ox 07/26/23 15:00 88/62 L 98 07/26/23 12:00 98.1 F 77 18 119/62 97 07/26/23 10:39 66 07/26/23 08:00 98.2 F 88 18 115/77 96 O2 Del Method 07/26/23 15:00 Room Air 07/26/23 12:00 Room Air 07/26/23 10:39 07/26/23 08:00 Room Air PG Care Time/CCT Total # of Minutes Spent Total Time Spent with Patient: Total time spent is greater than 50% in coordination of care (as documented) at patient's floor/unit and/or counseling patient: Coding Level of Care Code 68519 SUB INP/OBS CARE 3/50MIN Diagnoses Hypotension I95.9 Acute GI bleeding K92.2 Recurrent deep vein thrombosis (DVT) I82.409 Gastric bypass status for obesity Z98.84 Chest wall pain R07.89 CPT Codes Musculoskeletal - Musculoskeletal: [address] 1-2 Body regions ([id number])
[2023-07-26] MEDS: traZODone HCL 50 MG TAB PO SCH (19:35)
[2023-07-26] MEDS: ZOLPIDEM TARTRATE 10 MG TAB PO PRN (19:35)
[2023-07-26] MEDS: APIXABAN 2.5 MG TAB PO SCH (19:36)
[2023-07-26] MEDS ORDERED: LIDOCAINE 5% 1 PATCH TD SCH (21:00)
[2023-07-27] MEDS: LACTATED RINGER'S 1,000 ML IV SCH (03:37)
[2023-07-27] MEDS ORDERED: SODIUM CHLORIDE 0.9% 500 ML IV ONE (03:50)
[2023-07-27] MEDS ORDERED: LACTATED RINGER'S 500 ML IV ONE (03:54)
[2023-07-27 06:34] LABS: Basophils # (auto) 0.02 K/uL (0.00-0.20); Basophils % (auto) 0.4 %; Eosinophils # (auto) 0.28 K/uL (0.00-0.50); Hematocrit (blood only) 33.8 % (37.0-47.0); Hemoglobin 10.9 g/dl (12.0-16.0); Immature Granulocytes # (auto) 0.02 K/uL (0.01-0.20); Immature Granulocytes % (auto) 0.4 %; Lymphocytes # (auto) 0.97 K/uL (1.20-3.40); Lymphocytes % (auto) 20.8 %; Mean Corpuscular Hemoglobin 33.4 pg (25.0-34.0); Mean Corpuscular Hgb Conc 32.2 g/dL (32.0-36.0); Mean Corpuscular Volume 103.7 fL (80.0-100.0); Mean Platelet Volume 9.4 fL (9.4-12.4); Monocytes # (auto) 0.41 K/uL (0.11-0.59); Monocytes % (auto) 8.8 %; Neutrophils # (auto) 2.96 K/uL (1.40-6.50); Neutrophils % (auto) 63.6 %; Platelet Count 300 K/uL (130-400); RDW Coefficient of Variation 13.8 % (11.5-14.5); RDW Standard Deviation 53.3 fL (36.4-46.3); Red Blood Count 3.26 M/uL (4.20-5.40); White Blood Count 4.66 K/ul (4.8-10.8)
[2023-07-27 06:54] LABS: BUN Creatinine Ratio 21.4 (10-20); Calcium 8.4 mg/dl (8.6-10.3); Creatinine Clr Calc Pharmacy 107.8 ml/min; Est GFR (African American) 125.1 ml/min; Potassium 3.9 mmol/L (3.5-5.1)
--- NOTE | 2023-07-27 08:35 | Hospitalist Progress Note ---
Date of Service July 27, 2023 Assessment & Plan (1) Hypotension: Plan: Very odd clinically because she is totally asymptomatic, and while she does appear a bit dehydrated, she absolutely does not appear hypovolemic. She is not tachycardic (and not on a beta-nicolette to suppress a tachycardic response)maintenance fluids and follow. She otherwise looks well, but given the numbers with her blood pressure we will keep her on PCU for now and continue to follow. Labs and otherwise show a reassuring clinical picture. (2) Acute GI bleeding: Plan: Upper GI bleeding no bleeding stigmata seen on endoscopy Last admitted and discharged 08/29/2022 for similar. Was found to have a normal EGD without bleeding or ulcers during that admission 08/2022in discussion with patient she had an ulcer in the blind pouch that we are unable to scope here [facility] Eamon-en-Y bypass 20 years prior - CT-A/P obtained in ER without contrast due to poor IV access per report. This does not show acute abnormalities or free air. Acute blood loss anemia has now stabilized/improved (3) Recurrent deep vein thrombosis (DVT): Plan: History of DVT/PE Multiple PE/DVT in the past, last was 2019 Requires chronic anticoagulationgiven that her hemoglobin has improved, and her blood pressureswhile variabledo not at all appear to be blood lossresume Eliquis today. (4) Gastric bypass status for obesity: Plan: History of Eamon-en-Y bypass 20 years ago, subsequent gastric revision 10 years ago for anastomotic ulcers, and small pouch revision approximately 1 year ago. Sx was performed in [place] at [facility], Dr. France. (5) Chest wall pain: Plan: Musculoskeletalwith concomitant rib cage somatic dysfunction. OMT as above. Voltaren gel, IV magnesium, taught stretches. Suspect it started from abdominal contractions when vomiting. Plan DVT PPx: Full code prophylaxis contraindicated in the setting of acute GI bleed, SCDs, restart eliquis CODE STATUS: Full code Admission and Anticipated Discharge Date Admission Date: July 22, 2023 Results & Data Results & Data Vital Signs (Past 12 Hours) Vital Signs Temp Pulse Pulse Pulse Resp BP BP 07/27/23 06:09 71 85/56 L 07/27/23 04:25 71 14 07/27/23 04:25 82/52 L 07/27/23 04:00 71 11 L 07/27/23 03:00 97.9 F 61 11 L 77/43 L 07/26/23 22:22 98.1 F 74 18 BP Pulse Ox O2 Del Method 07/27/23 06:09 07/27/23 04:25 07/27/23 04:25 07/27/23 04:00 07/27/23 03:00 100 07/26/23 22:22 89/54 L 95 Room Air PG Care Time/CCT Total # of Minutes Spent Total Time Spent with Patient: Total time spent is greater than 50% in coordination of care (as documented) at patient's floor/unit and/or counseling patient: Coding Diagnoses Hypotension I95.9 Acute GI bleeding K92.2 Recurrent deep vein thrombosis (DVT) I82.409 Gastric bypass status for obesity Z98.84 Chest wall pain R07.89
[2023-07-27] MEDS: PANTOprazole 40 MG TAB PO SCH (09:12)
[2023-07-27] MEDS: DICLOFENAC SOD 1% GEL 100 GM TUBE EXT SCH ×2 (09:12→13:55)
[2023-07-27] MEDS: APIXABAN 2.5 MG TAB PO SCH (09:12)
[2023-07-27] MEDS: NICOTINE 14 MG/24 HR PATCH TD SCH (09:12)
[2023-07-27] MEDS: rOPINIRole HCL 0.25 MG TABLET PO SCH ×2 (09:12→15:46)
[2023-07-27] MEDS: ACETAMINOPHEN 500 MG TAB PO SCH ×2 (09:13→13:55)
[2023-07-27] MEDS: oxyCODONE HCL IR 5 MG TAB (IMMEDIATE RELEASE) PO PRN (09:19)
[2023-07-27] MEDS: PREGABALIN 100 MG CAP PO SCH (09:19)
--- NOTE | 2023-07-27 17:05 | Discharge Summary ---
Date of Service July 27, 2023 Admission HPI Per Admitting Provider September is a 53-year-old female with past medical history of Eamon-en-Y surgery and anastomotic ulcers, PE on Eliquis who presents with recurrent hematemesis worse in the past 24 hours with 18-24 episodes of hematemesis and upper abdominal pain. She was seen in the ER 08/14/2022 and 08/21/2022 for similar symptoms. This morning she saw [facility] who referred her to the ER for continued symptoms and concern for near syncopal episode. No NSAID use. Last dose of Eliquis was 08/21 Patient reports that since Sunday she has had black bowel movements mixed with bright red bowel movements similar to prior GI bleeds. She reports that she has had progressive epigastric pain which is worse today compared to Sunday with some radiation to her left flank similar to prior GI bleeds. She has been very nauseous with some dry heaving/retching and has had a few (89) episodes of tablespoon sized emesis this morning. She reports she has some lightheadedness and dizziness earlier in the day, at time of bedside evaluation she reports she feels improved with fluids. She is currently nauseous has not vomited in the last few hours. She reports that on Sunday she did have some bright red blood and has had small amounts of mixed melena and it since then. She was short of breath on exertion, she denies shortness of breath at rest at time of reassessment but endorses overall fatigue. Denies chest pain/chest pressure. Denies syncope. 1 episode of chest pain earlier, this have resolved. No neck or jaw pain. Eamon-en-y bipass 20 years ago, then sequently 2 partial gastrectomy to remove the ulcers with bipass revision 10 years ago. Worked well at the time. Was performed in [place] at [facility], Dr. [place]. No other medical problems. 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 Most recent was a DVT of the LEFT leg. Last PE was approximately 1 year ago. Has been on warfarin, but is nto able to travel to a coumadin clinic. Her leg DVT was when her eliquis was dose reduced, has never had a DVT when on full dose eliquis. Pulmonary embolism 1 year ago was in the setting of her revision/limb resection and holding the eliquis temporarily. Allergic to IV contrast. Hives, no lip swelling. She has tolerated contrast with full pretreatment protocol in the past Medical History: Reviewed Medications: Reviewed Surgical History: Reviewed Family history: Reviewed Allergies: Reviewed Social History: Reviewed Code Status: Full Principal Diagnosis non cardiac chest wall pain anemia not from acute blood loss Discharge Exam awake and alert, no shortness of breath cardiac is regular, chest pain remains reproducible lungs are clear Discharge Data Allergies Allergy/AdvReac Type Severity Reaction Status Date / Time Iodinated Contrast Media AdvReac Hives Verified 07/23/23 07:21 Consultations 07/22/23 16:41 ED Decision to Admit Stat 07/22/23 22:07 Consult Gastroenterology Routine Procedures Performed Operation Date: 07/24/23 17:30 Actual Procedures p Esophagogastroduodenoscopy - Marc Aguilar MD Ordered Studies 07/22/23 14:49 CT abd pelvis wo con Stat Hospital Course (1) Hypotension: asymptomatic, pt states usually lower, although orthostatic she remains asymptomatic will not make any changes to medications at this time could also be influenced by her chronic pain medicines (2) Acute GI bleeding: initial concern for Upper GI bleeding, no bleeding stigmata seen on endoscopy, upper GI was ruled out Eamon-en-Y bypass 20 years prior - CT-A/P obtained in ER without contrast due to poor IV access per report. This does not show acute abnormalities or free air. Acute blood loss anemia ruled out, anemia maybe from dietary issues and chronic disease (3) Recurrent deep vein thrombosis (DVT): History of DVT/PE Multiple PE/DVT in the past, last was 2019 Requires chronic anticoagulationgiven that her hemoglobin has improved, and her blood pressureswhile variabledo not at all appear to be blood lossresume Eliquis (4) Gastric bypass status for obesity: History of Eamon-en-Y bypass 20 years ago, subsequent gastric revision 10 years ago for anastomotic ulcers, and small pouch revision approximately 1 year ago. Sx was performed in [place] at [facility], Dr. [place]. (5) Chest wall pain: Musculoskeletalwith concomitant rib cage somatic dysfunction. OMT as above.. Suspect it started from abdominal contractions when vomiting. pt feels improved and wants to go home Plan CODE STATUS: Full code Total Time Total Time Spent Total Time Spent (In Minutes): It required greater than 30 minutes to prepare this patient for discharge. Discharge Plan Discharge Items Patient Disposition: Home - Self-Care Reason For Visit: GIB Discharge Diagnosis: left rib pain anemia Activity: Resume your previous activity Non-emergency contact: Primary Care Provider Call non-emergency contact if: your symptoms worsen Follow-up/Referrals: Jb Coello, [employer] [facility] [Primary Care Provider] - 08/01/23 11:00 am Diet: Regular Addtl Attending Provider Instructions: please rest and recover, follow up with your family doctor Pending Studies at Discharge: No Stand-Alone Forms: My [facility] [place], Smoking Cessation Medications and DC Order Prescriptions: New Eliquis 2.5 mg Tablet 2.5 mg PO BID Qty: 60 0RF oxycodone 5 mg Tablet 5 mg PO Q6H PRN (Reason: pain) Qty: 10 0RF Continued acetaminophen 325 mg tablet 650 mg PO Q4H PRN (Reason: Pain) multivitamin Tablet 1 tab PO QAM sucralfate [Carafate] 100 mg/mL Suspension 15 ml PO TID ondansetron HCl 8 mg Tablet 8 mg PO Q12H PRN (Reason: Nausea) ropinirole 0.25 mg Tablet 0.25 mg PO TID pantoprazole [Protonix] 40 mg Tablet,Delayed Release (Dr/Ec) 40 mg PO BID trazodone 150 mg Tablet 150 mg PO HS cyanocobalamin (vitamin B-12) 1,000 mcg/mL Kit 1,000 mcg IM MONTHLY Rx Instructions: USUALLY THE Sunday OF THE MONTH. dicyclomine 20 mg Tablet 20 mg PO Q6H PRN (Reason: Abdominal Pain) Qty: 120 0RF prochlorperazine maleate 10 mg tablet 10 mg PO QID PRN (Reason: nausea and vomiting) Qty: 14 0RF promethazine 12.5 mg tablet 12.5 mg PO TID PRN (Reason: nausea and vomiting) Qty: 21 0RF lorazepam 0.5 mg tablet 1 mg PO TID PRN (Reason: anxiety ) pregabalin 200 mg capsule 200 mg PO BID zolpidem [Ambien] 10 mg Tablet 10 mg PO HS Qty: 10 0RF Discharge Orders: Discharge Order (Routine); Ordered 07/27/23 Ordered By: Abraham Lloyd Admission Data Admit Date/Time: 07/22/23 20:23 Attending Provider: Abraham Lloyd Admit Provider: Endy Lin Primary Care Provider: Jb Coello Other Providers: Endy Lin; Lewis Boyd Other Interventions: Discharge Summary Assessment (RN) Last Done: 07/27/23 13:03 Coding Level of Care Code 32819 INP/OBS DISCH >30 MIN Diagnoses Hypotension I95.9 Acute GI bleeding K92.2 Recurrent deep vein thrombosis (DVT) I82.409 Gastric bypass status for obesity Z98.84 Chest wall pain R07.89
--- NOTE | 2023-07-28 07:43 | Electrocardiogram Report ---
Test Reason : Blood Pressure : / mmHG Vent. Rate : 080 BPM Atrial Rate : 080 BPM P-R Int : 110 ms QRS Dur : 082 ms QT Int : 398 ms P-R-T Axes : 053 049 029 degrees QTc Int : 459 ms Sinus rhythm Nonspecific ST and T wave abnormality Abnormal ECG When compared with ECG of 22-AUG-2022 14:53, No significant change was found Confirmed by Yanick Duran ([id number]) on 07/28/2023 7:43:16 AM Referred By: REFERRED SELF Confirmed By:Tuan Duran
== END 2023-07-27 16:00 | disposition home or self-care (01) | DRG 378 ==
LOC: ED 14:10 → INTOOBSV 20:23 → SUATTDRO 20:23 → 4W 20:23 → 2E 07-23 18:28